=== PATIENT | male | born 1975 | race American Indian/Alaskan Native ===

== ENCOUNTER 2020-10-23 01:21 | Emergency (ER) | payer MEDICAID, SELFPAY ==
[2020-10-23 01:38] VITALS: BP 129/93; PULSE 88; RESP 16; TEMP 36.7; O2SAT 97; BMI 27.3
[2020-10-23 02:00] VITALS: BP 138/96; PULSE 69; RESP 16; TEMP 36.4; O2SAT 99
--- NOTE | 2020-10-23 02:04 | ED.GENADULT ---
HPI - General Adult General Chief complaint: General Medical Stated complaint: Bodyaches Time Seen by Provider: 10/23/20 01:50 Source: patient Mode of arrival: ambulatory Limitations: no limitations History of Present Illness HPI narrative: 44-year-old male who presents emergency department for evaluation of severe joint pain. He states that he joints in his body hurt and the pain is severe. He states the pain is a constant, burning sensation. He denies any redness or swelling of his joints. He states that he has had associated nausea and feels short of breath but denied fever, chills, cough or abdominal pain. He has not had any diarrhea, loss of sense of taste or smell. Patient states that he was tested for COVID at [facility] but he does not know the result. The patient is homeless. He has several suit cases with him. The patient has a very flat affect and answers questions in a very unusual way. He appears to be slightly paranoid especially when asked about whether not he has psychiatric illness, he states he would rather not disclose his psychiatric history to me. Related Data Allergies Allergy/AdvReac Type Severity Reaction Status Date / Time No Known Allergies Allergy Unverified 05/06/20 19:08 [No Known Allergies*] Review of Systems Review of Systems: Yes all other systems are reviewed and are negative [facility] Past Medical History [facility] Narrative: The patient denies having any medical problems but appears to be slightly paranoid and is evasive about psychiatric history. He states that he does smoke cigarettes daily, he drinks alcohol occasionally, he denies drug use. Medical History (Updated 10/23/20 @ 03:19 by Rupesh Fitzgerald MD) No known health problems Social History Social History Advance Directives: No Physical Exam Vital Signs: Vital Signs: Last Vital Signs Temp 97.6 F 10/23/20 02:00 Pulse 69 10/23/20 02:00 Resp 16 10/23/20 02:00 BP 138/96 H 10/23/20 02:00 Pulse Ox 99 10/23/20 02:00 Body Mass Index 27.3 Const: Other: Patient has a flat affect, answers questions slowly and he appears to be paranoid. General: cooperative Orientation/consciousness: oriented to person and oriented to place HENMT: Head: Yes normal to inspection, Yes normocephalic and Yes atraumatic Ears: external ears normal General nose exam: Normal external nose present Face and sinus: Yes normal facial exam Mouth: Normal oral and palatal mucosa present Throat: Yes posterior oropharynx normal Eyes: Periorbital: periorbital findings normal Eyelids: Yes eyelids normal Conjunctivae: conjunctivae normal Sclerae: sclerae normal Corneas: corneas normal Pupils: Equal, round and reactive pupils present Direct Ophthalmoscopy: normal light reflex Neck: Neck: Yes full ROM, Yes no lymphadenopathy, Yes no meningeal signs, Yes trachea midline and Yes supple Chest: Chest palpation & inspection: normal inspection of the chest and normal palpation of entire chest wall Resp: Effort & Inspection: normal respiratory effort and able to speak in complete sentences Auscultation: clear to auscultation bilaterally Cardio: Rate: regular rate Rhythm: regular rhythm Heart sounds: S1 normal heart sound present, S2 normal heart sound present and no murmurs GI: Inspection: Yes normal to inspection Palpation (GI): Soft to palpation, nontender, no guarding, not rigid and No hepatosplenomegaly present : General: Yes no CVA tenderness Back/Spine/Pelvis: Back: no CVA tenderness Cervical Spine: normal cervical lordosis Thoracic/Lumbar Spine: thoracic and lumbar spine normal to inspection Skin: Lesions: no lesions Rashes: no rashes Wounds: no wounds Neuro: General: oriented to person, oriented to place and no meningeal signs Cranial nerves: Yes CN's II-XII intact bilaterally and Yes Equal, round and reactive pupils present Cognition (Neuro): normal cognition Motor exam (neuro): 5/5 motor strength present throughout Extrem: General: Yes normal to inspection and Yes full ROM Psych: Appearance: well kempt Affect: Other affect and mood findings present (Flat affect) Attitude: cooperative Thought content: other (Patient has a strange affect and answers questions in a very unusual way) Course Course Course Narrative: 44-year-old male who presents emergency department for evaluation of joint pain x1 week, patient has no unusual affect and appears to be paranoid in answers questions in a very evasive way. I will check blood work on this patient and do a COVID-19 swab on him. 0318: The patient's CBC was normal, sedimentation rate was not elevated, chemistries revealed an elevated AST and ALT otherwise unremarkable. COVID-19 swab was negative. At this time I do not have a clear etiology for the patient's symptoms. He was advised to take ibuprofen Tylenol for his pain and he was discharged home. Medical Decision Making Lab Data Result diagrams: 10/23/20 02:28 10/23/20 02:28 Labs: Lab Results 10/23/20 10/23/20 10/23/20 Range/Units 02:28 02:28 02:28 WBC 8.3 (4.8-10.8) X10*3/uL RBC 4.95 (4.60-5.80) X10*6/uL Hgb 15.6 (14.0-18.0) g/dl Hct 46.7 (42-52) % MCV 94.3 (80-98) fL MCH 31.5 (27.0-33.0) pg MCHC 33.4 (31.0-36.0) g/dl RDW 12.8 (11.0-16.0) % Plt Count 227 (160-400) X10*3/uL MPV 10.3 (9.4-12.4) fL Immature Gran % (Auto) 0.2 (0.0-0.4) % Neut % (Auto) 63.5 (45-73) % Lymph % (Auto) 24.2 (20-40) % [place] % (Auto) 9.0 (2-11) % Eos % (Auto) 2.5 (0-4) % Baso % (Auto) 0.6 (0-2) % Lymph # (Auto) 2.0 (1.2-4.9) X10*3/uL [place] # (Auto) 0.8 (0.1-1.2) X10*3/uL Eos # (Auto) 0.2 (0.0-0.4) X10*3/uL Baso # (Auto) 0.1 (0.0-0.2) X10*3/uL Abs Immat Gran (auto) 0.02 (0.00-0.03) X10*3/uL Absolute Neuts (auto) 5.3 (2.0-8.3) X10*3/uL Absolute Nucleated RBC 0.000 (0.0-0.012) X10*3/uL Nucleated RBC % (auto) 0.0 (0.0-0.2) /100WBC ESR 2 (0-15) MM/HR Sodium 139 (135-145) mmol/L Potassium 4.0 (3.3-5.1) mmol/L Chloride 104 (96-108) mmol/L Carbon Dioxide 24 (22-29) mmol/L Anion Gap 15 (12-20) BUN 14 (9-16) mg/dL Creatinine 0.74 (0.5-1.4) mg/dL Estim Creat Clear Calc 127.3 Estimated GFR > 60 Random Glucose 104 (60-115) mg/dL Calcium 8.8 (8.4-10.2) mg/dL Total Bilirubin 0.3 (0.0-1.0) mg/dL AST 65 H (5-37) U/L ALT 121 H (0-40) U/L Alkaline Phosphatase 77 (39-117) U/L Total Protein 6.9 (6.5-8.0) g/dL Albumin 4.3 (3.5-5.0) g/dL COVID-19 (ANANT) (Negative) COVID-19 Clin Com 10/23/20 Range/Units 02:29 WBC (4.8-10.8) X10*3/uL RBC (4.60-5.80) X10*6/uL Hgb (14.0-18.0) g/dl Hct (42-52) % MCV (80-98) fL MCH (27.0-33.0) pg MCHC (31.0-36.0) g/dl RDW (11.0-16.0) % Plt Count (160-400) X10*3/uL MPV (9.4-12.4) fL Immature Gran % (Auto) (0.0-0.4) % Neut % (Auto) (45-73) % Lymph % (Auto) (20-40) % [place] % (Auto) (2-11) % Eos % (Auto) (0-4) % Baso % (Auto) (0-2) % Lymph # (Auto) (1.2-4.9) X10*3/uL [place] # (Auto) (0.1-1.2) X10*3/uL Eos # (Auto) (0.0-0.4) X10*3/uL Baso # (Auto) (0.0-0.2) X10*3/uL Abs Immat Gran (auto) (0.00-0.03) X10*3/uL Absolute Neuts (auto) (2.0-8.3) X10*3/uL Absolute Nucleated RBC (0.0-0.012) X10*3/uL Nucleated RBC % (auto) (0.0-0.2) /100WBC ESR (0-15) MM/HR Sodium (135-145) mmol/L Potassium (3.3-5.1) mmol/L Chloride (96-108) mmol/L Carbon Dioxide (22-29) mmol/L Anion Gap (12-20) BUN (9-16) mg/dL Creatinine (0.5-1.4) mg/dL Estim Creat Clear Calc Estimated GFR Random Glucose (60-115) mg/dL Calcium (8.4-10.2) mg/dL Total Bilirubin (0.0-1.0) mg/dL AST (5-37) U/L ALT (0-40) U/L Alkaline Phosphatase (39-117) U/L Total Protein (6.5-8.0) g/dL Albumin (3.5-5.0) g/dL COVID-19 (ANANT) Negative (Negative) COVID-19 Clin Com See Note Discharge Plan Discharge Clinical Impression: Joint pain Qualifiers: Joint pain location: unspecified Qualified Code(s): M25.50 - Pain in unspecified joint Additional Instructions: Your laboratory evaluation was unremarkable. Your COVID-19 test was negative. At this time I do not have a clear cause for your joint pain, it may be related to arthritis. Take ibuprofen 200 mg pills, 3 pills every 6 hours as needed for pain. Take Tylenol (acetaminophen) 500 mg pills, 2 pills every 4 to 6 hours as needed for pain. Follow-up with your doctor in 2 days. Please return to the emergency department if your symptoms get worse or if you develop any symptoms that are concerning to you.
[2020-10-23] MEDS: Acetaminophen 325 MG TABLET 975 MG PO (02:14)
[2020-10-23 02:33] LABS: MANUAL DIFF FLAG NO
[2020-10-23 02:35] LABS: Basophils Absolute Auto 0.1 X10*3/uL (0.0-0.2); Basophils Percent Auto 0.6 % (0-2); Eosinophils Absolute Auto 0.2 X10*3/uL (0.0-0.4); Eosinophils Percent Auto 2.5 % (0-4); Hematocrit 46.7 % (42-52); Hemoglobin 15.6 g/dl (14.0-18.0); Imm Gran Abs Auto 0.02 X10*3/uL (0.00-0.03); Imm Gran Pct Auto 0.2 % (0.0-0.4); Lymphocytes Percent Auto 24.2 % (20-40); Mean Corpuscular HGB Conc 33.4 g/dl (31.0-36.0); Mean Corpuscular Hemoglobin 31.5 pg (27.0-33.0); Mean Corpuscular Volume 94.3 fL (80-98); Mean Platelet Volume 10.3 fL (9.4-12.4); Monocytes Absolute Auto 0.8 X10*3/uL (0.1-1.2); Neutrophils Absolute Auto 5.3 X10*3/uL (2.0-8.3); Neutrophils Percent Auto 63.5 % (45-73); Platelet Count 227 X10*3/uL (160-400); Red Blood Count 4.95 X10*6/uL (4.60-5.80); Red Cell Distribution Width 12.8 % (11.0-16.0); White Blood Count 8.3 X10*3/uL (4.8-10.8)
[2020-10-23 02:48] LABS: COVID-19 Test Negative (Negative)
[2020-10-23 03:07] LABS: Erythrocyte Sedimentation Rate 2 MM/HR (0-15)
[2020-10-23 03:10] LABS: Alanine Aminotransferase 121 U/L (0-40); Albumin Level 4.3 g/dL (3.5-5.0); Alkaline Phosphatase 77 U/L (39-117); Anion Gap 15 (12-20); Aspartate Amino Transferase 65 U/L (5-37); Bilirubin Total 0.3 mg/dL (0.0-1.0); Blood Urea Nitrogen 14 mg/dL (9-16); Calcium 8.8 mg/dL (8.4-10.2); Carbon Dioxide 24 mmol/L (22-29); Chloride 104 mmol/L (96-108); Creatinine Clr Calc Pharmacy 127.3; Estimated Glomerular Filt Rate > 60; Glucose Random 104 mg/dL (60-115); Sodium 139 mmol/L (135-145); Total Protein 6.9 g/dL (6.5-8.0)
== END 2020-10-23 03:30 | disposition home or self-care (01) ==
PROVIDERS: Emergency Provider Emergency Medicine Emergency Medical Services
DX: M25.50 Pain in unspecified joint (principal); Z20.822 Contact with and (suspected) exposure to COVID-19; Z59.0 Homelessness
CPT/HCPCS: 36415; 80053; 85025; 85652; 87635; 99283

== ENCOUNTER 2021-07-20 04:22 | Emergency (ER) | payer MEDICAID, SELFPAY ==
[2021-07-20 04:37] VITALS: BP 129/65; PULSE 106; RESP 18; TEMP 36.7; O2SAT 98; BMI 25.7
--- NOTE | 2021-07-20 05:29 | PC.NURSE ---
pt given a hot cup of coffee and a sandwhich and snack.
--- NOTE | 2021-07-20 06:06 | ED.GENADULT ---
HPI - General Adult General Chief complaint: General Medical Stated complaint: right hand lac/inj Time Seen by Provider: 07/20/21 06:06 Source: patient Mode of arrival: ambulatory History of Present Illness HPI narrative: 45-year-old male is homeless presents with superficial, minor laceration to right middle finger without erythema or edema and denies any fever chills inability to move the digit. Related Data Allergies Allergy/AdvReac Type Severity Reaction Status Date / Time No Known Allergies Allergy Verified 07/20/21 04:37 [No Known Allergies*] Review of Systems Review of Systems: Pertinent positives and negatives as stated in HPI 10 point review of systems is otherwise negative. PMFSH Past Medical History Source: nursing notes reviewed Medical History No known health problems Social History Social History Advance Directives: No Advance Directives Information Provided: Yes Physical Exam Vital Signs: Vital Signs: Last Vital Signs Temp 98.1 F 07/20/21 04:37 Pulse 106 H 07/20/21 04:37 Resp 18 07/20/21 04:37 BP 129/65 07/20/21 04:37 Pulse Ox 98 07/20/21 04:37 Body Mass Index 25.7 VITAL SIGNS: Reviewed. GENERAL: Well developed, well nourished, in no acute distress. HEAD: Normocephalic/atraumatic EYES: PERRLA, EOMI OROPHARYNX: no oral lesions noted, posterior pharynx clear LUNGS: Normal breath sounds. No adventitious sounds or accessory muscle use. SpO2<98> CARDIOVASCULAR: Regular rate and rhythm without noted murmurs ABDOMEN: Soft, non-tender, non-distended with bowel sounds. RIGHT HAND: Small, minor, superficial laceration to edge middle finger nailbed without surrounding erythema/induration, all fingers are warm with good capillary refill NEUROLOGIC: Alert and oriented x 4. Course Course Course Narrative: 45-year-old male with history and clinical presentation consistent with minor injury that does not require either radiographic testing or intervention with sutures and has no evidence to demonstrate infection. Patient's feet were also checked found to be warm with good capillary refill and no evidence of skin breakdown, blisters. Patient received food while here in the emergency and then he was discharged in stable condition. Discharge Plan Discharge Clinical Impression: Superficial laceration Patient Disposition: Home, Self-Care Instructions: Finger Laceration (ED) Additional Instructions: Return to the ER for worsening symptoms.
== END 2021-07-20 06:53 | disposition home or self-care (01) ==
PROVIDERS: Emergency Provider Student in an Organized Health Care Education/Training Program
DX: S61.212A Laceration without foreign body of right middle finger without damage to nail, initial encounter (principal); X58.XXXA Exposure to other specified factors, initial encounter; Y93.9 Activity, unspecified; Y92.9 Unspecified place or not applicable; Y99.9 Unspecified external cause status
CPT/HCPCS: 99283

== ENCOUNTER 2022-06-09 15:16 | Emergency (ER) | payer MEDICAID, SELFPAY ==
--- NOTE | ~2022-06-09 | XR_ITS ---
EXAMINATION: XR CHEST CLINICAL INFORMATION: Cough. COMPARISON: None TECHNIQUE: 2 views of the chest were obtained. FINDINGS: Normal appearance of the cardiomediastinal structures. No effusions or pneumothoraces. Normal pattern of pulmonary vasculature. No focal pulmonary consolidation. XR/XR chest 2V IMPRESSION: No acute cardiopulmonary abnormalities.
[2022-06-09 15:44] VITALS: BP 128/79; PULSE 71; RESP 18; TEMP 36.9; O2SAT 99; BMI 25.7
--- NOTE | 2022-06-09 17:41 | ED_ITS ---
HPI - General Adult General Chief complaint: Upper Respiratory Symptoms Stated complaint: nasal congestion Time Seen by Provider: 06/09/22 17:32 Source: patient History of Present Illness HPI narrative: This is a 46-year-old male who complains of nasal congestion and cough for 2-3 days. The patient does admit to smoking, though not heavily. He denies shortness of breath. He is a somewhat vague historian. He denies any sore throat, headache, abdominal pain, nausea vomiting. Related Data Allergies Allergy/AdvReac Type Severity Reaction Status Date / Time No Known Allergies Allergy Verified 07/20/21 04:37 [No Known Allergies*] Review of Systems Review of Systems: Yes all other systems are reviewed and are negative Constitutional: Constitutional: Reports as per HPI and Denies fever(s) Eyes: Eyes: Reports as per HPI and Reports no additional eye complaints ENT: Reports system reviewed and no additional complaints, except as documented, Reports as per HPI, Reports nasal congestion, Reports nasal discharge and Denies sore throat Cardiovascular: Cardiovascular: Reports as per HPI, Denies chest pain and Denies dyspnea Respiratory: Respiratory: Reports as per HPI, Reports cough and Denies dyspnea Gastrointestinal: Gastrointestinal: Reports as per HPI, Denies abdominal pain, Denies diarrhea and Denies vomiting Genitourinary: Genitourinary: Reports as per HPI, Denies hematuria, Denies dysuria and Denies urinary frequency Musculoskeletal: Musculoskeletal: Reports no additional musculoskeletal complaints and Denies numbness Integumentary/Breasts: Skin/Breast: Reports as per HPI and Denies rash Neurologic: Reports as per HPI, Denies focal weakness and Denies numbness Psychiatric: Psychiatric: Reports no additional psychiatric complaints and Reports as per HPI Endocrine: Endocrine: Reports no additional endocrine complaints and Reports as per HPI Hematologic/Lymphatic: Hematologic/Lymphatic: Reports no additional hematologic/lymphatic complaints, Reports as per HPI and Reports other (No peripheral edema) [facility] [place] Past Medical History Medical History No known health problems Social History Social History Advance Directives: No Advance Directives Information Provided: Yes Physical Exam ED Vital Signs: Vital Signs - 24 hr 06/09/22 15:44 Temperature 98.4 F Pulse Rate 71 Respiratory Rate 18 Blood Pressure 128/79 Pulse Oximetry 99 Oxygen Delivery Method Room Air BMI result Body Mass Index 25.7 Const General: no acute distress Orientation/consciousness: patient oriented x3 HENMT Head: Yes normal to inspection General nose exam: Normal external nose present Mouth: moist mucous membranes Throat: Yes posterior oropharynx normal, Yes tonsils normal and Yes uvula midline Eyes Eyelids: Yes eyelids normal Conjunctivae: conjunctivae normal Pupils: Equal, round and reactive pupils present Neck Neck: Yes supple Resp Effort & Inspection: normal respiratory effort Auscultation: clear to auscultation bilaterally Cardio Rate: regular rate Rhythm: regular rhythm Heart sounds: S1 normal heart sound present, S2 normal heart sound present, no gallops, no murmurs and no rubs GI Inspection: No distended Palpation (GI): Soft to palpation and nontender Auscultation: normal bowel sounds Skin General skin exam: other (Warm and dry) Neuro General: patient oriented x3 and CN's II-XI intact bilaterally Cranial nerves: Yes Equal, round and reactive pupils present Extrem General: Yes no pedal edema Psych Affect: normal affect Attitude: cooperative Medical Decision Making [facility] [place] Narrative Medical decision making narrative: Patient with a likely viral syndrome, with URI symptoms and a cough. Chest x- ray negative. COVID and influenza negative. Patient can be treated symptomatically. Lab Data Lab results reviewed: Yes I reviewed the patient's lab results. Labs: Lab Results 06/09/22 06/09/22 Range/Units 17:32 17:32 COVID-19 (ANANT) Negative (Negative) COVID-19 Clin Com See Note Influenza Type A (CAROLYN) Negative (Negative) Influenza Type B (CAROLYN) Negative (Negative) Influenza A & B Note See Note Imaging Data Chest x-ray: My impression: No acute pathology. No infiltrate, normal cardiac silhouette. Discharge Plan Discharge Clinical Impression: Upper respiratory infection Patient Disposition: Home, Self-Care Instructions: Upper Respiratory Infection (ED) Additional Instructions: Your COVID test was negative, influenza test was negative, and your chest x-ray was normal. Use acetaminophen for pain. You can use [id number] cough medicine such as Robitussin DM for cough and cold symptoms Interventions: ED Discharge Assessment Last Done: 06/09/22 18:59 Discharge Date/Time: 06/09/22 19:00
[2022-06-09 17:55] LABS: COVID-19 Test Negative (Negative); IDNOW Serial# 16C4AD1C; Influenza A Negative (Negative); Influenza B2 Negative (Negative)
== END 2022-06-09 19:00 | disposition home or self-care (01) ==
PROVIDERS: Emergency Provider Emergency Medicine
DX: J06.9 Acute upper respiratory infection, unspecified (principal); R05.9 Cough, unspecified; Z20.822 Contact with and (suspected) exposure to COVID-19
CPT/HCPCS: 71046; 87502; 87635; 99282; 99283

== ENCOUNTER 2022-09-11 19:07 | Emergency (ER) | payer MEDICAID, SELFPAY ==
[2022-09-11 19:24] VITALS: BP 118/71; PULSE 58; RESP 18; TEMP 36.2; O2SAT 95; BMI 22.0
--- NOTE | 2022-09-11 19:24 | ED_ITS ---
HPI - General Adult General Stated complaint: missed Methadone dose Time Seen by Provider: 09/11/22 19:24 Source: patient Mode of arrival: ambulatory Limitations: no limitations History of Present Illness HPI narrative: 46 yo male with history of opioid use disorder on methadone, currently in a slow taper who presents to the ER after he missed his methadone dose today. He states his clinic was closed today due to the inclement weather. He feels uncomfortable and reports some anxiety. He reports some uncomfortable digestion today but denies N/V/D. No SOB or chest pain. He is going into a CSS program at [facility] tomorrow with plan to continue to taper off of methadone. last illicit drug use was 5 months ago. complaint: missed methadone dose Onset (ago): hour(s) Location: abdomen Radiation: non-radiation Severity: mild Quality: aching Relieving factors: none Exacerbating factors: none Associated symptoms: denies other symptoms Treatments prior to arrival: none Related Data Allergies Allergy/AdvReac Type Severity Reaction Status Date / Time No Known Allergies Allergy Verified 09/11/22 19:26 [No Known Allergies*] Review of Systems Review of Systems: Yes all other systems are reviewed and are negative PMFSH Past Medical History Medical History No known health problems Physical Exam ED Appearance: Alert. Oriented X3. No acute distress. HEENT: normal external inspection Neck: Normal inspection. CVS: Normal heart rate and rhythm. Respiratory: No respiratory distress. Breath sounds normal. Skin: Skin warm and dry. Normal skin color. Normal skin turgor. No rashes. Extremities: No lower extremity edema. Neuro: Oriented X 3. Grossly normal, nonfocal. normal speech and cognition Course Course Course Narrative: 46 yo male with history of opioid use disorder on methadone presents after he missed a dose today. Reports dose is 35 mg with plan to continue to taper off at [facility]. VSS. Patient is appropriate in triage. Will dose 35 mg and provide last dose letter for verification purposes at his clinic tomorrow. Medical Decision Making Differential Diagnosis Differential Diagnoses: The differential diagnosis associated with the presentation includes opioid use disorder, polysubstance abuse, opioid withdrawal, IVDA, anxiety, gastroenteritis External Record Review External record reviewed: Outpatient record and Prior outpatient labs Prescription Management I considered prescription management with: Other methadone x1 here Chronic Conditions Patient?s care impacted by: Other (substance abuse ) Critical Care Time Critical Care Time Critical Care Time: No Discharge Plan Discharge Clinical Impression: Opioid use disorder Patient Disposition: Home, Self-Care Instructions: Opioid Use Disorder (ED) Additional Instructions: You were last given your methadone dose of 35 mg on 09/11/22 at 7:30pm. Follow up with your clinic tomorrow.
[2022-09-11] MEDS: methADONE HCl 20 MG/2 ML ORAL.CONC 35 MG PO (19:31)
== END 2022-09-11 19:37 | disposition home or self-care (01) ==
LOC: HO.ED 19:37
PROVIDERS: Emergency Provider Emergency Medicine
DX: F11.20 Opioid dependence, uncomplicated (principal)
CPT/HCPCS: 99282; 99283

== ENCOUNTER 2022-10-03 08:25 | Emergency (ER) | payer MEDICAID, SELFPAY ==
[2022-10-03 08:32] VITALS: BP 151/75; PULSE 68; RESP 18; TEMP 36.2; O2SAT 98; BMI 22.1
[2022-10-03 09:23] LABS: IDNOW Serial# 9DB6401D; Influenza A Negative (Negative); Influenza B2 Negative (Negative)
[2022-10-03 09:37] LABS: COVID-19 Test Negative (Negative); IDNOW Serial# 08D9AD1C
--- NOTE | 2022-10-03 09:40 | ED_ITS ---
HPI - URI/Sore Throat General Chief Complaint: Upper Respiratory Symptoms Stated Complaint: Fatigue/Concerned about blood sugar Time Seen by Provider: 10/03/22 09:39 Source: patient Mode of arrival: ambulatory Limitations: no limitations History of Present Illness HPI Narrative: 46 yo male presenting to the ER from home for evaluation of new onset of headaches, sinus pressure, runny nose and body aches that started this morning when he woke up at 8am. He felt fine when he went to bed last night except for some fatigue. He denies any chest pain, SOB, cough, N/V/D or abdominal pain. MD elicited complaint: rhinorrhea, nasal congestion and sinus pain Onset (ago): hour(s) Consistency: constant Severity: moderate Description of mucous: clear and watery Able to tolerate fluids by mouth: Yes Exacerbating factors: nothing Relieving factors: nothing Associated symptoms: chills, myalgias, headache, rhinorrhea and nasal congestion Treatments prior to arrival: none Related Data Allergies Allergy/AdvReac Type Severity Reaction Status Date / Time No Known Allergies Allergy Verified 10/03/22 08:35 [No Known Allergies*] Review of Systems Review of Systems: Yes all other systems are reviewed and are negative [facility] Past Medical History Medical History No known health problems Social History Social History Advance Directives: No Advance Directives Information Provided: Yes Physical Exam Vital Signs: Vital Signs: Last Vital Signs Temp 97.1 F 10/03/22 08:32 Pulse 68 10/03/22 08:32 Resp 18 10/03/22 08:32 BP 151/75 H 10/03/22 08:32 Pulse Ox 98 10/03/22 08:32 O2 Del Method 10/03/22 08:32 BMI result Body Mass Index 22.1 Appearance: Alert. Oriented X3. No acute distress. Eyes: Pupils equal, round and reactive to light. ENT: Pharynx normal. Normal tonsil, uvula midline. normal nares, clear nasal discharge Neck: Normal inspection. Neck supple. No LAD. CVS: Normal heart rate and rhythm. Pulses normal. Respiratory: No respiratory distress. Breath sounds normal. Skin: Skin warm and dry. Normal skin color. Normal skin turgor. No rashes. Extremities: No lower extremity edema. Neuro: Oriented X 3. nonfocal. Course Course Course Narrative: 46 yo male presenting for evaluation of URI symptoms that started this morning. VSS and physical exam is benign. COVID and Flu are negative. Doubt bacterial sinusitis. Hold off on abx and have him start OTC decongestants and cold/flu meds. Discussed symptomatic management of viral illnesses. Stable for d/c home. Medical Decision Making Differential Diagnosis Differential Diagnoses: The differential diagnosis associated with the presenta tion includes sinusitis, viral syndrome, COVID, Flu, RSV, less likely pneumonia, bronchitis Lab Data MDM Lab Attestation statement: I reviewed the patient's lab results. negative viral swabs Labs: Lab Results 10/03/22 10/03/22 Range/Units 08:37 08:37 COVID-19 (ANANT) Negative (Negative) COVID-19 Clin Com See Note Influenza Type A (CAROLYN) Negative (Negative) Influenza Type B ([facility]) Negative (Negative) Influenza A & B Note See Note External Record Review External record reviewed: Outpatient record, Prior outpatient labs and Prior outpatient radiology Prescription Management I considered prescription management with: Antibiotic doubt sinusitis given acute onset, hold off on abx for now Critical Care Time Critical Care Time Critical Care Time: No Discharge Plan Discharge Clinical Impression: Viral URI with cough Patient Disposition: Home, Self-Care Instructions: Viral Syndrome (ED) Additional Instructions: You tested negative for COVID and Influenza. Your symptoms are due to another viral illness. Treatment is rest and supportive care - take over the counter cold/flu medications as needed for your symptoms. Take motrin and tylenol as needed for headaches and fevers. Rest and stay hydrated. Drink plenty of water. Follow up with your doctor If you develop new or worsening symptoms call 911 or come back to the ER for further evaluation. Stand Alone Forms: Work/School Release Interventions: ED Discharge Assessment Last Done: 10/03/22 10:00 Discharge Date/Time: 10/03/22 10:03
--- NOTE | 2022-10-03 09:45 | PC.NURSE ---
c/o cold symptoms. No resp distress at this time. Appears congested. no audible cough. COVID/FLU negative. awaiting to be seen by provider.
== END 2022-10-03 10:03 | disposition home or self-care (01) ==
PROVIDERS: Emergency Provider Emergency Medicine
DX: J06.9 Acute upper respiratory infection, unspecified (principal); Z20.822 Contact with and (suspected) exposure to COVID-19; Z20.828 Contact with and (suspected) exposure to other viral communicable diseases; Z79.899 Other long term (current) drug therapy
CPT/HCPCS: 87502; 87635; 99282; 99283

== ENCOUNTER 2022-10-08 19:17 | Inpatient (IN) | payer MEDICAID, OTHER, SELFPAY ==
[2022-10-08 20:11] VITALS: BP 110/68; PULSE 58; RESP 16; TEMP 36.7; O2SAT 99; BMI 21.0
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
[2022-10-08] MEDS: LORazepam 1 MG TABLET PO (21:07)
[2022-10-08 21:49] LABS: COVID-19 Test Negative (Negative); IDNOW Serial# 6674DD1D
[2022-10-08 23:13] LABS: Appearance Urine Cloudy; Color Urine Yellow; Glucose Urine UA Negative (Negative); Leukocyte Esterase Urine Negative (Negative); Nitrite Urine Negative (Negative); UMIC TRIGGER UACC YES; Urine Blood Negative (Negative); Urine Ketones Negative (Negative); Urine Protein 100 (2+) mg/dL (Neg-Trace)
[2022-10-08 23:14] LABS: Bacteria Urine None Seen (None Seen); Calcium Oxalate Crystals Urine Present; WBC Urine 0-5 /HPF (0-5)
[2022-10-08] MEDS: Nicotine 21 MG PATCH.TD24 TRANSDERMA (23:28)
--- NOTE | 2022-10-08 23:37 | PC.NURSE ---
This nurse took over at 23:00. Nursing assessment 23:42: Pt's Nu[place], and cardiac assessment was completed. Pt denies being SI/HI at the time of the assessment. Pt V/S are stable, pt's labs is being worked on due to pt is hard stick. Pt has been medicated as order by the [facility]. Please referral to the worklist for further information. KRISTIN Polo
[2022-10-08 23:45] VITALS: BP 115/76; PULSE 67; RESP 16; TEMP 36.7; O2SAT 96
--- NOTE | 2022-10-09 | ECG_ITS ---
Test Reason : CHECK QT INTERVAL Blood Pressure : / mmHG Vent. Rate : 076 BPM Atrial Rate : 076 BPM P-R Int : 146 ms QRS Dur : 076 ms QT Int : 372 ms P-R-T Axes : 035 085 060 degrees QTc Int : 418 ms Normal sinus rhythm Normal ECG No previous ECGs available Referred By: Chetan Magallon Electronically Signed By:SHAYAN WONG
[2022-10-09 00:11] LABS: Basophils Percent Auto 0.3 % (0-2); Hemoglobin 14.4 g/dl (14.0-18.0); Imm Gran Abs Auto 0.02 X10*3/uL (0.00-0.03); Imm Gran Pct Auto 0.2 % (0.0-0.4); PLT CLUMP 1; Red Cell Distribution Width 13.2 % (11.0-16.0); SCAN SMEAR FLAG 1
[2022-10-09 00:13] LABS: Eosinophils Absolute Auto 0.1 X10*3/uL (0.0-0.4); Eosinophils Percent Auto 0.8 % (0-4); Hematocrit 43.4 % (42.0-52.0); Lymphocytes Absolute Auto 3.1 X10*3/uL (1.2-4.9); Lymphocytes Percent Auto 32.4 % (20-40); MANUAL DIFF FLAG NO; Mean Corpuscular HGB Conc 33.2 g/dl (31.0-36.0); Mean Corpuscular Hemoglobin 30.5 pg (27.0-33.0); Mean Corpuscular Volume 91.9 fL (80.0-98.0); Mean Platelet Volume 11.1 fL (9.4-12.4); Monocytes Absolute Auto 0.9 X10*3/uL (0.1-1.2); Monocytes Percent Auto 9.6 % (2-11); Neutrophils Absolute Auto 5.5 x10*3/uL (2.0-8.3); Neutrophils Percent Auto 56.7 % (45-73); Red Blood Count 4.72 X10*6/uL (4.60-5.80); White Blood Count 9.7 X10*3/uL (4.8-10.8)
[2022-10-09 00:42] LABS: Alanine Aminotransferase 119 U/L (0-40); Albumin Level 3.7 g/dL (3.5-5.0); Alkaline Phosphatase 73 U/L (39-117); Anion Gap 12 (12-20); Aspartate Amino Transferase 61 U/L (5-37); Bilirubin Total 0.4 mg/dL (0.0-1.0); Blood Urea Nitrogen 14 mg/dL (9-16); Calcium 9.1 mg/dL (8.4-10.2); Carbon Dioxide 23 mmol/L (22-29); Chloride 108 mmol/L (96-108); Creatinine Clr Calc Pharmacy 106.4; Estimated Glomerular Filt Rate > 60; Ethanol < 10 mg/dL; Glucose Random 131 mg/dL (60-115); Magnesium 2.3 mg/dL (1.6-2.6); Potassium 4.4 mmol/L (3.3-5.1); Sodium 139 mmol/L (135-145); Total Protein 6.5 g/dL (6.5-8.0)
[2022-10-09 01:14] LABS: Amphetamine Screen Urine Not Detected (Not Detect); Barbiturates, Urine Not Detected (Not Detect); Benzodiazepines Screen Urine Not Detected (Not Detect); Cannabinoid Screen Urine Not Detected (Not Detect); Cocaine Screen Urine Not Detected (Not Detect); Fentanyl, urine POSITIVE (Not Detect); Opiate Screen Urine Not Detected (Not Detect); Phencyclidine Screen Urine Not Detected (Not Detect)
[2022-10-09] MEDS: LORazepam 1 MG TABLET PO (03:32)
--- NOTE | 2022-10-09 04:09 | PC.NURSE ---
Pt has been medicated as order by the [facility], and food was provided.
[2022-10-09 09:53] VITALS: BP 138/95; PULSE 72; RESP 12; TEMP 36.8; O2SAT 98
--- NOTE | 2022-10-09 12:35 | MHC.CARE ---
Pt seen by [facility]ARE and is meeting inpatient level of care, he is pending transfer to [facility].
--- NOTE | 2022-10-10 01:33 | PC.ADMIT ---
Pt is a 46yoM admitted from [facility] on CV for unspecified psychosis. Pt self presented to ED for evaluation stating he had used dopamine and subsequently collapsed after being administered narcan ; Utox +fentanyl. Pt is a poor historian, guarded, irritable, and disorganized. He states he is a and lost his papers and therefore cannot access his benefits. Pt is perseverative on the department of [email or web address] and the [place] Constitution, stating my name is in the Bill of Rights. If my finance and administration manager calls, tell him to get my documentation to the treasury and you can't give me a roommate, it's against the law . Pt was unable to participate in admission assessment due to mental status.
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
[2022-10-10 09:21] LABS: Alanine Aminotransferase 122 U/L (0-40); Albumin Level 3.6 g/dL (3.5-5.0); Alkaline Phosphatase 69 U/L (39-117); Anion Gap 10 (12-20); Aspartate Amino Transferase 70 U/L (5-37); Bilirubin Total 0.3 mg/dL (0.0-1.0); Blood Urea Nitrogen 16 mg/dL (9-16); Calcium 9.4 mg/dL (8.4-10.2); Carbon Dioxide 26 mmol/L (22-29); Chloride 107 mmol/L (96-108); Cholesterol 153 mg/dL; Creatinine Clr Calc Pharmacy 128.1; Estimated Glomerular Filt Rate > 60; Glucose Fasting 82 mg/dL (60-99); HDL Cholesterol 55 mg/dL; LDL Cholesterol Calculated 80 mg/dl; Potassium 4.4 mmol/L (3.3-5.1); Sodium 139 mmol/L (135-145); Total Protein 6.3 g/dL (6.5-8.0); Triglycerides 91 mg/dL
[2022-10-10 09:52] LABS: Folate 9.5 ng/mL (> or = 4.0); Thyroid Stimulating Hormone 0.55 uIU/mL (0.32-4.0); Vitamin B12 395 pg/mL (200-900)
--- NOTE | 2022-10-10 12:44 | PC.NURSE ---
Pt demanded to leave and asked what do I need to sign to get me out of here. RN explained that he can sign a 3-day notice which means he can be discharged within 3 business days if the doctor is in agreement. Pt then became agitated and said no I know it's not 3 days, it's 3 hours. I went to school you know. Pt is under the impression that he's supposed to leave within 3 hours, provider and SW aware.
[2022-10-10] MEDS: HaloperidoL 5 MG TABLET PO (14:35)
[2022-10-10] MEDS: Benztropine Mesylate 1 MG TABLET PO (14:36)
[2022-10-11] MEDS: HaloperidoL 5 MG TABLET PO (08:28)
[2022-10-11] MEDS: Benztropine Mesylate 1 MG TABLET PO (08:28)
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
[2022-10-11 09:23] VITALS: BP 158/94; PULSE 79; RESP 18; TEMP 36.8; O2SAT 99
== END 2022-10-11 10:55 | disposition home or self-care (01) | DRG 750 ==
LOC: HO.ED 10-09 12:29 → HO.PADLT16 10-09 18:47
PROVIDERS: Physician Assistant; Admitting Provider Social Worker; Emergency Provider Emergency Medicine; Visit Provider Social Worker
DX: F20.9 Schizophrenia, unspecified (principal); Z59.02 Unsheltered homelessness; Z20.822 Contact with and (suspected) exposure to COVID-19
CPT/HCPCS: 36415; 80053; 80061; 80307; 81001; 81003; 82077; 82607; 82746; 83735; 84443; 85025; 87635; 93005; 99285; S9485

== ENCOUNTER 2022-11-12 04:31 | Emergency (ER) | payer MEDICAID, SELFPAY ==
--- NOTE | ~2022-11-12 | XR_ITS ---
EXAMINATION: XR CHEST CLINICAL INFORMATION: Cough. Evaluate for aspiration pneumonia. COMPARISON: 06/09/2022 TECHNIQUE: 2 views of the chest were obtained. FINDINGS: Lungs are hypoinflated. No acute findings. No consolidation or pleural effusion. Cardiac silhouette is normal size and contour. Pulmonary vascular pattern is unremarkable. No acute skeletal abnormality. XR/XR chest 2V IMPRESSION: No evidence of aspiration pneumonia.
[2022-11-12 04:45] VITALS: BP 128/87; BP 136/93; PULSE 105; PULSE 97; RESP 10; O2SAT 98; O2SAT 99; BMI 22.8
[2022-11-12 04:52] LABS: Glucose, Whole Blood 114 mg/dL (60-115)
--- NOTE | 2022-11-12 04:54 | ED_ITS ---
HPI - Overdose General Chief Complaint: Overdose Stated Complaint: OPIOID OD,NARCAN GIVEN BY PD W/GOOD RESULT PER EMS Time Seen by Provider: 11/12/22 04:53 Source: EMS Mode of arrival: EMS Limitations: altered mental status History of Present Illness HPI Narrative: 46-year-old male presents with overdose of opioids. He was found with a needle in his arm. Sepsis was not entirely known. Found unresponsive. Patient was administered Narcan with improvement in symptoms. Upon transfer, he was hemodynamically stable, tachycardic. There is no blood sugar obtained. He demonstrated no focal neurologic deficits. Was able to maintain his airway. He mumbled apple throughout his ambulance ride. Patient is unable to provide history given medical condition Related Data Previous Rx's Medication Instructions Recorded benztropine 1 mg tablet 1 mg PO DAILY #30 tabs 10/11/22 haloperidol 5 mg tablet 5 mg PO DAILY #30 tabs 10/11/22 Allergies Allergy/AdvReac Type Severity Reaction Status Date / Time No Known Allergies Allergy Verified 10/03/22 08:35 [No Known Allergies*] [facility] Past Medical History Medical History No known health problems Social History Social History Household Members: None Housing: Homeless Do you presently have visiting nurse or other home services: No Unable to assess alcohol history related to: Unknown and Refusing to respond Patient Tobacco Use Status: Refuse Tobacco use screen Sexual orientation: Don't Know Physical Exam Vital Signs: Vital Signs: Last Vital Signs Pulse 99 11/12/22 05:36 Resp 14 11/12/22 05:36 BP 121/64 11/12/22 05:36 Pulse Ox 94 11/12/22 05:36 O2 Del Method Room Air 11/12/22 05:36 BMI result Body Mass Index 22.8 GEN: Well developed, alert HEENT: Normocephalic, atraumatic, normal external ears, nose appears normal, no oropharyngeal edema or exudates Eyes: Normal to appearance Neck: Supple, no lymphadenopathy Respiratory: no respiratory distress, clear to auscultation bilaterally Cardiovascular: Regular rate and rhythm, no murmurs rubs or gallops Abdomen: Soft, nontender, nondistended, no guarding, no rebound Back: No CVA tenderness Extremities: No clubbing cyanosis or edema Neurologic: No focal neurologic deficits Skin: No rash Course Course Course Narrative: 46-year-old male presents with an overdose. Unclear with this is accidental or not. Patient is not yet coherent enough to ask this question. More likely than not this was accidental. He is currently being observed continuous pulse ox patient has no focal neurologic deficits. Unable to obtain history from patient Reevaluation(s) Reevaluation #1: Patient appears to be intoxicated still. Will write a prescription for Narcan to take home. Transition of care to incoming reamers department at approximately 6:30 a.m. this morning. Time: 06:20 Medical Decision Making Medical Decision Making MDM Narrative: 46-year-old male presents with overdose. Unclear whether this was accidental or not. Patient is unable to provide history at this time. After Narcan, patient is able to maintain airway. Will continue monitor closely and reassess patient once he is able to converse with us. Lab Data MDM Lab Attestation statement: I reviewed the patient's lab results. 11/12/22 05:27 11/12/22 05:27 Labs: Lab Results 11/12/22 11/12/22 11/12/22 Range/Units 04:45 05:27 05:27 WBC 8.0 (4.8-10.8) X10*3/uL RBC 4.61 (4.60-5.80) X10*6/uL Hgb 14.0 (14.0-18.0) g/dl Hct 43.1 (42.0-52.0) % MCV 93.5 (80.0-98.0) fL MCH 30.4 (27.0-33.0) pg MCHC 32.5 (31.0-36.0) g/dl RDW 14.0 (11.0-16.0) % Plt Count TNP MPV 10.5 (9.4-12.4) fL Immature Gran % (Auto) 0.3 (0.0-0.4) % Neut % (Auto) 67.8 (45-73) % Lymph % (Auto) 18.5 L (20-40) % [place] % (Auto) 12.8 H (2-11) % Eos % (Auto) 0.3 (0-4) % Baso % (Auto) 0.3 (0-2) % Lymph # (Auto) 1.5 (1.2-4.9) X10*3/uL [place] # (Auto) 1.0 (0.1-1.2) X10*3/uL Eos # (Auto) 0.0 (0.0-0.4) X10*3/uL Baso # (Auto) 0.0 (0.0-0.2) X10*3/uL Abs Immat Gran (auto) 0.02 (0.00-0.03) X10*3/uL Absolute Neuts (auto) 5.4 (2.0-8.3) x10*3/uL Absolute Nucleated RBC 0.000 (0.0-0.012) X10*3/uL Nucleated RBC % (auto) 0.0 (0.0-0.2) /100WBC Smear Tech's Comments VERIFIED Sodium 139 (135-145) mmol/L Potassium 4.7 (3.3-5.1) mmol/L Chloride 104 (96-108) mmol/L Carbon Dioxide 23 (22-29) mmol/L Anion Gap 17 (12-20) BUN 21 H (9-16) mg/dL Creatinine 0.97 (0.5-1.4) mg/dL Estim Creat Clear Calc 97.0 Estimated GFR > 60 POC Glucose 114 (60-115) mg/dL Random Glucose 108 (60-115) mg/dL Calcium 8.9 (8.4-10.2) mg/dL Ethyl Alcohol < 10 mg/dL Independent Historian Clinical information obtained from an independent historian. History obtained from or confirmed by: EMS Discharge Plan Discharge Clinical Impression: Drug overdose Patient Disposition: Still a Patient Instructions: Naloxone (Into the nose), Adult Overdose (ED) Prescriptions: No Action haloperidol 5 mg Tablet 5 mg PO DAILY Qty: 30 0RF benztropine 1 mg Tablet 1 mg PO DAILY Qty: 30 0RF Referrals: June Winter [Emergency Nurse] -
[2022-11-12 05:36] VITALS: BP 121/64; PULSE 99; RESP 14; O2SAT 94
[2022-11-12 05:40] LABS: Basophils Percent Auto 0.3 % (0-2); Eosinophils Percent Auto 0.3 % (0-4); Hematocrit 43.1 % (42.0-52.0); Imm Gran Abs Auto 0.02 X10*3/uL (0.00-0.03); Imm Gran Pct Auto 0.3 % (0.0-0.4); Lymphocytes Absolute Auto 1.5 X10*3/uL (1.2-4.9); Lymphocytes Percent Auto 18.5 % (20-40); MANUAL DIFF FLAG SCAN; Mean Corpuscular HGB Conc 32.5 g/dl (31.0-36.0); Mean Corpuscular Hemoglobin 30.4 pg (27.0-33.0); Mean Corpuscular Volume 93.5 fL (80.0-98.0); Mean Platelet Volume 10.5 fL (9.4-12.4); Monocytes Percent Auto 12.8 % (2-11); Neutrophils Absolute Auto 5.4 x10*3/uL (2.0-8.3); Neutrophils Percent Auto 67.8 % (45-73); PLT CLUMP 1; Red Blood Count 4.61 X10*6/uL (4.60-5.80); SCAN SMEAR FLAG 1
[2022-11-12 05:59] LABS: Anion Gap 17 (12-20); Blood Urea Nitrogen 21 mg/dL (9-16); Calcium 8.9 mg/dL (8.4-10.2); Carbon Dioxide 23 mmol/L (22-29); Chloride 104 mmol/L (96-108); Estimated Glomerular Filt Rate > 60; Ethanol < 10 mg/dL; Glucose Random 108 mg/dL (60-115); Potassium 4.7 mmol/L (3.3-5.1); SLIDE REVIEW VERIFIED; Sodium 139 mmol/L (135-145)
--- NOTE | 2022-11-12 07:30 | PC.NURSE ---
[facility] [place]
[2022-11-12 07:43] VITALS: BP 114/71; PULSE 90; RESP 11; TEMP 37.6; O2SAT 91
--- NOTE | 2022-11-12 08:06 | PC.NURSE ---
Resumed care of patient this morning, he was awake in bed, resting comfortably, he was no oriented to location or date, only self. He was unable to hold a conversation without falling back asleep. Denies pain, stable on RA.
--- NOTE | 2022-11-12 09:01 | PC.NURSE ---
PT ALERT TO SELF, PLACE. PT REQUESTED SOMETHING TO DRINK. QUINN AND CRACKERS GIVEN, PT SWALLOWED WITHOUT DIFFICULTY. REQUESTS BUS PASS FOR WHEN HE IS DISCHARGED.
[2022-11-12] MEDS: Naloxone HCl Nasal TAKE HOME 4 MG SPRAY NOSTRILALT (09:02)
[2022-11-12 10:00] VITALS: BP 97/62; PULSE 71; RESP 15; TEMP 37.1; O2SAT 95
[2022-11-12 10:03] LABS: Amphetamine Screen Urine Not Detected (Not Detect); Barbiturates, Urine Not Detected (Not Detect); Benzodiazepines Screen Urine Not Detected (Not Detect); Cannabinoid Screen Urine Not Detected (Not Detect); Cocaine Screen Urine POSITIVE (Not Detect); Fentanyl, urine POSITIVE (Not Detect); Opiate Screen Urine POSITIVE (Not Detect); Phencyclidine Screen Urine Not Detected (Not Detect)
--- NOTE | 2022-11-12 10:58 | PC.NURSE ---
pt cleared for discharge. narcan given to take home and pt education how to administer. pt given bus pass and snack per his request. he was escorted to [facility] to pear picker his clothes.
[2022-11-12 11:01] VITALS: BP 104/67; PULSE 72; O2SAT 96
== END 2022-11-12 10:50 | disposition home or self-care (01) ==
PROVIDERS: Emergency Provider Emergency Medicine
DX: T40.1X1A Poisoning by heroin, accidental (unintentional), initial encounter (principal); R05.9 Cough, unspecified; Y92.9 Unspecified place or not applicable; Z79.899 Other long term (current) drug therapy; Z71.51 Drug abuse counseling and surveillance of drug abuser
CPT/HCPCS: 36415; 71046; 80048; 80307; 82077; 82947; 85025; 99284

== ENCOUNTER 2023-03-02 21:24 | Emergency (ER) | payer OTHER, SELFPAY ==
[2023-03-02 21:41] VITALS: BP 118/70; PULSE 60; RESP 18; TEMP 36.7; O2SAT 96; BMI 20.7
[2023-03-03 02:08] VITALS: BP 132/71; PULSE 50; RESP 18; TEMP 37.4; O2SAT 98
[2023-03-03 03:02] LABS: MANUAL DIFF FLAG NO
[2023-03-03 03:06] LABS: Basophils Percent Auto 0.6 % (0-2); Eosinophils Absolute Auto 0.4 X10*3/uL (0.0-0.4); Hematocrit 41.4 % (42.0-52.0); Hemoglobin 13.3 g/dl (14.0-18.0); Imm Gran Abs Auto 0.01 X10*3/uL (0.00-0.03); Imm Gran Pct Auto 0.2 % (0.0-0.4); Lymphocytes Absolute Auto 2.1 X10*3/uL (1.2-4.9); Lymphocytes Percent Auto 32.3 % (20-40); Mean Corpuscular HGB Conc 32.1 g/dl (31.0-36.0); Mean Corpuscular Hemoglobin 30.5 pg (27.0-33.0); Mean Platelet Volume 10.5 fL (9.4-12.4); Monocytes Absolute Auto 0.7 X10*3/uL (0.1-1.2); Monocytes Percent Auto 11.2 % (2-11); Neutrophils Absolute Auto 3.3 x10*3/uL (2.0-8.3); Neutrophils Percent Auto 49.7 % (45-73); Platelet Count 215 X10*3/uL (160-400); Red Blood Count 4.36 X10*6/uL (4.60-5.80); Red Cell Distribution Width 13.2 % (11.0-16.0); White Blood Count 6.6 X10*3/uL (4.8-10.8)
[2023-03-03 03:19] LABS: Lactic Acid 0.8 mmol/L (0.5-2.0)
[2023-03-03 03:23] LABS: Alanine Aminotransferase 65 U/L (0-40); Albumin Level 3.4 g/dL (3.5-5.0); Alkaline Phosphatase 85 U/L (39-117); Anion Gap 12 (12-20); Aspartate Amino Transferase 62 U/L (5-37); Bilirubin Total 0.4 mg/dL (0.0-1.0); Blood Urea Nitrogen 11 mg/dL (9-16); Calcium 9.3 mg/dL (8.4-10.2); Carbon Dioxide 28 mmol/L (22-29); Chloride 107 mmol/L (96-108); Creatinine Clr Calc Pharmacy 124.2; Estimated Glomerular Filt Rate > 60; Glucose Random 84 mg/dL (60-115); Potassium 3.5 mmol/L (3.3-5.1); Sodium 143 mmol/L (135-145); Total Protein 6.6 g/dL (6.5-8.0)
--- NOTE | 2023-03-03 03:35 | ED.WOUNDLAC ---
HPI - Wound/Laceration General Chief Complaint: Wound/Laceration Stated Complaint: abscess Time Seen by Provider: 03/03/23 03:35 Source: patient Mode of arrival: ambulatory Limitations: no limitations History of Present Illness HPI narrative: patient states he has an abscess in his perineum. patient had noted them for 3-4 days. Onset (ago): day(s) Related Data Previous Rx's Medication Instructions Recorded benztropine 1 mg tablet 1 mg PO DAILY #30 tabs 10/11/22 haloperidol 5 mg tablet 5 mg PO DAILY #30 tabs 10/11/22 Allergies Allergy/AdvReac Type Severity Reaction Status Date / Time No Known Allergies Allergy Verified 03/02/23 21:40 [No Known Allergies*] PMFSH Past Medical History Medical History No known health problems Social History Social History Household Members: None Housing: Homeless Do you presently have visiting nurse or other home services: No Unable to assess alcohol history related to: Unknown and Refusing to respond Alcohol intake: former Patient Tobacco Use Status: Refuse Tobacco use screen Smoked in Last 30 Days: No Substance Use Type: Crack/Cocaine Advance Directives: No Advance Directives Information Provided: Yes Sexual orientation: Don't Know Physical Exam Vital Signs: Vital Signs: Last Vital Signs Temp 97.8 F 03/03/23 03:51 Pulse 52 03/03/23 03:51 Resp 16 03/03/23 03:51 BP 154/91 H 03/03/23 03:51 Pulse Ox 98 03/03/23 03:51 O2 Del Method Room Air 03/03/23 03:51 BMI result Body Mass Index 20.7 Medications Administered Discontinued Medications Generic Name Dose Route Start Last Admin Trade Name Freq PRN Reason Stop Dose Admin Lidocaine/Epinephrine 10 ml 03/03/23 03:42 03/03/23 04:06 Lidocaine Hcl 1%/Epi 1:100,000 10 Ml Vial SUBCUT 03/03/23 03:43 10 ml ONCE ONE Administration Medical Decision Making Differential Diagnosis Differential Diagnoses: The differential diagnosis associated with the presentation includes (abscess, cellulitis, candidiasis and sepsis were all considered) Admission/Observation Consideration of admission/observation: Escalation of care including admission/observation considered (upon arrival this male with schizophrenia and homelessness was considered for admission) Lab Data MDM Lab Attestation statement: I reviewed the patient's lab results. (normal WBC, normal lactic acid, chronic elevation of lfts) 03/03/23 02:50 03/03/23 02:50 Labs: Lab Results 03/03/23 03/03/23 03/03/23 Range/Units 02:50 02:50 02:50 WBC 6.6 (4.8-10.8) X10*3/uL RBC 4.36 L (4.60-5.80) X10*6/uL Hgb 13.3 L (14.0-18.0) g/dl Hct 41.4 L (42.0-52.0) % MCV 95.0 (80.0-98.0) fL MCH 30.5 (27.0-33.0) pg MCHC 32.1 (31.0-36.0) g/dl RDW 13.2 (11.0-16.0) % Plt Count 215 (160-400) X10*3/uL MPV 10.5 (9.4-12.4) fL Immature Gran % (Auto) 0.2 (0.0-0.4) % Neut % (Auto) 49.7 (45-73) % Lymph % (Auto) 32.3 (20-40) % [place] % (Auto) 11.2 H (2-11) % Eos % (Auto) 6.0 H (0-4) % Baso % (Auto) 0.6 (0-2) % Lymph # (Auto) 2.1 (1.2-4.9) X10*3/uL [place] # (Auto) 0.7 (0.1-1.2) X10*3/uL Eos # (Auto) 0.4 (0.0-0.4) X10*3/uL Baso # (Auto) 0.0 (0.0-0.2) X10*3/uL Abs Immat Gran (auto) 0.01 (0.00-0.03) X10*3/uL Absolute Neuts (auto) 3.3 (2.0-8.3) x10*3/uL Absolute Nucleated RBC 0.000 (0.0-0.012) X10*3/uL Nucleated RBC % (auto) 0.0 (0.0-0.2) /100WBC Sodium 143 (135-145) mmol/L Potassium 3.5 D (3.3-5.1) mmol/L Chloride 107 (96-108) mmol/L Carbon Dioxide 28 (22-29) mmol/L Anion Gap 12 (12-20) BUN 11 (9-16) mg/dL Creatinine 0.66 (0.5-1.4) mg/dL Estim Creat Clear Calc 124.2 Estimated GFR > 60 Random Glucose 84 (60-115) mg/dL Lactic Acid 0.8 (0.5-2.0) mmol/L Calcium 9.3 (8.4-10.2) mg/dL Total Bilirubin 0.4 (0.0-1.0) mg/dL AST 62 H (5-37) U/L ALT 65 H (0-40) U/L Alkaline Phosphatase 85 (39-117) U/L Total Protein 6.6 (6.5-8.0) g/dL Albumin 3.4 L (3.5-5.0) g/dL Tests considered The following testing was considered but not selected: blood cultures were considered but patient with no evidence of sepsis. Ultrasound was considered but lfts are chronically elevated. Prescription Management I considered prescription management with: Antibiotic (were considered but no evidence of cellulitis) Chronic Conditions Patient?s care impacted by: Other (schizophrenia and homelessnes) Social Determinants Patient?s care significantly limited by Social Determinants of Health including: Inadequate housing, Low income and Unemployment Procedures Procedure Narrative Procedure Narrative: Patient prepped and draped in sterile fashion. !% epi with lidocaine used for anesthesia. 11 blade used, pus removed, packing placed. Patient tolerated procedure well Discharge Plan Discharge Clinical Impression: Abscess Patient Disposition: Home, Self-Care Prescriptions: No Action haloperidol 5 mg Tablet 5 mg PO DAILY Qty: 30 0RF benztropine 1 mg Tablet 1 mg PO DAILY Qty: 30 0RF
[2023-03-03 03:51] VITALS: BP 154/91; PULSE 52; RESP 16; TEMP 36.6; O2SAT 98
--- NOTE | 2023-03-03 03:54 | MHC.EDTECH ---
This tech assumed care of pt at 0300, Vitals taken and pt is refusing to get second blood cultures at this time pt is upset because he stated we took to much blood and he hasn't eaten anything. RN and aware
[2023-03-03] MEDS: Lidocaine HCl 1%/Epi 1:100,000 10 ML VIAL SUBCUT (04:06)
--- NOTE | 2023-03-03 04:09 | MHC.EDTECH ---
Patient was given vic crackers and string cheese, with a can of gingerale.
[2023-03-03 05:42] VITALS: BP 131/80; PULSE 50; RESP 16; TEMP 37; O2SAT 98
--- NOTE | 2023-03-03 05:43 | MHC.EDTECH ---
Vitals updated and assisted with a I&D procedure,pt tolerated procedure well.
== END 2023-03-03 06:28 | disposition home or self-care (01) ==
PROVIDERS: Emergency Provider Emergency Medicine
DX: L02.215 Cutaneous abscess of perineum (principal); F20.9 Schizophrenia, unspecified; Z79.899 Other long term (current) drug therapy
CPT/HCPCS: 10060; 36415; 80053; 83605; 85025; 87040; 99284

== ENCOUNTER 2023-04-16 04:10 | Emergency (ER) | payer OTHER, SELFPAY ==
[2023-04-16 04:21] VITALS: BP 100/63; PULSE 94; RESP 18; TEMP 37.1; O2SAT 94; BMI 24.2
[2023-04-16 07:55] LABS: MANUAL DIFF FLAG NO
[2023-04-16 07:57] LABS: Basophils Percent Auto 0.5 % (0-2); Eosinophils Absolute Auto 0.3 X10*3/uL (0.0-0.4); Eosinophils Percent Auto 3.2 % (0-4); Hematocrit 38.3 % (42.0-52.0); Hemoglobin 12.8 g/dl (14.0-18.0); Imm Gran Abs Auto 0.03 X10*3/uL (0.00-0.03); Imm Gran Pct Auto 0.3 % (0.0-0.4); Lymphocytes Absolute Auto 2.3 X10*3/uL (1.2-4.9); Mean Corpuscular HGB Conc 33.4 g/dl (31.0-36.0); Mean Corpuscular Hemoglobin 31.1 pg (27.0-33.0); Mean Corpuscular Volume 93.2 fL (80.0-98.0); Mean Platelet Volume 10.5 fL (9.4-12.4); Monocytes Absolute Auto 1.5 X10*3/uL (0.1-1.2); Monocytes Percent Auto 17.1 % (2-11); Neutrophils Absolute Auto 4.6 x10*3/uL (2.0-8.3); Neutrophils Percent Auto 52.9 % (45-73); Platelet Count 169 X10*3/uL (160-400); Red Blood Count 4.11 X10*6/uL (4.60-5.80); Red Cell Distribution Width 13.9 % (11.0-16.0); White Blood Count 8.6 X10*3/uL (4.8-10.8)
--- NOTE | 2023-04-16 08:05 | ED.GENADULT ---
HPI - General Adult General Chief complaint: General Medical Stated complaint: foot pain Time Seen by Provider: 04/16/23 07:17 Source: patient and RN notes reviewed Mode of arrival: ambulatory Limitations: no limitations History of Present Illness HPI narrative: This is a 47-year-old male presenting to the emergency department for evaluation of bilateral foot pain x5 days. Patient denies any recent trauma or injury. He admits that he is homeless and have stool walk for prolonged periods of time. He also reports that his feet and socks remained to be moist. He states that he has had similar symptoms in the past. He denies any fevers or chills, he is otherwise feeling okay. No other complaints or concerns at this time. MD complaint: Bilateral foot pain Onset (ago): day(s) Location: lower extremity Radiation: non-radiation Pain Consistency: constant Relieving factors: none Exacerbating factors: none Associated symptoms: denies other symptoms Treatments prior to arrival: none Related Data Previous Rx's Medication Instructions Recorded benztropine 1 mg tablet 1 mg PO DAILY #30 tabs 10/11/22 haloperidol 5 mg tablet 5 mg PO DAILY #30 tabs 10/11/22 nystatin 100,000 unit/gram topical 1 appl topical BID #60 grams 03/03/23 powder amoxicillin 875 mg-potassium 1 tab PO BID 7 days #14 tabs 04/16/23 clavulanate 125 mg tablet nystatin 100,000 unit/gram topical 1 appl topical TID #60 grams 04/16/23 powder Allergies Allergy/AdvReac Type Severity Reaction Status Date / Time No Known Allergies Allergy Verified 03/02/23 21:40 [No Known Allergies*] Review of Systems Review of Systems: Yes all other systems are reviewed and are negative Constitutional: Constitutional: Reports as per [facility] Past Medical History Medical History No known health problems Social History Social History Household Members: None Housing: Homeless Do you presently have visiting nurse or other home services: No Unable to assess alcohol history related to: Unknown and Refusing to respond Alcohol intake: former Patient Tobacco Use Status: Refuse Tobacco use screen Substance Use Type: Crack/Cocaine Advance Directives: No Advance Directives Information Provided: Yes Sexual orientation: Don't Know Physical Exam ED Vital Signs: Vital Signs - 24 hr 04/16/23 04:21 Temperature 98.7 F Pulse Rate 94 Respiratory Rate 18 Blood Pressure 100/63 Pulse Oximetry 94 Oxygen Delivery Method Room Air BMI result Body Mass Index 24.2 Const General: cooperative, comfortable and no acute distress Orientation/consciousness: patient oriented x3 Limitations: no limitations HENMT Head: Yes normal to inspection, Yes normocephalic and Yes atraumatic Ears: hearing grossly normal bilaterally General nose exam: Normal external nose present Face and sinus: Yes normal facial exam Mouth: Normal oral and palatal mucosa present, oropharynx normal and moist mucous membranes Throat: Yes posterior oropharynx normal Eyes General: appearance normal, both eyes and all related structures Eyelids: Yes eyelids normal Conjunctivae: conjunctivae normal Sclerae: sclerae normal Pupils: Equal, round and reactive pupils present EOM: EOMs intact bilaterally Neck Neck: Yes normal visual inspection, Yes full ROM and Yes no lymphadenopathy Lymphatic: no lymphadenopathy noted Chest Chest palpation & inspection: normal inspection of the chest Resp Effort & Inspection: normal respiratory effort and able to speak in complete sentences Auscultation: clear to auscultation bilaterally, no crackles, no rales, no rhonchi and no wheezes Cardio Rate: regular rate Rhythm: regular rhythm Heart sounds: S1 normal heart sound present and S2 normal heart sound present GI Inspection: Yes normal to inspection Skin Other: Bilateral dorsum of the feet are moist, with scattered erythematous macular papular rash with skin breakdown noted. Tender to palpation. No surrounding erythema or edema. DP pulses 2+. Full range of motion of the ankle and digits without difficulty. Trauma: no lacerations or abrasions Neuro General: patient oriented x3 and moves all extremities Cranial nerves: Yes Equal, round and reactive pupils present Extrem General: Yes normal to inspection Right upper extremity: normal to inspection Left upper extremity: normal to inspection Course Reevaluation(s) Reevaluation #1: Patient has no leukocytosis, stable H&H, chemistry with mildly elevated liver enzymes, patient has no abdominal symptoms. Has a history of hepatitis C untreated. Given workup today, will treat for underlying skin infection with antibiotics and antifungal powder. Educated the importance of keeping feet clean and dry. Also advise patient to get a new pair shoes or at least dry out sneakers has his sneakers are very moist today. Patient understands and agrees with plan. He was given breakfast, as well as a shower. Given strict return precautions if any new or worsening symptoms occur. Patient understands and agrees with plan. Patient stable for discharge. Time: 09:16 Medical Decision Making Medical Decision Making [facility] Narrative: 47-year-old male presenting to the emergency department complaints of bilateral foot pain x 5 days. Patient denies any recent trauma or injury, he admits that he is homeless and often times walks for prolonged periods of time. On arrival, vital signs within normal limits. Exam with mild skin breakdown and moist feet noted. No surrounding erythema or edema. Differential diagnoses include cellulitis, tinea pedis, trench foot. Plan: Obtain basic labs Differential Diagnosis Differential Diagnoses: The differential diagnosis associated with the presentation includes See above Lab Data [facility] Lab Attestation statement: I reviewed the patient's lab results. No leukocytosis, H&H similar to previous ER visit. 04/16/23 07:49 04/16/23 07:49 Labs: Lab Results 04/16/23 04/16/23 Range/Units 07:49 07:49 WBC 8.6 (4.8-10.8) X10*3/uL RBC 4.11 L (4.60-5.80) X10*6/uL Hgb 12.8 L (14.0-18.0) g/dl Hct 38.3 L (42.0-52.0) % MCV 93.2 (80.0-98.0) fL MCH 31.1 (27.0-33.0) pg MCHC 33.4 (31.0-36.0) g/dl RDW 13.9 (11.0-16.0) % Plt Count 169 (160-400) X10*3/uL MPV 10.5 (9.4-12.4) fL Immature Gran % (Auto) 0.3 (0.0-0.4) % Neut % (Auto) 52.9 (45-73) % Lymph % (Auto) 26.0 (20-40) % [place] % (Auto) 17.1 H (2-11) % Eos % (Auto) 3.2 (0-4) % Baso % (Auto) 0.5 (0-2) % Lymph # (Auto) 2.3 (1.2-4.9) X10*3/uL [place] # (Auto) 1.5 H (0.1-1.2) X10*3/uL Eos # (Auto) 0.3 (0.0-0.4) X10*3/uL Baso # (Auto) 0.0 (0.0-0.2) X10*3/uL Abs Immat Gran (auto) 0.03 (0.00-0.03) X10*3/uL Absolute Neuts (auto) 4.6 (2.0-8.3) x10*3/uL Absolute Nucleated RBC 0.000 (0.0-0.012) X10*3/uL Nucleated RBC % (auto) 0.0 (0.0-0.2) /100WBC Sodium 139 (135-145) mmol/L Potassium 3.9 (3.3-5.1) mmol/L Chloride 102 (96-108) mmol/L Carbon Dioxide 31 H (22-29) mmol/L Anion Gap 10 L (12-20) BUN 14 (9-16) mg/dL Creatinine 0.70 (0.5-1.4) mg/dL Estim Creat Clear Calc 130.4 Estimated GFR > 60 Random Glucose 97 (60-115) mg/dL Calcium 8.9 (8.4-10.2) mg/dL Total Bilirubin 1.0 (0.0-1.0) mg/dL Direct Bilirubin 0.4 (0.0-0.5) mg/dL AST 108 H (5-37) U/L ALT 131 H (0-40) U/L Alkaline Phosphatase 71 (39-117) U/L Total Protein 6.7 (6.5-8.0) g/dL Albumin 3.6 (3.5-5.0) g/dL Social Determinants Patient?s care significantly limited by Social Determinants of Health including: Inadequate housing, Low income, Alcoholism and drug addiction in family and Unemployment Discharge Plan Discharge Clinical Impression: Cellulitis, Tinea pedis, Trench foot Patient Disposition: Home, Self-Care Instructions: Athlete's Foot (ED), Cellulitis (ED), Skin Yeast Infection (ED) Additional Instructions: Please take prescribed antibiotic in use nystatin powder as directed. Please keep your feet clean and dry. Keep socks and shoes dry. If any new or worsening symptoms occur, including but not limited to worsening pain, redness, fevers or chills, please return for re-evaluation. Prescriptions: New nystatin 100,000 unit/gram powder 1 appl topical TID Qty: 60 0RF amoxicillin-pot clavulanate 875-125 mg tablet 1 tab PO BID 7 Days Qty: 14 0RF No Action haloperidol 5 mg Tablet 5 mg PO DAILY Qty: 30 0RF benztropine 1 mg Tablet 1 mg PO DAILY Qty: 30 0RF nystatin 100,000 unit/gram powder 1 appl topical BID Qty: 60 0RF
[2023-04-16 08:30] LABS: Alanine Aminotransferase 131 U/L (0-40); Albumin Level 3.6 g/dL (3.5-5.0); Alkaline Phosphatase 71 U/L (39-117); Anion Gap 10 (12-20); Aspartate Amino Transferase 108 U/L (5-37); Bilirubin Direct 0.4 mg/dL (0.0-0.5); Blood Urea Nitrogen 14 mg/dL (9-16); Calcium 8.9 mg/dL (8.4-10.2); Carbon Dioxide 31 mmol/L (22-29); Chloride 102 mmol/L (96-108); Creatinine Clr Calc Pharmacy 130.4; Estimated Glomerular Filt Rate > 60; Glucose Random 97 mg/dL (60-115); Potassium 3.9 mmol/L (3.3-5.1); Sodium 139 mmol/L (135-145); Total Protein 6.7 g/dL (6.5-8.0)
== END 2023-04-16 10:09 | disposition home or self-care (01) ==
PROVIDERS: Physician Assistant Medical; Emergency Provider Emergency Medicine
DX: L03.115 Cellulitis of right lower limb (principal); L03.116 Cellulitis of left lower limb; Z79.899 Other long term (current) drug therapy
CPT/HCPCS: 36415; 80048; 80076; 85025; 99282; 99283

== ENCOUNTER 2023-04-27 20:04 | Emergency (ER) | payer OTHER, SELFPAY ==
[2023-04-27 20:13] VITALS: BP 115/78; PULSE 55; RESP 18; TEMP 36.2; O2SAT 95; BMI 19.2
--- NOTE | 2023-04-27 20:15 | ED_ITS ---
HPI - General Adult General Chief complaint: General Medical Stated complaint: back pain, bi lateral feet pain Related Data Previous Rx's Medication Instructions Recorded benztropine 0.5 mg tablet 0.5 mg PO DAILY 30 days #30 tabs 08/02/23 escitalopram oxalate 10 mg tablet 10 mg PO DAILY 30 days #30 tabs 08/02/23 haloperidol 5 mg tablet 5 mg PO DAILY 30 days #30 tabs 08/02/23 hydroxyzine HCl 25 mg tablet 25 mg PO BID PRN Anxiety 30 days 08/02/23 #60 tabs methadone 10 mg/mL oral 30 mg (3 mL) PO DAILY@0630 #0 mL 08/02/23 concentrate (Methadose) silver sulfadiazine 1 % topical 1 appl topical DAILY 2 days #20 08/02/23 cream grams Allergies Allergy/AdvReac Type Severity Reaction Status Date / Time No Known Allergies Allergy Verified 07/25/23 06:05 [No Known Allergies*] PMFSH Past Medical History Medical History IV drug user Hepatitis C Social History Social History Household Members: None Household Members Other:: homeless Housing: Homeless Do you presently have visiting nurse or other home services: No Unable to assess alcohol history related to: Refusing to respond Alcohol intake: current Alcohol intake frequency: 3 or more drinks per day Patient Tobacco Use Status: Refuse Tobacco use screen Cigarette Packs Per Day: 1 Cigarettes Per Day: 20.0 Smoked in Last 30 Days: Yes Patient Given Instructions on How to Stop Smoking: No Second Hand Smoke Exposure: Yes Use of substances other than those prescribed or required for medical reasons: Yes Substance Use Type: Heroin Last Used Substance: Just Prior to Admission Currently Displaying Signs/Symptoms of Drug Intoxication Withdrawal: No Any prior treatment program specific to substance use: Yes Spiritual Healthcare Practices: none reported [facility] Healthcare Practices: none reported Cultural Healthcare Practices: none reported Advance Directives: No Advance Directives Information Provided: No Healthcare Proxy: No Guardian: No Do you have thoughts of harming others: None Do you have a plan to hurt others: No Plan Recently lost weight without trying: Unsure How much weight loss: Unsure Eating poorly because of decreased appetite: No Nutrition screen score: 4 Nutrition Risks: No Nutritional Risk Poor oral hygiene: Yes service: No Sexual orientation: Straight/Heterosexual Physical Exam ED Vital Signs: BMI result Body Mass Index 19.2 Course Course Course Narrative: RME- 47 year old male presents for evaluation of bilateral foot pain. He was seen here on 04/16/23 for cellulitis and was prescribed augmentin and nystatin powder. He complains of being homeless and constantly walking in wet shoes. Plan for repeat labs Medical Decision Making Lab Data 04/27/23 21:28 04/27/23 21:28 Labs: Lab Results 04/27/23 Range/Units 21:28 WBC 4.1 L (4.8-10.8) X10*3/uL RBC 4.32 L (4.60-5.80) X10*6/uL Hgb 13.3 L (14.0-18.0) g/dl Hct 40.7 L (42.0-52.0) % MCV 94.2 (80.0-98.0) fL MCH 30.8 (27.0-33.0) pg MCHC 32.7 (31.0-36.0) g/dl RDW 14.5 (11.0-16.0) % Plt Count 187 (160-400) X10*3/uL MPV 9.9 (9.4-12.4) fL Immature Gran % (Auto) 0.2 (0.0-0.4) % Neut % (Auto) 43.0 L (45-73) % Lymph % (Auto) 42.5 H (20-40) % [place] % (Auto) 12.6 H (2-11) % Eos % (Auto) 1.5 (0-4) % Baso % (Auto) 0.2 (0-2) % Lymph # (Auto) 1.8 (1.2-4.9) X10*3/uL [place] # (Auto) 0.5 (0.1-1.2) X10*3/uL Eos # (Auto) 0.1 (0.0-0.4) X10*3/uL Baso # (Auto) 0.0 (0.0-0.2) X10*3/uL Abs Immat Gran (auto) 0.01 (0.00-0.03) X10*3/uL Absolute Neuts (auto) 1.8 L (2.0-8.3) x10*3/uL Absolute Nucleated RBC 0.000 (0.0-0.012) X10*3/uL Nucleated RBC % (auto) 0.0 (0.0-0.2) /100WBC Sodium 140 (135-145) mmol/L Potassium 3.8 (3.3-5.1) mmol/L Chloride 105 (96-108) mmol/L Carbon Dioxide 30 H (22-29) mmol/L Anion Gap 9 L (12-20) BUN 13 (9-16) mg/dL Creatinine 0.75 (0.5-1.4) mg/dL Estim Creat Clear Calc 101.5 Estimated GFR > 60 Random Glucose 98 (60-115) mg/dL Lactic Acid 0.9 (0.5-2.0) mmol/L Calcium 8.6 (8.4-10.2) mg/dL Total Bilirubin 0.4 (0.0-1.0) mg/dL AST 92 H (5-37) U/L ALT 100 H (0-40) U/L Alkaline Phosphatase 70 (39-117) U/L Total Protein 6.6 (6.5-8.0) g/dL Albumin 3.5 (3.5-5.0) g/dL Lipase 21 (8-78) U/L Ethyl Alcohol < 10 mg/dL Discharge Plan Discharge Clinical Impression: Back pain Patient Disposition: Elopement Prescriptions: No Action methadone [Methadose] 10 mg/mL Concentrate 30 mg PO DAILY@0630 Qty: 0 0RF Rx Instructions: Partial Fill upon patient request. escitalopram oxalate 10 mg Tablet 10 mg PO DAILY 30 Days Qty: 30 0RF haloperidol 5 mg Tablet 5 mg PO DAILY 30 Days Qty: 30 0RF benztropine 0.5 mg Tablet 0.5 mg PO DAILY 30 Days Qty: 30 0RF hydroxyzine HCl 25 mg Tablet 25 mg PO BID PRN (Reason: Anxiety) 30 Days Qty: 60 0RF silver sulfadiazine 1 % Cream 1 appl topical DAILY 2 Days Qty: 20 0RF Discharge Date/Time: 04/28/23 00:56
[2023-04-27 21:35] LABS: Basophils Percent Auto 0.2 % (0-2); Eosinophils Absolute Auto 0.1 X10*3/uL (0.0-0.4); Eosinophils Percent Auto 1.5 % (0-4); Hematocrit 40.7 % (42.0-52.0); Hemoglobin 13.3 g/dl (14.0-18.0); Imm Gran Abs Auto 0.01 X10*3/uL (0.00-0.03); Imm Gran Pct Auto 0.2 % (0.0-0.4); Lymphocytes Absolute Auto 1.8 X10*3/uL (1.2-4.9); Lymphocytes Percent Auto 42.5 % (20-40); MANUAL DIFF FLAG NO; Mean Corpuscular HGB Conc 32.7 g/dl (31.0-36.0); Mean Corpuscular Hemoglobin 30.8 pg (27.0-33.0); Mean Corpuscular Volume 94.2 fL (80.0-98.0); Mean Platelet Volume 9.9 fL (9.4-12.4); Monocytes Absolute Auto 0.5 X10*3/uL (0.1-1.2); Monocytes Percent Auto 12.6 % (2-11); Neutrophils Absolute Auto 1.8 x10*3/uL (2.0-8.3); Platelet Count 187 X10*3/uL (160-400); Red Blood Count 4.32 X10*6/uL (4.60-5.80); Red Cell Distribution Width 14.5 % (11.0-16.0); White Blood Count 4.1 X10*3/uL (4.8-10.8)
[2023-04-27 21:45] LABS: Lactic Acid 0.9 mmol/L (0.5-2.0)
[2023-04-27 21:50] LABS: Alanine Aminotransferase 100 U/L (0-40); Albumin Level 3.5 g/dL (3.5-5.0); Alkaline Phosphatase 70 U/L (39-117); Anion Gap 9 (12-20); Aspartate Amino Transferase 92 U/L (5-37); Bilirubin Total 0.4 mg/dL (0.0-1.0); Blood Urea Nitrogen 13 mg/dL (9-16); Calcium 8.6 mg/dL (8.4-10.2); Carbon Dioxide 30 mmol/L (22-29); Chloride 105 mmol/L (96-108); Creatinine Clr Calc Pharmacy 101.5; Estimated Glomerular Filt Rate > 60; Ethanol < 10 mg/dL; Glucose Random 98 mg/dL (60-115); Lipase 21 U/L (8-78); Potassium 3.8 mmol/L (3.3-5.1); Sodium 140 mmol/L (135-145); Total Protein 6.6 g/dL (6.5-8.0)
== END 2023-04-28 00:56 | disposition left against medical advice (07) ==
PROVIDERS: Physician Assistant; Emergency Provider Emergency Medicine
DX: M79.672 Pain in left foot (principal); M79.671 Pain in right foot; Z59.00 Homelessness unspecified; Z79.899 Other long term (current) drug therapy
CPT/HCPCS: 36415; 80053; 80307; 83605; 83690; 85025; 87040; 99281; 99283

== ENCOUNTER 2023-05-17 19:37 | Emergency (ER) | payer OTHER, SELFPAY | END 2023-05-17 20:14 | disposition left against medical advice (07) | LOC: HO.ED 20:15 | PROVIDERS: Emergency Provider Emergency Medicine | DX: F19.90 Other psychoactive substance use, unspecified, uncomplicated (principal) ==

== ENCOUNTER 2023-06-27 22:47 | Emergency (ER) | payer OTHER, SELFPAY ==
[2023-06-27 23:05] VITALS: BP 140/81; PULSE 68; RESP 18; TEMP 36.8; O2SAT 99; BMI 20.7
[2023-06-27 23:31] LABS: Basophils Percent Auto 0.4 % (0-2); Eosinophils Absolute Auto 0.2 X10*3/uL (0.0-0.4); Eosinophils Percent Auto 2.9 % (0-4); Hematocrit 40.5 % (42.0-52.0); Hemoglobin 13.3 g/dl (14.0-18.0); Imm Gran Abs Auto 0.01 X10*3/uL (0.00-0.03); Imm Gran Pct Auto 0.1 % (0.0-0.4); Lymphocytes Absolute Auto 1.9 X10*3/uL (1.2-4.9); Lymphocytes Percent Auto 24.9 % (20-40); MANUAL DIFF FLAG NO; Mean Corpuscular HGB Conc 32.8 g/dl (31.0-36.0); Mean Corpuscular Hemoglobin 31.1 pg (27.0-33.0); Mean Corpuscular Volume 94.8 fL (80.0-98.0); Mean Platelet Volume 9.6 fL (9.4-12.4); Monocytes Percent Auto 13.1 % (2-11); Neutrophils Absolute Auto 4.4 x10*3/uL (2.0-8.3); Neutrophils Percent Auto 58.6 % (45-73); Platelet Count 276 X10*3/uL (160-400); Red Blood Count 4.27 X10*6/uL (4.60-5.80); Red Cell Distribution Width 12.8 % (11.0-16.0); White Blood Count 7.6 X10*3/uL (4.8-10.8)
[2023-06-27 23:39] LABS: Lactic Acid 0.7 mmol/L (0.5-2.0)
[2023-06-27 23:44] LABS: Alanine Aminotransferase 112 U/L (0-40); Albumin Level 3.6 g/dL (3.5-5.0); Alkaline Phosphatase 86 U/L (39-117); Anion Gap 11 (12-20); Aspartate Amino Transferase 87 U/L (5-37); Bilirubin Total 0.4 mg/dL (0.0-1.0); Blood Urea Nitrogen 12 mg/dL (9-16); Carbon Dioxide 29 mmol/L (22-29); Chloride 104 mmol/L (96-108); Creatinine Clr Calc Pharmacy 94.2; Estimated Glomerular Filt Rate > 60; Glucose Random 112 mg/dL (60-115); Potassium 3.9 mmol/L (3.3-5.1); Sodium 140 mmol/L (135-145); Total Protein 7.1 g/dL (6.5-8.0)
[2023-06-27 23:48] LABS: Appearance Urine Cloudy; Color Urine Yellow; Glucose Urine UA Negative (Negative); Leukocyte Esterase Urine Negative (Negative); Nitrite Urine Negative (Negative); PH 7.5 (5.0-9.0); Specific Gravity - Urine 1.015 (1.005-1.025); Urine Blood Negative (Negative); Urine Ketones Negative (Negative); Urine Protein Negative (Neg-Trace)
--- NOTE | 2023-06-27 23:48 | ED.SKABFB ---
HPI - Skin/Abscess/Foreign Bdy General Chief complaint: General Medical Stated complaint: LT foot infection, Detox Time Seen by Provider: 06/27/23 23:26 Source: patient Mode of arrival: ambulatory Limitations: no limitations History of Present Illness HPI narrative: 47 yo male IVDA and schizophrenia who injects into the L foot now with 4 days of redness and pain to L foot. He denies fevers, chills, n/v/d. He is requesting detox placement as well. He doesn't care where he goes. He cannot decide what MAT therapy he wants. No SI MD complaint: rash and lesion Onset (ago): day(s) (4) Tetanus up to date: yes Location: L foot Severity: severe Quality: aching Pain Consistency: constant Relieving factors: rest Exacerbating factors: movement Context: IVDA Associated symptoms: denies other symptoms Treatments prior to arrival: none Related Data Previous Rx's Medication Instructions Recorded benztropine 1 mg tablet 1 mg PO DAILY #30 tabs 10/11/22 haloperidol 5 mg tablet 5 mg PO DAILY #30 tabs 10/11/22 nystatin 100,000 unit/gram topical 1 appl topical BID #60 grams 03/03/23 powder amoxicillin 875 mg-potassium 1 tab PO BID 7 days #14 tabs 04/16/23 clavulanate 125 mg tablet nystatin 100,000 unit/gram topical 1 appl topical TID #60 grams 04/16/23 powder Allergies Allergy/AdvReac Type Severity Reaction Status Date / Time No Known Allergies Allergy Verified 03/02/23 21:40 [No Known Allergies*] Review of Systems Review of Systems: Constitutional : No Fever, No Chills ENT/Mouth : No sore throat, No Rhinorrhea Eyes: No Eye Pain, No Swelling, No Redness Cardiovascular : No Chest Pain, No SOB Respiratory : No Cough, No Sputum Gastrointestinal : No Nausea, No Vomiting, No Diarrhea, No abdominal Pain Genitourinary : No Dysuria, No Hematuria Musculoskeletal : No joint pain, No Myalgias, No Joint Swelling Skin : No Skin Lesions, positive skin rash Neuro : No Weakness, No Numbness, No Headache Psych : No Anxiety, No Depression Heme/Lymph: No Bruising, No Bleeding,No Lymphadenopathy Endocrine : No Polyuria, No Polydipsia All other systems reviewed and are negative [facility] Past Medical History Medical History No known health problems Social History Social History Household Members: None Housing: Homeless Do you presently have visiting nurse or other home services: No Unable to assess alcohol history related to: Unknown and Refusing to respond Alcohol intake: never Patient Tobacco Use Status: Refuse Tobacco use screen Substance Use Type: Crack/Cocaine, Heroin and IV Drugs Sexual orientation: Don't Know Physical Exam Vital Signs: Vital Signs: Last Vital Signs Temp 98.3 F 06/27/23 23:05 Pulse 68 06/27/23 23:05 Resp 18 06/27/23 23:05 BP 140/81 H 06/27/23 23:05 Pulse Ox 99 06/27/23 23:05 O2 Del Method Room Air 06/27/23 23:05 BMI result Body Mass Index 20.7 Appearance: Alert. Oriented X3. No acute distress. Eyes: Pupils equal, round and reactive to light. ENT: Pharynx normal. Neck: Normal inspection. Neck supple. CVS: Normal heart rate and rhythm. Pulses normal. Respiratory: No respiratory distress. Breath sounds normal. Abdomen: Soft and nontender. Skin: Skin warm and dry. Normal skin color. Normal skin turgor. Extremities: No lower extremity edema. L foot just dorsum there is red warm area about 5cm but no fluctuance noted no crepitus does not go beyond dorsum of foot not on ankle joint or toes, normal plantar surface, boudning DP PT pulses, SILT throughout. Neuro: Oriented X 3. No motor deficit. No sensory deficit. Course Course Course Narrative: Physician observation started at 1213am. Patient placed in physician observation because the patient needed more time for recovery team to help with detox. At the time observation was started the patient's vitals were stable, patient is alert and oriented but slightly uncomfortable appearing likely early withdrawal, Neuro: nonfocal, CV RRR, Lungs clear Medications Administered Generic Name Dose Route Start Last Admin Trade Name Freq PRN Reason Stop Dose Admin Cephalexin HCl 500 mg 06/27/23 23:35 06/27/23 23:57 Cephalexin 500 Mg Capsule PO 500 mg QID JESSICA Administration Doxycycline Monohydrate 100 mg 06/27/23 23:35 06/27/23 23:57 Doxycycline Monohydrate 100 Mg Capsule PO 100 mg BID JESSICA Administration Discontinued Medications Generic Name Dose Route Start Last Admin Trade Name Pia PRN Reason Stop Dose Admin Lidocaine HCl 1 appl 06/27/23 23:34 06/27/23 23:57 Lidocaine 4 % Cream Kit TOPICAL 06/27/23 23:35 Not Given ONCE ONE Protocol Lidocaine HCl 5 ml 06/27/23 23:34 06/27/23 23:57 Lidocaine Hcl 1 % Mpf 5 Ml Vial SUBCUT 06/27/23 23:35 Not Given ONCE ONE Medical Decision Making Medical Decision Making [facility] Narrative: 47 yo male with schizophrenia, IVDA here with L foot pain which is consistent with cellulitis just to the dorsum but no systemic symptoms at this time US shows no abscess. Will obtain labs and start on oral antibiotics. Refer to addiction medicine team for detox at his request Differential Diagnosis Differential Diagnoses: The differential diagnosis associated with the presentation includes cellulitis, abscess Admission/Observation Consideration of admission/observation: Escalation of care including admission/observation considered observe until CARE team sees patient Lab Data [facility] Lab Attestation statement: I reviewed the patient's lab results. 06/27/23 23:22 06/27/23 23:22 Labs: Lab Results 06/27/23 Range/Units 23:22 WBC 7.6 (4.8-10.8) X10*3/uL RBC 4.27 L (4.60-5.80) X10*6/uL Hgb 13.3 L (14.0-18.0) g/dl Hct 40.5 L (42.0-52.0) % MCV 94.8 (80.0-98.0) fL MCH 31.1 (27.0-33.0) pg MCHC 32.8 (31.0-36.0) g/dl RDW 12.8 (11.0-16.0) % Plt Count 276 D (160-400) X10*3/uL MPV 9.6 (9.4-12.4) fL Immature Gran % (Auto) 0.1 (0.0-0.4) % Neut % (Auto) 58.6 (45-73) % Lymph % (Auto) 24.9 (20-40) % [place] % (Auto) 13.1 H (2-11) % Eos % (Auto) 2.9 (0-4) % Baso % (Auto) 0.4 (0-2) % Lymph # (Auto) 1.9 (1.2-4.9) X10*3/uL [place] # (Auto) 1.0 (0.1-1.2) X10*3/uL Eos # (Auto) 0.2 (0.0-0.4) X10*3/uL Baso # (Auto) 0.0 (0.0-0.2) X10*3/uL Abs Immat Gran (auto) 0.01 (0.00-0.03) X10*3/uL Absolute Neuts (auto) 4.4 (2.0-8.3) x10*3/uL Absolute Nucleated RBC 0.000 (0.0-0.012) X10*3/uL Nucleated RBC % (auto) 0.0 (0.0-0.2) /100WBC Sodium 140 (135-145) mmol/L Potassium 3.9 (3.3-5.1) mmol/L Chloride 104 (96-108) mmol/L Carbon Dioxide 29 (22-29) mmol/L Anion Gap 11 L (12-20) BUN 12 (9-16) mg/dL Creatinine 0.87 (0.5-1.4) mg/dL Estim Creat Clear Calc 94.2 Estimated GFR > 60 Random Glucose 112 (60-115) mg/dL Lactic Acid 0.7 (0.5-2.0) mmol/L Calcium 9.0 (8.4-10.2) mg/dL Total Bilirubin 0.4 (0.0-1.0) mg/dL AST 87 H (5-37) U/L ALT 112 H (0-40) U/L Alkaline Phosphatase 86 (39-117) U/L Total Protein 7.1 (6.5-8.0) g/dL Albumin 3.6 (3.5-5.0) g/dL Independent Interpretation I performed an independent interpretation of an: Ultrasound (no abscess) Social Determinants Patient?s care significantly limited by Social Determinants of Health including: Low income and Problems related to primary support group Procedures Procedure Narrative Procedure Narrative: US no pocket of fluid to suggest abscess but foot does have areas of cobblestoning and hyperechoic that is consistent with cellulitis Discharge Plan Discharge Clinical Impression: Cellulitis of foot, Active substance abuse Patient Disposition: Still a Patient Prescriptions: No Action haloperidol 5 mg Tablet 5 mg PO DAILY Qty: 30 0RF benztropine 1 mg Tablet 1 mg PO DAILY Qty: 30 0RF nystatin 100,000 unit/gram powder 1 appl topical BID Qty: 60 0RF nystatin 100,000 unit/gram powder 1 appl topical TID Qty: 60 0RF amoxicillin-pot clavulanate 875-125 mg tablet 1 tab PO BID 7 Days Qty: 14 0RF
[2023-06-27] MEDS: cephALEXin 500 MG CAPSULE PO (23:57)
[2023-06-27] MEDS: Doxycycline Monohydrate 100 MG CAPSULE PO (23:57)
[2023-06-28 00:20] LABS: Amphetamine Screen Urine Not Detected (Not Detect); Barbiturates, Urine Not Detected (Not Detect); Benzodiazepines Screen Urine Not Detected (Not Detect); Cannabinoid Screen Urine Not Detected (Not Detect); Cocaine Screen Urine POSITIVE (Not Detect); Fentanyl, urine POSITIVE (Not Detect); Opiate Screen Urine Not Detected (Not Detect); Phencyclidine Screen Urine Not Detected (Not Detect)
[2023-06-28] MEDS: LORazepam 1 MG TABLET 2 MG PO (00:22)
--- NOTE | 2023-06-28 00:34 | PC.NURSE ---
security at bedside to search, pocket knife removed and saved until discharge
[2023-06-28 06:18] VITALS: BP 146/85; PULSE 63; RESP 14; O2SAT 96
--- NOTE | 2023-06-28 08:33 | PC.NURSE ---
patient appears to be sleeping at this time, respirations even and unlabored. awaiting recovery team at this time
[2023-06-28] MEDS: Doxycycline Monohydrate 100 MG CAPSULE PO (09:08)
[2023-06-28] MEDS: cephALEXin 500 MG CAPSULE PO ×2 (09:08→12:29)
--- NOTE | 2023-06-28 09:11 | PC.NURSE ---
Initial contact with pt. pt provided breakfast. antibiotics given as ordered.
--- NOTE | 2023-06-28 12:21 | ED_ITS ---
HPI - General Adult General Chief complaint: General Medical Stated complaint: LT foot infection, Detox Time Seen by Provider: 06/27/23 23:26 Source: patient Mode of arrival: ambulatory Limitations: no limitations Related Data Previous Rx's Medication Instructions Recorded benztropine 1 mg tablet 1 mg PO DAILY #30 tabs 10/11/22 haloperidol 5 mg tablet 5 mg PO DAILY #30 tabs 10/11/22 nystatin 100,000 unit/gram topical 1 appl topical BID #60 grams 03/03/23 powder amoxicillin 875 mg-potassium 1 tab PO BID 7 days #14 tabs 04/16/23 clavulanate 125 mg tablet nystatin 100,000 unit/gram topical 1 appl topical TID #60 grams 04/16/23 powder cephalexin 500 mg tablet 500 mg PO Q6H 7 days #28 tabs 06/28/23 doxycycline hyclate 100 mg capsule 100 mg PO BID 7 days #14 caps 06/28/23 naloxone 4 mg/actuation nasal 4 mg intranasal Q2M PRN opioid 06/28/23 spray (Narcan) overdose #2 ea Allergies Allergy/AdvReac Type Severity Reaction Status Date / Time No Known Allergies Allergy Verified 03/02/23 21:40 [No Known Allergies*] PMFSH Past Medical History Medical History No known health problems Social History Social History Household Members: None Housing: Homeless Do you presently have visiting nurse or other home services: No Unable to assess alcohol history related to: Unknown and Refusing to respond Alcohol intake: never Patient Tobacco Use Status: Refuse Tobacco use screen Smoked in Last 30 Days: Yes Use of substances other than those prescribed or required for medical reasons: Yes Substance Use Type: Crack/Cocaine, Heroin and IV Drugs Substance Use Frequency: Daily Last Used Substance: Just Prior to Admission Advance Directives: No Advance Directives Information Provided: Yes Sexual orientation: Don't Know Physical Exam ED Vital Signs: Vital Signs - 24 hr 06/27/23 23:05 06/28/23 06:18 Temperature 98.3 F Pulse Rate 68 63 Respiratory Rate 18 14 Blood Pressure 140/81 H 146/85 H Pulse Oximetry 99 96 Oxygen Delivery Method Room Air Room Air BMI result Body Mass Index 20.7 Medications Administered Generic Name Dose Route Start Last Admin Trade Name Enriqueq PRN Reason Stop Dose Admin Cephalexin HCl 500 mg 06/27/23 23:35 06/28/23 09:08 Cephalexin 500 Mg Capsule PO 500 mg QID JESSICA Administration Doxycycline Monohydrate 100 mg 06/27/23 23:35 06/28/23 09:08 Doxycycline Monohydrate 100 Mg Capsule PO 100 mg BID JESSICA Administration Lorazepam 2 mg 06/27/23 23:54 06/28/23 00:22 Lorazepam 1 Mg Tablet PO 2 mg Q3H PRN Administration anxiety/restlessness Discontinued Medications Generic Name Dose Route Start Last Admin Trade Name Enriqueq PRN Reason Stop Dose Admin Lidocaine HCl 1 appl 06/27/23 23:34 06/27/23 23:57 Lidocaine 4 % Cream Kit TOPICAL 06/27/23 23:35 Not Given ONCE ONE Protocol Lidocaine HCl 5 ml 06/27/23 23:34 06/27/23 23:57 Lidocaine Hcl 1 % Mpf 5 Ml Vial SUBCUT 06/27/23 23:35 Not Given ONCE ONE Medical Decision Making Lab Data 06/27/23 23:22 06/27/23 23:22 Labs: Lab Results 06/27/23 06/27/23 Range/Units 23:22 23:33 WBC 7.6 (4.8-10.8) X10*3/uL RBC 4.27 L (4.60-5.80) X10*6/uL Hgb 13.3 L (14.0-18.0) g/dl Hct 40.5 L (42.0-52.0) % MCV 94.8 (80.0-98.0) fL MCH 31.1 (27.0-33.0) pg MCHC 32.8 (31.0-36.0) g/dl RDW 12.8 (11.0-16.0) % Plt Count 276 D (160-400) X10*3/uL MPV 9.6 (9.4-12.4) fL Immature Gran % (Auto) 0.1 (0.0-0.4) % Neut % (Auto) 58.6 (45-73) % Lymph % (Auto) 24.9 (20-40) % [place] % (Auto) 13.1 H (2-11) % Eos % (Auto) 2.9 (0-4) % Baso % (Auto) 0.4 (0-2) % Lymph # (Auto) 1.9 (1.2-4.9) X10*3/uL [place] # (Auto) 1.0 (0.1-1.2) X10*3/uL Eos # (Auto) 0.2 (0.0-0.4) X10*3/uL Baso # (Auto) 0.0 (0.0-0.2) X10*3/uL Abs Immat Gran (auto) 0.01 (0.00-0.03) X10*3/uL Absolute Neuts (auto) 4.4 (2.0-8.3) x10*3/uL Absolute Nucleated RBC 0.000 (0.0-0.012) X10*3/uL Nucleated RBC % (auto) 0.0 (0.0-0.2) /100WBC Sodium 140 (135-145) mmol/L Potassium 3.9 (3.3-5.1) mmol/L Chloride 104 (96-108) mmol/L Carbon Dioxide 29 (22-29) mmol/L Anion Gap 11 L (12-20) BUN 12 (9-16) mg/dL Creatinine 0.87 (0.5-1.4) mg/dL Estim Creat Clear Calc 94.2 Estimated GFR > 60 Random Glucose 112 (60-115) mg/dL Lactic Acid 0.7 (0.5-2.0) mmol/L Calcium 9.0 (8.4-10.2) mg/dL Total Bilirubin 0.4 (0.0-1.0) mg/dL AST 87 H (5-37) U/L ALT 112 H (0-40) U/L Alkaline Phosphatase 86 (39-117) U/L Total Protein 7.1 (6.5-8.0) g/dL Albumin 3.6 (3.5-5.0) g/dL Urine Color Yellow Urine Appearance Cloudy Urine pH 7.5 (5.0-9.0) Ur Specific [place] 1.015 (1.005-1.025) Urine Protein Negative (Neg-Trace) mg/dL Urine Glucose (UA) Negative (Negative) mg/dL Urine Ketones Negative (Negative) mg/dL Urine Blood Negative (Negative) Urine Nitrite Negative (Negative) Ur Leukocyte Esterase Negative (Negative) Urine Opiates Screen Not Detected (Not Detect) Urine Fentanyl Screen POSITIVE H (Not Detect) Ur Barbiturates Screen Not Detected (Not Detect) Ur Phencyclidine Scrn Not Detected (Not Detect) Ur Amphetamines Screen Not Detected (Not Detect) U Benzodiazepines Scrn Not Detected (Not Detect) Urine Cocaine Screen POSITIVE H (Not Detect) U Marijuana (THC) Screen Not Detected (Not Detect) Discharge Plan Discharge Clinical Impression: Cellulitis of foot, Active substance abuse Patient Disposition: Still a Patient Instructions: Cellulitis (ED), Polysubstance Abuse (ED) Additional Instructions: please follow up with plan for detox. return for fevers, vomiting, worsening redness or swelling or any other concerns. On doxycycline, do not take pills immediately before going to bed and swallow pills with plenty of water. Avoid direct sunlight, iron, antacids, and Pepto Bismol. Call your provider if you develop new ringing in your ears, new problems hearing, dizziness, difficulty swallowing, rash, abdominal discomfort, nausea, or diarrhea.? On a cephalosporin?antibiotic, softer bowel movements are to be expected. Call your provider if you move your bowels more than 4 times a day, your bowel movements are almost all liquid, or you get a rash.?? Please follow up [facility] for Methadone as instructed by recovery coaches Prescriptions: New doxycycline hyclate 100 mg capsule 100 mg PO BID 7 Days Qty: 14 0RF cephalexin 500 mg tablet 500 mg PO Q6H 7 Days Qty: 28 0RF naloxone [Narcan] 4 mg/actuation spray,non-aerosol 4 mg intranasal Q2M PRN (Reason: opioid overdose) Qty: 2 0RF Rx Instructions: spray 1 dose into ONE nostril; alternate nostrils w each dose until help arrives No Action haloperidol 5 mg Tablet 5 mg PO DAILY Qty: 30 0RF benztropine 1 mg Tablet 1 mg PO DAILY Qty: 30 0RF nystatin 100,000 unit/gram powder 1 appl topical BID Qty: 60 0RF nystatin 100,000 unit/gram powder 1 appl topical TID Qty: 60 0RF amoxicillin-pot clavulanate 875-125 mg tablet 1 tab PO BID 7 Days Qty: 14 0RF Referrals: Gerri German CNP [Nurse Practitioner] - 2 days Physician,Unknown J [Primary Care Provider] - 2 days Stand Alone Forms: Work/School Release
[2023-06-28] MEDS: methADONE HCl 20 MG/2 ML ORAL.CONC 30 MG PO (12:29)
--- NOTE | 2023-06-28 13:06 | MHC.RECOVRN ---
Met with patient in ED 12 following his request for ATS. Patient initially presented to ED for foot pain. Upon discussion pt reports he is currently using heroin 1-2 bundles IV daily and cocaine the same . His last use was reported as just prior to coming into ED. Pt requesting ATS stay but due to cellulitis in foot resulting in difficulty with ambulation he will not be accepted into ATS at this time. PT. presenting with W/D sx including runny nose, overall body aches/pain and body temp. changes. ALYCIAUD was discussed with pt. and he reports h/o suboxone and methadone. His last methadone dose was 40mg and he would like to try this treatment again. T/W discussed patients wishes with ED Provider and methadone 1xdose of 30mg was ordered. Plan is for patient to be D/C to community and he will follow up with [facility] tomorrow. Referral faxed to [facility] ([facility]
== END 2023-06-28 12:41 | disposition still patient (30) ==
PROVIDERS: Emergency Provider Emergency Medicine
DX: L03.116 Cellulitis of left lower limb (principal); F11.10 Opioid abuse, uncomplicated; F14.10 Cocaine abuse, uncomplicated; Z79.899 Other long term (current) drug therapy; Z71.51 Drug abuse counseling and surveillance of drug abuser
CPT/HCPCS: 36415; 80053; 80307; 81003; 83605; 85025; 99284

== ENCOUNTER 2023-07-01 19:16 | Inpatient (IN) | payer OTHER, SELFPAY ==
--- NOTE | ~2023-07-01 | CT_ITS ---
EXAMINATION: CT FOOT WITH IV CONTRAST, LEFT CLINICAL INFORMATION: Dorsal pain. Question abscess. COMPARISON: Left foot radiographs dated 07/01/2023. TECHNIQUE: Contiguous axial CT images of the left foot were obtained following the IV administration of 85 mL Omnipaque 350 contrast. Multiplanar reformats were provided and reviewed. This CT examination was performed using dose optimization techniques as appropriate, variously including the following: *Automated exposure control *Adjustment of mA and/or kV according to patient size (this includes techniques or standardized protocols for targeted exams where dose is matched to indication/reason for exam; i.e. extremities or head) *Use of iterative reconstruction technique. DOSE: 145 mGy-cm. FINDINGS: Along the dorsal aspect of the midfoot at the level of the second metatarsal base, there is a peripherally enhancing subcutaneous fluid collection measuring up to 4.2 x 2.2 x 1.2 cm (AP by ML by CC). Tiny foci of air within the medial aspect of the collection. This appears within the subcutaneous tissues and is peripheral to the extensor digitorum musculature. Findings could represent abscess formation. Adjacent subcutaneous edema with mild skin thickening. No additional soft tissue mass, fluid collection, or enhancement. Unremarkable vascular structures. The visualized flexor and extensor muscles and tendons are grossly intact; however, evaluation is limited on CT examination. No acute fracture or dislocation. No periosteal reaction or cortical erosion to suggest acute osteomyelitis. No concerning lytic or blastic osseous lesion. No talar osteochondral lesion. Tiny plantar calcaneal spur. CT/CT foot LT w IV con IMPRESSION: 1. Peripherally enhancing subcutaneous fluid collection along the dorsal aspect of the midfoot at the level of the second metatarsal base measuring up to 4.2 x 2.2 x 1.2 cm. Tiny foci of air within the medial aspect of the collection. Findings could represent abscess formation. Adjacent subcutaneous edema with mild skin thickening. 2. No acute osseous abnormality. No periosteal reaction or cortical erosion to suggest acute osteomyelitis.
--- NOTE | ~2023-07-01 | XR_ITS ---
EXAMINATION: XR FOOT, LEFT CLINICAL INFORMATION: pain, injury sore on the dorsal part of foot COMPARISON: None available. TECHNIQUE: AP, lateral, and oblique views of the left foot. FINDINGS: Soft tissue swelling is present at the dorsal aspect of the midfoot. No fractures. Mild hallux valgus. Bone mineralization is normal. Joint spaces appear well-preserved. No erosions. XR/XR foot LT min 3V IMPRESSION: Soft tissue swelling at the dorsal aspect of the midfoot. No acute osseous findings.
--- NOTE | 2023-07-01 19:39 | ED_ITS ---
HPI - General Adult General Chief complaint: General Medical Stated complaint: LT foot pain/infection Time Seen by Provider: 07/01/23 20:53 Source: patient Mode of arrival: ambulatory History of Present Illness HPI narrative: 47-year-old male presents with history of hep C and chronic IVDA with 4 days of worsening left foot pain, also reports fevers and chills but denies any nausea vomiting. Related Data Previous Rx's Medication Instructions Recorded benztropine 1 mg tablet 1 mg PO DAILY #30 tabs 10/11/22 haloperidol 5 mg tablet 5 mg PO DAILY #30 tabs 10/11/22 nystatin 100,000 unit/gram topical 1 appl topical BID #60 grams 03/03/23 powder amoxicillin 875 mg-potassium 1 tab PO BID 7 days #14 tabs 04/16/23 clavulanate 125 mg tablet nystatin 100,000 unit/gram topical 1 appl topical TID #60 grams 04/16/23 powder cephalexin 500 mg tablet 500 mg PO Q6H 7 days #28 tabs 06/28/23 doxycycline hyclate 100 mg capsule 100 mg PO BID 7 days #14 caps 06/28/23 naloxone 4 mg/actuation nasal 4 mg intranasal Q2M PRN opioid 06/28/23 spray (Narcan) overdose #2 ea Allergies Allergy/AdvReac Type Severity Reaction Status Date / Time No Known Allergies Allergy Verified 03/02/23 21:40 [No Known Allergies*] Review of Systems 2 Review of Systems: Pertinent positives and negatives as stated in HPI [facility] Past Medical History Source: nursing notes reviewed Medical History (Updated 07/02/23 @ 00:06 by Lindy Ferrell MD) IV drug user Hepatitis C Social History Social History Household Members: None Housing: Homeless Do you presently have visiting nurse or other home services: No Unable to assess alcohol history related to: Unknown and Refusing to respond Alcohol intake: never Patient Tobacco Use Status: Refuse Tobacco use screen Substance Use Type: Crack/Cocaine, Heroin and IV Drugs Advance Directives: No Advance Directives Information Provided: No Nutrition Risks: No Nutritional Risk Sexual orientation: Don't Know Physical Exam ED Vital Signs: Vital Signs - 24 hr 07/01/23 19:41 07/01/23 21:07 07/01/23 22:25 Temperature 98.1 F 98.4 F 98.4 F Pulse Rate 84 70 69 Respiratory Rate 18 16 18 Blood Pressure 106/69 85/47 L 90/59 L Pulse Oximetry 97 97 98 Oxygen Delivery Method Room Air Room Air Room Air 07/01/23 22:53 Temperature 98.0 F Pulse Rate 67 Respiratory Rate 11 L Blood Pressure 88/63 L Pulse Oximetry 97 Oxygen Delivery Method Room Air BMI result Body Mass Index 20.7 VITAL SIGNS: Reviewed. GENERAL: Well developed, well nourished, in no acute distress. HEAD: Normocephalic/atraumatic EYES: PERRLA, EOMI EARS: Ext canals without abnormality NOSE: Nares patent bilateral OROPHARYNX: no oral lesions noted, posterior pharynx clear NECK: Supple, no adenopathy LUNGS: Normal breath sounds. No adventitious sounds or accessory muscle use. SpO2<97> CARDIOVASCULAR: Regular rate and rhythm without noted murmurs ABDOMEN: Soft, non-tender, non-distended with bowel sounds. MUSCULOSKELETAL: No tenderness, deformities, or effusions noted on gross inspection. EXTREMITIES: No cyanosis, clubbing or edema. LEFT FOOT: There is an obvious abscess to the dorsum of the left foot but the erythema and induration encompasses the entire foot across the plantar surface extending partially up into the ankle area. SKIN: Inspection of the skin reveals no rashes NEUROLOGIC: Alert and oriented x 4. Strength and sensation to light touch were grossly intact x 4. Course Course Course Narrative: RME performed by Rosy Miller PA-C. Patient is a 47 year old assigned male at presenting to the emergency department with continued left foot pain and infection. 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 Patient states that the pain has gotten much worse as well as the infection. Labs and imaging ordered. Patient placed back in the waiting room pending room availability and results. Medications Administered Generic Name Dose Route Start Last Admin Trade Name Freq PRN Reason Stop Dose Admin Sodium Chloride 3 ml 07/02/23 00:00 07/02/23 01:05 0.9 % Sodium Chloride Flush 3 Ml Syringe IVFLUSH Not Given QSHIFT JESSICA Discontinued Medications Generic Name Dose Route Start Last Admin Trade Name Freq PRN Reason Stop Dose Admin Sodium Chloride 1,000 mls @ 999 mls/hr 07/01/23 21:45 07/01/23 22:49 Ns IV 07/01/23 22:45 Infused .Q1H1M JESSICA Infusion Piperacillin Sod/Tazobactam 50 mls @ 100 mls/hr 07/01/23 22:00 07/01/23 22:40 Sod 3.375 gm/ Sodium Chloride IV 07/01/23 22:29 Infused ONCE ONE Infusion Vancomycin HCl 1,000 mg/ 270 mls @ 270 mls/hr 07/01/23 22:00 07/01/23 23:45 Sodium Chloride IV 07/01/23 22:59 Infused ONCE ONE Infusion Sodium Chloride 1,905.09 mls @ 1,905.09 mls/hr 07/01/23 22:51 07/01/23 23:54 Ns 30 ml/kg infuse over 1 hr (1905.09 ml) 07/01/23 23:50 Infused IV Infusion .Q1H STA Lidocaine HCl 1 appl 07/01/23 22:00 07/01/23 22:10 Lidocaine 4 % Cream Kit TOPICAL 07/01/23 22:01 1 appl ONCE ONE Administration Protocol Procedures Abscess I/D Site: foot Side (if applicable): left Sedation/analgesia: none Local Anesthetic: other anesthetic ( LMX) Amount of anesthesia used (mL): 2 Technique: incised with blade Amount of fluid expressed (mL): 50 Sent for culture/gram staining?: No Packing used?: none Medical Decision Making Medical Decision Making MDM Narrative: Patient presents without SIRS 5: 47-year-old male with history and clinical presentation consistent with left foot abscess and associated cellulitis with systemic symptoms. I reviewed all investigations and hematologic indices are significant for leukocytosis with a left shift and correspondingly there is no thrombocytopenia and a chronic normocytic anemia. Chemistry indices do not demonstrate an ALEXANDRA and there is no electrolyte or acute change in liver enzymes. Patient has chronically elevated transaminases, last used IVDA this morning. CRP-3.18 and lactic acid is 2.6. Patient does not qualify for sepsis fluids. X-ray of left foot without osseous findings. Patient given 1 L of IV fluids and started antibiotics. 2300: Given hypotension I ordered sepsis fluids bolus. 2305: Discussed with hospitalist who accepts admission Differential Diagnosis Differential Diagnoses: The differential diagnosis associated with the presentation includes Please see the discussion above Admission/Observation Consideration of admission/observation: Escalation of care including admission/observation considered please see the discussion above Consult Healthcare Provider Management of the patient was discussed with: Hospitalist please see the discussion above Lab Data MDM Lab Attestation statement: I reviewed the patient's lab results. please see the discussion above 07/01/23 20:57 07/01/23 20:57 Labs: Lab Results 07/01/23 07/01/23 Range/Units 20:57 23:13 WBC 16.7 H (4.8-10.8) X10*3/uL RBC 4.31 L (4.60-5.80) X10*6/uL Hgb 13.4 L (14.0-18.0) g/dl Hct 41.2 L (42.0-52.0) % MCV 95.6 (80.0-98.0) fL MCH 31.1 (27.0-33.0) pg MCHC 32.5 (31.0-36.0) g/dl RDW 12.6 (11.0-16.0) % Plt Count 243 (160-400) X10*3/uL MPV 10.1 (9.4-12.4) fL Immature Gran % (Auto) 1.2 H (0.0-0.4) % Neut % (Auto) 94.3 H (45-73) % Lymph % (Auto) 2.2 L (20-40) % [place] % (Auto) 2.0 (2-11) % Eos % (Auto) 0.1 (0-4) % Baso % (Auto) 0.2 (0-2) % Lymph # (Auto) 0.4 L (1.2-4.9) X10*3/uL [place] # (Auto) 0.3 (0.1-1.2) X10*3/uL Eos # (Auto) 0.0 (0.0-0.4) X10*3/uL Baso # (Auto) 0.0 (0.0-0.2) X10*3/uL Abs Immat Gran (auto) 0.20 H (0.00-0.03) X10*3/uL Absolute Neuts (auto) 15.7 H (2.0-8.3) x10*3/uL Absolute Nucleated RBC 0.000 (0.0-0.012) X10*3/uL Nucleated RBC % (auto) 0.0 (0.0-0.2) /100WBC Smear Tech's Comments VERIFIED ESR 16 H (0-15) MM/HR Sodium 137 (135-145) mmol/L Potassium 3.9 (3.3-5.1) mmol/L Chloride 102 (96-108) mmol/L Carbon Dioxide 26 (22-29) mmol/L Anion Gap 13 (12-20) BUN 16 (9-16) mg/dL Creatinine 0.95 (0.5-1.4) mg/dL Estim Creat Clear Calc 86.3 Estimated GFR > 60 Random Glucose 199 H (60-115) mg/dL Lactic Acid 2.6 H* (0.5-2.0) mmol/L Lactic Acid F/U @ 2Hr 3.4 H* (0.5-2.0) mmol/L Calcium 9.1 (8.4-10.2) mg/dL Magnesium 2.2 (1.6-2.6) mg/dL Total Bilirubin 0.6 (0.0-1.0) mg/dL AST 108 H (5-37) U/L ALT 101 H (0-40) U/L Alkaline Phosphatase 145 H (39-117) U/L C-Reactive Protein 3.18 H (< or = 0.50) mg/dL Total Protein 7.0 (6.5-8.0) g/dL Albumin 3.5 (3.5-5.0) g/dL Radiology Impression Discussion of test interpretation with radiology: I have reviewed the radiologist's reading. Radiologist Impression: please see the discussion above External Record Review External record reviewed: Outpatient record, Prior outpatient labs and Prior outpatient radiology Chronic Conditions Patient?s care impacted by: Other IVDA, hep C Critical Care Time Critical Care Time Critical Care Time: Yes Total Critical Care Time: 60 Attestation: I personally attest to this time spent taking care of the patient. Discharge Plan Discharge Clinical Impression: Cellulitis of left foot, Abscess of left foot Patient Disposition: Admitted As Inpatient
[2023-07-01 19:41] VITALS: BP 106/69; PULSE 84; RESP 18; TEMP 36.7; O2SAT 97; BMI 20.7
[2023-07-01 21:07] VITALS: BP 85/47; PULSE 70; RESP 16; TEMP 36.9; O2SAT 97
[2023-07-01 21:09] LABS: Basophils Percent Auto 0.2 % (0-2); Eosinophils Percent Auto 0.1 % (0-4); Hematocrit 41.2 % (42.0-52.0); Hemoglobin 13.4 g/dl (14.0-18.0); Imm Gran Pct Auto 1.2 % (0.0-0.4); Lymphocytes Absolute Auto 0.4 X10*3/uL (1.2-4.9); Lymphocytes Percent Auto 2.2 % (20-40); MANUAL DIFF FLAG SCAN; Mean Corpuscular HGB Conc 32.5 g/dl (31.0-36.0); Mean Corpuscular Hemoglobin 31.1 pg (27.0-33.0); Mean Corpuscular Volume 95.6 fL (80.0-98.0); Mean Platelet Volume 10.1 fL (9.4-12.4); Monocytes Absolute Auto 0.3 X10*3/uL (0.1-1.2); Neutrophils Absolute Auto 15.7 x10*3/uL (2.0-8.3); Neutrophils Percent Auto 94.3 % (45-73); Platelet Count 243 X10*3/uL (160-400); Red Blood Count 4.31 X10*6/uL (4.60-5.80); Red Cell Distribution Width 12.6 % (11.0-16.0); SCAN SMEAR FLAG 1; White Blood Count 16.7 X10*3/uL (4.8-10.8)
[2023-07-01 21:29] LABS: Alanine Aminotransferase 101 U/L (0-40); Albumin Level 3.5 g/dL (3.5-5.0); Alkaline Phosphatase 145 U/L (39-117); Anion Gap 13 (12-20); Aspartate Amino Transferase 108 U/L (5-37); Bilirubin Total 0.6 mg/dL (0.0-1.0); Blood Urea Nitrogen 16 mg/dL (9-16); C Reactive Protein 3.18 mg/dL (< or = 0.50); Calcium 9.1 mg/dL (8.4-10.2); Carbon Dioxide 26 mmol/L (22-29); Chloride 102 mmol/L (96-108); Creatinine Clr Calc Pharmacy 86.3; Estimated Glomerular Filt Rate > 60; Glucose Random 199 mg/dL (60-115); Magnesium 2.2 mg/dL (1.6-2.6); Potassium 3.9 mmol/L (3.3-5.1); SLIDE REVIEW VERIFIED; Sodium 137 mmol/L (135-145)
[2023-07-01 21:39] LABS: Lactic Acid 2.6 mmol/L (0.5-2.0)
[2023-07-01] MEDS: 0.9 % Sodium Chloride 1,000 ML 999 ML IV (21:45)
--- NOTE | 2023-07-01 21:46 | PC.NURSE ---
pt noted to be hypotensive. BP on left arm 85/47 BP on right arm 84/52. pt is not noted to be tachycardic. HR is 62 normal sinus rhythm on the property assessment monitor. RR 14. SPO2 98%. notified. Normal saline 1L ordered and administered.
[2023-07-01 21:59] LABS: Erythrocyte Sedimentation Rate 16 MM/HR (0-15)
[2023-07-01] MEDS: Piperacillin Sodium/Tazobactam 3.375 GM in 0.9 % Sodium Chloride 50 ML IV (22:10)
[2023-07-01] MEDS: Lidocaine 4 % Cream KIT 1 APPL TOPICAL (22:10)
[2023-07-01 22:25] VITALS: BP 90/59; PULSE 69; RESP 18; TEMP 36.9; O2SAT 98
[2023-07-01] MEDS: vancomycin HCL 1,000 MG in 0.9 % Sodium Chloride 250 ML 270 MG IV (22:45)
[2023-07-01 22:53] VITALS: BP 88/63; PULSE 67; RESP 11; TEMP 36.7; O2SAT 97
[2023-07-01] MEDS: 0.9 % Sodium Chloride 1,905.09 ML 1905.09 ML IV (22:54)
[2023-07-01 23:03] LABS: Reflex Lactate? Lactic Acid Added
[2023-07-01 23:32] LABS: ~Lactic Acid-LAB USE ONLY 3.4 mmol/L (0.5-2.0)
[2023-07-01 23:58] VITALS: BP 99/65; PULSE 62; O2SAT 100
[2023-07-02] VITALS (7 sets, daily range): BP systolic 102–136; BP diastolic 55–68; PULSE 50–111; RESP 12–18; TEMP 35.9–36.9; O2SAT 96–98; BMI 22.4
--- NOTE | 2023-07-02 | P.HPHOSP_ITS ---
History of Present Illness Date of Service: 07/02/23 Chief Complaint: Foot infection This is a 47-year-old male with pertinent history of IV drug use disorder, untreated hepatitis-C who presents to the emergency department for concerns of left foot infection. Patient states he 1st started having pain in the left foot about 8 days prior to presentation. It is associated with foul-smelling purulent drainage. Also has been having fevers and chills. Admits to using IV heroin on the day of presentation. Denies any history of skin infections in the past. No chest discomfort, palpitations, shortness of breath, abdominal pain, changes in urinary or bowel habits. In the emergency department, patient was found to be septic and left foot abscess was incised and drained. Review of Systems 2 Constitutional: Constitutional: Reports chills, Reports fatigue, Reports fever(s) and Reports lethargy Cardiovascular: Cardiovascular: Reports no additional cardiovascular complaints Respiratory: Respiratory: Reports no additional respiratory complaints Gastrointestinal: Gastrointestinal: Reports no additional gastrointestinal complaints Genitourinary: Genitourinary: Reports no additional male genitourinary complaints Musculoskeletal: Musculoskeletal: Reports arthralgias and Reports joint swelling Endocrine: Endocrine: Reports fatigue [facility] Medical History (Updated 07/02/23 @ 00:06 by Lindy Ferrell MD) IV drug user Hepatitis C Pertinent family history: No family history of early CAD Social History Household Members: None Housing: Homeless Do you presently have visiting nurse or other home services: No Unable to assess alcohol history related to: Unknown and Refusing to respond Alcohol intake: never Patient Tobacco Use Status: Refuse Tobacco use screen Substance Use Type: Crack/Cocaine, Heroin and IV Drugs Advance Directives: No Advance Directives Information Provided: No Sexual orientation: Don't Know Meds Allergies Allergy/AdvReac Type Severity Reaction Status Date / Time No Known Allergies Allergy Verified 03/02/23 21:40 [No Known Allergies*] Active Medications: Current Medications Pharmacy Consult (Consult Rx Vancomycin Dosing) 1 each MISCELLANE DAILY PRN PRN Reason: Consult order Physical Exam 2 Vital Signs and Narrative: Vital Signs: Last Vital Signs Temp 98.0 F 07/01/23 22:53 Pulse 62 07/01/23 23:58 Resp 11 L 07/01/23 22:53 BP 99/65 07/01/23 23:58 Pulse Ox 100 07/01/23 23:58 O2 Del Method Room Air 07/01/23 22:53 BMI result Body Mass Index 20.7 Middle-aged male lying in bed in no distress Neck supple, no JVD Regular rate and rhythm, S1-S2 heard Regular breath sounds bilaterally, no wheezing or crackles appreciated Abdomen soft nontender, no guarding, no rigidity Patient is awake, alert and oriented to self, place, time and person ; no focal motor deficit Musculoskeletal: Left foot wrapped in bandage Psych: Normal mood No pedal edema Results Labs 07/01/23 20:57 07/01/23 20:57 Labs: Laboratory Results - last 24 hr 07/01/23 07/01/23 20:57 23:13 MCV 95.6 MCH 31.1 MCHC 32.5 RDW 12.6 Plt Count 243 MPV 10.1 Immature Gran % (Auto) 1.2 H Neut % (Auto) 94.3 H Lymph % (Auto) 2.2 L [place] % (Auto) 2.0 Eos % (Auto) 0.1 Baso % (Auto) 0.2 Lymph # (Auto) 0.4 L [place] # (Auto) 0.3 Eos # (Auto) 0.0 Baso # (Auto) 0.0 Abs Immat Gran (auto) 0.20 H Absolute Neuts (auto) 15.7 H Absolute Nucleated RBC 0.000 Nucleated RBC % (auto) 0.0 Smear Tech's Comments VERIFIED ESR 16 H Anion Gap 13 Estim Creat Clear Calc 86.3 Estimated GFR > 60 Random Glucose 199 H Lactic Acid 2.6 H* Lactic Acid F/U @ 2Hr 3.4 H* Calcium 9.1 Magnesium 2.2 Total Bilirubin 0.6 AST 108 H ALT 101 H Alkaline Phosphatase 145 H C-Reactive Protein 3.18 H Total Protein 7.0 Albumin 3.5 Imaging Radiologist's Impressions: Impressions Foot X-Ray 07/01/23 20:05 IMPRESSION: Soft tissue swelling at the dorsal aspect of the midfoot. No acute osseous findings. Assessment and Plan (1) Sepsis: Status: Acute (2) Foot abscess, left: Status: Acute (3) IV drug user: Status: Acute Plan This is a 47-year-old male with pertinent history of IV drug use disorder, untreated hepatitis-C who presents to the emergency department for concerns of left foot infection. #. Sepsis due to left foot abscess with cellulitis: Resuscitated with IV crystalloids. Initiating empiric IV antibiotics. Incised and drained by ER provider. Will obtain CT scan to further delineate anatomy and look for underlying abscess. Lactic acid obtained. Blood culture pending #. Acute lactic acidosis due to sepsis #. Hyperglycemia: Initiating Accu-Cheks with sliding scale insulin. Obtain A1c #. Opioid use disorder: Monitor for withdrawal. Consulting Addiction Medicine, appreciate assistance #. Hepatitis-C, untreated: Outpatient follow-up Med rec pending DVT prophylaxis: Lovenox Admit as inpatient and will require two night minimum hospital stay for IV antibiotics (as above), which is not possible in a lesser acute setting. Quality Stroke Does the patient have a stroke diagnosis?: No VTE Prior VTE?: No VTE Risk Level:: Medical - moderate - high VTE Device Contraindication: Treatment Not Indicated VTE Drug Contraindication: N/A - Med Ordered
[2023-07-02 01:13] LABS: Amphetamine Screen Urine Not Detected (Not Detect); Barbiturates, Urine Not Detected (Not Detect); Benzodiazepines Screen Urine Not Detected (Not Detect); Cannabinoid Screen Urine Not Detected (Not Detect); Cocaine Screen Urine POSITIVE (Not Detect); Fentanyl, urine POSITIVE (Not Detect); Opiate Screen Urine POSITIVE (Not Detect); Phencyclidine Screen Urine Not Detected (Not Detect)
[2023-07-02 01:17] LABS: Reflex Lactate? 2 Y
[2023-07-02] MEDS: vancomycin HCL 500 MG in 0.9 % Sodium Chloride 100 ML 110 MG IV (02:14)
[2023-07-02 02:15] LABS: ~Lactic Acid-LAB USE ONLY 2.8 mmol/L (0.5-2.0)
[2023-07-02] MEDS: Piperacillin Sodium/Tazobactam 4.5 GM in 0.9 % Sodium Chloride 100 ML IV ×4 (05:17→23:06)
[2023-07-02 05:51] LABS: MANUAL DIFF FLAG NO
[2023-07-02 05:57] LABS: Basophils Percent Auto 0.2 % (0-2); Eosinophils Absolute Auto 0.2 X10*3/uL (0.0-0.4); Eosinophils Percent Auto 0.9 % (0-4); Hematocrit 39.5 % (42.0-52.0); Hemoglobin 12.5 g/dl (14.0-18.0); Imm Gran Abs Auto 0.82 X10*3/uL (0.00-0.03); Imm Gran Pct Auto 3.9 % (0.0-0.4); Lymphocytes Absolute Auto 0.7 X10*3/uL (1.2-4.9); Lymphocytes Percent Auto 3.3 % (20-40); Mean Corpuscular HGB Conc 31.6 g/dl (31.0-36.0); Mean Corpuscular Hemoglobin 31.1 pg (27.0-33.0); Mean Corpuscular Volume 98.3 fL (80.0-98.0); Mean Platelet Volume 11.1 fL (9.4-12.4); Monocytes Absolute Auto 1.4 X10*3/uL (0.1-1.2); Monocytes Percent Auto 6.6 % (2-11); Neutrophils Absolute Auto 17.7 x10*3/uL (2.0-8.3); Neutrophils Percent Auto 85.1 % (45-73); Platelet Count 204 X10*3/uL (160-400); Red Blood Count 4.02 X10*6/uL (4.60-5.80); Red Cell Distribution Width 12.9 % (11.0-16.0); White Blood Count 20.8 X10*3/uL (4.8-10.8)
--- NOTE | 2023-07-02 06:08 | PC.NURSE ---
report given to RN on S3.
[2023-07-02 06:21] LABS: Anion Gap 11 (12-20); Blood Urea Nitrogen 12 mg/dL (9-16); Calcium 8.5 mg/dL (8.4-10.2); Carbon Dioxide 25 mmol/L (22-29); Chloride 108 mmol/L (96-108); Creatinine Clr Calc Pharmacy 117.1; Estimated Glomerular Filt Rate > 60; Glucose Random 123 mg/dL (60-115); Potassium 4.5 mmol/L (3.3-5.1); Sodium 139 mmol/L (135-145)
[2023-07-02 07:02] LABS: Estimated Average Glucose 88 mg/dL; Hemoglobin A1c % 4.7 % (<6.0)
--- NOTE | 2023-07-02 07:04 | PHA.PROG ---
Admission Date/Time: July 01, 2023 23:58 Indication: Sepsis Weight in k.9 kg Adjusted body weight in Kg: [place] body weight in Kg: Obesity Dosing Indication % IBW: Serum Creatinine - Last 168 Hours 07/01/23 07/02/23 20:57 05:02 Creatinine 0.95 0.70 Estimated CrCl and GFR - Last 168 Hours 07/01/23 07/02/23 20:57 05:02 Estim Creat Clear Calc 86.3 117.1 Estimated GFR > 60 > 60 Vancomycin Loading Dose: 1500mg x 1 Current Vancomycin Dosing Regimen: 750 mg Q8H Vancomycin Monitoring using AUC goal of 400 - 600 range with trough as surrogate marker: 509 mg/L Date and Time for next Vancomycin Level to be drawn: 07/02/23 @2100 Pharmacist Comments on Vancomycin Plan: Predicted trough of 16.4 mg/L; will continue to monitor renal function and adjust appropriately Vancomycin dosing will take advantage of [employer] as a clinical decision support tool that uses Bayesian modeling to calculate individual patient's pharmacokinetic parameters and forecast the patient's drug concentration time course with the target goal AUC 24 range of 400 - 600 mg/L/hr.
[2023-07-02 07:36] LABS: Glucose, Whole Blood 116 mg/dL (60-115)
[2023-07-02] MEDS: Enoxaparin Sodium 40 MG/0.4 ML SYRINGE SUBCUT (07:47)
[2023-07-02] MEDS: 0.9 % Sodium Chloride Flush 3 ML SYRINGE IVFLUSH ×3 (07:48→23:50)
[2023-07-02] MEDS: vancomycin HCL 750 MG in 0.9 % Sodium Chloride 250 ML 265 MG IV ×2 (07:48→16:02)
[2023-07-02] MEDS: ondansetron HCL 4 MG/2 ML VIAL IVPUSH (07:50)
[2023-07-02] MEDS: LORazepam 0.5 MG TABLET PO ×2 (08:11→16:17)
[2023-07-02] MEDS: oxyCODONE HCl Immed Release 15 MG TABLET PO ×3 (08:11→20:20)
--- NOTE | 2023-07-02 09:13 | MHC.RECOVRN ---
Met with pt in 372 after Addiction Medicine consult received. Pt had presented to the ED with a left foot infection after not having money for antibiotics and infection progressing. Upon evaluation, pt admitted for sepsis due to abscess. Pt sitting in bed, awake, alert, engages in conversation, irritable due to being NPO for CT scan and haven't eaten in 2 days. T/w had met with pt on 06/28 in the ED where pt was initiated on methadone (30 mg) and referral was sent to [facility]. Pt reports he did not present to the OTP as he now wants Suboxone. Pt reports having an appt on 07/04 with [facility] to initiate Suboxone. Pt reports Suboxone in the past, months ago. Pt interested in initiating while at [facility]. Pt reports historically waiting until I'm sick and taking 16 mg for starting dose and 8 mg daily thereafter. Pt reports he will be able to initiate tonight. Pt currently experiencing withdrawal symptoms including diaphoresis and body aches. Pt reports using heroin/fentanyl, 1 bundle daily, IV, as well as cocaine $50 daily, IV, last use yesterday morning. Pt denies questions or concerns for t/w. Discussed with Gerri German APRN. Will continue to follow.
--- NOTE | 2023-07-02 09:17 | P.PNIM_ITS ---
Subjective Subjective Date of Service: 07/02/23 Review of Systems follow-up foot infection Pain to dorsum of left foot Reports withdrawal symptoms from opioids Physical Exam 2 Vital Signs: Vital Signs: Last Vital Signs Temp 96.8 F 07/02/23 07:39 Pulse 50 07/02/23 07:39 Resp 18 07/02/23 07:39 BP 109/62 07/02/23 07:39 Pulse Ox 98 07/02/23 07:39 O2 Del Method Room Air 07/02/23 07:39 BMI result Body Mass Index 22.4 Appearing in no acute distress lung sounds are clear to auscultation heart regular rate rhythm, clear S1, S2 positive bowel sounds, abdomen is soft, nontender neuro patient is alert x3, no focal deficits Erythema to dorsum of left foot with pinpoint wound area, no drainage noted Objective Data Active Medications Acetaminophen (Acetaminophen 325 Mg Tablet) 650 mg PO Q6H PRN PRN Reason: Pain, Mild (Pain Scale 1-3) Dextrose (Dextrose 50 % 25 Gm/50 Ml Syringe) 25 gm IVPUSH Q15M PRN; Protocol PRN Reason: per Hypoglycemia Standing Ord. Enoxaparin Sodium (Enoxaparin Sodium 40 Mg/0.4 Ml Syringe) 40 mg SUBCUT Q24H [facility] Last Admin: 07/02/23 07:47 Dose: 40 mg Documented By: LEANNA Glucose (Glucose Gel 15 Gm Gel..Gram.) 15 gm PO Q15M PRN; Protocol PRN Reason: per Hypoglycemia Standing Ord. Piperacillin Sod/Tazobactam (Sod 4.5 gm/ Sodium Chloride) 100 mls @ 200 mls/hr IV Q6H [facility] Last Infusion: 07/02/23 06:01 Dose: Infused Documented By: GLORIA Vancomycin HCl 750 mg/ Sodium (Chloride) 265 mls @ 265 mls/hr IV Q8H [facility] Last Infusion: 07/02/23 09:05 Dose: Infused Documented By: LEANNA Insulin Human Lispro (Insulin Lispro 100 Unit/Ml 3 Ml Vial) 0 unit SUBCUT QIDACHS [facility]; Protocol Last Admin: 07/02/23 07:37 Dose: Not Given Documented By: LEANNA Non-Admin Reason: No Insulin Coverage Lorazepam (Lorazepam 0.5 Mg Tablet) 0.5 mg PO Q8H PRN PRN Reason: anxiety/restlessness Last Admin: 07/02/23 08:11 Dose: 0.5 mg Documented By: LEANNA Melatonin (Melatonin 3 Mg Tablet) 6 mg PO BEDTIME PRN PRN Reason: Insomnia Ondansetron HCl (Ondansetron Hcl 4 Mg/2 Ml Vial) 4 mg IVPUSH Q8H PRN PRN Reason: Nausea and Vomiting Last Admin: 07/02/23 07:50 Dose: 4 mg Documented By: LEANNA Oxycodone HCl (Oxycodone Hcl Immed Release 15 Mg Tablet) 15 mg PO Q4H PRN PRN Reason: Withdrawal Last Admin: 07/02/23 08:11 Dose: 15 mg Documented By: LEANNA Pharmacy Consult (Consult Rx Vancomycin Dosing) 1 each MISCELLANE DAILY PRN PRN Reason: Consult order Sodium Chloride (0.9 % Sodium Chloride Flush 3 Ml Syringe) [address] [facility] Last Admin: 07/02/23 07:48 Dose: 3 ml Documented By: LEANNA Labs 07/02/23 05:02 07/02/23 05:02 Labs: Laboratory Results - last 24 hr 07/01/23 07/01/23 07/02/23 20:57 23:13 00:58 MCV 95.6 MCH 31.1 MCHC 32.5 RDW 12.6 Plt Count 243 MPV 10.1 Immature Gran % (Auto) 1.2 H Neut % (Auto) 94.3 H Lymph % (Auto) 2.2 L Douglas % (Auto) 2.0 Eos % (Auto) 0.1 Baso % (Auto) 0.2 Lymph # (Auto) 0.4 L Douglas # (Auto) 0.3 Eos # (Auto) 0.0 Baso # (Auto) 0.0 Abs Immat Gran (auto) 0.20 H Absolute Neuts (auto) 15.7 H Absolute Nucleated RBC 0.000 Nucleated RBC % (auto) 0.0 Smear Tech's Comments VERIFIED ESR 16 H Anion Gap 13 Estim Creat Clear Calc 86.3 Estimated GFR > 60 POC Glucose Random Glucose 199 H Estimat Average Glucose 88 Hemoglobin A1c % 4.7 Lactic Acid 2.6 H* Lactic Acid F/U @ 2Hr 3.4 H* Lactic Acid F/U @ 4Hr Calcium 9.1 Magnesium 2.2 Total Bilirubin 0.6 AST 108 H ALT 101 H Alkaline Phosphatase 145 H C-Reactive Protein 3.18 H Total Protein 7.0 Albumin 3.5 Urine Opiates Screen POSITIVE H Urine Fentanyl Screen POSITIVE H Ur Barbiturates Screen Not Detected Ur Phencyclidine Scrn Not Detected Ur Amphetamines Screen Not Detected U Benzodiazepines Scrn Not Detected Urine Cocaine Screen POSITIVE H U Marijuana (THC) Screen Not Detected 07/02/23 07/02/23 07/02/23 01:49 05:02 07:18 MCV 98.3 H MCH 31.1 MCHC 31.6 RDW 12.9 Plt Count 204 MPV 11.1 Immature Gran % (Auto) 3.9 H Neut % (Auto) 85.1 H Lymph % (Auto) 3.3 L Douglas % (Auto) 6.6 Eos % (Auto) 0.9 Baso % (Auto) 0.2 Lymph # (Auto) 0.7 L Douglas # (Auto) 1.4 H Eos # (Auto) 0.2 Baso # (Auto) 0.0 Abs Immat Gran (auto) 0.82 H Absolute Neuts (auto) 17.7 H Absolute Nucleated RBC 0.000 Nucleated RBC % (auto) 0.0 Smear Tech's Comments ESR Anion Gap 11 L Estim Creat Clear Calc 117.1 Estimated GFR > 60 POC Glucose 116 H Random Glucose 123 H Estimat Average Glucose Hemoglobin A1c % Lactic Acid Lactic Acid F/U @ 2Hr Lactic Acid F/U @ 4Hr 2.8 H* Calcium 8.5 D Magnesium Total Bilirubin AST ALT Alkaline Phosphatase C-Reactive Protein Total Protein Albumin Urine Opiates Screen Urine Fentanyl Screen Ur Barbiturates Screen Ur Phencyclidine Scrn Ur Amphetamines Screen U Benzodiazepines Scrn Urine Cocaine Screen U Marijuana (THC) Screen Assessment and Plan (1) Foot abscess, left: Status: Acute Plan This is a 47-year-old male with pertinent history of IV drug use disorder, untreated hepatitis-C who presents to the emergency department for concerns of left foot infection. left foot abscess with cellulitis. Resuscitated with IV crystalloids. Continue vancomycin and Zosyn Incised and drained by ER provider. Foot x-ray showing soft tissue swelling at the dorsal aspect of the midfoot with no acute osseous findings CT scan to further delineate anatomy and look for underlying abscess. Acute lactic acidosis Secondary to cellulitis Hyperglycemia A1c 4.7 Episodic secondary to cellulitis Opioid use disorder Monitor for withdrawal. Consulting Addiction Medicine Started on oxycodone 15 mg every 4 hours for withdrawal symptoms Hold off on clonidine due to low blood pressures Hepatitis-C, untreated Outpatient follow-up DVT prophylaxis: Lovemelissax Attending Dr. Mccullough Full code continued hospital stay for IV antibiotics (as above), which is not possible in a lesser acute setting. Quality Stroke Does the patient have a stroke diagnosis?: No VTE Prior VTE?: No VTE Risk Level:: Medical - moderate - high VTE Device Contraindication: Treatment Not Indicated VTE Drug Contraindication: N/A - Med Ordered
[2023-07-02] MEDS: iohexoL 350 MG/ML 100 ML INFUS..BTL IV (09:58)
--- NOTE | 2023-07-02 10:26 | PHA.MEDREC ---
Pharmacy Consult ? Medication Reconciliation Pharmacy has completed the medication reconciliation. Spoke to patient and verified medication list.
--- NOTE | 2023-07-02 11:18 | MHC.CM.PN ---
PT REPORTS HE IS HOMELESS AND HAS BEEN STAYING BETWEEN THE [facility] AND [facility] HOWEVER HE HAS USED UP ALL OF HIS TIME AT [facility] THEY ONLY ALLOW 40 DAYS. PT REPORTS HE WOULD PREFER TO GO TO A DIFFERENT LONG TERM OR SA PROGRAM HE IS AWARE THE RECOVERY TEAM WILL MEET WITH HIM PT ALSO AWARE IF HE DOES NOT CHOOSE TO GO TO A SA TREATMENT PROGRAM, CM WILL ATTEMPT TO GET HIM AT BED AT [facility], HOWEVER IF THERE ARE NO BEDS, HE WILL HAVE TO RETURN TO [facility]. PT USES A WHEELED WALKER AT [employer] HE HAS NO PCP AND NO OUTPATIENT SERVICES DCP TBD: LONG TERM VS SA PROGRAM HE WILL NEED BUS PASSES V OR LYFT IF HE GOES TO A PROGRAM
--- NOTE | 2023-07-02 13:12 | P.CDIM_ITS ---
PROVIDER RESPONSE TEXT: To clarify, the appropriate diagnosis supported by the clinical indicators: Other (explain): no sepsis, leukocytis QUERY TEXT: PHYSICIAN'S DOCUMENTATION REQUEST Date of Query: 07/02/2023 11:30 AM EST Patient Name: Jarrett Gil Admit Date: 07/02/2023 Dear Meri Barrientos, A review of the medical record indicates additional documentation may be needed. Please review below and update the documentation accordingly. Clinical Indicators: ED: presents without SIRS Does not qualify for sepsis fluids. Given hypotensive I ordered sepsis fluid bolus. H&P: Sepsis due to left foot abscess with cellulitis. Vancomycin and zosyn WBC 20 LA 3.4 HR 111 BP 90/59 RR 11 Temp 96.7 PN 07/02 - let foot abscess with cellulitis/resuscitated with IV cystalloids. Consistency of a diagnosis within the medical record: Sepsis due to left foot abscess with cellulitis Other please specify Other (explain) Clinically unable to determine (explain) Thank you, Maxine Casarez, CCS, CDIS Use of terms such as suspected, likely, concern for, or probable (associated with a specific diagnosi s that is being evaluated, monitored, or treated as if it exists) are acceptable and can be coded in the inpatient se tting, when documented at the time of discharge. Please use your independent medical judgment in providing your response. THIS QUERY IS PART OF THE PERMANENT MEDICAL RECORD
--- NOTE | 2023-07-02 15:56 | PC.NURSE ---
verified with pharmacist ,next vanco trough due zulay at 2100,ok to administer 1600 dose
--- NOTE | 2023-07-02 20:08 | HO.ADDICT_ITS ---
History of Present Illness Date of Service: 07/02/2023 Chief Complaint: Foot infection Reason for Consult: OUD Sources of Information: patient interviewed and chart reviewed HPI Narrative: Patient is a 47 year old male with OUD and dx of schizophrenia currently medically admitted with abcess to the foot. Seen earlier in the day by professor of physical education, where he was reporting withdrawal sx and expressed desire to initiate suboxone this evening. Seen in room 372, awake, alert, appearing guarded--but answering questions appropriately. He states he would like to start suboxone in the morning. Discussed concern with fentanyl use yesterday morning (per his report) and risk of precipitated withdrawal. Patient has also been taking oxycodone 15mg PRN for withdrawal--which he reports has been effective. At time of interview patient denied any withdrawal sx. He reports having an appt to initiate suboxone on 07/04, but would be happy to start it here. This auto service writer advised patient that the longer we wait since last fentanyl use, the better--and since withdrawal sx at this time are being effectively managed with oxycodone, we can wait at least another full day. Patient agreeable. Past Psychiatric History: [facility] M3 admission 09/2022 OP: none Past trials: haldol Review of Systems Constitutional: Reports as per HPI Diagnostics Vital Signs (24Hr): Vital Signs - 24 hr 07/01/23 21:07 07/01/23 22:25 07/01/23 22:53 Temperature 98.4 F 98.4 F 98.0 F Pulse Rate 70 69 67 Respiratory Rate 16 18 11 L Blood Pressure 85/47 L 90/59 L 88/63 L Pulse Oximetry 97 98 97 Oxygen Delivery Method Room Air Room Air Room Air 07/01/23 23:58 07/02/23 00:23 07/02/23 00:23 Temperature 98.0 F Pulse Rate 62 65 65 Respiratory Rate 12 Blood Pressure 99/65 102/66 102/66 Pulse Oximetry 100 98 Oxygen Delivery Method Room Air 07/02/23 02:11 07/02/23 06:39 07/02/23 07:39 Temperature 96.7 F L 96.8 F Pulse Rate 58 111 H 50 Respiratory Rate 16 16 18 Blood Pressure 105/66 104/60 109/62 Pulse Oximetry 98 96 98 Oxygen Delivery Method Room Air Room Air Room Air 07/02/23 15:14 07/02/23 19:19 Temperature 97.5 F 98.4 F Pulse Rate 60 66 Respiratory Rate 18 14 Blood Pressure 106/55 L 112/59 L Pulse Oximetry 98 96 Oxygen Delivery Method Room Air Room Air BMI result Body Mass Index 22.4 Labs 07/02/23 05:02 07/02/23 05:02 Labs: Laboratory Results - last 48 hr 07/01/23 07/01/23 07/02/23 20:57 23:13 00:58 WBC 16.7 H RBC 4.31 L Hgb 13.4 L Hct 41.2 L MCV 95.6 MCH 31.1 MCHC 32.5 RDW 12.6 Plt Count 243 MPV 10.1 Immature Gran % (Auto) 1.2 H Neut % (Auto) 94.3 H Lymph % (Auto) 2.2 L Amelia % (Auto) 2.0 Eos % (Auto) 0.1 Baso % (Auto) 0.2 Lymph # (Auto) 0.4 L Amelia # (Auto) 0.3 Eos # (Auto) 0.0 Baso # (Auto) 0.0 Abs Immat Gran (auto) 0.20 H Absolute Neuts (auto) 15.7 H Absolute Nucleated RBC 0.000 Nucleated RBC % (auto) 0.0 Smear Tech's Comments VERIFIED ESR 16 H Sodium 137 Potassium 3.9 Chloride 102 Carbon Dioxide 26 Anion Gap 13 BUN 16 Creatinine 0.95 Estim Creat Clear Calc 86.3 Estimated GFR > 60 POC Glucose Random Glucose 199 H Estimat Average Glucose 88 Hemoglobin A1c % 4.7 Lactic Acid 2.6 H* Lactic Acid F/U @ 2Hr 3.4 H* Lactic Acid F/U @ 4Hr Calcium 9.1 Magnesium 2.2 Total Bilirubin 0.6 AST 108 H ALT 101 H Alkaline Phosphatase 145 H C-Reactive Protein 3.18 H Total Protein 7.0 Albumin 3.5 Urine Opiates Screen POSITIVE H Urine Fentanyl Screen POSITIVE H Ur Barbiturates Screen Not Detected Ur Phencyclidine Scrn Not Detected Ur Amphetamines Screen Not Detected U Benzodiazepines Scrn Not Detected Urine Cocaine Screen POSITIVE H U Marijuana (THC) Screen Not Detected 07/02/23 07/02/23 07/02/23 01:49 05:02 07:18 WBC 20.8 H RBC 4.02 L Hgb 12.5 L Hct 39.5 L MCV 98.3 H MCH 31.1 MCHC 31.6 RDW 12.9 Plt Count 204 MPV 11.1 Immature Gran % (Auto) 3.9 H Neut % (Auto) 85.1 H Lymph % (Auto) 3.3 L Amelia % (Auto) 6.6 Eos % (Auto) 0.9 Baso % (Auto) 0.2 Lymph # (Auto) 0.7 L Amelia # (Auto) 1.4 H Eos # (Auto) 0.2 Baso # (Auto) 0.0 Abs Immat Gran (auto) 0.82 H Absolute Neuts (auto) 17.7 H Absolute Nucleated RBC 0.000 Nucleated RBC % (auto) 0.0 Smear Tech's Comments ESR Sodium 139 Potassium 4.5 Chloride 108 Carbon Dioxide 25 Anion Gap 11 L BUN 12 Creatinine 0.70 Estim Creat Clear Calc 117.1 Estimated GFR > 60 POC Glucose 116 H Random Glucose 123 H Estimat Average Glucose Hemoglobin A1c % Lactic Acid Lactic Acid F/U @ 2Hr Lactic Acid F/U @ 4Hr 2.8 H* Calcium 8.5 D Magnesium Total Bilirubin AST ALT Alkaline Phosphatase C-Reactive Protein Total Protein Albumin Urine Opiates Screen Urine Fentanyl Screen Ur Barbiturates Screen Ur Phencyclidine Scrn Ur Amphetamines Screen U Benzodiazepines Scrn Urine Cocaine Screen U Marijuana (THC) Screen Imaging Radiology Impressions: ITS Impressions Foot X-Ray 07/01/23 20:05 IMPRESSION: Soft tissue swelling at the dorsal aspect of the midfoot. No acute osseous findings. Foot CT 07/02/23 09:58 IMPRESSION: 1. Peripherally enhancing subcutaneous fluid collection along the dorsal aspect of the midfoot at the level of the second metatarsal base measuring up to 4.2 x 2.2 x 1.2 cm. Tiny foci of air within the medial aspect of the collection. Findings could represent abscess formation. Adjacent subcutaneous edema with mild skin thickening. 2. No acute osseous abnormality. No periosteal reaction or cortical erosion to suggest acute osteomyelitis. Mental Status Exam Mental Status Exam Patient Appearance: Disheveled Level of Consciousness: Awake and Alert Patient Behavior: Guarded Mood Description: Flat and Apprehensive Affect Description: Flat Medications Medications Current Medications Acetaminophen (Acetaminophen 325 Mg Tablet) 650 mg PO Q6H PRN PRN Reason: Pain, Mild (Pain Scale 1-3) Enoxaparin Sodium (Enoxaparin Sodium 40 Mg/0.4 Ml Syringe) 40 mg SUBCUT Q24H [facility] Last Admin: 07/02/23 07:47 Dose: 40 mg Piperacillin Sod/Tazobactam (Sod 4.5 gm/ Sodium Chloride) 100 mls @ 200 mls/hr IV Q6H [facility] Last Infusion: 07/02/23 18:21 Dose: Infused Vancomycin HCl 750 mg/ Sodium (Chloride) 265 mls @ 265 mls/hr IV Q8H [facility] Last Infusion: 07/02/23 17:28 Dose: Infused Lorazepam (Lorazepam 0.5 Mg Tablet) 0.5 mg PO Q8H PRN PRN Reason: anxiety/restlessness Last Admin: 07/02/23 16:17 Dose: 0.5 mg Melatonin (Melatonin 3 Mg Tablet) 6 mg PO BEDTIME PRN PRN Reason: Insomnia Ondansetron HCl (Ondansetron Hcl 4 Mg/2 Ml Vial) 4 mg IVPUSH Q8H PRN PRN Reason: Nausea and Vomiting Last Admin: 07/02/23 07:50 Dose: 4 mg Oxycodone HCl (Oxycodone Hcl Immed Release 15 Mg Tablet) 15 mg PO Q4H PRN PRN Reason: Withdrawal Last Admin: 07/02/23 16:16 Dose: 15 mg Pharmacy Consult (Consult Rx Vancomycin Dosing) 1 each MISCELLANE DAILY PRN PRN Reason: Consult order Sodium Chloride (0.9 % Sodium Chloride Flush 3 Ml Syringe) 3 ml IVFLUSH QSHIFT [facility] Last Admin: 07/02/23 16:02 Dose: 3 ml Allergies Allergies Allergy/AdvReac Type Severity Reaction Status Date / Time No Known Allergies Allergy Verified 03/02/23 21:40 [No Known Allergies*] Assessment & Plan Assessment & Plan (1) Opioid use disorder: Status: Acute Code(s): F11.90 - Opioid use, unspecified, uncomplicated Assessment and Plan: * continue oxycodone as order for withdrawal sx * reassess in AM and make plan for when to d/c oxycodone and monitor COW scores to determine when to start bupe Total time managing care of this patient today __20__ minutes. PMFSH Past Medical History Medical History (Updated 07/02/23 @ 20:25 by Gerri German CNP) IV drug user Hepatitis C Social History Social History Household Members: None Household Members Other:: homeless Housing: Homeless Do you presently have visiting nurse or other home services: No Unable to assess alcohol history related to: Unknown and Refusing to respond Alcohol intake: never Patient Tobacco Use Status: Current everyday Tobacco user Cigarette Packs Per Day: 1 Cigarettes Per Day: 20.0 Second Hand Smoke Exposure: Yes Substance Use Type: Heroin service: No Sexual orientation: Don't Know
[2023-07-02 21:25] LABS: Vancomycin Trough 10.7 mcg/mL (10.0-20.0)
--- NOTE | 2023-07-02 21:36 | HE.PHANOTE ---
VANCO DOSE ADJUSTMENT BASED ON SCR AND TROUGH OF 10.7 DOSE INCREASED TO 1000Q 8H. NEXT TROUGH 07/04 @ 0900
[2023-07-02] MEDS: vancomycin HCL 1,000 MG in 0.9 % Sodium Chloride 250 ML 270 MG IV (23:51)
[2023-07-03] MEDS: oxyCODONE HCl Immed Release 15 MG TABLET PO ×6 (01:51→20:52)
[2023-07-03] MEDS: LORazepam 0.5 MG TABLET PO ×2 (04:04→11:28)
[2023-07-03] MEDS: Piperacillin Sodium/Tazobactam 4.5 GM in 0.9 % Sodium Chloride 100 ML IV ×4 (05:12→22:40)
[2023-07-03 07:01] VITALS: BP 168/81; PULSE 56; RESP 16; TEMP 36.8; O2SAT 99
[2023-07-03 07:04] LABS: Creatinine Clr Calc Pharmacy 125.3; Estimated Glomerular Filt Rate > 60
[2023-07-03 07:16] LABS: Glucose, Whole Blood 93 mg/dL (60-115)
[2023-07-03] MEDS: Enoxaparin Sodium 40 MG/0.4 ML SYRINGE SUBCUT (07:48)
[2023-07-03] MEDS: vancomycin HCL 1,000 MG in 0.9 % Sodium Chloride 250 ML 270 MG IV ×2 (07:48→15:19)
[2023-07-03] MEDS: 0.9 % Sodium Chloride Flush 3 ML SYRINGE IVFLUSH ×2 (07:48→15:19)
--- NOTE | 2023-07-03 08:16 | P.CONGS_ITS ---
History of Present Illness Consult details Consult date: 07/03/23 Narrative: The patient is a 47-year-old gentleman with a history of IVDA presented to the emergency room with left foot pain and underwent bedside incision and drainage due to a large abscess. I was asked to evaluate the foot as the patient is having ongoing pain but does note that he is improved from presentation. Patient relates that he was shooting drugs in his foot and that this started several days ago. As noted, he reports he is improved. I and D note reviewed; cultures not performed. Review of Systems 2 Review of Systems: Yes all other systems are reviewed and are negative [facility] Past Medical History Medical History IV drug user Hepatitis C Social History Social History Household Members: None Household Members Other:: homeless Housing: Homeless Do you presently have visiting nurse or other home services: No Unable to assess alcohol history related to: Unknown and Refusing to respond Alcohol intake: never Patient Tobacco Use Status: Current everyday Tobacco user Cigarette Packs Per Day: 1 Cigarettes Per Day: 20.0 Second Hand Smoke Exposure: Yes Substance Use Type: Heroin service: No Sexual orientation: Don't Know Meds Allergies Allergy/AdvReac Type Severity Reaction Status Date / Time No Known Allergies Allergy Verified 03/02/23 21:40 [No Known Allergies*] Active Medications: Current Medications Acetaminophen (Acetaminophen 325 Mg Tablet) 650 mg PO Q6H PRN PRN Reason: Pain, Mild (Pain Scale 1-3) Enoxaparin Sodium (Enoxaparin Sodium 40 Mg/0.4 Ml Syringe) 40 mg SUBCUT Q24H [facility] Last Admin: 07/03/23 07:48 Dose: 40 mg Piperacillin Sod/Tazobactam (Sod 4.5 gm/ Sodium Chloride) 100 mls @ 200 mls/hr IV Q6H COUNT INCLUDES [facility] Last Infusion: 07/03/23 05:42 Dose: Infused Vancomycin HCl 1,000 mg/ (Sodium Chloride) 270 mls @ 270 mls/hr IV Q8H COUNT INCLUDES [facility] Last Admin: 07/03/23 07:48 Dose: 270 mls/hr Lorazepam (Lorazepam 0.5 Mg Tablet) 0.5 mg PO Q8H PRN PRN Reason: anxiety/restlessness Last Admin: 07/03/23 04:04 Dose: 0.5 mg Melatonin (Melatonin 3 Mg Tablet) 6 mg PO BEDTIME PRN PRN Reason: Insomnia Ondansetron HCl (Ondansetron Hcl 4 Mg/2 Ml Vial) 4 mg IVPUSH Q8H PRN PRN Reason: Nausea and Vomiting Last Admin: 07/02/23 07:50 Dose: 4 mg Oxycodone HCl (Oxycodone Hcl Immed Release 15 Mg Tablet) 15 mg PO Q4H PRN PRN Reason: Withdrawal Last Admin: 07/03/23 05:52 Dose: 15 mg Pharmacy Consult (Consult Rx Vancomycin Dosing) 1 each MISCELLANE DAILY PRN PRN Reason: Consult order Sodium Chloride (0.9 % Sodium Chloride Flush 3 Ml Syringe) 3 ml IVFLUSH [facility] Last Admin: 07/03/23 07:48 Dose: 3 ml Home Medications Medication Instructions Recorded Confirmed Last Taken Type benztropine 0.5 mg tablet 0.5 mg PO DAILY 07/02/23 07/02/23 07/01/23 History Physical Exam 2 Vital Signs: Vital Signs: Last Vital Signs Temp 98.2 F 07/03/23 07:01 Pulse 56 07/03/23 07:01 Resp 16 07/03/23 07:01 BP 168/81 H 07/03/23 07:01 Pulse Ox 99 07/03/23 07:01 O2 Del Method Room Air 07/03/23 07:01 BMI result Body Mass Index 22.4 On exam, the patient is nontoxic He is having no respiratory difficulty His left foot has dorsal erythema but appears to be adequately drained as there is no fluctuance. Results Labs 07/02/23 05:02 07/03/23 05:48 Labs: BMP 07/03/23 05:48 Creatinine 0.71 All other labs normal. Assessment and Plan (1) Abscess of left foot: Status: Acute (2) Foot abscess, left: Status: Acute (3) Opioid use disorder: Status: Acute (4) Hepatitis C: Status: Acute Plan Drainage appears adequate at this time. Continue IV antibiotics and will reassess him within 24 hours. If he is continuing to have symptoms, reimaging and possible operative debridement may be required. Continue to monitor Procedures Date of Service Date of Service: 07/03/23
--- NOTE | 2023-07-03 08:48 | MHC.RECOVRN ---
Met with pt in 372 to follow up in regards to bupe initiation. Pt sitting in bed, awake, alert, engages in conversation, guarded, eating breakfast. Pt reports withdrawal symptoms including body aches, chills, anxiety. Pt reports foot pain 10/10. Pt has been taking oxycodone overnight with some relief, however, reports pain is still bad. Discussed possibility of continuing opioids/oxycodone for withdrawal and pain and deferring bupe intiation until more comfortable/appropriate. Pt agreeable. Discussed with Gerri German APRN, as well as Meri Barrientos NP.
--- NOTE | 2023-07-03 09:14 | P.PNIM_ITS ---
Subjective Subjective Date of Service: 07/03/23 Review of Systems follow-up foot infection Pain to dorsum of left foot Reports withdrawal symptoms from opioids Physical Exam 2 Vital Signs: Vital Signs: Last Vital Signs Temp 98.2 F 07/03/23 07:01 Pulse 56 07/03/23 07:01 Resp 16 07/03/23 07:01 BP 168/81 H 07/03/23 07:01 Pulse Ox 99 07/03/23 07:01 O2 Del Method Room Air 07/03/23 07:01 BMI result Body Mass Index 22.4 Appearing in no acute distress lung sounds are clear to auscultation heart regular rate rhythm, clear S1, S2 positive bowel sounds, abdomen is soft, nontender neuro patient is alert x3, no focal deficits 07/02/23 07/03/23 Objective Data Active Medications Acetaminophen (Acetaminophen 325 Mg Tablet) 650 mg PO Q6H PRN PRN Reason: Pain, Mild (Pain Scale 1-3) Enoxaparin Sodium (Enoxaparin Sodium 40 Mg/0.4 Ml Syringe) 40 mg SUBCUT Q24H [facility] Last Admin: 07/03/23 07:48 Dose: 40 mg Documented By: FELICITY Piperacillin Sod/Tazobactam (Sod 4.5 gm/ Sodium Chloride) 100 mls @ 200 mls/hr IV Q6H [facility] Last Infusion: 07/03/23 05:42 Dose: Infused Documented By: OMARI Vancomycin HCl 1,000 mg/ (Sodium Chloride) 270 mls @ 270 mls/hr IV Q8H [facility] Last Infusion: 07/03/23 09:02 Dose: Infused Documented By: FELICITY Lorazepam (Lorazepam 0.5 Mg Tablet) 0.5 mg PO Q8H PRN PRN Reason: anxiety/restlessness Last Admin: 07/03/23 04:04 Dose: 0.5 mg Documented By: OMARI Melatonin (Melatonin 3 Mg Tablet) 6 mg PO BEDTIME PRN PRN Reason: Insomnia Ondansetron HCl (Ondansetron Hcl 4 Mg/2 Ml Vial) 4 mg IVPUSH Q8H PRN PRN Reason: Nausea and Vomiting Last Admin: 07/02/23 07:50 Dose: 4 mg Documented By: LEANNA Oxycodone HCl (Oxycodone Hcl Immed Release 15 Mg Tablet) 15 mg PO Q4H PRN PRN Reason: Withdrawal Last Admin: 07/03/23 05:52 Dose: 15 mg Documented By: OMARI Pharmacy Consult (Consult Rx Vancomycin Dosing) 1 each MISCELLANE DAILY PRN PRN Reason: Consult order Sodium Chloride (0.9 % Sodium Chloride Flush 3 Ml Syringe) 3 ml IVFLUSH QSHIFT JESSICA Last Admin: 07/03/23 07:48 Dose: 3 ml Documented By: FELICITY Labs 07/02/23 05:02 07/03/23 05:48 Labs: Laboratory Results - last 24 hr 07/02/23 07/03/23 07/03/23 20:57 05:48 06:39 Hold Purple Top SEE NOTE Estim Creat Clear Calc 125.3 Estimated GFR > 60 POC Glucose Vancomycin Trough 10.7 07/03/23 07:08 Hold Purple Top Estim Creat Clear Calc Estimated GFR POC Glucose 93 Vancomycin Trough Microbiology Microbiology Results: Microbiology 07/01/23 21:34 Blood Culture - Preliminary Blood - Venous No growth after 24 hours. 07/01/23 20:57 Blood Culture - Preliminary Blood - Venous No growth after 24 hours. Assessment and Plan (1) Foot abscess, left: Status: Acute Plan This is a 47-year-old male with pertinent history of IV drug use disorder, untreated hepatitis-C who presents to the emergency department for concerns of left foot infection. left foot abscess with cellulitis. Resuscitated with IV crystalloids. Continue vancomycin and Zosyn Incised and drained by ER provider. Foot x-ray showing soft tissue swelling at the dorsal aspect of the midfoot with no acute osseous findings CT scan>Subcutaneous fluid along the dorsal aspect of the midfoot at the level of the 2nd metatarsal base noted General surgery consultation for possible I&D Acute lactic acidosis Secondary to cellulitis Hyperglycemia A1c 4.7 Episodic secondary to cellulitis Opioid use disorder Monitor for withdrawal. Consulting Addiction Medicine>continue with current tx Started on oxycodone 15 mg every 4 hours for withdrawal symptoms Hold off on clonidine due to low blood pressures Hepatitis-C, untreated Outpatient follow-up DVT prophylaxis: Lovenox Attending Dr. Mccullough Full code continued hospital stay for IV antibiotics (as above), which is not possible in a lesser acute setting. Quality Stroke Does the patient have a stroke diagnosis?: No VTE Prior VTE?: No VTE Risk Level:: Medical - moderate - high VTE Device Contraindication: Treatment Not Indicated VTE Drug Contraindication: N/A - Med Ordered
[2023-07-03] MEDS: cloNIDine HCL 0.1 MG TABLET PO ×3 (11:28→20:52)
--- NOTE | 2023-07-03 13:30 | MHC.CM.PN ---
PLAN IS TO CONTINUE IV ABX AND RE-EVALUATE IN 24 HOURS. POSSIBLE NEED FOR DEBRIDEMENT. CASE MANAGEMENT FOLLOWING
--- NOTE | 2023-07-03 15:13 | HO.WOUND ---
Wound Consult: Initial 47yr old male admitted to [facility] on? No07/01/23 23:58- See progress notes and H&P for detailed history. Chart review reveals I&D performed in ED. Arrival to bedside no dressing in place - pt reports pain. Foot cleansed and with light topical cleansing site expressed seropurulent drainage. No odor noted - but significant fluctuance noted at the incision site. Pt not able to tolerate palpation - repeatedly called out even after assessment. Left Anterior Foot Etiology: I&D site of abscess Measurements: 0.5cm x 0.1cm x 2cm Wound Bed: Unable to visualize for assessment Drainage / Odor: No odor noted - moderate amount of sang-purulent drainage noted Edges: ? Linear Mabel wound: ? Red warm erythema noted with central fluctuance - No Induration noted Pain: Significant pain reported Goals of Treatment: ? Pack to keep Incision site open to drain appropriately Recommendations: 1. Left Foot - Elevate off of surface of bed - Cleanse with NS, Pat dry. Apply skin prep to periwound. Lightly pack with Iodoform 1/4 packing strip to keep open and allow for drainage to occur. Cover with dry gauze, ABD pad and gauze wrap. Change Daily. Re-consult wound care Nurse for wound deterioration or wound changes.
[2023-07-03 15:21] VITALS: BP 164/87; PULSE 57; RESP 20; TEMP 36.4; O2SAT 97
[2023-07-03 19:39] VITALS: BP 138/74; PULSE 55; RESP 18; TEMP 36.8; O2SAT 95
[2023-07-04] VITALS: BP 181/98; PULSE 48; RESP 16; TEMP 36.1; O2SAT 97
[2023-07-04] MEDS: vancomycin HCL 1,000 MG in 0.9 % Sodium Chloride 250 ML 270 MG IV ×2 (00:17→08:38)
[2023-07-04] MEDS: oxyCODONE HCl Immed Release 15 MG TABLET PO ×7 (00:18→20:44)
[2023-07-04] MEDS: 0.9 % Sodium Chloride Flush 3 ML SYRINGE IVFLUSH ×3 (01:23→15:35)
[2023-07-04 01:29] VITALS: BP 160/82
[2023-07-04] MEDS: Piperacillin Sodium/Tazobactam 4.5 GM in 0.9 % Sodium Chloride 100 ML IV ×4 (05:06→22:51)
[2023-07-04 06:02] LABS: Creatinine Clr Calc Pharmacy 134.8; Estimated Glomerular Filt Rate > 60
[2023-07-04 07:39] VITALS: BP 156/83; PULSE 50; RESP 16; TEMP 36.9; O2SAT 97
[2023-07-04] MEDS: Enoxaparin Sodium 40 MG/0.4 ML SYRINGE SUBCUT (08:37)
[2023-07-04] MEDS: cloNIDine HCL 0.1 MG TABLET PO ×3 (08:37→20:34)
[2023-07-04 10:23] LABS: Vancomycin Random 41.8 mcg/mL (15-20)
--- NOTE | 2023-07-04 11:05 | HO.PM.IMPN ---
Subjective Subjective Date of Service: 07/04/23 Review of Systems follow-up foot infection Pain to dorsum of left foot Reports withdrawal symptoms from opioids Physical Exam Vital Signs: Vital Signs: Last Vital Signs Temp 98.4 F 07/04/23 07:39 Pulse 50 07/04/23 07:39 Resp 16 07/04/23 07:39 BP 156/83 H 07/04/23 07:39 Pulse Ox 97 07/04/23 07:39 O2 Del Method Room Air 07/04/23 07:39 BMI result Body Mass Index 22.4 Appearing in no acute distress lung sounds are clear to auscultation heart regular rate rhythm, clear S1, S2 positive bowel sounds, abdomen is soft, nontender neuro patient is alert x3, no focal deficits erythema resolved to dorsum of left foot 07/04/23 07/03/23 07/02/23 Objective Data Active Medications Acetaminophen (Acetaminophen 325 Mg Tablet) 650 mg PO Q6H PRN PRN Reason: Pain, Mild (Pain Scale 1-3) Clonidine HCl (Clonidine Hcl 0.1 Mg Tablet) 0.1 mg PO TID [facility]; Protocol Last Admin: 07/04/23 08:37 Dose: 0.1 mg Documented By: COTEMA Enoxaparin Sodium (Enoxaparin Sodium 40 Mg/0.4 Ml Syringe) 40 mg SUBCUT Q24H [facility] Last Admin: 07/04/23 08:37 Dose: 40 mg Documented By: SALVADOR Piperacillin Sod/Tazobactam (Sod 4.5 gm/ Sodium Chloride) 100 mls @ 200 mls/hr IV Q6H [facility] Last Infusion: 07/04/23 05:38 Dose: Infused Documented By: OMARI Vancomycin HCl 1,000 mg/ (Sodium Chloride) 270 mls @ 270 mls/hr IV Q8H [facility] Last Infusion: 07/04/23 10:01 Dose: Infused Documented By: FELICITY Lorazepam (Lorazepam 0.5 Mg Tablet) 0.5 mg PO Q6H PRN PRN Reason: anxiety/restlessness Last Admin: 07/03/23 11:28 Dose: 0.5 mg Documented By: FELICITY Melatonin (Melatonin 3 Mg Tablet) 6 mg PO BEDTIME PRN PRN Reason: Insomnia Ondansetron HCl (Ondansetron Hcl 4 Mg/2 Ml Vial) 4 mg IVPUSH Q8H PRN PRN Reason: Nausea and Vomiting Last Admin: 07/02/23 07:50 Dose: 4 mg Documented By: LEANNA Oxycodone HCl (Oxycodone Hcl Immed Release 15 Mg Tablet) 15 mg PO Q3H PRN PRN Reason: Withdrawal Last Admin: 07/04/23 08:38 Dose: 15 mg Documented By: SALVADOR Pharmacy Consult (Consult Rx Vancomycin Dosing) 1 each MISCELLANE DAILY PRN PRN Reason: Consult order Sodium Chloride (0.9 % Sodium Chloride Flush 3 Ml Syringe) 3 ml IVFLUSH QSHIFT [facility] Last Admin: 07/04/23 08:38 Dose: 3 ml Documented By: SALVADOR Labs 07/02/23 05:02 07/04/23 05:07 Labs: Laboratory Results - last 24 hr 07/04/23 07/04/23 05:07 09:57 Hold Purple Top SEE NOTE Estim Creat Clear Calc 134.8 Estimated GFR > 60 Random Vancomycin 41.8 H* Microbiology Microbiology Results: Microbiology 07/01/23 21:34 Blood Culture - Preliminary Blood - Venous No growth after 48 hours. 07/01/23 20:57 Blood Culture - Preliminary Blood - Venous No growth after 48 hours. Assessment and Plan (1) Foot abscess, left: Status: Acute Plan This is a 47-year-old male with pertinent history of IV drug use disorder, untreated hepatitis-C who presents to the emergency department for concerns of left foot infection. Left foot abscess with cellulitis. improving Continue vancomycin and Zosyn Incised and drained by ER provider 07/02/23 Foot x-ray showing soft tissue swelling at the dorsal aspect of the midfoot with no acute osseous findings CT scan>Subcutaneous fluid along the dorsal aspect of the midfoot at the level of the 2nd metatarsal base noted General surgery consultation> no need for repeat I&D Seen by wound nurse>expressed purulent drainage Acute lactic acidosis Secondary to cellulitis Hyperglycemia A1c 4.7 Episodic secondary to cellulitis Opioid use disorder Monitor for withdrawal. Consulting Addiction Medicine>continue with current tx Started on oxycodone 15 mg every 4 hours for withdrawal symptoms, Hepatitis-C, untreated Outpatient follow-up DVT prophylaxis: Lovenikkie Attending Dr. Mcculolugh Full code continued hospital stay for IV antibiotics (as above), which is not possible in a lesser acute setting. Quality Stroke Does the patient have a stroke diagnosis?: No VTE Prior VTE?: No VTE Risk Level:: Medical - moderate - high VTE Device Contraindication: Treatment Not Indicated VTE Drug Contraindication: N/A - Med Ordered
[2023-07-04] MEDS: LORazepam 0.5 MG TABLET PO (11:29)
[2023-07-04 14:25] LABS: Vancomycin Random 20.6 mcg/mL (15-20)
[2023-07-04] MEDS: Acetaminophen 325 MG TABLET 650 MG PO (15:33)
--- NOTE | 2023-07-04 15:39 | PC.NURSE ---
Vanco Trough 20.6,verified with pharmacy,pr to administer Vanco as scheduled,dose was decreased.
[2023-07-04] MEDS: vancomycin HCL 750 MG in 0.9 % Sodium Chloride 250 ML 265 MG IV ×2 (15:48→23:24)
[2023-07-04 16:00] VITALS: BP 168/89; TEMP 36; O2SAT 98
[2023-07-04] MEDS: Lidocaine 4 % Patch ADH..PATCH 1 PATCH TRANSDERMA (18:10)
[2023-07-04] MEDS: Ketorolac Tromethamine 15 MG/ML VIAL IVPUSH (19:21)
--- NOTE | 2023-07-04 20:46 | HO.ADDICTPRO ---
Subjective Subjective Date of Service: 07/04/23 Reason For Visit: Foot infection Interim History: Patient seen in follow up with hand rounder Has been receiving oxycodone 20mg q3h. with positive effect--however still reporting back pain, which he attributes to withdrawal. Still plans to transition to buprenorphine once pain medications are no longer necessary. Much more engaged today and answering questions without issue. Review of Systems Constitutional: Reports as per [facility] Mental Status Exam Mental Status Exam Level of Consciousness: Awake, Appropriate and Alert Diagnostics Vital Signs (24Hr): Vital Signs - 24 hr 07/04/23 00:00 07/04/23 01:29 07/04/23 07:39 Temperature 97.0 F 98.4 F Pulse Rate 48 L 50 Respiratory Rate 16 16 Blood Pressure 181/98 H 160/82 H 156/83 H Pulse Oximetry 97 97 Oxygen Delivery Method Room Air Room Air 07/04/23 16:00 Temperature 96.8 F Pulse Rate Respiratory Rate Blood Pressure 168/89 H Pulse Oximetry 98 Oxygen Delivery Method Room Air BMI result Body Mass Index 22.4 Labs 07/02/23 05:02 07/04/23 05:07 Labs: Laboratory Results - last 48 hr 07/02/23 07/03/23 07/03/23 20:57 05:48 06:39 Hold Purple Top SEE NOTE Creatinine 0.71 Estim Creat Clear Calc 125.3 Estimated GFR > 60 POC Glucose Vancomycin Trough 10.7 Random Vancomycin 07/03/23 07/04/23 07/04/23 07:08 05:07 09:57 Hold Purple Top SEE NOTE Creatinine 0.66 Estim Creat Clear Calc 134.8 Estimated GFR > 60 POC Glucose 93 Vancomycin Trough Random Vancomycin 41.8 H* 07/04/23 14:01 Hold Purple Top Creatinine Estim Creat Clear Calc Estimated GFR POC Glucose Vancomycin Trough Random Vancomycin 20.6 H Imaging Radiology Impressions: ITS Impressions Foot X-Ray 07/01/23 20:05 IMPRESSION: Soft tissue swelling at the dorsal aspect of the midfoot. No acute osseous findings. Foot CT 07/02/23 09:58 IMPRESSION: 1. Peripherally enhancing subcutaneous fluid collection along the dorsal aspect of the midfoot at the level of the second metatarsal base measuring up to 4.2 x 2.2 x 1.2 cm. Tiny foci of air within the medial aspect of the collection. Findings could represent abscess formation. Adjacent subcutaneous edema with mild skin thickening. 2. No acute osseous abnormality. No periosteal reaction or cortical erosion to suggest acute osteomyelitis. Medications Medications Current Medications Acetaminophen (Acetaminophen 325 Mg Tablet) 650 mg PO Q6H PRN PRN Reason: Pain, Mild (Pain Scale 1-3) Last Admin: 07/04/23 15:33 Dose: 650 mg Clonidine HCl (Clonidine Hcl 0.1 Mg Tablet) 0.1 mg PO TID [facility]; Protocol Last Admin: 07/04/23 20:34 Dose: 0.1 mg Enoxaparin Sodium (Enoxaparin Sodium 40 Mg/0.4 Ml Syringe) 40 mg SUBCUT Q24H [facility] Last Admin: 07/04/23 08:37 Dose: 40 mg Piperacillin Sod/Tazobactam (Sod 4.5 gm/ Sodium Chloride) 100 mls @ 200 mls/hr IV Q6H [facility] Last Infusion: 07/04/23 19:18 Dose: Infused Vancomycin HCl 750 mg/ Sodium (Chloride) 265 mls @ 265 mls/hr IV Q8H [facility] Last Infusion: 07/04/23 17:43 Dose: Infused Ketorolac Tromethamine (Ketorolac Tromethamine 15 Mg/Ml Vial) 15 mg IVPUSH Q6H PRN PRN Reason: Pain, Moderate(Pain Scale 4-6) Last Admin: 07/04/23 19:21 Dose: 15 mg Lidocaine (Lidocaine 4 % Patch Adh..Patch) 1 patch TRANSDERMA DAILY [facility]; Protocol Last Admin: 07/04/23 18:10 Dose: 1 patch Lorazepam (Lorazepam 0.5 Mg Tablet) 0.5 mg PO Q6H PRN PRN Reason: anxiety/restlessness Last Admin: 07/04/23 11:29 Dose: 0.5 mg Melatonin (Melatonin 3 Mg Tablet) 6 mg PO BEDTIME PRN PRN Reason: Insomnia Ondansetron HCl (Ondansetron Hcl 4 Mg/2 Ml Vial) 4 mg IVPUSH Q8H PRN PRN Reason: Nausea and Vomiting Last Admin: 07/02/23 07:50 Dose: 4 mg Oxycodone HCl (Oxycodone Hcl Immed Release 15 Mg Tablet) 15 mg PO Q3H PRN PRN Reason: Withdrawal Last Admin: 07/04/23 20:44 Dose: 15 mg Pharmacy Consult (Consult Rx Vancomycin Dosing) 1 each MISCELLANE DAILY PRN PRN Reason: Consult order Sodium Chloride (0.9 % Sodium Chloride Flush 3 Ml Syringe) 3 ml IVFLUSH QSHIFT JESSICA Last Admin: 07/04/23 15:35 Dose: 3 ml Allergies Allergies Allergy/AdvReac Type Severity Reaction Status Date / Time No Known Allergies Allergy Verified 03/02/23 21:40 [No Known Allergies*] Assessment & Plan Assessment & Plan (1) Opioid use disorder: Status: Acute Code(s): F11.90 - Opioid use, unspecified, uncomplicated Assessment and Plan: continue oxycodone once discharge plan set, will make plan with patient regarding bupre start and ensure that bridge rx is sent to pharmacy reschedule intake appt with PAN Mendieta Total time managing care of this patient today ____ minutes.
[2023-07-04 23:50] VITALS: BP 132/79; PULSE 53; RESP 18; TEMP 36.6; O2SAT 98
[2023-07-05] MEDS: oxyCODONE HCl Immed Release 15 MG TABLET PO ×5 (00:01→11:45)
[2023-07-05] MEDS: 0.9 % Sodium Chloride Flush 3 ML SYRINGE IVFLUSH ×2 (00:03→08:51)
[2023-07-05] MEDS: Acetaminophen 325 MG TABLET 650 MG PO (04:17)
[2023-07-05] MEDS: Piperacillin Sodium/Tazobactam 4.5 GM in 0.9 % Sodium Chloride 100 ML IV ×2 (05:06→11:48)
[2023-07-05 06:20] LABS: Creatinine Clr Calc Pharmacy 64.4; Estimated Glomerular Filt Rate 55
[2023-07-05 07:32] VITALS: BP 135/86; PULSE 50; RESP 16; TEMP 36; O2SAT 99
[2023-07-05 08:00] LABS: MANUAL DIFF FLAG NO
[2023-07-05 08:04] LABS: Basophils Absolute Auto 0.1 X10*3/uL (0.0-0.2); Basophils Percent Auto 0.5 % (0-2); Eosinophils Absolute Auto 0.1 X10*3/uL (0.0-0.4); Eosinophils Percent Auto 0.7 % (0-4); Hematocrit 45.2 % (42.0-52.0); Imm Gran Abs Auto 0.09 X10*3/uL (0.00-0.03); Imm Gran Pct Auto 0.9 % (0.0-0.4); Lymphocytes Absolute Auto 1.5 X10*3/uL (1.2-4.9); Lymphocytes Percent Auto 14.5 % (20-40); Mean Corpuscular HGB Conc 33.2 g/dl (31.0-36.0); Mean Corpuscular Hemoglobin 30.9 pg (27.0-33.0); Mean Platelet Volume 10.5 fL (9.4-12.4); Monocytes Absolute Auto 1.2 X10*3/uL (0.1-1.2); Monocytes Percent Auto 11.6 % (2-11); Neutrophils Absolute Auto 7.4 x10*3/uL (2.0-8.3); Neutrophils Percent Auto 71.8 % (45-73); Platelet Count 304 X10*3/uL (160-400); Red Blood Count 4.86 X10*6/uL (4.60-5.80); Red Cell Distribution Width 12.5 % (11.0-16.0); White Blood Count 10.2 X10*3/uL (4.8-10.8)
[2023-07-05] MEDS: Enoxaparin Sodium 40 MG/0.4 ML SYRINGE SUBCUT (08:47)
[2023-07-05] MEDS: Lidocaine 4 % Patch ADH..PATCH 1 PATCH TRANSDERMA (08:47)
[2023-07-05] MEDS: cloNIDine HCL 0.1 MG TABLET PO (08:47)
--- NOTE | 2023-07-05 08:56 | HE.PHANOTE ---
RE: vanco Trough on 07/05 came back at 21; held AM dose. another level to be pulled @1800; For 750mg Q12 dosing, predicted AUC of 545 mg/L, trough of 19.2 mg/L. Will continue to monitor and adjust as necessary
[2023-07-05] MEDS: Lactated Ringers 1,000 ML 125 ML IVCONT (12:20)
--- NOTE | 2023-07-05 12:59 | P.DS_ITS ---
DS: Providers Provider Date of Service: 07/05/23 Date of admission: 07/01/23 23:58 Date of discharge: 07/05/23 Primary care physician: Tanika Physician Consults: 07/01/23 23:58 Addiction Medicine Routine Consulting Provider: Addiction Covering Reason for consultation: Heroin use disorder 07/02/23 06:41 Consult to Wound Care Routine Reason for consultation: wound to left foot 07/02/23 10:42 Consult to Wound Care Routine Reason for consultation: cellulitis to L foot 07/03/23 07:29 Consult to General Surgery Routine Consulting Provider: [facility] General Surgeons Reason for consultation: possible drainable abscess to left foot Attending physician on discharge: Joey Mccullough Discharging clinician: Mara Weiss DS: Diagnosis Discharge Diagnosis (1) Opioid use disorder: Status: Acute (2) Foot abscess, left: Status: Acute DS: Summary Hospital Course Hospital Course: From H&P on the day of admission This is a 47-year-old male with pertinent history of IV drug use disorder, untreated hepatitis-C who presents to the emergency department for concerns of left foot infection. Patient states he 1st started having pain in the left foot about 8 days prior to presentation. It is associated with foul-smelling purulent drainage. Also has been having fevers and chills. Admits to using IV heroin on the day of presentation. Denies any history of skin infections in the past. No chest discomfort, palpitations, shortness of breath, abdominal pain, changes in urinary or bowel habits. In the emergency department, patient was found to be septic and left foot abscess was incised and drained. Left foot abscess with cellulitis. Continue vancomycin and Zosyn Incised and drained by ER provider 07/02/23 Foot x-ray showing soft tissue swelling at the dorsal aspect of the midfoot with no acute osseous findings CT scan>Subcutaneous fluid along the dorsal aspect of the midfoot at the level of the 2nd metatarsal base noted General surgery consultation> no need for repeat I&D Seen by wound nurse>expressed purulent drainage Opioid use disorder Monitor for withdrawal. Consulting Addiction Medicine>continue with current tx Started on oxycodone 15 mg every 4 hours for withdrawal symptoms, Hepatitis-C, untreated Outpatient follow-up Time Attestation Discharge coordination time: Greater than 30 minutes Quality: Safe Use of Opioids Does Pt have an Active Cancer Diagnosis on the Problem List?: No Quality: Stroke Does the patient have a stroke diagnosis?: No Physical Exam Vital Signs: Vital Signs: Last Vital Signs Temp 96.8 F 07/05/23 07:32 Pulse 50 07/05/23 07:32 Resp 16 07/05/23 07:32 BP 135/86 07/05/23 07:32 Pulse Ox 99 07/05/23 07:32 O2 Del Method Room Air 07/05/23 07:32 BMI result Body Mass Index 22.4 DS: Data Data Completed and Pending Labs on day of discharge: Laboratory Results - last 24 hr 07/04/23 07/05/23 07/05/23 14:01 05:36 08:11 WBC 10.2 RBC 4.86 D Hgb 15.0 Hct 45.2 MCV 93.0 D MCH 30.9 MCHC 33.2 RDW 12.5 Plt Count 304 D MPV 10.5 Immature Gran % (Auto) 0.9 H Neut % (Auto) 71.8 Lymph % (Auto) 14.5 L [place] % (Auto) 11.6 H Eos % (Auto) 0.7 Baso % (Auto) 0.5 Lymph # (Auto) 1.5 [place] # (Auto) 1.2 Eos # (Auto) 0.1 Baso # (Auto) 0.1 Abs Immat Gran (auto) 0.09 H Absolute Neuts (auto) 7.4 Absolute Nucleated RBC 0.000 Nucleated RBC % (auto) 0.0 Hold Purple Top SEE NOTE Creatinine 1.38 Estim Creat Clear Calc 64.4 Estimated GFR 55 Vancomycin Trough 21.0 H Random Vancomycin 20.6 H Preliminary micro results at discharge 07/01/23 21:34 Blood Culture - Preliminary Blood - Venous No growth after 48 hours. 07/01/23 20:57 Blood Culture - Preliminary Blood - Venous No growth after 48 hours. Discharge Plan Discharge Patient Disposition: Left Against Medical Advice Discharge Diagnosis: left foot abscess and cellulitis opiate use disorder ALEXANDRA Referrals: Physician,Unknown J [Primary Care Provider] - 1 Week Discharge Medications: New buprenorphine-naloxone [Suboxone] 8-2 mg film 1 film sublingual BID Qty: 15 0RF doxycycline hyclate 100 mg tablet 100 mg PO BID 7 Days Qty: 14 0RF amoxicillin-pot clavulanate 875-125 mg tablet 1 tab PO Q12H 7 Days Qty: 14 0RF No Action haloperidol 5 mg Tablet 5 mg PO DAILY Qty: 30 0RF naloxone [Narcan] 4 mg/actuation spray,non-aerosol 4 mg intranasal Q2M PRN (Reason: opioid overdose) Qty: 2 0RF Rx Instructions: spray 1 dose into ONE nostril; alternate nostrils w each dose until help arrives benztropine 0.5 mg tablet 0.5 mg PO DAILY Discharge Orders: Discharge Order (Routine); Ordered 07/05/23 Ordered By: Mara Weiss Care Plan Goals: resolution of foot infection improvement in kidney function abstinence from drugs Health Concerns: opiate use disorder acute kidney injury left foot cellulitis and abscess Plan of Treatment: please take antibiotics as prescribed stay hydrated avoid drug use, take suboxone as prescribed and follow up in the comprehensive care center as scheduled recommend to obtain PCP to follow chronic medical conditions return to the nearest ED if swelling or redness to your foot worsens or if you develop fever or chills Assessment: your kidneys are not working at full capacity and may continue to decline as discussed. it was recommended to stay in the hospital for IV fluid and close monitoring of your kidneys and possible evaluation by a kidney specialist if your numbers don't improved. you have chosen to leave the hospital against medical advice despite the above recommendation.
--- NOTE | 2023-07-05 14:16 | MHC.CM.PN ---
Addendum entered by Mary Vera 07/05/23 14:21: CM INFORMED PT LEFT AMA Original Note: PT BEING DISCHARGED TODAY CM CALLED [facility] [phone], THEY ARE UNABLE TO OFFER A BED FOR TODAY CM CALLED [facility] [phone] TWICE AND LEFT VMS FOR LALO HENDERSON, WHO IS APPARENTLY THE ONLY PERSON THAT CAN APPROVE PTS RETURN TO THE [facility]
--- NOTE | 2023-07-05 14:16 | MHC.RECOVRN ---
Met with pt prior to dc to discuss dc plan/Suboxone initiation. Educated pt on appropriate time to start Suboxone, pt familiar with process, has been on Suboxone before. Pt received Suboxone prescription via Meds to bed. Pt reports he is looking forward to going home and spending time with his mom who is ill. Pt has appt with [facility] on 07/11 at 3:30PM. Denies questions or concerns for t/w.
== END 2023-07-05 13:39 | disposition left against medical advice (07) | DRG 383 ==
LOC: HO.ED 23:08 → HO.EDOVER 07-02 00:03 → HO.S3 07-02 05:47
PROVIDERS: Nurse Practitioner Acute Care; Physician Assistant Medical; Admitting Provider Student in an Organized Health Care Education/Training Program; Emergency Provider Student in an Organized Health Care Education/Training Program; Visit Provider Physician Assistant Medical
DX: L02.612 Cutaneous abscess of left foot (principal); E87.21 Acute metabolic acidosis; L03.116 Cellulitis of left lower limb; D64.9 Anemia, unspecified; F11.23 Opioid dependence with withdrawal; R73.9 Hyperglycemia, unspecified; B19.20 Unspecified viral hepatitis C without hepatic coma; F17.210 Nicotine dependence, cigarettes, uncomplicated; Z71.6 Tobacco abuse counseling; Z79.899 Other long term (current) drug therapy
CPT/HCPCS: 36415; 73630; 73701; 80048; 80053; 80202; 80307; 82565; 82947; 83036; 83605; 83735; 85025; 85652; 86140; 87040; 99285; J1650; J1885; J2405; J2543; J3370; J7120; Q9967

== ENCOUNTER → 2023-07-01 23:58 | Outpatient (BNV) | payer OTHER, SELFPAY | PROVIDERS: Admitting Provider Student in an Organized Health Care Education/Training Program; Emergency Provider Student in an Organized Health Care Education/Training Program; Visit Provider Student in an Organized Health Care Education/Training Program | DX: L02.612 Cutaneous abscess of left foot (principal); F11.90 Opioid use, unspecified, uncomplicated; Z59.00 Homelessness unspecified | CPT/HCPCS: 99222; 99232; 99239; 99499 ==

== ENCOUNTER → 2023-07-01 23:58 | Outpatient (BNV) | payer OTHER, SELFPAY | PROVIDERS: Admitting Provider Student in an Organized Health Care Education/Training Program; Emergency Provider Student in an Organized Health Care Education/Training Program; Visit Provider Surgery | DX: L02.612 Cutaneous abscess of left foot (principal); F11.90 Opioid use, unspecified, uncomplicated; B19.20 Unspecified viral hepatitis C without hepatic coma | CPT/HCPCS: 99232 ==

== ENCOUNTER → 2023-07-01 23:58 | Outpatient (BNV) | payer OTHER, SELFPAY | PROVIDERS: Admitting Provider Student in an Organized Health Care Education/Training Program; Emergency Provider Student in an Organized Health Care Education/Training Program; Visit Provider Nurse Practitioner Psychiatric/Mental Health | DX: F11.90 Opioid use, unspecified, uncomplicated (principal) | CPT/HCPCS: 99231 ==

== ENCOUNTER 2023-07-22 00:30 | Emergency (ER) | payer OTHER, SELFPAY ==
[2023-07-22] VITALS (7 sets, daily range): BP systolic 112–153; BP diastolic 62–93; PULSE 56–79; RESP 16; TEMP 35.6–36.9; O2SAT 94–97; BMI 20.7
[2023-07-22 03:22] LABS: MANUAL DIFF FLAG NO
[2023-07-22 03:23] LABS: Basophils Percent Auto 0.7 % (0-2); Eosinophils Absolute Auto 0.3 X10*3/uL (0.0-0.4); Eosinophils Percent Auto 6.3 % (0-4); Hematocrit 39.5 % (42.0-52.0); Hemoglobin 12.7 g/dl (14.0-18.0); Imm Gran Abs Auto 0.01 X10*3/uL (0.00-0.03); Imm Gran Pct Auto 0.2 % (0.0-0.4); Lymphocytes Absolute Auto 1.7 X10*3/uL (1.2-4.9); Mean Corpuscular HGB Conc 32.2 g/dl (31.0-36.0); Mean Corpuscular Hemoglobin 30.7 pg (27.0-33.0); Mean Corpuscular Volume 95.4 fL (80.0-98.0); Monocytes Absolute Auto 0.7 X10*3/uL (0.1-1.2); Monocytes Percent Auto 16.2 % (2-11); Neutrophils Absolute Auto 1.7 x10*3/uL (2.0-8.3); Neutrophils Percent Auto 37.6 % (45-73); Platelet Count 224 X10*3/uL (160-400); Red Blood Count 4.14 X10*6/uL (4.60-5.80); Red Cell Distribution Width 12.8 % (11.0-16.0); White Blood Count 4.4 X10*3/uL (4.8-10.8)
[2023-07-22 03:32] LABS: Amphetamine Screen Urine Not Detected (Not Detect); Barbiturates, Urine Not Detected (Not Detect); Benzodiazepines Screen Urine POSITIVE (Not Detect); Cannabinoid Screen Urine Not Detected (Not Detect); Cocaine Screen Urine POSITIVE (Not Detect); Fentanyl, urine POSITIVE (Not Detect); Opiate Screen Urine POSITIVE (Not Detect); Phencyclidine Screen Urine Not Detected (Not Detect)
[2023-07-22 03:35] LABS: Ethanol < 10 mg/dL
[2023-07-22 03:37] LABS: Alanine Aminotransferase 92 U/L (0-40); Albumin Level 3.2 g/dL (3.5-5.0); Alkaline Phosphatase 68 U/L (39-117); Anion Gap 12 (12-20); Aspartate Amino Transferase 103 U/L (5-37); Bilirubin Direct < 0.2 mg/dL (0.0-0.5); Bilirubin Total 0.2 mg/dL (0.0-1.0); Blood Urea Nitrogen 16 mg/dL (9-16); C Reactive Protein 0.64 mg/dL (< or = 0.50); Calcium 8.8 mg/dL (8.4-10.2); Carbon Dioxide 29 mmol/L (22-29); Chloride 106 mmol/L (96-108); Creatinine Clr Calc Pharmacy 93.2; Estimated Glomerular Filt Rate > 60; Glucose Random 104 mg/dL (60-115); Sodium 143 mmol/L (135-145); Total Protein 6.7 g/dL (6.5-8.0)
[2023-07-22 04:42] LABS: Acetaminophen LAB < 3 mcg/mL (<30); Salicylate < 5.0 mg/dL (15-30)
--- NOTE | 2023-07-22 05:00 | ED_ITS ---
HPI - General Adult General Chief complaint: ETOH/Substance Use Stated complaint: detox Time Seen by Provider: 07/22/23 02:17 History of Present Illness HPI narrative: The patient has a history of heroin and cocaine abuse. He says that he was recently admitted to a rehab facility called [facility] where he was receiving 40 mg of methadone a day. He says that 2 days ago he was discharged from the program. He says that he did not want to leave and he could not understand why he was being discharged. He says that he was told that [facility] could not find any additional housing for him and that they had discharged him. He was discharged without any plan for ongoing methadone. The patient says that after leaving the facility and not having access to methadone he felt ill and therefore used heroin after leaving the facility. Ultimately came to the emergency room because he does not want to continue feeling ill from opioid withdrawal. He says that he is very upset with the [facility] facility because he was not tapered off his methadone. The patient says that he is currently taking antibiotics for an infection on his left foot. He feels his foot is getting better. Related Data Home Medications Medication Instructions Recorded Confirmed benztropine 0.5 mg tablet 0.5 mg PO DAILY 07/02/23 07/02/23 Previous Rx's Medication Instructions Recorded haloperidol 5 mg tablet 5 mg PO DAILY #30 tabs 10/11/22 naloxone 4 mg/actuation nasal 4 mg intranasal Q2M PRN opioid 06/28/23 spray (Narcan) overdose #2 ea amoxicillin 875 mg-potassium 1 tab PO Q12H 7 days #14 tabs 07/05/23 clavulanate 125 mg tablet buprenorphine 8 mg-naloxone 2 mg 1 film sublingual BID #15 ea 07/05/23 sublingual film (Suboxone) doxycycline hyclate 100 mg tablet 100 mg PO BID 7 days #14 tabs 07/05/23 Allergies Allergy/AdvReac Type Severity Reaction Status Date / Time No Known Allergies Allergy Verified 07/22/23 00:46 [No Known Allergies*] Review of Systems 2 Review of Systems: Yes all other systems are reviewed and are negative [facility] Past Medical History Medical History IV drug user Hepatitis C Social History Social History Household Members: None Household Members Other:: homeless Housing: Homeless Do you presently have visiting nurse or other home services: No Unable to assess alcohol history related to: Unknown and Refusing to respond Alcohol intake: current Alcohol intake frequency: 3 or more drinks per day Patient Tobacco Use Status: Current everyday Tobacco user Cigarette Packs Per Day: 1 Cigarettes Per Day: 20.0 Smoked in Last 30 Days: Yes Second Hand Smoke Exposure: Yes Use of substances other than those prescribed or required for medical reasons: Yes Substance Use Type: Opiates Advance Directives: No Advance Directives Information Provided: No service: No Sexual orientation: Don't Know Physical Exam ED Vital Signs: Vital Signs - 24 hr 07/22/23 00:47 07/22/23 01:49 07/22/23 06:00 Temperature 98.4 F 96.7 F L 96.0 F L Pulse Rate 79 67 56 Respiratory Rate 16 16 16 Blood Pressure 119/84 112/62 128/69 Pulse Oximetry 95 95 97 Oxygen Delivery Method Room Air Room Air Room Air BMI result Body Mass Index 20.7 Const Other: The patient is awake and alert. He has some psychomotor retardation but seems oriented and appropriate. He seems tired but not in acute distress. HENMT Other: Mucous membranes moist. Face is symmetrical. Eyes Other: Pupils are round equal, conjunctivae are clear Neck Other: No neck swelling. No adenopathy. No JVD. Resp Other: Lungs are clear bilaterally. No increased work of breathing. No respiratory distress. Cardio Other: The patient has a regular rate and rhythm. I do not hear a murmur. GI Other: The abdomen is soft and nontender. Skin Other: The patient's skin is dry and unremarkable. He has a lot of tattoos. On the dorsum of the left foot is what seems to be an area of resolving erythema. Neuro Other: The patient seemed sleepy but was easily arousable. He seems to have some psychomotor retardation. However his face seems symmetrical. Speech is slow but clear. He moves his extremities symmetrically. No obvious focal deficit. Extrem Other: Patient has an area of resolving erythema on the dorsum of the left foot. No particular tenderness or fluctuance. Medical Decision Making Medical Decision Making MDM Narrative: The patient is a 47-year-old male with history of heroin and cocaine abuse who says that 2 days ago he was discharged from a rehab facility called [facility]. He says he is very disappointed that he was discharged. He had been on 40 mg of methadone daily. He did not feel that he was ready to stop methadone. There was no arrangement for him to continue methadone as an outpatient. He therefore comes to the emergency room because he feels so on well from his opioid use disorder. He claims to be on antibiotics for a resolving left foot infection. He feels the foot is doing well. Clinically the patient's labs are reassuring from a medical clearance point of view. His urine tox screen today is positive for cocaine, benzodiazepines, fentanyl, and opioids. I think the patient is medically clear for evaluation by the care team in the morning. I have placed a consult to the care team for the morning. The patient will be signed out to the morning medical team. Lab Data 07/22/23 03:16 07/22/23 03:16 Labs: Lab Results 07/22/23 Range/Units 03:16 WBC 4.4 L (4.8-10.8) X10*3/uL RBC 4.14 L (4.60-5.80) X10*6/uL Hgb 12.7 L (14.0-18.0) g/dl Hct 39.5 L (42.0-52.0) % MCV 95.4 (80.0-98.0) fL MCH 30.7 (27.0-33.0) pg MCHC 32.2 (31.0-36.0) g/dl RDW 12.8 (11.0-16.0) % Plt Count 224 D (160-400) X10*3/uL MPV 10.0 (9.4-12.4) fL Immature Gran % (Auto) 0.2 (0.0-0.4) % Neut % (Auto) 37.6 L (45-73) % Lymph % (Auto) 39.0 (20-40) % [place] % (Auto) 16.2 H (2-11) % Eos % (Auto) 6.3 H (0-4) % Baso % (Auto) 0.7 (0-2) % Lymph # (Auto) 1.7 (1.2-4.9) X10*3/uL [place] # (Auto) 0.7 (0.1-1.2) X10*3/uL Eos # (Auto) 0.3 (0.0-0.4) X10*3/uL Baso # (Auto) 0.0 (0.0-0.2) X10*3/uL Abs Immat Gran (auto) 0.01 (0.00-0.03) X10*3/uL Absolute Neuts (auto) 1.7 L (2.0-8.3) x10*3/uL Absolute Nucleated RBC 0.000 (0.0-0.012) X10*3/uL Nucleated RBC % (auto) 0.0 (0.0-0.2) /100WBC Sodium 143 (135-145) mmol/L Potassium 4.0 (3.3-5.1) mmol/L Chloride 106 (96-108) mmol/L Carbon Dioxide 29 (22-29) mmol/L Anion Gap 12 (12-20) BUN 16 (9-16) mg/dL Creatinine 0.88 (0.5-1.4) mg/dL Estim Creat Clear Calc 93.2 Estimated GFR > 60 Random Glucose 104 (60-115) mg/dL Calcium 8.8 (8.4-10.2) mg/dL Total Bilirubin 0.2 (0.0-1.0) mg/dL Direct Bilirubin < 0.2 (0.0-0.5) mg/dL AST 103 H (5-37) U/L ALT 92 H (0-40) U/L Alkaline Phosphatase 68 (39-117) U/L C-Reactive Protein 0.64 H (< or = 0.50) mg/dL Total Protein 6.7 (6.5-8.0) g/dL Albumin 3.2 L (3.5-5.0) g/dL Salicylates < 5.0 L (15-30) mg/dL Urine Opiates Screen POSITIVE H (Not Detect) Urine Fentanyl Screen POSITIVE H (Not Detect) Acetaminophen < 3 (<30) mcg/mL Ur Barbiturates Screen Not Detected (Not Detect) Ur Phencyclidine Scrn Not Detected (Not Detect) Ur Amphetamines Screen Not Detected (Not Detect) U Benzodiazepines Scrn POSITIVE H (Not Detect) Urine Cocaine Screen POSITIVE H (Not Detect) U Marijuana (THC) Screen Not Detected (Not Detect) Ethyl Alcohol < 10 mg/dL Discharge Plan Discharge Clinical Impression: Substance use disorder Patient Disposition: Still a Patient Prescriptions: No Action haloperidol 5 mg Tablet 5 mg PO DAILY Qty: 30 0RF naloxone [Narcan] 4 mg/actuation spray,non-aerosol 4 mg intranasal Q2M PRN (Reason: opioid overdose) Qty: 2 0RF Rx Instructions: spray 1 dose into ONE nostril; alternate nostrils w each dose until help arrives benztropine 0.5 mg tablet 0.5 mg PO DAILY buprenorphine-naloxone [Suboxone] 8-2 mg film 1 film sublingual BID Qty: 15 0RF doxycycline hyclate 100 mg tablet 100 mg PO BID 7 Days Qty: 14 0RF amoxicillin-pot clavulanate 875-125 mg tablet 1 tab PO Q12H 7 Days Qty: 14 0RF
--- NOTE | 2023-07-22 08:25 | PC.NURSE ---
pt very sleepy but arousable after few min of voice commands, pt reports back pain at 8/10, pt states he is seeking detox for methadone last dose was three days ago, pt reports not drinking alcohol and pt denies si/hi, vs stable at this time
--- NOTE | 2023-07-22 09:13 | PC.NURSE ---
Kya guy from the recovery services here to speak with the pt
--- NOTE | 2023-07-22 10:44 | MHC.EDTECH ---
BELONGINGS TO [place] WITH LEGAL COORDINATOR DARÍO @ THIS TIME
--- NOTE | 2023-07-22 12:53 | MHC.RECOVRN ---
Pt presented to ED via walk in wanting detox.? He also requested evaluation of infection to left foot.? ??T/W was referred to assist ct with [facility] bed search. T/W Met with pt. to address [facility] and initiate bed search.? Pt reports he was in [facility] until 07/19.? While in [facility] he was receiving methadone.? Upon D/C from [facility] he reports that he was not connected to a methadone clinic and began to experience W/D so returned to use.? He reports that his last use 2 days ago.? He used IV heroin and cocaine.? Amount not disclosed.? He kept falling asleep during our meeting.? He did state that he was experiencing temperature changes, H/A ?and appeared to be sweating.? T/W discussed case with Gerri German, ED provider and ED nurse. ? Plan will be to attempt to secure [facility] bed.? Re start methadone at 30mg [address] ct[address] alert and if no detox bed available connect ct with methadone clinic for f/U.? Resources given to pt. T/W initiated bed search as follows: [facility] -verbal referral packet; [facility]-no answer; [facility]-faxed referral pack; [facility] Sotomayor ?LM; [facility];? [facility]-unable to LM;[facility] Pined[facility]-no beds; [facility]-sent referral packet.
[2023-07-22] MEDS: methADONE HCl 20 MG/2 ML ORAL.CONC 30 MG PO (15:12)
== END 2023-07-22 16:10 | disposition home or self-care (01) ==
PROVIDERS: Emergency Provider Emergency Medicine
DX: F19.90 Other psychoactive substance use, unspecified, uncomplicated (principal); B19.20 Unspecified viral hepatitis C without hepatic coma
CPT/HCPCS: 36415; 80053; 80143; 80179; 80307; 82248; 85025; 86140; 99283; 99285

== ENCOUNTER 2023-07-24 21:26 | Inpatient (IN) | payer OTHER, SELFPAY ==
[2023-07-24 21:39] VITALS: BP 134/89; PULSE 73; RESP 18; TEMP 36.7; O2SAT 95; BMI 22.2
--- NOTE | 2023-07-24 21:46 | ECG_ITS ---
Test Reason : CHEST PAIN Blood Pressure : / mmHG Vent. Rate : 071 BPM Atrial Rate : 071 BPM P-R Int : 150 ms QRS Dur : 084 ms QT Int : 408 ms P-R-T Axes : 013 054 022 degrees QTc Int : 443 ms Normal sinus rhythm Normal ECG When compared with ECG of 09-OCT-2022 14:45, No significant change was found Referred By: Generic ED Physician Electronically Signed By:SHAYAN WONG
[2023-07-24 22:08] LABS: MANUAL DIFF FLAG NO
[2023-07-24 22:09] LABS: Basophils Percent Auto 0.6 % (0-2); Eosinophils Absolute Auto 0.2 X10*3/uL (0.0-0.4); Eosinophils Percent Auto 3.3 % (0-4); Hematocrit 44.4 % (42.0-52.0); Hemoglobin 14.5 g/dl (14.0-18.0); Imm Gran Abs Auto 0.01 X10*3/uL (0.00-0.03); Imm Gran Pct Auto 0.2 % (0.0-0.4); Lymphocytes Absolute Auto 1.8 X10*3/uL (1.2-4.9); Lymphocytes Percent Auto 33.7 % (20-40); Mean Corpuscular HGB Conc 32.7 g/dl (31.0-36.0); Mean Corpuscular Hemoglobin 30.5 pg (27.0-33.0); Mean Corpuscular Volume 93.5 fL (80.0-98.0); Mean Platelet Volume 9.7 fL (9.4-12.4); Monocytes Absolute Auto 0.7 X10*3/uL (0.1-1.2); Monocytes Percent Auto 13.5 % (2-11); Neutrophils Absolute Auto 2.5 x10*3/uL (2.0-8.3); Neutrophils Percent Auto 48.7 % (45-73); Platelet Count 267 X10*3/uL (160-400); Red Blood Count 4.75 X10*6/uL (4.60-5.80); Red Cell Distribution Width 12.5 % (11.0-16.0); White Blood Count 5.2 X10*3/uL (4.8-10.8)
--- NOTE | 2023-07-24 22:13 | ED_ITS ---
HPI - Psych General Chief Complaint: Psychiatric Symptoms Stated Complaint: DEPRESSION Time Seen by Provider: 07/24/23 22:11 Source: patient Mode of arrival: ambulatory Limitations: no limitations History of Present Illness HPI Narrative: 47 yo male with PMH of opiate use disorder, schizophrenia, IVDA here with c/o depression and having issues with his family. Hearing voices worried things will get worse and wants to talk to crisis. Just started 30mg methadone today - states he is doing well. Last used cocaine 4 days ago. MD complaint: feels depressed, anxiety and hallucinations Onset (ago): day(s) (few) Duration: constant History of same: Yes Relieving factors: none Exacerbating factors: other Context: significant life stressor Associated psychiatric symptoms: none Associated symptoms: denies other symptoms Treatments prior to arrival: none Related Data Home Medications Medication Instructions Recorded Confirmed benztropine 0.5 mg tablet 0.5 mg PO DAILY 07/02/23 07/02/23 Previous Rx's Medication Instructions Recorded haloperidol 5 mg tablet 5 mg PO DAILY #30 tabs 10/11/22 naloxone 4 mg/actuation nasal 4 mg intranasal Q2M PRN opioid 06/28/23 spray (Narcan) overdose #2 ea amoxicillin 875 mg-potassium 1 tab PO Q12H 7 days #14 tabs 07/05/23 clavulanate 125 mg tablet buprenorphine 8 mg-naloxone 2 mg 1 film sublingual BID #15 ea 07/05/23 sublingual film (Suboxone) doxycycline hyclate 100 mg tablet 100 mg PO BID 7 days #14 tabs 07/05/23 Allergies Allergy/AdvReac Type Severity Reaction Status Date / Time No Known Allergies Allergy Verified 07/22/23 00:46 [No Known Allergies*] Review of Systems 2 Review of Systems: Constitutional : No Fever, No Chills ENT/Mouth : No Ear Pain, No Nasal Congestion, No sore throat Eyes: No Eye Pain, No Swelling, No Redness Cardiovascular : No Chest Pain, No SOB Respiratory : No Cough, No Sputum, No Dyspnea Gastrointestinal : No Nausea, No Vomiting, No Diarrhea, No Hematochezia, No Melena Genitourinary : No Dysuria, No Urinary Frequency, No Hematuria Musculoskeletal : No Myalgias Skin : No Skin Lesions, No rash Neuro : No Weakness, No Numbness, No Paresthesias, No Dizziness, No Headache Psych : positive Anxiety, positive Depression, positive SI no HI Heme/Lymph: No Lymphadenopathy Endocrine : No Polyuria, No Polydipsia All other systems reviewed and are negative [facility] Past Medical History Attestation statement: The following information was validated with the patient. Source: old records reviewed Medical History IV drug user Hepatitis C Social History Social History Household Members: None Household Members Other:: homeless Housing: Homeless Do you presently have visiting nurse or other home services: No Unable to assess alcohol history related to: Unknown and Refusing to respond Alcohol intake: current Alcohol intake frequency: 3 or more drinks per day Patient Tobacco Use Status: Current everyday Tobacco user Cigarette Packs Per Day: 1 Cigarettes Per Day: 20.0 Second Hand Smoke Exposure: Yes Substance Use Type: Opiates Advance Directives: No Advance Directives Information Provided: No service: No Sexual orientation: Don't Know Physical Exam 2 Vital Signs: Vital Signs: Last Vital Signs Temp 98.1 F 07/24/23 21:39 Pulse 60 07/24/23 23:25 Resp 16 07/24/23 23:25 BP 105/67 07/24/23 23:25 Pulse Ox 95 07/24/23 23:25 O2 Del Method Room Air 07/24/23 23:25 BMI result Body Mass Index 22.2 Appearance: Alert. Oriented X3. No acute distress. Older than stated age. Eyes: Pupils equal, round and reactive to light. ENT: Pharynx normal. Neck: Normal inspection. Neck supple. CVS: Normal heart rate and rhythm. Pulses normal. Respiratory: No respiratory distress. Breath sounds normal. Abdomen: Soft and nontender. Skin: Skin warm and dry. Normal skin color. Normal skin turgor. Extremities: No lower extremity edema. No calf ttp Neuro: Oriented X 3. No motor deficit. No sensory deficit. CN2-12 intact Course Course Course Narrative: Physician observation started at _1016pm Patient placed in physician observation because the patient needed more time for CARE team to assess the need for psych admission. At the time observation was started the patient's vitals were stable, patient is alert and oriented Neuro: nonfocal, CV RRR, Lungs clear Medical Decision Making Medical Decision Making MDM Narrative: 47 yo male with PMH of hep C, opiate use disorder, schizophrenia here with AH, depression, wants to talk to crisis before things get bad at this time has no medical complaints will need labs, CARE team consult Differential Diagnosis Differential Diagnoses: The differential diagnosis associated with the presentation includes depression, substance abuse Admission/Observation Consideration of admission/observation: Escalation of care including admission/observation considered Consult Healthcare Provider Management of the patient was discussed with: Behavioral Health Provider Lab Data MDM Lab Attestation statement: I reviewed the patient's lab results. 07/24/23 21:57 07/24/23 21:57 Labs: Lab Results 07/24/23 07/24/23 Range/Units 21:57 23:24 WBC 5.2 (4.8-10.8) X10*3/uL RBC 4.75 (4.60-5.80) X10*6/uL Hgb 14.5 (14.0-18.0) g/dl Hct 44.4 (42.0-52.0) % MCV 93.5 (80.0-98.0) fL MCH 30.5 (27.0-33.0) pg MCHC 32.7 (31.0-36.0) g/dl RDW 12.5 (11.0-16.0) % Plt Count 267 (160-400) X10*3/uL MPV 9.7 (9.4-12.4) fL Immature Gran % (Auto) 0.2 (0.0-0.4) % Neut % (Auto) 48.7 (45-73) % Lymph % (Auto) 33.7 (20-40) % [place] % (Auto) 13.5 H (2-11) % Eos % (Auto) 3.3 (0-4) % Baso % (Auto) 0.6 (0-2) % Lymph # (Auto) 1.8 (1.2-4.9) X10*3/uL [place] # (Auto) 0.7 (0.1-1.2) X10*3/uL Eos # (Auto) 0.2 (0.0-0.4) X10*3/uL Baso # (Auto) 0.0 (0.0-0.2) X10*3/uL Abs Immat Gran (auto) 0.01 (0.00-0.03) X10*3/uL Absolute Neuts (auto) 2.5 (2.0-8.3) x10*3/uL Absolute Nucleated RBC 0.000 (0.0-0.012) X10*3/uL Nucleated RBC % (auto) 0.0 (0.0-0.2) /100WBC Sodium 140 (135-145) mmol/L Potassium 3.5 (3.3-5.1) mmol/L Chloride 103 (96-108) mmol/L Carbon Dioxide 27 (22-29) mmol/L Anion Gap 14 (12-20) BUN 19 H (9-16) mg/dL Creatinine 0.94 (0.5-1.4) mg/dL Estim Creat Clear Calc 93.5 Estimated GFR > 60 Random Glucose 164 H (60-115) mg/dL Calcium 9.6 D (8.4-10.2) mg/dL Total Bilirubin 0.3 (0.0-1.0) mg/dL AST 113 H (5-37) U/L ALT 102 H (0-40) U/L Alkaline Phosphatase 86 (39-117) U/L Total Protein 7.9 (6.5-8.0) g/dL Albumin 3.8 (3.5-5.0) g/dL Urine Color Yellow Urine Appearance Clear Urine pH 5.5 (5.0-9.0) Ur Specific [place] 1.020 (1.005-1.025) Urine Protein Negative (Neg-Trace) mg/dL Urine Glucose (UA) Negative (Negative) mg/dL Urine Ketones Negative (Negative) mg/dL Urine Blood Negative (Negative) Urine Nitrite Negative (Negative) Ur Leukocyte Esterase Negative (Negative) Urine Opiates Screen POSITIVE H (Not Detect) Urine Fentanyl Screen POSITIVE H (Not Detect) Ur Barbiturates Screen Not Detected (Not Detect) Ur Phencyclidine Scrn Not Detected (Not Detect) Ur Amphetamines Screen Not Detected (Not Detect) U Benzodiazepines Scrn POSITIVE H (Not Detect) Urine Cocaine Screen POSITIVE H (Not Detect) U Marijuana (THC) Screen Not Detected (Not Detect) External Record Review External record reviewed: Inpatient record Social Determinants Patient?s care significantly limited by Social Determinants of Health including: Problems related to primary support group Discharge Plan Discharge Clinical Impression: Polysubstance abuse Depression Qualifiers: Depression Type: unspecified Qualified Code(s): F32.A - Depression, unspecified Patient Disposition: Still a Patient Prescriptions: No Action haloperidol 5 mg Tablet 5 mg PO DAILY Qty: 30 0RF naloxone [Narcan] 4 mg/actuation spray,non-aerosol 4 mg intranasal Q2M PRN (Reason: opioid overdose) Qty: 2 0RF Rx Instructions: spray 1 dose into ONE nostril; alternate nostrils w each dose until help arrives benztropine 0.5 mg tablet 0.5 mg PO DAILY buprenorphine-naloxone [Suboxone] 8-2 mg film 1 film sublingual BID Qty: 15 0RF doxycycline hyclate 100 mg tablet 100 mg PO BID 7 Days Qty: 14 0RF amoxicillin-pot clavulanate 875-125 mg tablet 1 tab PO Q12H 7 Days Qty: 14 0RF
[2023-07-24 22:26] LABS: Alanine Aminotransferase 102 U/L (0-40); Albumin Level 3.8 g/dL (3.5-5.0); Alkaline Phosphatase 86 U/L (39-117); Anion Gap 14 (12-20); Aspartate Amino Transferase 113 U/L (5-37); Bilirubin Total 0.3 mg/dL (0.0-1.0); Blood Urea Nitrogen 19 mg/dL (9-16); Calcium 9.6 mg/dL (8.4-10.2); Carbon Dioxide 27 mmol/L (22-29); Chloride 103 mmol/L (96-108); Creatinine Clr Calc Pharmacy 93.5; Estimated Glomerular Filt Rate > 60; Glucose Random 164 mg/dL (60-115); Potassium 3.5 mmol/L (3.3-5.1); Sodium 140 mmol/L (135-145); Total Protein 7.9 g/dL (6.5-8.0)
[2023-07-24 23:25] VITALS: BP 105/67; PULSE 60; RESP 16; O2SAT 95
--- NOTE | 2023-07-24 23:29 | PC.NURSE ---
THIS RN ASSUMED CARE OF PT FROM WAITING ROOM @ 9270. 1:[address], PT CHANGED OVER BY SECURITY, PT BELONGINGS PLACED IN [place] PER SECURITY PROTOCOL PT ADMITS TO USING DRUGS PRIOR TO ARRIVAL
[2023-07-24 23:34] LABS: Appearance Urine Clear; Color Urine Yellow; Glucose Urine UA Negative (Negative); Leukocyte Esterase Urine Negative (Negative); Nitrite Urine Negative (Negative); PH 5.5 (5.0-9.0); Urine Blood Negative (Negative); Urine Ketones Negative (Negative); Urine Protein Negative (Neg-Trace)
[2023-07-24 23:44] LABS: Amphetamine Screen Urine Not Detected (Not Detect); Barbiturates, Urine Not Detected (Not Detect); Benzodiazepines Screen Urine POSITIVE (Not Detect); Cannabinoid Screen Urine Not Detected (Not Detect); Cocaine Screen Urine POSITIVE (Not Detect); Fentanyl, urine POSITIVE (Not Detect); Opiate Screen Urine POSITIVE (Not Detect); Phencyclidine Screen Urine Not Detected (Not Detect)
[2023-07-25 05:22] VITALS: BP 108/69; PULSE 57; RESP 16; O2SAT 98
--- NOTE | 2023-07-25 05:43 | PC.NURSE ---
Assumed care of pt. PT REQUIRES WALKER/WHEELCHAIR, PERSONAL ROLLING WALKER PRESENT FROM HOME. Per charge Cathleen, pt allowed to have his walker in [facility] with him in order to ambulate, despite safety concerns. Pt calm and cooperative at this time, no acute distress.
--- NOTE | 2023-07-25 05:50 | PC.NURSE ---
rn to rn report given to marce guy in pod per rafaela clinical coordinator pt okay to go to pod with personal walker. all other personal belongings secured by security in [facility]
[2023-07-25 07:20] LABS: COVID-19 Test Negative (Negative); IDNOW Serial# 6674DD1D
--- NOTE | 2023-07-25 08:03 | PC.NURSE ---
Addendum entered by Erum Gudino 07/25/23 08:12: called [facility] and spoke with Escobar FOSTER, verified last dose of methadone was yesterday, 07/24/2023 - 30mg. Original Note: patient awake, requesting his methadone. will attempt to call [facility] for verification. states he received 30mg yesterday. was noted to have an order for suboxone in his MAR, patient denies taking suboxone and states he receives methadone.
[2023-07-25] MEDS: HaloperidoL 5 MG TABLET PO (09:44)
[2023-07-25] MEDS: methADONE HCl 20 MG/2 ML ORAL.CONC 30 MG PO (09:44)
[2023-07-25] MEDS: Benztropine Mesylate 0.5 MG TABLET PO (09:44)
--- NOTE | 2023-07-25 14:24 | PC.NURSE ---
appears to be sleeping at this time, offering no complaints. respirations even and unlabored,
[2023-07-25 18:00] VITALS: BP 126/81; PULSE 106; RESP 18; TEMP 37.1; O2SAT 98
[2023-07-25 18:40] VITALS: BMI 21.3
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
[2023-07-25] MEDS: Doxycycline Monohydrate 100 MG CAPSULE PO (20:57)
[2023-07-25] MEDS: Amoxicillin/Potassium Clav 875 MG TABLET PO (20:57)
[2023-07-25] MEDS: Diphth,Pertus(ACell),Tet Adult 0.5 ML SYRINGE IM (20:57)
[2023-07-25] MEDS: Silver Sulfadiazine 1 % Cream 20 GM TUBE 1 APPL TOPICAL (21:01)
--- NOTE | 2023-07-26 02:42 | PC.NURSE ---
On 07/25/23 a dressing with telefa non stick dressing was applied to right upper arm with Silver Sulfadiazine cream at about 2100. Patient tolerated procedure well.
[2023-07-26 04:30] LABS: HIV AB/AG Nonreactive (Nonreactive); HIV Num 1 0.04 S/CO (0.00-0.99)
[2023-07-26 07:15] VITALS: BP 140/86; PULSE 70; TEMP 36.1; O2SAT 98
[2023-07-26] MEDS: Doxycycline Monohydrate 100 MG CAPSULE PO ×2 (09:04→18:58)
[2023-07-26] MEDS: HaloperidoL 5 MG TABLET PO (09:04)
[2023-07-26] MEDS: Benztropine Mesylate 0.5 MG TABLET PO (09:04)
[2023-07-26] MEDS: Amoxicillin/Potassium Clav 875 MG TABLET PO ×2 (09:04→18:58)
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
[2023-07-26] MEDS: methADONE HCl 20 MG/2 ML ORAL.CONC 30 MG PO (09:32)
--- NOTE | 2023-07-26 10:41 | PC.NURSE ---
Methadone Dose verified by this RN on 07/26/23 at 0839 with [facility]. MD Drew Simpson made aware.
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
[2023-07-26] MEDS: Silver Sulfadiazine 1 % Cream 20 GM TUBE 1 APPL TOPICAL ×2 (15:14→20:51)
--- NOTE | 2023-07-26 15:29 | PC.NURSE ---
Dressing changed around 151, pt tolerated well. Wound appears to be in the beginning stages of healing. Wound appears to have yellowish purulent drainage on prior dressing. Wound has some erythema on outer edge. Surgical came to see pt and informed pt to shower and wash wound with soap and water, nursing to replace dressing and silvadene after shower.
--- NOTE | 2023-07-26 17:42 | PC.NURSE ---
Pt refused to complete safety tool.
[2023-07-26 19:30] VITALS: BP 132/70; PULSE 82; TEMP 36.6; O2SAT 97
[2023-07-27 08:47] VITALS: BP 173/98; PULSE 60; RESP 18; TEMP 36.2; O2SAT 98
--- NOTE | 2023-07-27 09:28 | HO.PSYCHPN ---
Subjective Subjective Date of Service: 07/27/23 Reason For Visit: Mental health emergency Subjective Notes: Conditional Voluntary Interim History: Reviewed with . Patient observed in the mileu; keeping to self. Patient stated, I'm feeling depressed because I'm going through a hard situation. When I ask for help from my family, no one helps me . Patient reports he feels the Haldol makes me feel more in control . Medication Compliance: Yes Side effects from medications: No Review of Systems Constitutional: Reports as per HPI Eyes: Reports as per HPI Reports as per HPI Cardiovascular: Reports as per HPI Respiratory: Reports as per HPI Gastrointestinal: Reports as per HPI Genitourinary: Reports as per HPI Musculoskeletal: Reports as per HPI Skin/Breast: Reports as per HPI Reports as per HPI Psychiatric: Reports as per HPI Endocrine: Reports as per HPI Hematologic/Lymphatic: Reports as per HPI Allergic/Immunologic: Reports as per HPI Mental Status Exam Mental Status Exam Narrative: Pt is alert and oriented; behavior is cooperative, calm, guarded; dressed in casual attire; mood is described as depressed ; eye contact appropriate; Speech is normal rate, volume and prosody and not pressured; no psychomotor agitation/retardation present; thought process is organized and goal directed; Thought content is on tx; otherwise pertinent to relevant topics and without any delusional content, paranoid ideations or grandiosity; denies HI. Reports suicidal ideation with no plan. There is no evidence of perceptual disturbance. Patients insight and judgment are poor. Diagnostics Vital Signs (24Hr): Vital Signs - 24 hr 07/26/23 19:30 07/27/23 08:47 Temperature 97.8 F 97.2 F Pulse Rate 82 60 Respiratory Rate 18 Blood Pressure 132/70 173/98 H Pulse Oximetry 97 98 Oxygen Delivery Method Room Air Room Air BMI result Body Mass Index 21.3 Labs 07/24/23 21:57 07/24/23 21:57 Labs: Laboratory Results - last 48 hr 07/25/23 20:30 HIV 1&2 Ab/P24 Ag 4thGn Nonreactive Medications Medications Current Medications Acetaminophen (Acetaminophen 325 Mg Tablet) 650 mg PO Q6H PRN PRN Reason: Headache/Pain Mild Scale (1-3) Al Hydroxide/Mg Hydroxide (Magnesium Hydrox/Alum Hydrox 30 Ml Oral.Susp) 30 ml PO Q6H PRN PRN Reason: Heartburn/Nausea Amoxicillin/Clavulanate Potassium (Amoxicillin/Potassium Clav 875 Mg Tablet) 875 mg PO Q12H [facility] Stop: 08/01/23 07:31 Last Admin: 07/26/23 18:58 Dose: 875 mg Benztropine Mesylate (Benztropine Mesylate 0.5 Mg Tablet) 0.5 mg PO DAILY [facility] Last Admin: 07/26/23 09:04 Dose: 0.5 mg Doxycycline Monohydrate (Doxycycline Monohydrate 100 Mg Capsule) 100 mg PO Q12H [facility] Stop: 08/01/23 07:31 Last Admin: 07/26/23 18:58 Dose: 100 mg Haloperidol (Haloperidol 5 Mg Tablet) 5 mg PO DAILY [facility] Last Admin: 07/26/23 09:04 Dose: 5 mg Hydroxyzine HCl (Hydroxyzine Hcl 25 Mg Tablet) 25 mg PO Q6H PRN PRN Reason: Anxiety Magnesium Hydroxide (Milk Of Magnesia 30 Ml Oral.Susp) 30 ml PO DAILY PRN PRN Reason: Constipation Methadone HCl (Methadone Hcl 20 Mg/2 Ml Oral.Conc) 30 mg PO DAILY [facility] Last Admin: 07/26/23 09:32 Dose: 30 mg Nicotine Polacrilex (Nicotine Polacrilex 2 Mg Gum) 4 mg BUCCAL Q2H PRN PRN Reason: Nicotine Cravings Silver Sulfadiazine (Silver Sulfadiazine 1 % Cream 20 Gm Tube) 1 appl TOPICAL BID [facility] Stop: 08/01/23 09:01 Last Admin: 07/26/23 20:51 Dose: 1 appl Trazodone HCl (Trazodone Hcl 50 Mg Tablet) 50 mg PO BEDTIME MRX1 PRN PRN Reason: Insomnia Allergies Allergies Allergy/AdvReac Type Severity Reaction Status Date / Time No Known Allergies Allergy Verified 07/25/23 06:05 [No Known Allergies*] Assessment & Plan Assessment & Plan (1) Schizophrenia: Status: Acute Code(s): F20.9 - Schizophrenia, unspecified (2) Cocaine abuse: Status: Acute Code(s): F14.10 - Cocaine abuse, uncomplicated (3) Opioid use disorder: Status: Acute Code(s): F11.90 - Opioid use, unspecified, uncomplicated Plan Patient is a 47 year old male with hx of schizophrenia who presented to [facility] ER d/t suicidal ideation secondary to increased depression and auditory hallucinations. Plan: CV 15 minute safety checks Referral to outpatient psychiatric providers Restart Haldol 5mg PO daily and Cogentin 0.5mg PO daily. Possible referral to substance abuse program or respite. 07/27: Patient observed in the mileu; keeping to self. Patient stated, I'm feeling depressed because I'm going through a hard situation. When I ask for help from my family, no one helps me . Patient reports he feels the Haldol makes me feel more in control . Start: Lexapro 5mg PO daily; risks/benefits discussed. Patient educated on: diagnosis, medication risk/benefits, substance abuse and therapeutic strategies Informed Consent: understands Reason for continued inpatient stay Substantial Risk for: med/psych decompensation Time Spent With Patient Time: Total time managing care of this patient today _30___ minutes.
[2023-07-27] MEDS: Silver Sulfadiazine 1 % Cream 20 GM TUBE 1 APPL TOPICAL (09:43)
[2023-07-27] MEDS: Acetaminophen 325 MG TABLET 650 MG PO (09:46)
[2023-07-27] MEDS: methADONE HCl 20 MG/2 ML ORAL.CONC 30 MG PO (09:47)
[2023-07-27] MEDS: Doxycycline Monohydrate 100 MG CAPSULE PO ×2 (09:48→21:22)
[2023-07-27] MEDS: Amoxicillin/Potassium Clav 875 MG TABLET PO ×2 (09:48→21:22)
[2023-07-27] MEDS: HaloperidoL 5 MG TABLET PO (09:48)
[2023-07-27] MEDS: Benztropine Mesylate 0.5 MG TABLET PO (09:48)
[2023-07-27 15:08] VITALS: BP 119/77; PULSE 59; RESP 18
[2023-07-27 20:15] VITALS: BP 131/78; PULSE 58; RESP 16; TEMP 36.2; O2SAT 98
[2023-07-28 08:30] VITALS: BP 146/90; PULSE 65; RESP 16; TEMP 36.2; O2SAT 97
[2023-07-28] MEDS: HaloperidoL 5 MG TABLET PO (08:36)
[2023-07-28] MEDS: Doxycycline Monohydrate 100 MG CAPSULE PO ×2 (08:36→19:03)
[2023-07-28] MEDS: Amoxicillin/Potassium Clav 875 MG TABLET PO ×2 (08:36→19:03)
[2023-07-28] MEDS: Escitalopram Oxalate 5 MG TABLET PO (08:37)
[2023-07-28] MEDS: Benztropine Mesylate 0.5 MG TABLET PO (08:37)
[2023-07-28] MEDS: methADONE HCl 20 MG/2 ML ORAL.CONC 30 MG PO (08:38)
[2023-07-28] MEDS: Silver Sulfadiazine 1 % Cream 20 GM TUBE 1 APPL TOPICAL ×2 (13:59→22:47)
[2023-07-28] MEDS: Acetaminophen 325 MG TABLET 650 MG PO (14:01)
--- NOTE | 2023-07-28 14:32 | HO.PSYCHPN ---
Subjective Subjective Date of Service: 07/28/23 Reason For Visit: Mental health emergency Subjective Notes: Conditional Voluntary Interim History: The nursing staff reported the patient had been compliant with treatment, he states that he is worried and he rated his depression and anxiety 8/10. Compliant with medications and methadone and to antibiotics. On interview the patient denies new symptoms he states that he feels a little down but much better. No new symptoms no side effects. Mental Status Exam Mental Status Exam Patient Appearance: Appropriate Patient Orientation: Person and Situation Level of Consciousness: Awake Patient Behavior: Guarded and Passive Mood Description: Withdrawn Affect Description: Constricted Patient Cognition Impaired: Yes Ability to Follow Directions: Good Speech Pattern: Clear Hallucinations: None Delusions: Ideas of Reference Thought Process: Distracted and Slowed Thinking Thought Content: positive for [place] and positive for Circumstantial Judgement: Fair Diagnostics Vital Signs (24Hr): Vital Signs - 24 hr 07/27/23 15:08 07/27/23 20:15 07/28/23 08:30 Temperature 97.2 F 97.1 F Pulse Rate 59 58 65 Respiratory Rate 18 16 16 Blood Pressure 119/77 131/78 146/90 H Pulse Oximetry 98 97 Oxygen Delivery Method Room Air Room Air BMI result Body Mass Index 21.3 Labs 07/24/23 21:57 07/24/23 21:57 Medications Medications Current Medications Acetaminophen (Acetaminophen 325 Mg Tablet) 650 mg PO Q6H PRN PRN Reason: Headache/Pain Mild Scale (1-3) Last Admin: 07/28/23 14:01 Dose: 650 mg Al Hydroxide/Mg Hydroxide (Magnesium Hydrox/Alum Hydrox 30 Ml Oral.Susp) 30 ml PO Q6H PRN PRN Reason: Heartburn/Nausea Amoxicillin/Clavulanate Potassium (Amoxicillin/Potassium Clav 875 Mg Tablet) 875 mg PO Q12H [facility] Stop: 08/01/23 07:31 Last Admin: 07/28/23 08:36 Dose: 875 mg Benztropine Mesylate (Benztropine Mesylate 0.5 Mg Tablet) 0.5 mg PO DAILY [facility] Last Admin: 07/28/23 08:37 Dose: 0.5 mg Doxycycline Monohydrate (Doxycycline Monohydrate 100 Mg Capsule) 100 mg PO Q12H [facility] Stop: 08/01/23 07:31 Last Admin: 07/28/23 08:36 Dose: 100 mg Escitalopram Oxalate (Escitalopram Oxalate 5 Mg Tablet) 5 mg PO DAILY [facility] Last Admin: 07/28/23 08:37 Dose: 5 mg Haloperidol (Haloperidol 5 Mg Tablet) 5 mg PO DAILY [facility] Last Admin: 07/28/23 08:36 Dose: 5 mg Hydroxyzine HCl (Hydroxyzine Hcl 25 Mg Tablet) 25 mg PO Q6H PRN PRN Reason: Anxiety Magnesium Hydroxide (Milk Of Magnesia 30 Ml Oral.Susp) 30 ml PO DAILY PRN PRN Reason: Constipation Methadone HCl (Methadone Hcl 20 Mg/2 Ml Oral.Conc) 30 mg PO DAILY [facility] Last Admin: 07/28/23 08:38 Dose: 30 mg Nicotine Polacrilex (Nicotine Polacrilex 2 Mg Gum) 4 mg BUCCAL Q2H PRN PRN Reason: Nicotine Cravings Silver Sulfadiazine (Silver Sulfadiazine 1 % Cream 20 Gm Tube) 1 appl TOPICAL BID [facility] Stop: 08/01/23 09:01 Last Admin: 07/28/23 13:59 Dose: 1 appl Trazodone HCl (Trazodone Hcl 50 Mg Tablet) 50 mg PO BEDTIME MRX1 PRN PRN Reason: Insomnia Allergies Allergies Allergy/AdvReac Type Severity Reaction Status Date / Time No Known Allergies Allergy Verified 07/25/23 06:05 [No Known Allergies*] Assessment & Plan Assessment & Plan (1) Schizophrenia: Status: Acute Code(s): F20.9 - Schizophrenia, unspecified (2) Cocaine abuse: Status: Acute Code(s): F14.10 - Cocaine abuse, uncomplicated (3) Opioid use disorder: Status: Acute Code(s): F11.90 - Opioid use, unspecified, uncomplicated Plan Patient is a 47 year old male with hx of schizophrenia who presented to [facility] ER d/t suicidal ideation secondary to increased depression and auditory hallucinations. Plan: CV 15 minute safety checks Referral to outpatient psychiatric providers Restart Haldol 5mg PO daily and Cogentin 0.5mg PO daily. Possible referral to substance abuse program or respite. 07/27: Patient observed in the mileu; keeping to self. Patient stated, I'm feeling depressed because I'm going through a hard situation. When I ask for help from my family, no one helps me . Patient reports he feels the Haldol makes me feel more in control . Start: Lexapro 5mg PO daily; risks/benefits discussed. 07/28 keep same treatment Reason for continued inpatient stay Substantial Risk for: inability to function, rapid decompensation and med/psych decompensation Time Spent With Patient Time: Total time managing care of this patient today __20__ minutes.
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
[2023-07-28 20:53] VITALS: BP 141/90; PULSE 53; RESP 16; TEMP 36.7; O2SAT 95
[2023-07-29 07:35] VITALS: BP 156/93; PULSE 51; RESP 18; TEMP 36.1; O2SAT 99
[2023-07-29] MEDS: methADONE HCl 20 MG/2 ML ORAL.CONC 30 MG PO (08:21)
[2023-07-29] MEDS: Amoxicillin/Potassium Clav 875 MG TABLET PO ×2 (08:24→19:10)
[2023-07-29] MEDS: HaloperidoL 5 MG TABLET PO (08:24)
[2023-07-29] MEDS: Escitalopram Oxalate 5 MG TABLET PO (08:24)
[2023-07-29] MEDS: Doxycycline Monohydrate 100 MG CAPSULE PO ×2 (08:24→19:09)
[2023-07-29] MEDS: Benztropine Mesylate 0.5 MG TABLET PO (08:25)
[2023-07-29] MEDS: Silver Sulfadiazine 1 % Cream 20 GM TUBE 1 APPL TOPICAL (10:56)
--- NOTE | 2023-07-29 14:14 | P.PNPSI_ITS ---
Subjective Subjective Date of Service: 07/29/23 Reason For Visit: Mental health emergency Subjective Notes: Conditional Voluntary Interim History: The nursing staff reported the patient was not by the hospitalist and he will not eat IV antibiotics. He had been depressed stating that he has 5/10 and his depression and he hopes to go to detox. On interview the patient reports that he is feeling tired and dysphoric but no active suicidal ideation. Able to contract for safety. Mental Status Exam Mental Status Exam Patient Appearance: Appropriate Patient Orientation: Person Level of Consciousness: Awake Patient Behavior: Guarded and Passive Mood Description: Withdrawn Affect Description: Constricted Patient Cognition Impaired: Yes Ability to Follow Directions: Good Speech Pattern: Clear Hallucinations: None Delusions: Not Present Thought Process: Distracted and Linear Thought Content: positive for [place] and positive for [place] of Content Judgement: Fair Diagnostics Vital Signs (24Hr): Vital Signs - 24 hr 07/28/23 20:53 07/29/23 07:35 Temperature 98.0 F 97.0 F Pulse Rate 53 51 Respiratory Rate 16 18 Blood Pressure 141/90 H 156/93 H Pulse Oximetry 95 99 Oxygen Delivery Method Room Air Room Air BMI result Body Mass Index 21.3 Labs 07/24/23 21:57 07/24/23 21:57 Medications Medications Current Medications Acetaminophen (Acetaminophen 325 Mg Tablet) 650 mg PO Q6H PRN PRN Reason: Headache/Pain Mild Scale (1-3) Last Admin: 07/28/23 14:01 Dose: 650 mg Al Hydroxide/Mg Hydroxide (Magnesium Hydrox/Alum Hydrox 30 Ml Oral.Susp) 30 ml PO Q6H PRN PRN Reason: Heartburn/Nausea Amoxicillin/Clavulanate Potassium (Amoxicillin/Potassium Clav 875 Mg Tablet) 875 mg PO Q12H [facility] Stop: 08/01/23 07:31 Last Admin: 07/29/23 08:24 Dose: 875 mg Benztropine Mesylate (Benztropine Mesylate 0.5 Mg Tablet) 0.5 mg PO DAILY [facility] Last Admin: 07/29/23 08:25 Dose: 0.5 mg Doxycycline Monohydrate (Doxycycline Monohydrate 100 Mg Capsule) 100 mg PO Q12H [facility] Stop: 08/01/23 07:31 Last Admin: 07/29/23 08:24 Dose: 100 mg Escitalopram Oxalate (Escitalopram Oxalate 5 Mg Tablet) 5 mg PO DAILY [facility] Last Admin: 12/10/23 08:24 Dose: 5 mg Haloperidol (Haloperidol 5 Mg Tablet) 5 mg PO DAILY [facility] Last Admin: 07/29/23 08:24 Dose: 5 mg Hydroxyzine HCl (Hydroxyzine Hcl 25 Mg Tablet) 25 mg PO Q6H PRN PRN Reason: Anxiety Magnesium Hydroxide (Milk Of Magnesia 30 Ml Oral.Susp) 30 ml PO DAILY PRN PRN Reason: Constipation Methadone HCl (Methadone Hcl 20 Mg/2 Ml Oral.Conc) 30 mg PO DAILY [facility] Last Admin: 07/29/23 08:21 Dose: 30 mg Nicotine Polacrilex (Nicotine Polacrilex 2 Mg Gum) 4 mg BUCCAL Q2H PRN PRN Reason: Nicotine Cravings Silver Sulfadiazine (Silver Sulfadiazine 1 % Cream 20 Gm Tube) 1 appl TOPICAL BID [facility] Stop: 08/01/23 09:01 Last Admin: 07/29/23 10:56 Dose: 1 appl Trazodone HCl (Trazodone Hcl 50 Mg Tablet) 50 mg PO BEDTIME MRX1 PRN PRN Reason: Insomnia Allergies Allergies Allergy/AdvReac Type Severity Reaction Status Date / Time No Known Allergies Allergy Verified 07/25/23 06:05 [No Known Allergies*] Assessment & Plan Assessment & Plan (1) Schizophrenia: Status: Acute Code(s): F20.9 - Schizophrenia, unspecified (2) Cocaine abuse: Status: Acute Code(s): F14.10 - Cocaine abuse, uncomplicated (3) Opioid use disorder: Status: Acute Code(s): F11.90 - Opioid use, unspecified, uncomplicated Plan Patient is a 47 year old male with hx of schizophrenia who presented [place] [facility] [place]/t suicidal ideation secondary to increased depression and auditory hallucinations. Plan: CV 15 minute safety checks Referral to outpatient psychiatric providers Restart Haldol 5mg PO daily and Cogentin 0.5mg PO daily. Possible referral to substance abuse program or respite. 07/27: Patient observed in the mileu; keeping to self. Patient stated, I'm feeling depressed because I'm going through a hard situation. When I ask for help from my family, no one helps me . Patient reports he feels the Haldol makes me feel more in control . Start: Lexapro 5mg PO daily; risks/benefits discussed. 07/28 keep same treatment 07/29 keep same treatment Reason for continued inpatient stay Substantial Risk for: inability to function, rapid decompensation and med/psych decompensation Time Spent With Patient Time: Total time managing care of this patient today __20__ minutes.
[2023-07-29 20:00] VITALS: BP 129/81; PULSE 54; RESP 15; TEMP 36.2; O2SAT 98
[2023-07-30] MEDS: methADONE HCl 20 MG/2 ML ORAL.CONC 30 MG PO (05:48)
[2023-07-30 08:00] VITALS: BP 146/86; PULSE 86; RESP 16; TEMP 37.1; O2SAT 96
[2023-07-30] MEDS: Amoxicillin/Potassium Clav 875 MG TABLET PO ×2 (08:11→19:45)
[2023-07-30] MEDS: Benztropine Mesylate 0.5 MG TABLET PO (08:11)
[2023-07-30] MEDS: Doxycycline Monohydrate 100 MG CAPSULE PO ×2 (08:11→19:45)
[2023-07-30] MEDS: Escitalopram Oxalate 5 MG TABLET PO (08:11)
[2023-07-30] MEDS: HaloperidoL 5 MG TABLET PO (08:11)
[2023-07-30] MEDS: Silver Sulfadiazine 1 % Cream 20 GM TUBE 1 APPL TOPICAL (08:14)
[2023-07-30] MEDS: Acetaminophen 325 MG TABLET 650 MG PO ×2 (08:15→16:53)
--- NOTE | 2023-07-30 09:27 | P.PNPSI_ITS ---
Subjective Subjective Date of Service: 07/30/23 Reason For Visit: Mental health emergency Subjective Notes: Conditional Voluntary Interim History: Reviewed with . Patient reports he continues to feel depressed because of the situation with my mom . Patient has not been attending groups; he plans on attending groups starting today. Patient is hoping to get into the [facility]. denies SI/HI/VH/AH. Medication Compliance: Yes Side effects from medications: No Attending Groups: No Review of Systems Constitutional: Reports as per HPI Eyes: Reports as per HPI Reports as per HPI Cardiovascular: Reports as per HPI Respiratory: Reports as per HPI Gastrointestinal: Reports as per HPI Genitourinary: Reports as per HPI Musculoskeletal: Reports as per HPI Skin/Breast: Reports as per HPI Reports as per HPI Psychiatric: Reports as per HPI Endocrine: Reports as per HPI Hematologic/Lymphatic: Reports as per HPI Allergic/Immunologic: Reports as per HPI Mental Status Exam Mental Status Exam Narrative: Pt is alert and oriented; behavior is cooperative and calm; dressed in casual attire; mood is described as depressed ; eye contact appropriate; Speech is normal rate, volume and prosody and not pressured; no psychomotor agitation/retardation present; thought process is organized and goal directed; Thought content is on tx; otherwise pertinent to relevant topics and without any delusional content, paranoid ideations or grandiosity; denies SI/HI/VH/AH. Diagnostics Vital Signs (24Hr): Vital Signs - 24 hr 07/29/23 20:00 Temperature 97.1 F Pulse Rate 54 Respiratory Rate 15 Blood Pressure 129/81 Pulse Oximetry 98 Oxygen Delivery Method Room Air BMI result Body Mass Index 21.3 Labs 07/24/23 21:57 07/24/23 21:57 Medications Medications Current Medications Acetaminophen (Acetaminophen 325 Mg Tablet) 650 mg PO Q6H PRN PRN Reason: Headache/Pain Mild Scale (1-3) Last Admin: 07/30/23 08:15 Dose: 650 mg Al Hydroxide/Mg Hydroxide (Magnesium Hydrox/Alum Hydrox 30 Ml Oral.Susp) 30 ml PO Q6H PRN PRN Reason: Heartburn/Nausea Amoxicillin/Clavulanate Potassium (Amoxicillin/Potassium Clav 875 Mg Tablet) 875 mg PO Q12H [facility] Stop: 08/01/23 07:31 Last Admin: 07/30/23 08:11 Dose: 875 mg Benztropine Mesylate (Benztropine Mesylate 0.5 Mg Tablet) 0.5 mg PO DAILY [facility] Last Admin: 07/30/23 08:11 Dose: 0.5 mg Doxycycline Monohydrate (Doxycycline Monohydrate 100 Mg Capsule) 100 mg PO Q12H [facility] Stop: 08/01/23 07:31 Last Admin: 07/30/23 08:11 Dose: 100 mg Escitalopram Oxalate (Escitalopram Oxalate 5 Mg Tablet) 5 mg PO DAILY [facility] Last Admin: 07/30/23 08:11 Dose: 5 mg Haloperidol (Haloperidol 5 Mg Tablet) 5 mg PO DAILY [facility] Last Admin: 07/30/23 08:11 Dose: 5 mg Hydroxyzine HCl (Hydroxyzine Hcl 25 Mg Tablet) 25 mg PO Q6H PRN PRN Reason: Anxiety Magnesium Hydroxide (Milk Of Magnesia 30 Ml Oral.Susp) 30 ml PO DAILY PRN PRN Reason: Constipation Methadone HCl (Methadone Hcl 20 Mg/2 Ml Oral.Conc) 30 mg PO DAILY@0630 [facility] Last Admin: 07/30/23 05:48 Dose: 30 mg Nicotine Polacrilex (Nicotine Polacrilex 2 Mg Gum) 4 mg BUCCAL Q2H PRN PRN Reason: Nicotine Cravings Silver Sulfadiazine (Silver Sulfadiazine 1 % Cream 20 Gm Tube) 1 appl TOPICAL DAILY [facility] Stop: 08/05/23 09:01 Last Admin: 07/30/23 08:14 Dose: 1 appl Trazodone HCl (Trazodone Hcl 50 Mg Tablet) 50 mg PO BEDTIME MRX1 PRN PRN Reason: Insomnia Allergies Allergies Allergy/AdvReac Type Severity Reaction Status Date / Time No Known Allergies Allergy Verified 07/25/23 06:05 [No Known Allergies*] Assessment & Plan Assessment & Plan (1) Schizophrenia: Status: Acute Code(s): F20.9 - Schizophrenia, unspecified (2) Cocaine abuse: Status: Acute Code(s): F14.10 - Cocaine abuse, uncomplicated (3) Opioid use disorder: Status: Acute Code(s): F11.90 - Opioid use, unspecified, uncomplicated Plan Patient is a 47 year old male with hx of schizophrenia who presented to [place] ER d/t suicidal ideation secondary to increased depression and auditory hallucinations. Plan: CV 15 minute safety checks Referral to outpatient psychiatric providers Restart Haldol 5mg PO daily and Cogentin 0.5mg PO daily. Possible referral to substance abuse program or respite. 07/27: Patient observed in the mileu; keeping to self. Patient stated, I'm feeling depressed because I'm going through a hard situation. When I ask for help from my family, no one helps me . Patient reports he feels the Haldol makes me feel more in control . Start: Lexapro 5mg PO daily; risks/benefits discussed. 07/28 keep same treatment 07/29 keep same treatment 07/30: Patient reports he continues to feel depressed because of the situation with my mom . Patient has not been attending groups; he plans on attending groups starting today. Patient is hoping to get into the [facility]. denies SI/HI/VH/AH. Patient educated on: diagnosis, medication risk/benefits, substance abuse and therapeutic strategies Informed Consent: understands Reason for continued inpatient stay Substantial Risk for: med/psych decompensation Time Spent With Patient Time: Total time managing care of this patient today _20___ minutes.
[2023-07-30 12:48] LABS: HCV Log PCR 5.88 Log IU/mL (NOT DETECTED)
[2023-07-30] MEDS: hydrOXYzine HCL 25 MG TABLET PO (19:41)
[2023-07-30 20:00] VITALS: BP 147/80; PULSE 53; RESP 18; TEMP 36.9; O2SAT 97
[2023-07-31] MEDS: methADONE HCl 20 MG/2 ML ORAL.CONC 30 MG PO (05:30)
[2023-07-31 07:44] VITALS: BP 144/92; PULSE 55; RESP 18; TEMP 36.7; O2SAT 97
[2023-07-31] MEDS: Doxycycline Monohydrate 100 MG CAPSULE PO ×2 (08:02→19:10)
[2023-07-31] MEDS: Amoxicillin/Potassium Clav 875 MG TABLET PO ×2 (08:02→19:10)
[2023-07-31] MEDS: Benztropine Mesylate 0.5 MG TABLET PO (08:02)
[2023-07-31] MEDS: Escitalopram Oxalate 5 MG TABLET PO (08:03)
[2023-07-31] MEDS: HaloperidoL 5 MG TABLET PO (08:03)
--- NOTE | 2023-07-31 09:12 | HO.PSYCHPN ---
Subjective Subjective Date of Service: 07/31/23 Reason For Visit: Mental health emergency Subjective Notes: Conditional Voluntary Interim History: Reviewed with . Patient reports feeling okay today; observed socializing with peers. Continues to not attend groups. Pt reports he plans on staying with his mother when discharged. Lexapro increased to 10mg PO daily. denies SI/HI/VH/AH. Medication Compliance: Yes Side effects from medications: No Attending Groups: Intermittent Review of Systems Constitutional: Reports as per HPI Eyes: Reports as per HPI Reports as per HPI Cardiovascular: Reports as per HPI Respiratory: Reports as per HPI Gastrointestinal: Reports as per HPI Genitourinary: Reports as per HPI Musculoskeletal: Reports as per HPI Skin/Breast: Reports as per HPI Reports as per HPI Psychiatric: Reports as per HPI Endocrine: Reports as per HPI Hematologic/Lymphatic: Reports as per HPI Allergic/Immunologic: Reports as per HPI Mental Status Exam Mental Status Exam Narrative: Pt is alert and oriented; behavior is cooperative and calm; dressed in casual attire; mood is described as depressed ; eye contact appropriate; Speech is normal rate, volume and prosody and not pressured; no psychomotor agitation/retardation present; thought process is organized and goal directed; Thought content is on tx; otherwise pertinent to relevant topics and without any delusional content, paranoid ideations or grandiosity; denies SI/HI/VH/AH. Diagnostics Vital Signs (24Hr): Vital Signs - 24 hr 07/30/23 20:00 07/31/23 07:44 Temperature 98.4 F 98.0 F Pulse Rate 53 55 Respiratory Rate 18 18 Blood Pressure 147/80 H 144/92 H Pulse Oximetry 97 97 Oxygen Delivery Method Room Air Room Air BMI result Body Mass Index 21.3 Labs 07/24/23 21:57 07/24/23 21:57 Labs: Laboratory Results - last 48 hr 07/25/23 20:30 Hep C Viral Load 162884 H Hep C Viral Load Log 5.88 H Medications Medications Current Medications Acetaminophen (Acetaminophen 325 Mg Tablet) 650 mg PO Q6H PRN PRN Reason: Headache/Pain Mild Scale (1-3) Last Admin: 07/30/23 16:53 Dose: 650 mg Al Hydroxide/Mg Hydroxide (Magnesium Hydrox/Alum Hydrox 30 Ml Oral.Susp) 30 ml PO Q6H PRN PRN Reason: Heartburn/Nausea Amoxicillin/Clavulanate Potassium (Amoxicillin/Potassium Clav 875 Mg Tablet) 875 mg PO Q12H [facility] Stop: 08/01/23 07:31 Last Admin: 07/31/23 08:02 Dose: 875 mg Benztropine Mesylate (Benztropine Mesylate 0.5 Mg Tablet) 0.5 mg PO DAILY [facility] Last Admin: 07/31/23 08:02 Dose: 0.5 mg Diphenhydramine HCl (Diphenhydramine Hcl 25 Mg Capsule) 50 mg PO BEDTIME PRN PRN Reason: Insomnia Doxycycline Monohydrate (Doxycycline Monohydrate 100 Mg Capsule) 100 mg PO Q12H [facility] Stop: 08/01/23 07:31 Last Admin: 07/31/23 08:02 Dose: 100 mg Escitalopram Oxalate (Escitalopram Oxalate 5 Mg Tablet) 5 mg PO DAILY [facility] Last Admin: 07/31/23 08:03 Dose: 5 mg Haloperidol (Haloperidol 5 Mg Tablet) 5 mg PO DAILY [facility] Last Admin: 07/31/23 08:03 Dose: 5 mg Hydroxyzine HCl (Hydroxyzine Hcl 25 Mg Tablet) 25 mg PO Q6H PRN PRN Reason: Anxiety Last Admin: 07/30/23 19:41 Dose: 25 mg Magnesium Hydroxide (Milk Of Magnesia 30 Ml Oral.Susp) 30 ml PO DAILY PRN PRN Reason: Constipation Methadone HCl (Methadone Hcl 20 Mg/2 Ml Oral.Conc) 30 mg PO DAILY@0630 [facility] Last Admin: 07/31/23 05:30 Dose: 30 mg Nicotine Polacrilex (Nicotine Polacrilex 2 Mg Gum) 4 mg BUCCAL Q2H PRN PRN Reason: Nicotine Cravings Silver Sulfadiazine (Silver Sulfadiazine 1 % Cream 20 Gm Tube) 1 appl TOPICAL DAILY [facility] Stop: 08/05/23 09:01 Last Admin: 07/30/23 08:14 Dose: 1 appl Trazodone HCl (Trazodone Hcl 50 Mg Tablet) 50 mg PO BEDTIME MRX1 PRN PRN Reason: Insomnia Allergies Allergies Allergy/AdvReac Type Severity Reaction Status Date / Time No Known Allergies Allergy Verified 07/25/23 06:05 [No Known Allergies*] Assessment & Plan Assessment & Plan (1) Schizophrenia: Status: Acute Code(s): F20.9 - Schizophrenia, unspecified (2) Cocaine abuse: Status: Acute Code(s): F14.10 - Cocaine abuse, uncomplicated (3) Opioid use disorder: Status: Acute Code(s): F11.90 - Opioid use, unspecified, uncomplicated Plan Patient is a 47 year old male with hx of schizophrenia who presented to [facility] ER d/t suicidal ideation secondary to increased depression and auditory hallucinations. Plan: CV 15 minute safety checks Referral to outpatient psychiatric providers Restart Haldol 5mg PO daily and Cogentin 0.5mg PO daily. Possible referral to substance abuse program or respite. 07/27: Patient observed in the mileu; keeping to self. Patient stated, I'm feeling depressed because I'm going through a hard situation. When I ask for help from my family, no one helps me . Patient reports he feels the Haldol makes me feel more in control . Start: Lexapro 5mg PO daily; risks/benefits discussed. 07/28 keep same treatment 07/29 keep same treatment 07/30: Patient reports he continues to feel depressed because of the situation with my mom . Patient has not been attending groups; he plans on attending groups starting today. Patient is hoping to get into the [facility]. denies SI/HI/VH/AH. 07/31: Patient reports feeling okay today; observed socializing with peers. Continues to not attend groups. Pt reports he plans on staying with his mother when discharged. Lexapro increased to 10mg PO daily. denies SI/HI/VH/AH. Patient educated on: diagnosis, medication risk/benefits, substance abuse and therapeutic strategies Informed Consent: understands Reason for continued inpatient stay Substantial Risk for: med/psych decompensation Time Spent With Patient Time: Total time managing care of this patient today _30___ minutes.
[2023-07-31] MEDS: Silver Sulfadiazine 1 % Cream 20 GM TUBE 1 APPL TOPICAL (09:16)
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
--- NOTE | 2023-07-31 18:59 | PC.NURSE ---
Pt's right arm dressing had discharge oozing out from under it. Upon assessment, pt's wound was covered in green discharge. RN cleaned the area with normal saline and reapplied the non-adherent dressing. Dottie MENJIVAR aware, no additional changes at this time.
[2023-07-31 20:00] VITALS: BP 141/74; PULSE 66; RESP 14; TEMP 36.8; O2SAT 97
[2023-07-31] MEDS: diphenhydrAMINE HCL 25 MG CAPSULE 50 MG PO (21:52)
[2023-08-01] MEDS: methADONE HCl 20 MG/2 ML ORAL.CONC 30 MG PO (06:13)
[2023-08-01 07:52] VITALS: BP 107/70; PULSE 53; RESP 12; TEMP 36.5; O2SAT 96
[2023-08-01] MEDS: Doxycycline Monohydrate 100 MG CAPSULE PO (08:30)
[2023-08-01] MEDS: Amoxicillin/Potassium Clav 875 MG TABLET PO (08:30)
[2023-08-01] MEDS: Benztropine Mesylate 0.5 MG TABLET PO (08:30)
[2023-08-01] MEDS: Escitalopram Oxalate 10 MG TABLET PO (08:30)
[2023-08-01] MEDS: HaloperidoL 5 MG TABLET PO (08:31)
--- NOTE | 2023-08-01 09:17 | P.PNPSI_ITS ---
Subjective Subjective Date of Service: 08/01/23 Reason For Visit: Mental health emergency Subjective Notes: Conditional Voluntary Interim History: Reviewed with . Patient reports feeling okay today; observed socializing with peers. denies SI/HI/VH/AH. Pt denies any side effects from medications. Wound care nurse assessed patient wound and reports it is healing well. Medication Compliance: Yes Side effects from medications: No Attending Groups: Intermittent Review of Systems Constitutional: Reports as per HPI Eyes: Reports as per HPI Reports as per HPI Cardiovascular: Reports as per HPI Respiratory: Reports as per HPI Gastrointestinal: Reports as per HPI Genitourinary: Reports as per HPI Musculoskeletal: Reports as per HPI Skin/Breast: Reports as per HPI Reports as per HPI Psychiatric: Reports as per HPI Endocrine: Reports as per HPI Hematologic/Lymphatic: Reports as per HPI Allergic/Immunologic: Reports as per HPI Mental Status Exam Mental Status Exam Narrative: Pt is alert and oriented; behavior is cooperative and calm; dressed in casual attire; mood is described as okay ; eye contact appropriate; Speech is normal rate, volume and prosody and not pressured; no psychomotor agitation/retardation present; thought process is organized and goal directed; Thought content is on tx; otherwise pertinent to relevant topics and without any delusional content, paranoid ideations or grandiosity; denies SI/HI/VH/AH. Diagnostics Vital Signs (24Hr): Vital Signs - 24 hr 07/31/23 20:00 08/01/23 07:52 Temperature 98.3 F 97.7 F Pulse Rate 66 53 Respiratory Rate 14 12 Blood Pressure 141/74 H 107/70 Pulse Oximetry 97 96 Oxygen Delivery Method Room Air Room Air BMI result Body Mass Index 21.3 Labs 07/24/23 21:57 07/24/23 21:57 Labs: Laboratory Results - last 48 hr 07/25/23 20:30 Hep C Viral Load 850724 H Hep C Viral Load Log 5.88 H Medications Medications Current Medications Acetaminophen (Acetaminophen 325 Mg Tablet) 650 mg PO Q6H PRN PRN Reason: Headache/Pain Mild Scale (1-3) Last Admin: 07/30/23 16:53 Dose: 650 mg Al Hydroxide/Mg Hydroxide (Magnesium Hydrox/Alum Hydrox 30 Ml Oral.Susp) 30 ml PO Q6H PRN PRN Reason: Heartburn/Nausea Benztropine Mesylate (Benztropine Mesylate 0.5 Mg Tablet) 0.5 mg PO DAILY [facility] Last Admin: 08/01/23 08:30 Dose: 0.5 mg Diphenhydramine HCl (Diphenhydramine Hcl 25 Mg Capsule) 50 mg PO BEDTIME PRN PRN Reason: Insomnia Last Admin: 07/31/23 21:52 Dose: 50 mg Escitalopram Oxalate (Escitalopram Oxalate 10 Mg Tablet) 10 mg PO DAILY [facility] Last Admin: 08/01/23 08:30 Dose: 10 mg Haloperidol (Haloperidol 5 Mg Tablet) 5 mg PO DAILY [facility] Last Admin: 08/01/23 08:31 Dose: 5 mg Hydroxyzine HCl (Hydroxyzine Hcl 25 Mg Tablet) 25 mg PO Q6H PRN PRN Reason: Anxiety Last Admin: 07/30/23 19:41 Dose: 25 mg Magnesium Hydroxide (Milk Of Magnesia 30 Ml Oral.Susp) 30 ml PO DAILY PRN PRN Reason: Constipation Methadone HCl (Methadone Hcl 20 Mg/2 Ml Oral.Conc) 30 mg PO DAILY@0630 [facility] Last Admin: 08/01/23 06:13 Dose: 30 mg Nicotine Polacrilex (Nicotine Polacrilex 2 Mg Gum) 4 mg BUCCAL Q2H PRN PRN Reason: Nicotine Cravings Silver Sulfadiazine (Silver Sulfadiazine 1 % Cream 20 Gm Tube) 1 appl TOPICAL DAILY [facility] Stop: 08/05/23 09:01 Last Admin: 07/31/23 09:16 Dose: 1 appl Trazodone HCl (Trazodone Hcl 50 Mg Tablet) 50 mg PO BEDTIME MRX1 PRN PRN Reason: Insomnia Allergies Allergies Allergy/AdvReac Type Severity Reaction Status Date / Time No Known Allergies Allergy Verified 07/25/23 06:05 [No Known Allergies*] Assessment & Plan Assessment & Plan (1) Schizophrenia: Status: Acute Code(s): F20.9 - Schizophrenia, unspecified (2) Cocaine abuse: Status: Acute Code(s): F14.10 - Cocaine abuse, uncomplicated (3) Opioid use disorder: Status: Acute Code(s): F11.90 - Opioid use, unspecified, uncomplicated Plan Patient is a 47 year old male with hx of schizophrenia who presented to [facility] ER d/t suicidal ideation secondary to increased depression and auditory hallucinations. Plan: CV 15 minute safety checks Referral to outpatient psychiatric providers Restart Haldol 5mg PO daily and Cogentin 0.5mg PO daily. Possible referral to substance abuse program or respite. 07/27: Patient observed in the mileu; keeping to self. Patient stated, I'm feeling depressed because I'm going through a hard situation. When I ask for help from my family, no one helps me . Patient reports he feels the Haldol makes me feel more in control . Start: Lexapro 5mg PO daily; risks/benefits discussed. 07/28 keep same treatment 07/29 keep same treatment 07/30: Patient reports he continues to feel depressed because of the situation with my mom . Patient has not been attending groups; he plans on attending groups starting today. Patient is hoping to get into the [facility]. denies SI/HI/VH/AH. 07/31: Patient reports feeling okay today; observed socializing with peers. Continues to not attend groups. Pt reports he plans on staying with his mother when discharged. Lexapro increased to 10mg PO daily. denies SI/HI/VH/AH. 08/01: Patient reports feeling okay today; observed socializing with peers. denies SI/HI/VH/AH. Pt denies any side effects from medications. Wound care nurse assessed patient wound and reports it is healing well. Patient is requesting to be seen by addiction medicine to increase methadone dose. Patient educated on: diagnosis, medication risk/benefits, substance abuse and therapeutic strategies Informed Consent: understands Reason for continued inpatient stay Substantial Risk for: med/psych decompensation Time Spent With Patient Time: Total time managing care of this patient today _20___ minutes.
[2023-08-01] MEDS: Silver Sulfadiazine 1 % Cream 20 GM TUBE 1 APPL TOPICAL (10:53)
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
[2023-08-01 19:52] VITALS: BP 146/83; PULSE 55; RESP 18; TEMP 36.2; O2SAT 98
[2023-08-01] MEDS: diphenhydrAMINE HCL 25 MG CAPSULE 50 MG PO (21:17)
[2023-08-02] MEDS: traZODone HCL 50 MG TABLET PO (01:27)
[2023-08-02] MEDS: methADONE HCl 20 MG/2 ML ORAL.CONC 30 MG PO (06:17)
[2023-08-02 07:00] VITALS: BMI 23.1
--- NOTE | 2023-08-02 09:21 | HO.PSYCHPN ---
Subjective Subjective Date of Service: 08/02/23 Reason For Visit: Mental health emergency Subjective Notes: Conditional Voluntary Interim History: Reviewed with . Patient reports feeling good today; pt stated, I feel ready to go tomorrow. I'm going to go to my mom's house . Pt plans on following up with outpatient providers. denies SI/HI/VH/AH. Medication Compliance: Yes Side effects from medications: No Attending Groups: Intermittent Review of Systems Constitutional: Reports as per HPI Eyes: Reports as per HPI Reports as per HPI Cardiovascular: Reports as per HPI Respiratory: Reports as per HPI Gastrointestinal: Reports as per HPI Genitourinary: Reports as per HPI Musculoskeletal: Reports as per HPI Skin/Breast: Reports as per HPI Reports as per HPI Psychiatric: Reports as per HPI Endocrine: Reports as per HPI Hematologic/Lymphatic: Reports as per HPI Allergic/Immunologic: Reports as per HPI Mental Status Exam Mental Status Exam Narrative: Pt is alert and oriented; behavior is cooperative and calm; dressed in casual attire; mood is described as good ; eye contact appropriate; Speech is normal rate, volume and prosody and not pressured; no psychomotor agitation/retardation present; thought process is organized and goal directed; Thought content is on tx; otherwise pertinent to relevant topics and without any delusional content, paranoid ideations or grandiosity; denies SI/HI/VH/AH. Diagnostics Vital Signs (24Hr): Vital Signs - 24 hr 08/01/23 19:52 Temperature 97.2 F Pulse Rate 55 Respiratory Rate 18 Blood Pressure 146/83 H Pulse Oximetry 98 Oxygen Delivery Method Room Air BMI result Body Mass Index 21.3 Labs 07/24/23 21:57 07/24/23 21:57 Medications Medications Current Medications Acetaminophen (Acetaminophen 325 Mg Tablet) 650 mg PO Q6H PRN PRN Reason: Headache/Pain Mild Scale (1-3) Last Admin: 07/30/23 16:53 Dose: 650 mg Al Hydroxide/Mg Hydroxide (Magnesium Hydrox/Alum Hydrox 30 Ml Oral.Susp) 30 ml PO Q6H PRN PRN Reason: Heartburn/Nausea Benztropine Mesylate (Benztropine Mesylate 0.5 Mg Tablet) 0.5 mg PO DAILY [facility] Last Admin: 08/01/23 08:30 Dose: 0.5 mg Diphenhydramine HCl (Diphenhydramine Hcl 25 Mg Capsule) 50 mg PO BEDTIME PRN PRN Reason: Insomnia Last Admin: 08/01/23 21:17 Dose: 50 mg Escitalopram Oxalate (Escitalopram Oxalate 10 Mg Tablet) 10 mg PO DAILY [facility] Last Admin: 08/01/23 08:30 Dose: 10 mg Haloperidol (Haloperidol 5 Mg Tablet) 5 mg PO DAILY [facility] Last Admin: 08/01/23 08:31 Dose: 5 mg Hydroxyzine HCl (Hydroxyzine Hcl 25 Mg Tablet) 25 mg PO Q6H PRN PRN Reason: Anxiety Last Admin: 07/30/23 19:41 Dose: 25 mg Magnesium Hydroxide (Milk Of Magnesia 30 Ml Oral.Susp) 30 ml PO DAILY PRN PRN Reason: Constipation Methadone HCl (Methadone Hcl 20 Mg/2 Ml Oral.Conc) 30 mg PO DAILY@0630 [facility] Last Admin: 08/02/23 06:17 Dose: 30 mg Nicotine Polacrilex (Nicotine Polacrilex 2 Mg Gum) 4 mg BUCCAL Q2H PRN PRN Reason: Nicotine Cravings Silver Sulfadiazine (Silver Sulfadiazine 1 % Cream 20 Gm Tube) 1 appl TOPICAL DAILY [facility] Stop: 08/05/23 09:01 Last Admin: 08/01/23 10:53 Dose: 1 appl Trazodone HCl (Trazodone Hcl 50 Mg Tablet) 50 mg PO BEDTIME MRX1 PRN PRN Reason: Insomnia Last Admin: 08/02/23 01:27 Dose: 50 mg Allergies Allergies Allergy/AdvReac Type Severity Reaction Status Date / Time No Known Allergies Allergy Verified 07/25/23 06:05 [No Known Allergies*] Assessment & Plan Assessment & Plan (1) Schizophrenia: Status: Acute Code(s): F20.9 - Schizophrenia, unspecified (2) Cocaine abuse: Status: Acute Code(s): F14.10 - Cocaine abuse, uncomplicated (3) Opioid use disorder: Status: Acute Code(s): F11.90 - Opioid use, unspecified, uncomplicated Plan Patient is a 47 year old male with hx of schizophrenia who [place] [facility] [place]/t suicidal ideation secondary to increased depression and auditory hallucinations. Plan: CV 15 minute safety checks Referral to outpatient psychiatric providers Restart Haldol 5mg PO daily and Cogentin 0.5mg PO daily. Possible referral to substance abuse program or respite. 07/27: Patient observed in the mileu; keeping to self. Patient stated, I'm feeling depressed because I'm going through a hard situation. When I ask for help from my family, no one helps me . Patient reports he feels the Haldol makes me feel more in control . Start: Lexapro 5mg PO daily; risks/benefits discussed. 07/28 keep same treatment 07/29 keep same treatment 07/30: Patient reports he continues to feel depressed because of the situation with my mom . Patient has not been attending groups; he plans on attending groups starting today. Patient is hoping to get into the [facility]. denies SI/HI/VH/AH. 07/31: Patient reports feeling okay today; observed socializing with peers. Continues to not attend groups. Pt reports he plans on staying with his mother when discharged. Lexapro increased to 10mg PO daily. denies SI/HI/VH/AH. 08/01: Patient reports feeling okay today; observed socializing with peers. denies SI/HI/VH/AH. Pt denies any side effects from medications. Wound care nurse assessed patient wound and reports it is healing well. Patient is requesting to be seen by addiction medicine to increase methadone dose. 08/02: Patient reports feeling good today; pt stated, I feel ready to go tomorrow. I'm going to go to my mom's house . Pt plans on following up with outpatient providers. denies SI/HI/VH/AH. Patient educated on: diagnosis, medication risk/benefits, substance abuse and therapeutic strategies Informed Consent: understands Reason for continued inpatient stay Substantial Risk for: stable for discharge Time Spent With Patient Time: Total time managing care of this patient today _20___ minutes.
[2023-08-02 09:30] VITALS: BP 131/75; PULSE 61; RESP 16; TEMP 36.3; O2SAT 96
[2023-08-02] MEDS: Benztropine Mesylate 0.5 MG TABLET PO (09:35)
[2023-08-02] MEDS: HaloperidoL 5 MG TABLET PO (09:35)
[2023-08-02] MEDS: Escitalopram Oxalate 10 MG TABLET PO (09:35)
[2023-08-02] MEDS: Silver Sulfadiazine 1 % Cream 20 GM TUBE 1 APPL TOPICAL ×3 (10:20→23:53)
[2023-08-02 22:30] VITALS: BP 108/71; PULSE 64; RESP 16; TEMP 36.8; O2SAT 96
[2023-08-02] MEDS: diphenhydrAMINE HCL 25 MG CAPSULE 50 MG PO (22:31)
[2023-08-03] MEDS: methADONE HCl 20 MG/2 ML ORAL.CONC 30 MG PO (06:05)
[2023-08-03 07:15] VITALS: BP 144/73; PULSE 60; RESP 14; TEMP 37.1; O2SAT 95
[2023-08-03] MEDS: Escitalopram Oxalate 10 MG TABLET PO (08:16)
[2023-08-03] MEDS: HaloperidoL 5 MG TABLET PO (08:16)
[2023-08-03] MEDS: Benztropine Mesylate 0.5 MG TABLET PO (08:16)
[2023-08-03] MEDS: Naloxone HCl Nasal TAKE HOME 4 MG SPRAY 8 MG NOSTRILALT (08:22)
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
[2023-08-03] MEDS: Silver Sulfadiazine 1 % Cream 20 GM TUBE 1 APPL TOPICAL (10:04)
== END 2023-08-03 10:50 | disposition home or self-care (01) | DRG 750 ==
LOC: HO.ED 07-25 16:14 → HO.PADLT16 07-25 17:24
PROVIDERS: Emergency Medicine; Physician Assistant; Admitting Provider Psychiatry & Neurology Psychiatry; Emergency Provider Emergency Medicine Emergency Medical Services; Responsible Provider Registered Nurse; Visit Provider Psychiatry & Neurology Psychiatry
DX: F20.9 Schizophrenia, unspecified (principal); R45.851 Suicidal ideations; T31.0 Burns involving less than 10% of body surface; F11.20 Opioid dependence, uncomplicated; B19.20 Unspecified viral hepatitis C without hepatic coma; F19.10 Other psychoactive substance abuse, uncomplicated; T22.252A Burn of second degree of left shoulder, initial encounter; X08.8XXA Exposure to other specified smoke, fire and flames, initial encounter; T22.251A Burn of second degree of right shoulder, initial encounter; F14.10 Cocaine abuse, uncomplicated; Z20.822 Contact with and (suspected) exposure to COVID-19; Z79.899 Other long term (current) drug therapy
CPT/HCPCS: 36415; 80053; 80307; 81003; 85025; 87389; 87522; 87635; 90715; 93005; 99285; S9485

== ENCOUNTER → 2023-07-24 21:46 | Outpatient (BNV) | payer OTHER, SELFPAY | PROVIDERS: Emergency Provider Emergency Medicine Emergency Medical Services; Visit Provider Internal Medicine | DX: R07.9 Chest pain, unspecified (principal) | CPT/HCPCS: 93010 ==

== ENCOUNTER → 2023-07-25 17:12 | Outpatient (BNV) | payer OTHER, SELFPAY | PROVIDERS: Admitting Provider Psychiatry & Neurology Psychiatry; Emergency Provider Emergency Medicine Emergency Medical Services; Responsible Provider Registered Nurse; Visit Provider Registered Nurse | DX: F20.0 Paranoid schizophrenia (principal); F14.10 Cocaine abuse, uncomplicated; F11.90 Opioid use, unspecified, uncomplicated | CPT/HCPCS: 99231; 99232; 99233 ==

== ENCOUNTER → 2023-07-25 17:12 | Outpatient (BNV) | payer OTHER, SELFPAY | PROVIDERS: Admitting Provider Psychiatry & Neurology Psychiatry; Emergency Provider Emergency Medicine Emergency Medical Services; Responsible Provider Registered Nurse; Visit Provider Surgery | DX: T22.231A Burn of second degree of right upper arm, initial encounter (principal) | CPT/HCPCS: 99222 ==

== ENCOUNTER → 2023-07-25 17:12 | Outpatient (BNV) | payer OTHER, SELFPAY | PROVIDERS: Admitting Provider Psychiatry & Neurology Psychiatry; Emergency Provider Emergency Medicine Emergency Medical Services; Visit Provider Physician Assistant | DX: T22.231A Burn of second degree of right upper arm, initial encounter (principal) | CPT/HCPCS: 99222; 99499 ==

== ENCOUNTER 2023-08-21 22:16 | Emergency (ER) | payer OTHER, SELFPAY ==
[2023-08-21 22:46] VITALS: BP 125/78; PULSE 63; RESP 18; TEMP 37; O2SAT 94; BMI 22.3
--- NOTE | 2023-08-21 22:52 | ECG_ITS ---
Test Reason : CHECK QTC Blood Pressure : / mmHG Vent. Rate : 060 BPM Atrial Rate : 060 BPM P-R Int : 152 ms QRS Dur : 084 ms QT Int : 446 ms P-R-T Axes : 014 052 037 degrees QTc Int : 446 ms Normal sinus rhythm Normal ECG When compared with ECG of 24-JUL-2023 21:55, No significant change was found Referred By: Generic ED Physician Electronically Signed By:Jan Leggett
[2023-08-21 23:43] VITALS: BP 123/80; PULSE 61; RESP 17; TEMP 36.5; O2SAT 96
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
[2023-08-21 23:47] LABS: Appearance Urine Clear; Color Urine Yellow; Glucose Urine UA Negative (Negative); Leukocyte Esterase Urine Negative (Negative); Nitrite Urine Negative (Negative); PH 5.5 (5.0-9.0); Urine Blood Negative (Negative); Urine Ketones Negative (Negative); Urine Protein Negative (Neg-Trace)
[2023-08-21 23:57] LABS: Amphetamine Screen Urine Not Detected (Not Detect); Barbiturates, Urine Not Detected (Not Detect); Benzodiazepines Screen Urine Not Detected (Not Detect); Cannabinoid Screen Urine Not Detected (Not Detect); Cocaine Screen Urine POSITIVE (Not Detect); Fentanyl, urine POSITIVE (Not Detect); Opiate Screen Urine POSITIVE (Not Detect); Phencyclidine Screen Urine Not Detected (Not Detect)
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
[2023-08-22 00:25] LABS: MANUAL DIFF FLAG NO
[2023-08-22 00:26] LABS: Basophils Percent Auto 0.3 % (0-2); Eosinophils Absolute Auto 0.2 X10*3/uL (0.0-0.4); Eosinophils Percent Auto 2.6 % (0-4); Hematocrit 42.3 % (42.0-52.0); Hemoglobin 13.8 g/dl (14.0-18.0); Imm Gran Abs Auto 0.01 X10*3/uL (0.00-0.03); Imm Gran Pct Auto 0.2 % (0.0-0.4); Lymphocytes Absolute Auto 1.9 X10*3/uL (1.2-4.9); Lymphocytes Percent Auto 30.8 % (20-40); Mean Corpuscular HGB Conc 32.6 g/dl (31.0-36.0); Mean Corpuscular Hemoglobin 30.2 pg (27.0-33.0); Mean Corpuscular Volume 92.6 fL (80.0-98.0); Mean Platelet Volume 10.4 fL (9.4-12.4); Monocytes Absolute Auto 0.9 X10*3/uL (0.1-1.2); Monocytes Percent Auto 14.3 % (2-11); Neutrophils Absolute Auto 3.2 x10*3/uL (2.0-8.3); Neutrophils Percent Auto 51.8 % (45-73); Platelet Count 175 X10*3/uL (160-400); Red Blood Count 4.57 X10*6/uL (4.60-5.80); Red Cell Distribution Width 13.2 % (11.0-16.0); White Blood Count 6.1 X10*3/uL (4.8-10.8)
[2023-08-22 00:41] LABS: Alanine Aminotransferase 85 U/L (0-40); Albumin Level 3.7 g/dL (3.5-5.0); Alkaline Phosphatase 78 U/L (39-117); Anion Gap 18 (12-20); Aspartate Amino Transferase 80 U/L (5-37); Bilirubin Total 0.3 mg/dL (0.0-1.0); Blood Urea Nitrogen 15 mg/dL (9-16); Calcium 8.9 mg/dL (8.4-10.2); Carbon Dioxide 28 mmol/L (22-29); Chloride 107 mmol/L (96-108); Ethanol < 10 mg/dL; Glucose Random 117 mg/dL (60-115); Sodium 149 mmol/L (135-145); Total Protein 7.2 g/dL (6.5-8.0)
[2023-08-22 00:43] LABS: COVID-19 Test Negative (Negative); IDNOW Serial# 6674DD1D
[2023-08-22 00:48] LABS: Salicylate < 5.0 mg/dL (15-30)
[2023-08-22 00:59] LABS: Creatinine Clr Calc Pharmacy 99.2; Estimated Glomerular Filt Rate > 60
--- NOTE | 2023-08-22 01:16 | PC.NURSE ---
Patient states that he is on 70mg of Methadone and uses the clinic on [facility] in [place].
[2023-08-22 04:16] LABS: Acetaminophen LAB < 5 mcg/mL (<30)
[2023-08-22] MEDS: Bacitracin Oint 0.9 GM PACKET 1 APPL TOPICAL ×2 (04:21→22:12)
[2023-08-22] MEDS: diphenhydrAMINE HCL 25 MG CAPSULE 50 MG PO (04:21)
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
--- NOTE | 2023-08-22 07:58 | HE.PHANOTE ---
RE: METHADONE DOSING Dose was verified as 70mg, last given on 08/21/23, per Carline FOSTER at [facility] via fax.
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
--- NOTE | 2023-08-22 15:02 | MHC.RECOVRN ---
Spoke with Yaz at [facility], per Yaz pt can complete intake today with Dasha ([phone]) and a bed at [facility] will be held for pt in the morning. RN and provider aware. RN facilitating phone intake.
[2023-08-22 16:07] VITALS: RESP 18
--- NOTE | 2023-08-22 17:28 | PC.NURSE ---
Methadone dose confirmed at 70mg with Giuseppe in [place]. Last dose was 08/21/23. This was verified with KRISTIN Crowley. gera was compliant with scheduled medications this shift. No behavioral concerns. Appetite good.
[2023-08-22 21:13] VITALS: BP 115/61; PULSE 55; RESP 16; TEMP 37.3; O2SAT 95
--- NOTE | 2023-08-23 07:03 | PC.NURSE ---
Pt medicated as per oct. Denies Si/hi at this time. plan of care ongoing
== END 2023-08-23 09:11 | disposition home or self-care (01) ==
PROVIDERS: Nurse Practitioner Family; Emergency Provider Emergency Medicine Emergency Medical Services
DX: F32.A Depression, unspecified (principal); F19.10 Other psychoactive substance abuse, uncomplicated; Z11.52 Encounter for screening for COVID-19; F14.10 Cocaine abuse, uncomplicated; F20.9 Schizophrenia, unspecified; B19.20 Unspecified viral hepatitis C without hepatic coma; F17.210 Nicotine dependence, cigarettes, uncomplicated; F11.20 Opioid dependence, uncomplicated; Z79.899 Other long term (current) drug therapy
CPT/HCPCS: 36415; 80053; 80143; 80179; 80307; 81003; 85025; 87635; 93005; 99285; S9485

== ENCOUNTER → 2023-08-21 22:52 | Outpatient (BNV) | payer OTHER, SELFPAY | PROVIDERS: Emergency Provider Emergency Medicine Emergency Medical Services; Visit Provider Internal Medicine Cardiovascular Disease | DX: R41.82 Altered mental status, unspecified (principal); F11.10 Opioid abuse, uncomplicated; F14.10 Cocaine abuse, uncomplicated | CPT/HCPCS: 93010 ==

== ENCOUNTER 2023-08-31 21:18 | Emergency (ER) | payer OTHER, SELFPAY ==
[2023-08-31 21:57] VITALS: BP 116/66; PULSE 62; RESP 16; TEMP 36.6; O2SAT 94; BMI 22.6
[2023-08-31 22:33] LABS: MANUAL DIFF FLAG NO
[2023-08-31 22:35] LABS: Basophils Percent Auto 0.5 % (0-2); Eosinophils Absolute Auto 0.3 X10*3/uL (0.0-0.4); Eosinophils Percent Auto 4.3 % (0-4); Hematocrit 42.2 % (42.0-52.0); Hemoglobin 13.7 g/dl (14.0-18.0); Imm Gran Abs Auto 0.01 X10*3/uL (0.00-0.03); Imm Gran Pct Auto 0.2 % (0.0-0.4); Lymphocytes Absolute Auto 2.1 X10*3/uL (1.2-4.9); Lymphocytes Percent Auto 32.1 % (20-40); Mean Corpuscular HGB Conc 32.5 g/dl (31.0-36.0); Mean Corpuscular Hemoglobin 30.2 pg (27.0-33.0); Mean Platelet Volume 10.4 fL (9.4-12.4); Monocytes Absolute Auto 0.8 X10*3/uL (0.1-1.2); Monocytes Percent Auto 12.3 % (2-11); Neutrophils Absolute Auto 3.3 x10*3/uL (2.0-8.3); Neutrophils Percent Auto 50.6 % (45-73); Platelet Count 166 X10*3/uL (160-400); Red Blood Count 4.54 X10*6/uL (4.60-5.80); Red Cell Distribution Width 13.4 % (11.0-16.0); White Blood Count 6.5 X10*3/uL (4.8-10.8)
[2023-08-31 22:36] LABS: Appearance Urine Clear; Color Urine Yellow; Glucose Urine UA Negative (Negative); Leukocyte Esterase Urine Negative (Negative); Nitrite Urine Negative (Negative); Specific Gravity - Urine 1.015 (1.005-1.025); Urine Blood Negative (Negative); Urine Ketones Negative (Negative); Urine Protein Negative (Neg-Trace)
[2023-08-31 22:49] LABS: Alanine Aminotransferase 114 U/L (0-40); Albumin Level 3.4 g/dL (3.5-5.0); Alkaline Phosphatase 84 U/L (39-117); Anion Gap 11 (12-20); Aspartate Amino Transferase 103 U/L (5-37); Bilirubin Total 0.3 mg/dL (0.0-1.0); Blood Urea Nitrogen 18 mg/dL (9-16); Calcium 8.8 mg/dL (8.4-10.2); Carbon Dioxide 27 mmol/L (22-29); Chloride 106 mmol/L (96-108); Creatinine Clr Calc Pharmacy 111.4; Estimated Glomerular Filt Rate > 60; Glucose Random 109 mg/dL (60-115); Potassium 3.9 mmol/L (3.3-5.1); Sodium 140 mmol/L (135-145); Total Protein 6.8 g/dL (6.5-8.0)
[2023-08-31 23:42] VITALS: BP 116/72; PULSE 57; RESP 18; O2SAT 96
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
[2023-09-01 06:29] VITALS: BP 143/89; PULSE 64; RESP 16; TEMP 36.5; O2SAT 97
== END 2023-09-01 06:26 | disposition home or self-care (01) ==
PROVIDERS: Emergency Provider Emergency Medicine
DX: R35.0 Frequency of micturition (principal); R30.0 Dysuria; M79.672 Pain in left foot; M79.671 Pain in right foot; Z79.899 Other long term (current) drug therapy
CPT/HCPCS: 36415; 80053; 81003; 85025; 99283; 99284

== ENCOUNTER 2023-09-03 18:28 | Inpatient (IN) | payer OTHER, SELFPAY ==
--- NOTE | ~2023-09-03 | XR_ITS ---
EXAMINATION: 1. Right ankle. 2. Right foot. CLINICAL INFORMATION: Trauma. Pain. COMPARISON: None. TECHNIQUE: 1. Right ankle. 3 views 2. Right foot. 3 views FINDINGS: 1. Right ankle. No fracture. No dislocation. Ankle mortise is congruent. No soft tissue abnormality. 2. Right foot. No fracture. No dislocation. Bone and joint are normal. No soft tissue abnormality. No radiopaque foreign body. XR/XR ankle RT min 3V IMPRESSION: 1. Normal right ankle. 2. Normal right foot.
--- NOTE | ~2023-09-03 | XR_ITS ---
EXAMINATION: 1. Right ankle. 2. Right foot. CLINICAL INFORMATION: Trauma. Pain. COMPARISON: None. TECHNIQUE: 1. Right ankle. 3 views 2. Right foot. 3 views FINDINGS: 1. Right ankle. No fracture. No dislocation. Ankle mortise is congruent. No soft tissue abnormality. 2. Right foot. No fracture. No dislocation. Bone and joint are normal. No soft tissue abnormality. No radiopaque foreign body. XR/XR foot RT min 3V IMPRESSION: 1. Normal right ankle. 2. Normal right foot.
[2023-09-03 19:31] VITALS: BP 137/87; PULSE 51; RESP 16; TEMP 36; O2SAT 98; BMI 21.4
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
[2023-09-03 20:28] LABS: MANUAL DIFF FLAG NO
[2023-09-03 20:29] LABS: Basophils Percent Auto 0.4 % (0-2); Eosinophils Absolute Auto 0.1 X10*3/uL (0.0-0.4); Eosinophils Percent Auto 1.9 % (0-4); Hematocrit 42.7 % (42.0-52.0); Hemoglobin 13.9 g/dl (14.0-18.0); Imm Gran Abs Auto 0.01 X10*3/uL (0.00-0.03); Imm Gran Pct Auto 0.2 % (0.0-0.4); Lymphocytes Absolute Auto 1.9 X10*3/uL (1.2-4.9); Lymphocytes Percent Auto 37.1 % (20-40); Mean Corpuscular HGB Conc 32.6 g/dl (31.0-36.0); Mean Corpuscular Hemoglobin 30.1 pg (27.0-33.0); Mean Corpuscular Volume 92.4 fL (80.0-98.0); Monocytes Absolute Auto 0.5 X10*3/uL (0.1-1.2); Monocytes Percent Auto 10.1 % (2-11); Neutrophils Absolute Auto 2.6 x10*3/uL (2.0-8.3); Neutrophils Percent Auto 50.3 % (45-73); Platelet Count 203 X10*3/uL (160-400); Red Blood Count 4.62 X10*6/uL (4.60-5.80); Red Cell Distribution Width 13.2 % (11.0-16.0); White Blood Count 5.2 X10*3/uL (4.8-10.8)
[2023-09-03 20:44] LABS: Anion Gap 13 (12-20); Blood Urea Nitrogen 17 mg/dL (9-16); Calcium 9.2 mg/dL (8.4-10.2); Carbon Dioxide 30 mmol/L (22-29); Chloride 104 mmol/L (96-108); Creatinine Clr Calc Pharmacy 99.9; Estimated Glomerular Filt Rate > 60; Ethanol < 10 mg/dL; Glucose Random 120 mg/dL (60-115); Lipase 25 U/L (8-78); Magnesium 2.5 mg/dL (1.6-2.6); Potassium 4.2 mmol/L (3.3-5.1); Sodium 143 mmol/L (135-145)
[2023-09-03 20:46] LABS: Salicylate < 5.0 mg/dL (15-30)
[2023-09-04 01:50] LABS: Appearance Urine Clear; Color Urine Yellow; Glucose Urine UA Negative (Negative); Leukocyte Esterase Urine Negative (Negative); Nitrite Urine Negative (Negative); PH 7.5 (5.0-9.0); Specific Gravity - Urine 1.015 (1.005-1.025); Urine Blood Negative (Negative); Urine Ketones Negative (Negative); Urine Protein Negative (Neg-Trace)
[2023-09-04 02:09] LABS: Amphetamine Screen Urine Not Detected (Not Detect); Barbiturates, Urine Not Detected (Not Detect); Benzodiazepines Screen Urine Not Detected (Not Detect); Cannabinoid Screen Urine Not Detected (Not Detect); Cocaine Screen Urine POSITIVE (Not Detect); Fentanyl, urine POSITIVE (Not Detect); Opiate Screen Urine POSITIVE (Not Detect); Phencyclidine Screen Urine Not Detected (Not Detect)
[2023-09-04 06:00] VITALS: BP 111/63; PULSE 51; RESP 16; TEMP 36.1; O2SAT 96
--- NOTE | 2023-09-04 10:10 | HE.PHANOTE ---
re [facility] methadone verification form received. patient last dosed with 70 mg at [facility] on 09/02/23. Patient was given at home bottle for dose on 09/03/23
[2023-09-04] MEDS: methADONE HCl 20 MG/2 ML ORAL.CONC 70 MG PO (10:54)
[2023-09-04] MEDS: Escitalopram Oxalate 10 MG TABLET PO (10:54)
[2023-09-04] MEDS: HaloperidoL 5 MG TABLET PO (10:54)
[2023-09-04] MEDS: Benztropine Mesylate 0.5 MG TABLET PO (10:54)
--- NOTE | 2023-09-04 13:52 | PHA.MEDREC ---
Pharmacy Consult ? Medication Reconciliation Pharmacy has reviewed the medication reconciliation completed by Sara. Corazon Dickerson, JenniferD
--- NOTE | 2023-09-04 14:04 | MHC.CARE ---
Patient evaluated by the CARE Team, recommended disposition dual diagnosis treatment. Admissions team will begin bedsearch for placement.
--- NOTE | 2023-09-04 14:19 | PC.NURSE ---
Methadone dose confirmed with N in [place]. Client received 70mg Methadone PO on 09/02/23 and received a take home bottle that day for 09/03/23. Client arrived with the empty take home bottle and reported he took it correctly. Medications given this AM. Jarrett has been in bed resting for most of the shift. No behavioral concerns. Appetite good.
[2023-09-04 14:46] VITALS: RESP 18
[2023-09-05 06:32] VITALS: BP 179/99; PULSE 56; RESP 18; TEMP 36.7; O2SAT 95
[2023-09-05] MEDS: methADONE HCl 20 MG/2 ML ORAL.CONC 70 MG PO (06:39)
--- NOTE | 2023-09-05 06:46 | PC.NURSE ---
Increased BP noted. Pt is diaphoretic and reporting increased body aches I am withdrawing . Dr Chowdhury made aware and authorized pts methadone dose to be given at this time. Pt medicated with Methadone 70mg
--- NOTE | 2023-09-05 07:55 | ECG_ITS ---
Test Reason : QTC INTERVAL Blood Pressure : / mmHG Vent. Rate : 047 BPM Atrial Rate : 047 BPM P-R Int : 164 ms QRS Dur : 076 ms QT Int : 468 ms P-R-T Axes : 073 088 062 degrees QTc Int : 414 ms Sinus bradycardia Possible Left atrial enlargement Borderline ECG When compared with ECG of 21-AUG-2023 23:01, Nonspecific T wave abnormality no longer evident in Inferior leads Referred By: Harinder Del Real Electronically Signed By:SHAYAN WONG
[2023-09-05 08:25] LABS: COVID-19 Test Negative (Negative); IDNOW Serial# 08D9AD1C
[2023-09-05] MEDS: HaloperidoL 5 MG TABLET PO (10:21)
[2023-09-05] MEDS: Escitalopram Oxalate 10 MG TABLET PO (10:21)
[2023-09-05] MEDS: Benztropine Mesylate 0.5 MG TABLET PO (10:21)
[2023-09-05] MEDS: Bacitracin Oint 0.9 GM PACKET 1 APPL TOPICAL (10:21)
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
--- NOTE | 2023-09-05 13:12 | PC.NURSE ---
Assumed care of patient at 1100, patient is sleeping at this time, respirations even and unlabored, no apparent distress
[2023-09-05 17:40] VITALS: BP 132/92; PULSE 52; RESP 16; TEMP 36.3; O2SAT 97
[2023-09-05] MEDS: Acetaminophen 325 MG TABLET 650 MG PO (17:50)
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
[2023-09-05] MEDS: cloNIDine HCL 0.1 MG TABLET PO (22:31)
[2023-09-05] MEDS: traZODone HCL 50 MG TABLET PO (22:31)
[2023-09-05] MEDS: hydrOXYzine HCL 25 MG TABLET PO (22:31)
[2023-09-06 09:05] VITALS: BP 135/74; PULSE 60; RESP 16; TEMP 36.2; O2SAT 98
[2023-09-06] MEDS: HaloperidoL 5 MG TABLET PO (09:08)
[2023-09-06] MEDS: Benztropine Mesylate 0.5 MG TABLET PO (09:08)
[2023-09-06] MEDS: Escitalopram Oxalate 10 MG TABLET PO (09:08)
[2023-09-06] MEDS: methADONE HCl 20 MG/2 ML ORAL.CONC 70 MG PO (09:09)
[2023-09-06] MEDS: Bacitracin Oint 0.9 GM PACKET 1 APPL TOPICAL (09:09)
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
[2023-09-06] MEDS: Acetaminophen 325 MG TABLET 650 MG PO (13:16)
[2023-09-06 20:20] VITALS: BP 123/60; PULSE 52; RESP 16; TEMP 36.7; O2SAT 96
[2023-09-07] MEDS: Magnesium Hydrox/Alum Hydrox 30 ML ORAL.SUSP PO (01:47)
[2023-09-07] MEDS: methADONE HCl 20 MG/2 ML ORAL.CONC 70 MG PO (05:38)
[2023-09-07 09:00] VITALS: BP 112/79; PULSE 58; RESP 18; TEMP 36.5; O2SAT 98
--- NOTE | 2023-09-07 09:17 | HO.PSYCHPN ---
Subjective Subjective Date of Service: 09/07/23 Reason For Visit: si/ cocaine opiate use Subjective Notes: Conditional Voluntary Interim History: Reviewed with . Guarded, keeping to self. Pt reports feeling anxious and depressed today; pt stated, I'm going to try to go to groups today. I still want to go to a substance abuse program . denies any side effects from medications. denies SI/HI/VH/AH. Medication Compliance: Yes Side effects from medications: No Attending Groups: No Review of Systems Constitutional: Reports as per HPI Eyes: Reports as per HPI Reports as per HPI Cardiovascular: Reports as per HPI Respiratory: Reports as per HPI Gastrointestinal: Reports as per HPI Genitourinary: Reports as per HPI Musculoskeletal: Reports as per HPI Skin/Breast: Reports as per HPI Reports as per HPI Psychiatric: Reports as per HPI Endocrine: Reports as per HPI Hematologic/Lymphatic: Reports as per HPI Allergic/Immunologic: Reports as per HPI Mental Status Exam Mental Status Exam Narrative: Pt is alert and oriented; behavior is cooperative and calm; dressed in casual attire; mood is described as depressed ; eye contact appropriate; Speech is normal rate, volume and prosody and not pressured; thought process is organized and goal directed; Thought content is on tx; otherwise pertinent to relevant topics and without any delusional content, paranoid ideations or grandiosity; denies SI/HI/VH/AH. Diagnostics Vital Signs (24Hr): Vital Signs - 24 hr 09/06/23 20:20 Temperature 98.0 F Pulse Rate 52 Respiratory Rate 16 Blood Pressure 123/60 Pulse Oximetry 96 Oxygen Delivery Method Room Air BMI result Body Mass Index 21.4 Labs 09/03/23 20:23 09/03/23 20:23 Imaging Radiology Impressions: ITS Impressions Ankle X-Ray 09/03/23 19:40 IMPRESSION: 1. Normal right ankle. 2. Normal right foot. Foot X-Ray 09/03/23 19:40 IMPRESSION: 1. Normal right ankle. 2. Normal right foot. Medications Medications Current Medications Acetaminophen (Acetaminophen 325 Mg Tablet) 650 mg PO Q6H PRN PRN Reason: Headache/Pain Mild Scale (1-3) Last Admin: 09/06/23 13:16 Dose: 650 mg Al Hydroxide/Mg Hydroxide (Magnesium Hydrox/Alum Hydrox 30 Ml Oral.Susp) 30 ml PO Q6H PRN PRN Reason: Heartburn/Nausea Last Admin: 09/07/23 01:47 Dose: 30 ml Bacitracin (Bacitracin Oint 0.9 Gm Packet) 1 appl TOPICAL DAILY [facility]; Protocol Last Admin: 09/06/23 09:09 Dose: 1 appl Benztropine Mesylate (Benztropine Mesylate 0.5 Mg Tablet) 0.5 mg PO DAILY [facility] Last Admin: 09/06/23 09:08 Dose: 0.5 mg Clonidine HCl (Clonidine Hcl 0.1 Mg Tablet) 0.1 mg PO TID PRN; Protocol PRN Reason: anxiety/restlessness Last Admin: 09/05/23 22:31 Dose: 0.1 mg Escitalopram Oxalate (Escitalopram Oxalate 10 Mg Tablet) 10 mg PO DAILY [facility] Last Admin: 09/06/23 09:08 Dose: 10 mg Haloperidol (Haloperidol 5 Mg Tablet) 5 mg PO DAILY [facility] Last Admin: 09/06/23 09:08 Dose: 5 mg Hydroxyzine HCl (Hydroxyzine Hcl 25 Mg Tablet) 25 mg PO BID PRN PRN Reason: Anxiety Last Admin: 09/05/23 22:31 Dose: 25 mg Ibuprofen (Ibuprofen 400 Mg Tablet) 400 mg PO Q6H PRN PRN Reason: Pain, Moderate(Pain Scale 4-6) Magnesium Hydroxide (Milk Of Magnesia 30 Ml Oral.Susp) 30 ml PO DAILY PRN PRN Reason: Constipation Methadone HCl (Methadone Hcl 20 Mg/2 Ml Oral.Conc) 70 mg PO DAILY@0600 [facility] Last Admin: 09/07/23 05:38 Dose: 70 mg Trazodone HCl (Trazodone Hcl 50 Mg Tablet) 50 mg PO BEDTIME MRX1 PRN PRN Reason: Insomnia Last Admin: 09/05/23 22:31 Dose: 50 mg Allergies Allergies Allergy/AdvReac Type Severity Reaction Status Date / Time No Known Allergies Allergy Verified 08/31/23 21:57 [No Known Allergies*] Assessment & Plan Assessment & Plan (1) Schizophrenia: Status: Acute Code(s): F20.9 - Schizophrenia, unspecified (2) Opioid use disorder: Status: Acute Code(s): F11.90 - Opioid use, unspecified, uncomplicated (3) Cocaine abuse: Status: Acute Code(s): F14.10 - Cocaine abuse, uncomplicated Plan Patient is a 47 year old male with hx of schizophrenia, opioid use d/o and cocaine use d/o who was recently on M3 (07/2023) who self presented to [facility] [place] d/t suicidal ideation secondary to increased depression after finding out his girlfriend of an overdose. Plan: CV 15 minute safety checks Continue home medications Referral to substance abuse program Discharge planning 09/07: Guarded, keeping to self. Pt reports feeling anxious and depressed today; pt stated, I'm going to try to go to groups today. I still want to go to a substance abuse program . denies any side effects from medications. denies SI/HI/VH/AH. Continue current tx plan. Patient educated on: diagnosis, medication risk/benefits, substance abuse and therapeutic strategies Informed Consent: understands Reason for continued inpatient stay Substantial Risk for: med/psych decompensation Time Spent With Patient Time: Total time managing care of this patient today _20___ minutes.
[2023-09-07] MEDS: HaloperidoL 5 MG TABLET PO (09:19)
[2023-09-07] MEDS: Benztropine Mesylate 0.5 MG TABLET PO (09:19)
[2023-09-07] MEDS: Escitalopram Oxalate 10 MG TABLET PO (09:19)
[2023-09-07] MEDS: Bacitracin Oint 0.9 GM PACKET 1 APPL TOPICAL (09:19)
[2023-09-07 13:00] VITALS: BP 118/63; PULSE 55; RESP 18; TEMP 36.6; O2SAT 98
[2023-09-07 14:56] VITALS: BP 118/63; PULSE 55; O2SAT 98
[2023-09-07 20:00] VITALS: BP 131/78; PULSE 88; RESP 16; TEMP 36.2; O2SAT 94
[2023-09-07] MEDS: traZODone HCL 50 MG TABLET PO (23:26)
[2023-09-08] MEDS: methADONE HCl 20 MG/2 ML ORAL.CONC 70 MG PO (07:09)
[2023-09-08 09:15] VITALS: BP 128/82; PULSE 54; RESP 16; TEMP 36.3; O2SAT 97
[2023-09-08] MEDS: HaloperidoL 5 MG TABLET PO (09:20)
[2023-09-08] MEDS: Escitalopram Oxalate 10 MG TABLET PO (09:21)
[2023-09-08] MEDS: Bacitracin Oint 0.9 GM PACKET 1 APPL TOPICAL (09:21)
[2023-09-08] MEDS: Benztropine Mesylate 0.5 MG TABLET PO (09:21)
--- NOTE | 2023-09-08 11:57 | HO.PSYCHPN ---
Subjective Subjective Date of Service: 09/08/23 Reason For Visit: si/ cocaine opiate use Subjective Notes: Conditional Voluntary Interim History: Pt tearful talking about of his GF. He denies SI/HI. He also denies VH/AH. He reports he is having at times hard time coping with grief. Appropriate expression of sadness and tearfulness. He presents as future oriented and stable otherwise. Review of Systems Review of Systems Yes all other systems are reviewed and are negative Constitutional: Reports as per HPI Eyes: Reports as per HPI Reports as per HPI Cardiovascular: Reports as per HPI Respiratory: Reports as per HPI Gastrointestinal: Reports as per HPI Genitourinary: Reports as per HPI Musculoskeletal: Reports as per HPI Skin/Breast: Reports as per HPI Reports as per HPI Psychiatric: Reports as per HPI Endocrine: Reports as per HPI Hematologic/Lymphatic: Reports as per HPI Allergic/Immunologic: Reports as per HPI Mental Status Exam Mental Status Exam Narrative: Pt is alert and oriented; behavior is cooperative and calm; dressed in casual attire; mood is described as depressed ; eye contact appropriate; Speech is normal rate, volume and prosody and not pressured; thought process is organized and goal directed; Thought content is on tx; otherwise pertinent to relevant topics and without any delusional content, paranoid ideations or grandiosity; denies SI/HI/VH/AH. Diagnostics Vital Signs (24Hr): Vital Signs - 24 hr 09/07/23 13:00 09/07/23 14:56 09/07/23 20:00 Temperature 97.8 F 97.2 F Pulse Rate 55 55 88 Respiratory Rate 18 16 Blood Pressure 118/63 118/63 131/78 Pulse Oximetry 98 98 94 Oxygen Delivery Method Room Air Room Air 09/08/23 09:15 Temperature 97.3 F Pulse Rate 54 Respiratory Rate 16 Blood Pressure 128/82 Pulse Oximetry 97 Oxygen Delivery Method Room Air BMI result Body Mass Index 21.4 Labs 09/03/23 20:23 09/03/23 20:23 Imaging Radiology Impressions: ITS Impressions Ankle X-Ray 09/03/23 19:40 IMPRESSION: 1. Normal right ankle. 2. Normal right foot. Foot X-Ray 09/03/23 19:40 IMPRESSION: 1. Normal right ankle. 2. Normal right foot. Medications Medications Current Medications Acetaminophen (Acetaminophen 325 Mg Tablet) 650 mg PO Q6H PRN PRN Reason: Headache/Pain Mild Scale (1-3) Last Admin: 09/06/23 13:16 Dose: 650 mg Al Hydroxide/Mg Hydroxide (Magnesium Hydrox/Alum Hydrox 30 Ml Oral.Susp) 30 ml PO Q6H PRN PRN Reason: Heartburn/Nausea Last Admin: 09/07/23 01:47 Dose: 30 ml Bacitracin (Bacitracin Oint 0.9 Gm Packet) 1 appl TOPICAL DAILY [facility]; Protocol Last Admin: 09/08/23 09:21 Dose: 1 appl Benztropine Mesylate (Benztropine Mesylate 0.5 Mg Tablet) 0.5 mg PO DAILY [facility] Last Admin: 09/08/23 09:21 Dose: 0.5 mg Clonidine HCl (Clonidine Hcl 0.1 Mg Tablet) 0.1 mg PO TID PRN; Protocol PRN Reason: anxiety/restlessness Last Admin: 09/05/23 22:31 Dose: 0.1 mg Escitalopram Oxalate (Escitalopram Oxalate 10 Mg Tablet) 10 mg PO DAILY [facility] Last Admin: 09/08/23 09:21 Dose: 10 mg Haloperidol (Haloperidol 5 Mg Tablet) 5 mg PO DAILY [facility] Last Admin: 09/08/23 09:20 Dose: 5 mg Hydroxyzine HCl (Hydroxyzine Hcl 25 Mg Tablet) 25 mg PO BID PRN PRN Reason: Anxiety Last Admin: 09/05/23 22:31 Dose: 25 mg Ibuprofen (Ibuprofen 400 Mg Tablet) 400 mg PO Q6H PRN PRN Reason: Pain, Moderate(Pain Scale 4-6) Magnesium Hydroxide (Milk Of Magnesia 30 Ml Oral.Susp) 30 ml PO DAILY PRN PRN Reason: Constipation Methadone HCl (Methadone Hcl 20 Mg/2 Ml Oral.Conc) 70 mg PO DAILY@0600 [facility] Last Admin: 09/08/23 07:09 Dose: 70 mg Trazodone HCl (Trazodone Hcl 50 Mg Tablet) 50 mg PO BEDTIME MRX1 PRN PRN Reason: Insomnia Last Admin: 09/07/23 23:26 Dose: 50 mg Allergies Allergies Allergy/AdvReac Type Severity Reaction Status Date / Time No Known Allergies Allergy Verified 08/31/23 21:57 [No Known Allergies*] Assessment & Plan Assessment & Plan (1) Schizophrenia: Status: Acute Code(s): F20.9 - Schizophrenia, unspecified (2) Opioid use disorder: Status: Acute Code(s): F11.90 - Opioid use, unspecified, uncomplicated (3) Cocaine abuse: Status: Acute Code(s): F14.10 - Cocaine abuse, uncomplicated Plan Patient is a 47 year old male with hx of schizophrenia, opioid use d/o and cocaine use d/o who was recently on M3 (07/2023) who self [place] [facility] [place]/t suicidal ideation secondary to increased depression after finding out his girlfriend of an overdose. Plan: CV 15 minute safety checks Continue home medications Referral to substance abuse program Discharge planning 09/07: Guarded, keeping to self. Pt reports feeling anxious and depressed today; pt stated, I'm going to try to go to groups today. I still want to go to a substance abuse program . denies any side effects from medications. denies SI/HI/VH/AH. Continue current tx plan. 09/08 continue tx. Reason for continued inpatient stay Substantial Risk for: inability to function Time Spent With Patient Time: Total time managing care of this patient today ____ minutes.
[2023-09-08 15:43] VITALS: BP 137/75; PULSE 54; RESP 16; TEMP 36.2; O2SAT 97
[2023-09-08] MEDS: cloNIDine HCL 0.1 MG TABLET PO (15:46)
[2023-09-08] MEDS: hydrOXYzine HCL 25 MG TABLET PO ×2 (15:47→23:15)
[2023-09-08] MEDS: Acetaminophen 325 MG TABLET 650 MG PO (15:47)
[2023-09-08] MEDS: Nicotine Polacrilex 2 MG GUM 4 MG BUCCAL (18:42)
[2023-09-08 19:45] VITALS: BP 138/87; PULSE 56; RESP 16; TEMP 36.2; O2SAT 97
[2023-09-08] MEDS: traZODone HCL 50 MG TABLET PO (23:15)
[2023-09-09] MEDS: methADONE HCl 20 MG/2 ML ORAL.CONC 70 MG PO (06:28)
[2023-09-09 07:40] VITALS: BP 113/74; PULSE 109; RESP 18; TEMP 36.2; O2SAT 95
[2023-09-09] MEDS: Benztropine Mesylate 0.5 MG TABLET PO (08:36)
[2023-09-09] MEDS: HaloperidoL 5 MG TABLET PO (08:37)
[2023-09-09] MEDS: Escitalopram Oxalate 10 MG TABLET PO (08:37)
[2023-09-09] MEDS: Bacitracin Oint 0.9 GM PACKET 1 APPL TOPICAL (08:39)
[2023-09-09] MEDS: Acetaminophen 325 MG TABLET 650 MG PO (09:18)
[2023-09-09] MEDS: hydrOXYzine HCL 25 MG TABLET PO ×2 (09:29→20:59)
[2023-09-09 09:32] VITALS: PULSE 60
--- NOTE | 2023-09-09 15:08 | P.PNPSI_ITS ---
Subjective Subjective Date of Service: 09/09/23 Reason For Visit: si/ cocaine opiate use Subjective Notes: Conditional Voluntary Interim History: Pt less tearful, visible on the unit and social with select peers. He denies SI/HI. He also denies VH/AH. He reports he is having at times hard time coping with grief. Appropriate expression of sadness and tearfulness. He presents as future oriented and stable otherwise. Review of Systems Review of Systems Yes all other systems are reviewed and are negative Constitutional: Reports as per HPI Eyes: Reports as per HPI Reports as per HPI Cardiovascular: Reports as per HPI Respiratory: Reports as per HPI Gastrointestinal: Reports as per HPI Genitourinary: Reports as per HPI Musculoskeletal: Reports as per HPI Skin/Breast: Reports as per HPI Reports as per HPI Psychiatric: Reports as per HPI Endocrine: Reports as per HPI Hematologic/Lymphatic: Reports as per HPI Allergic/Immunologic: Reports as per HPI Mental Status Exam Mental Status Exam Narrative: Pt is alert and oriented; behavior is cooperative and calm; dressed in casual attire; mood is described as depressed ; eye contact appropriate; Speech is normal rate, volume and prosody and not pressured; thought process is organized and goal directed; Thought content is on tx; otherwise pertinent to relevant topics and without any delusional content, paranoid ideations or grandiosity; denies SI/HI/VH/AH. Diagnostics Vital Signs (24Hr): Vital Signs - 24 hr 09/08/23 15:43 09/08/23 19:45 09/09/23 07:40 Temperature 97.2 F 97.1 F 97.1 F Pulse Rate 54 56 109 H Respiratory Rate 16 16 18 Blood Pressure 137/75 138/87 113/74 Pulse Oximetry 97 97 95 Oxygen Delivery Method Room Air Room Air 09/09/23 09:32 Temperature Pulse Rate 60 Respiratory Rate Blood Pressure Pulse Oximetry Oxygen Delivery Method BMI result Body Mass Index 21.4 Labs 09/03/23 20:23 09/03/23 20:23 Imaging Radiology Impressions: ITS Impressions Ankle X-Ray 09/03/23 19:40 IMPRESSION: 1. Normal right ankle. 2. Normal right foot. Foot X-Ray 09/03/23 19:40 IMPRESSION: 1. Normal right ankle. 2. Normal right foot. Medications Medications Current Medications Acetaminophen (Acetaminophen 325 Mg Tablet) 650 mg PO Q6H PRN PRN Reason: Headache/Pain Mild Scale (1-3) Last Admin: 09/09/23 09:18 Dose: 650 mg Al Hydroxide/Mg Hydroxide (Magnesium Hydrox/Alum Hydrox 30 Ml Oral.Susp) 30 ml PO Q6H PRN PRN Reason: Heartburn/Nausea Last Admin: 09/07/23 01:47 Dose: 30 ml Bacitracin (Bacitracin Oint 0.9 Gm Packet) 1 appl TOPICAL DAILY [facility]; Protocol Last Admin: 09/09/23 08:39 Dose: 1 appl Benztropine Mesylate (Benztropine Mesylate 0.5 Mg Tablet) 0.5 mg PO DAILY [facility] Last Admin: 09/09/23 08:36 Dose: 0.5 mg Clonidine HCl (Clonidine Hcl 0.1 Mg Tablet) 0.1 mg PO TID PRN; Protocol PRN Reason: anxiety/restlessness Last Admin: 09/08/23 15:46 Dose: 0.1 mg Escitalopram Oxalate (Escitalopram Oxalate 10 Mg Tablet) 10 mg PO DAILY [facility] Last Admin: 09/09/23 08:37 Dose: 10 mg Haloperidol (Haloperidol 5 Mg Tablet) 5 mg PO DAILY [facility] Last Admin: 09/09/23 08:37 Dose: 5 mg Hydroxyzine HCl (Hydroxyzine Hcl 25 Mg Tablet) 25 mg PO BID PRN PRN Reason: Anxiety Last Admin: 09/09/23 09:29 Dose: 25 mg Ibuprofen (Ibuprofen 400 Mg Tablet) 400 mg PO Q6H PRN PRN Reason: Pain, Moderate(Pain Scale 4-6) Magnesium Hydroxide (Milk Of Magnesia 30 Ml Oral.Susp) 30 ml PO DAILY PRN PRN Reason: Constipation Methadone HCl (Methadone Hcl 20 Mg/2 Ml Oral.Conc) 70 mg PO DAILY@0600 [facility] Last Admin: 09/09/23 06:28 Dose: 70 mg Nicotine Polacrilex (Nicotine Polacrilex 2 Mg Gum) 4 mg BUCCAL Q2H PRN PRN Reason: Nicotine Cravings Last Admin: 09/08/23 18:42 Dose: 4 mg Trazodone HCl (Trazodone Hcl 50 Mg Tablet) 50 mg PO BEDTIME MRX1 PRN PRN Reason: Insomnia Last Admin: 09/08/23 23:15 Dose: 50 mg Allergies Allergies Allergy/AdvReac Type Severity Reaction Status Date / Time No Known Allergies Allergy Verified 08/31/23 21:57 [No Known Allergies*] Assessment & Plan Assessment & Plan (1) Opioid use disorder: Status: Acute Code(s): F11.90 - Opioid use, unspecified, uncomplicated (2) Cocaine abuse: Status: Acute Code(s): F14.10 - Cocaine abuse, uncomplicated Plan Patient is a 47 year old male with hx of schizophrenia, opioid use d/o and cocaine use d/o who was recently on M3 (07/2023) who self presented [place] [facility] [place] d/t suicidal ideation secondary to increased depression after finding out his girlfriend of an overdose. Plan: CV 15 minute safety checks Continue home medications Referral to substance abuse program Discharge planning 09/07: Guarded, keeping to self. Pt reports feeling anxious and depressed today; pt stated, I'm going to try to go to groups today. I still want to go to a substance abuse program . denies any side effects from medications. denies SI/HI/VH/AH. Continue current tx plan. 09/08 continue tx. Reason for continued inpatient stay Substantial Risk for: inability to function Time Spent With Patient Time: Total time managing care of this patient today ____ minutes.
[2023-09-09 15:36] VITALS: BP 97/65; PULSE 60; RESP 16; TEMP 36.6; O2SAT 93
[2023-09-09] MEDS: cloNIDine HCL 0.1 MG TABLET PO (15:39)
[2023-09-09] MEDS: Nicotine Polacrilex 2 MG GUM 4 MG BUCCAL (17:03)
[2023-09-09 19:50] VITALS: BP 113/62; PULSE 60; RESP 18; TEMP 36.5; O2SAT 97
[2023-09-09] MEDS: Ibuprofen 400 MG TABLET PO (20:58)
[2023-09-09] MEDS: traZODone HCL 50 MG TABLET PO (20:59)
[2023-09-10] MEDS: methADONE HCl 20 MG/2 ML ORAL.CONC 70 MG PO (06:04)
[2023-09-10 07:40] VITALS: BP 121/70; PULSE 52; RESP 14; TEMP 36.1; O2SAT 95
[2023-09-10] MEDS: HaloperidoL 5 MG TABLET PO (08:38)
[2023-09-10] MEDS: Escitalopram Oxalate 10 MG TABLET PO (08:38)
[2023-09-10] MEDS: Bacitracin Oint 0.9 GM PACKET 1 APPL TOPICAL (08:38)
[2023-09-10] MEDS: Benztropine Mesylate 0.5 MG TABLET PO (08:39)
[2023-09-10] MEDS: Acetaminophen 325 MG TABLET 650 MG PO (09:05)
--- NOTE | 2023-09-10 09:26 | HO.PSYCHPN ---
Subjective Subjective Date of Service: 09/10/23 Reason For Visit: si/ cocaine opiate use Subjective Notes: Conditional Voluntary Interim History: Reviewed with . Keeping to self. napping during the day. guarded. pt reports feeling okay today; pt stated, I'm going to try and go to two groups today. I want to get into a program . denies SI/HI/VH/AH. Medication Compliance: Yes Side effects from medications: No Attending Groups: Intermittent Review of Systems Constitutional: Reports as per HPI Eyes: Reports as per HPI Reports as per HPI Cardiovascular: Reports as per HPI Respiratory: Reports as per HPI Gastrointestinal: Reports as per HPI Genitourinary: Reports as per HPI Musculoskeletal: Reports as per HPI Skin/Breast: Reports as per HPI Reports as per HPI Psychiatric: Reports as per HPI Endocrine: Reports as per HPI Hematologic/Lymphatic: Reports as per HPI Allergic/Immunologic: Reports as per HPI Mental Status Exam Mental Status Exam Narrative: Pt is alert and oriented; behavior is cooperative, calm; dressed in casual attire; mood is described as okay ; eye contact appropriate; Speech is normal rate, volume and prosody and not pressured; thought process is organized; Thought content is on tx; otherwise pertinent to relevant topics and without any delusional content, paranoid ideations or grandiosity; denies SI/HI/VH/AH. Diagnostics Vital Signs (24Hr): Vital Signs - 24 hr 09/09/23 09:32 09/09/23 15:36 09/09/23 19:50 Temperature 97.9 F 97.7 F Pulse Rate 60 60 60 Respiratory Rate 16 18 Blood Pressure 97/65 113/62 Pulse Oximetry 93 97 Oxygen Delivery Method Room Air Room Air 09/10/23 07:40 Temperature 97.0 F Pulse Rate 52 Respiratory Rate 14 Blood Pressure 121/70 Pulse Oximetry 95 Oxygen Delivery Method Room Air BMI result Body Mass Index 21.4 Labs 09/03/23 20:23 09/03/23 20:23 Imaging Radiology Impressions: ITS Impressions Ankle X-Ray 09/03/23 19:40 IMPRESSION: 1. Normal right ankle. 2. Normal right foot. Foot X-Ray 09/03/23 19:40 IMPRESSION: 1. Normal right ankle. 2. Normal right foot. Medications Medications Current Medications Acetaminophen (Acetaminophen 325 Mg Tablet) 650 mg PO Q6H PRN PRN Reason: Headache/Pain Mild Scale (1-3) Last Admin: 09/10/23 09:05 Dose: 650 mg Al Hydroxide/Mg Hydroxide (Magnesium Hydrox/Alum Hydrox 30 Ml Oral.Susp) 30 ml PO Q6H PRN PRN Reason: Heartburn/Nausea Last Admin: 09/07/23 01:47 Dose: 30 ml Bacitracin (Bacitracin Oint 0.9 Gm Packet) 1 appl TOPICAL DAILY [facility]; Protocol Last Admin: 09/10/23 08:38 Dose: 1 appl Benztropine Mesylate (Benztropine Mesylate 0.5 Mg Tablet) 0.5 mg PO DAILY [facility] Last Admin: 09/10/23 08:39 Dose: 0.5 mg Clonidine HCl (Clonidine Hcl 0.1 Mg Tablet) 0.1 mg PO TID PRN; Protocol PRN Reason: anxiety/restlessness Last Admin: 09/09/23 15:39 Dose: 0.1 mg Escitalopram Oxalate (Escitalopram Oxalate 10 Mg Tablet) 10 mg PO DAILY [facility] Last Admin: 09/10/23 08:38 Dose: 10 mg Haloperidol (Haloperidol 5 Mg Tablet) 5 mg PO DAILY [facility] Last Admin: 09/10/23 08:38 Dose: 5 mg Hydroxyzine HCl (Hydroxyzine Hcl 25 Mg Tablet) 25 mg PO BID PRN PRN Reason: Anxiety Last Admin: 09/09/23 20:59 Dose: 25 mg Ibuprofen (Ibuprofen 400 Mg Tablet) 400 mg PO Q6H PRN PRN Reason: Pain, Moderate(Pain Scale 4-6) Last Admin: 09/09/23 20:58 Dose: 400 mg Magnesium Hydroxide (Milk Of Magnesia 30 Ml Oral.Susp) 30 ml PO DAILY PRN PRN Reason: Constipation Methadone HCl (Methadone Hcl 20 Mg/2 Ml Oral.Conc) 70 mg PO DAILY@0600 [facility] Last Admin: 09/10/23 06:04 Dose: 70 mg Nicotine Polacrilex (Nicotine Polacrilex 2 Mg Gum) 4 mg BUCCAL Q2H PRN PRN Reason: Nicotine Cravings Last Admin: 09/09/23 17:03 Dose: 4 mg Trazodone HCl (Trazodone Hcl 50 Mg Tablet) 50 mg PO BEDTIME MRX1 PRN PRN Reason: Insomnia Last Admin: 09/09/23 20:59 Dose: 50 mg Allergies Allergies Allergy/AdvReac Type Severity Reaction Status Date / Time No Known Allergies Allergy Verified 08/31/23 21:57 [No Known Allergies*] Assessment & Plan Assessment & Plan (1) Opioid use disorder: Status: Acute Code(s): F11.90 - Opioid use, unspecified, uncomplicated (2) Cocaine abuse: Status: Acute Code(s): F14.10 - Cocaine abuse, uncomplicated Plan Patient is a 47 year old male with hx of schizophrenia, opioid use d/o and cocaine use d/o who was recently on M3 (07/2023) who self presented to [facility] d/t suicidal ideation secondary to increased depression after finding out his girlfriend of an overdose. Plan: CV 15 minute safety checks Continue home medications Referral to substance abuse program Discharge planning 09/07: Guarded, keeping to self. Pt reports feeling anxious and depressed today; pt stated, I'm going to try to go to groups today. I still want to go to a substance abuse program . denies any side effects from medications. denies SI/HI/VH/AH. Continue current tx plan. 09/08 continue tx. 09/10: Keeping to self. napping during the day. guarded. pt reports feeling okay today; pt stated, I'm going to try and go to two groups today. I want to get into a program . denies SI/HI/VH/AH. Continue current tx plan. Reason for continued inpatient stay Substantial Risk for: med/psych decompensation Time Spent With Patient Time: Total time managing care of this patient today ____ minutes.
[2023-09-10 15:00] VITALS: BP 106/71; PULSE 58; RESP 18; TEMP 36.8; O2SAT 96
[2023-09-10 16:59] LABS: Amphetamine Screen Urine Not Detected (Not Detect); Barbiturates, Urine Not Detected (Not Detect); Benzodiazepines Screen Urine Not Detected (Not Detect); Cannabinoid Screen Urine Not Detected (Not Detect); Cocaine Screen Urine Not Detected (Not Detect); Fentanyl, urine POSITIVE (Not Detect); Opiate Screen Urine Not Detected (Not Detect); Phencyclidine Screen Urine Not Detected (Not Detect)
[2023-09-10 20:30] VITALS: BP 117/70; PULSE 60; RESP 14; TEMP 36.3; O2SAT 97
[2023-09-10 21:24] VITALS: BP 115/52; PULSE 53; RESP 18
[2023-09-10] MEDS: cloNIDine HCL 0.1 MG TABLET PO (21:25)
[2023-09-10] MEDS: traZODone HCL 50 MG TABLET PO ×2 (21:25→23:10)
[2023-09-10] MEDS: hydrOXYzine HCL 25 MG TABLET PO (21:25)
[2023-09-11] MEDS: methADONE HCl 20 MG/2 ML ORAL.CONC 70 MG PO (06:25)
[2023-09-11] MEDS: Magnesium Hydrox/Alum Hydrox 30 ML ORAL.SUSP PO (06:41)
[2023-09-11 08:30] VITALS: BP 95/59; PULSE 55; RESP 16; TEMP 36.4; O2SAT 96
[2023-09-11] MEDS: HaloperidoL 5 MG TABLET PO (09:01)
[2023-09-11] MEDS: Benztropine Mesylate 0.5 MG TABLET PO (09:01)
[2023-09-11] MEDS: Bacitracin Oint 0.9 GM PACKET 1 APPL TOPICAL (09:02)
[2023-09-11] MEDS: Escitalopram Oxalate 10 MG TABLET PO (09:02)
--- NOTE | 2023-09-11 09:16 | HO.PSYCHPN ---
Subjective Subjective Date of Service: 09/11/23 Reason For Visit: si/ cocaine opiate use Subjective Notes: Conditional Voluntary Interim History: Reviewed with . Keeping to self. napping during the day. guarded. pt reports feeling fine today; pt stated, I have a phone interview with a program today. If I don't get in, I'll stay with my mom . denies SI/HI/VH/AH. not attending groups. plan for discharge . Medication Compliance: Yes Side effects from medications: No Attending Groups: No Review of Systems Constitutional: Reports as per HPI Eyes: Reports as per HPI Reports as per HPI Cardiovascular: Reports as per HPI Respiratory: Reports as per HPI Gastrointestinal: Reports as per HPI Genitourinary: Reports as per HPI Musculoskeletal: Reports as per HPI Skin/Breast: Reports as per HPI Reports as per HPI Psychiatric: Reports as per HPI Endocrine: Reports as per HPI Hematologic/Lymphatic: Reports as per HPI Allergic/Immunologic: Reports as per HPI Mental Status Exam Mental Status Exam Narrative: Pt is alert and oriented; behavior is cooperative, calm; dressed in casual attire; mood is described as fine ; eye contact appropriate; Speech is normal rate, volume and prosody and not pressured; thought process is organized; Thought content is on discharge; otherwise pertinent to relevant topics and without any delusional content, paranoid ideations or grandiosity; denies SI/HI/VH/AH. Diagnostics Vital Signs (24Hr): Vital Signs - 24 hr 09/10/23 15:00 09/10/23 20:30 09/10/23 21:24 Temperature 98.3 F 97.4 F Pulse Rate 58 60 53 Respiratory Rate 18 14 18 Blood Pressure 106/71 117/70 115/52 L Pulse Oximetry 96 97 Oxygen Delivery Method Room Air Room Air BMI result Body Mass Index 21.4 Labs 09/03/23 20:23 09/03/23 20:23 Labs: Laboratory Results - last 48 hr 09/10/23 15:49 Urine Opiates Screen Not Detected Urine Fentanyl Screen POSITIVE H Ur Barbiturates Screen Not Detected Ur Phencyclidine Scrn Not Detected Ur Amphetamines Screen Not Detected U Benzodiazepines Scrn Not Detected Urine Cocaine Screen Not Detected U Marijuana (THC) Screen Not Detected Imaging Radiology Impressions: ITS Impressions Ankle X-Ray 09/03/23 19:40 IMPRESSION: 1. Normal right ankle. 2. Normal right foot. Foot X-Ray 09/03/23 19:40 IMPRESSION: 1. Normal right ankle. 2. Normal right foot. Medications Medications Current Medications Acetaminophen (Acetaminophen 325 Mg Tablet) 650 mg PO Q6H PRN PRN Reason: Headache/Pain Mild Scale (1-3) Last Admin: 09/10/23 09:05 Dose: 650 mg Al Hydroxide/Mg Hydroxide (Magnesium Hydrox/Alum Hydrox 30 Ml Oral.Susp) 30 ml PO Q6H PRN PRN Reason: Heartburn/Nausea Last Admin: 09/11/23 06:41 Dose: 30 ml Bacitracin (Bacitracin Oint 0.9 Gm Packet) 1 appl TOPICAL DAILY [facility]; Protocol Last Admin: 09/11/23 09:02 Dose: 1 appl Benztropine Mesylate (Benztropine Mesylate 0.5 Mg Tablet) 0.5 mg PO DAILY [facility] Last Admin: 09/11/23 09:01 Dose: 0.5 mg Clonidine HCl (Clonidine Hcl 0.1 Mg Tablet) 0.1 mg PO TID PRN; Protocol PRN Reason: anxiety/restlessness Last Admin: 09/10/23 21:25 Dose: 0.1 mg Escitalopram Oxalate (Escitalopram Oxalate 10 Mg Tablet) 10 mg PO DAILY [facility] Last Admin: 09/11/23 09:02 Dose: 10 mg Haloperidol (Haloperidol 5 Mg Tablet) 5 mg PO DAILY [facility] Last Admin: 09/11/23 09:01 Dose: 5 mg Hydroxyzine HCl (Hydroxyzine Hcl 25 Mg Tablet) 25 mg PO BID PRN PRN Reason: Anxiety Last Admin: 09/10/23 21:25 Dose: 25 mg Ibuprofen (Ibuprofen 400 Mg Tablet) 400 mg PO Q6H PRN PRN Reason: Pain, Moderate(Pain Scale 4-6) Last Admin: 09/09/23 20:58 Dose: 400 mg Magnesium Hydroxide (Milk Of Magnesia 30 Ml Oral.Susp) 30 ml PO DAILY PRN PRN Reason: Constipation Methadone HCl (Methadone Hcl 20 Mg/2 Ml Oral.Conc) 70 mg PO DAILY@0600 [facility] Last Admin: 09/11/23 06:25 Dose: 70 mg Nicotine Polacrilex (Nicotine Polacrilex 2 Mg Gum) 4 mg BUCCAL Q2H PRN PRN Reason: Nicotine Cravings Last Admin: 09/09/23 17:03 Dose: 4 mg Trazodone HCl (Trazodone Hcl 50 Mg Tablet) 50 mg PO BEDTIME MRX1 PRN PRN Reason: Insomnia Last Admin: 09/10/23 23:10 Dose: 50 mg Allergies Allergies Allergy/AdvReac Type Severity Reaction Status Date / Time No Known Allergies Allergy Verified 08/31/23 21:57 [No Known Allergies*] Assessment & Plan Assessment & Plan (1) Opioid use disorder: Status: Acute Code(s): F11.90 - Opioid use, unspecified, uncomplicated (2) Cocaine abuse: Status: Acute Code(s): F14.10 - Cocaine abuse, uncomplicated Plan Patient is a 47 year old male with hx of schizophrenia, opioid use d/o and cocaine use d/o who was recently on M3 (07/2023) who self presented to [facility] d/t suicidal ideation secondary to increased depression after finding out his girlfriend of an overdose. Plan: CV 15 minute safety checks Continue home medications Referral to substance abuse program Discharge planning 09/07: Guarded, keeping to self. Pt reports feeling anxious and depressed today; pt stated, I'm going to try to go to groups today. I still want to go to a substance abuse program . denies any side effects from medications. denies SI/HI/VH/AH. Continue current tx plan. 09/08 continue tx. 09/10: Keeping to self. napping during the day. guarded. pt reports feeling okay today; pt stated, I'm going to try and go to two groups today. I want to get into a program . denies SI/HI/VH/AH. Continue current tx plan. 09/11: Keeping to self. napping during the day. guarded. pt reports feeling fine today; pt stated, I have a phone interview with a program today. If I don't get in, I'll stay with my mom . denies SI/HI/VH/AH. not attending groups. plan for discharge . Continue current tx plan. Patient educated on: diagnosis, medication risk/benefits and substance abuse Informed Consent: understands Reason for continued inpatient stay Substantial Risk for: med/psych decompensation Time Spent With Patient Time: Total time managing care of this patient today _20___ minutes.
[2023-09-11] MEDS: Acetaminophen 325 MG TABLET 650 MG PO (09:25)
[2023-09-12] MEDS: Milk of Magnesia 30 ML ORAL.SUSP PO (05:33)
[2023-09-12] MEDS: methADONE HCl 20 MG/2 ML ORAL.CONC 70 MG PO (05:34)
[2023-09-12] MEDS: Benztropine Mesylate 0.5 MG TABLET PO (08:33)
[2023-09-12] MEDS: HaloperidoL 5 MG TABLET PO (08:33)
[2023-09-12] MEDS: Bacitracin Oint 0.9 GM PACKET 1 APPL TOPICAL (08:33)
[2023-09-12] MEDS: Escitalopram Oxalate 10 MG TABLET PO (08:33)
[2023-09-12 08:45] VITALS: BP 130/93; PULSE 60; RESP 18; TEMP 36.6; O2SAT 97
--- NOTE | 2023-09-12 08:54 | HO.PSYCHPN ---
Subjective Subjective Date of Service: 09/12/23 Reason For Visit: si/ cocaine opiate use Subjective Notes: Conditional Voluntary Interim History: Reviewed with . Keeping to self. active on unit today. Pt reports feeling good today; pt stated, I feel more awake today. I want to go to my mother's tomorrow and I'll wait for a substance program bed to open up . denies SI/HI/VH/AH. Medication Compliance: Yes Side effects from medications: No Attending Groups: No Review of Systems Constitutional: Reports as per HPI Eyes: Reports as per HPI Reports as per HPI Cardiovascular: Reports as per HPI Respiratory: Reports as per HPI Gastrointestinal: Reports as per HPI Genitourinary: Reports as per HPI Musculoskeletal: Reports as per HPI Skin/Breast: Reports as per HPI Reports as per HPI Psychiatric: Reports as per HPI Endocrine: Reports as per HPI Hematologic/Lymphatic: Reports as per HPI Allergic/Immunologic: Reports as per HPI Mental Status Exam Mental Status Exam Narrative: Pt is alert and oriented; behavior is cooperative, calm; dressed in casual attire; mood is described as good ; eye contact appropriate; Speech is normal rate, volume and prosody and not pressured; thought process is organized; Thought content is on discharge; otherwise pertinent to relevant topics and without any delusional content, paranoid ideations or grandiosity; denies SI/HI/VH/AH. Diagnostics Vital Signs (24Hr): BMI result Body Mass Index 21.4 Labs 09/12/23 10:56 09/12/23 10:59 Labs: Laboratory Results - last 48 hr 09/10/23 15:49 Urine Opiates Screen Not Detected Urine Fentanyl Screen POSITIVE H Ur Barbiturates Screen Not Detected Ur Phencyclidine Scrn Not Detected Ur Amphetamines Screen Not Detected U Benzodiazepines Scrn Not Detected Urine Cocaine Screen Not Detected U Marijuana (THC) Screen Not Detected Imaging Radiology Impressions: ITS Impressions Ankle X-Ray 09/03/23 19:40 IMPRESSION: 1. Normal right ankle. 2. Normal right foot. Foot X-Ray 09/03/23 19:40 IMPRESSION: 1. Normal right ankle. 2. Normal right foot. Medications Medications Current Medications Acetaminophen (Acetaminophen 325 Mg Tablet) 650 mg PO Q6H PRN PRN Reason: Headache/Pain Mild Scale (1-3) Last Admin: 09/11/23 09:25 Dose: 650 mg Al Hydroxide/Mg Hydroxide (Magnesium Hydrox/Alum Hydrox 30 Ml Oral.Susp) 30 ml PO Q6H PRN PRN Reason: Heartburn/Nausea Last Admin: 09/11/23 06:41 Dose: 30 ml Bacitracin (Bacitracin Oint 0.9 Gm Packet) 1 appl TOPICAL DAILY [facility]; Protocol Last Admin: 09/12/23 08:33 Dose: 1 appl Benztropine Mesylate (Benztropine Mesylate 0.5 Mg Tablet) 0.5 mg PO DAILY [facility] Last Admin: 09/12/23 08:33 Dose: 0.5 mg Clonidine HCl (Clonidine Hcl 0.1 Mg Tablet) 0.1 mg PO TID PRN; Protocol PRN Reason: anxiety/restlessness Last Admin: 09/10/23 21:25 Dose: 0.1 mg Escitalopram Oxalate (Escitalopram Oxalate 10 Mg Tablet) 10 mg PO DAILY [facility] Last Admin: 09/12/23 08:33 Dose: 10 mg Haloperidol (Haloperidol 5 Mg Tablet) 5 mg PO DAILY [facility] Last Admin: 09/12/23 08:33 Dose: 5 mg Hydroxyzine HCl (Hydroxyzine Hcl 25 Mg Tablet) 25 mg PO BID PRN PRN Reason: Anxiety Last Admin: 09/10/23 21:25 Dose: 25 mg Ibuprofen (Ibuprofen 400 Mg Tablet) 400 mg PO Q6H PRN PRN Reason: Pain, Moderate(Pain Scale 4-6) Last Admin: 09/09/23 20:58 Dose: 400 mg Magnesium Hydroxide (Milk Of Magnesia 30 Ml Oral.Susp) 30 ml PO DAILY PRN PRN Reason: Constipation Last Admin: 09/12/23 05:33 Dose: 30 ml Methadone HCl (Methadone Hcl 20 Mg/2 Ml Oral.Conc) 70 mg PO DAILY@0600 [facility] Last Admin: 09/12/23 05:34 Dose: 70 mg Nicotine Polacrilex (Nicotine Polacrilex 2 Mg Gum) 4 mg BUCCAL Q2H PRN PRN Reason: Nicotine Cravings Last Admin: 09/09/23 17:03 Dose: 4 mg Trazodone HCl (Trazodone Hcl 50 Mg Tablet) 50 mg PO BEDTIME MRX1 PRN PRN Reason: Insomnia Last Admin: 09/10/23 23:10 Dose: 50 mg Allergies Allergies Allergy/AdvReac Type Severity Reaction Status Date / Time No Known Allergies Allergy Verified 08/31/23 21:57 [No Known Allergies*] Assessment & Plan Assessment & Plan (1) Schizophrenia: Status: Acute Code(s): F20.9 - Schizophrenia, unspecified (2) Opioid use disorder: Status: Acute Code(s): F11.90 - Opioid use, unspecified, uncomplicated (3) Cocaine abuse: Status: Acute Code(s): F14.10 - Cocaine abuse, uncomplicated Plan Patient is a 47 year old male with hx of schizophrenia, opioid use d/o and cocaine use d/o who was recently on M3 (07/2023) who self presented to [facility] d/t suicidal ideation secondary to increased depression after finding out his girlfriend of an overdose. Plan: CV 15 minute safety checks Continue home medications Referral to substance abuse program Discharge planning 09/07: Guarded, keeping to self. Pt reports feeling anxious and depressed today; pt stated, I'm going to try to go to groups today. I still want to go to a substance abuse program . denies any side effects from medications. denies SI/HI/VH/AH. Continue current tx plan. 09/08 continue tx. 09/10: Keeping to self. napping during the day. guarded. pt reports feeling okay today; pt stated, I'm going to try and go to two groups today. I want to get into a program . denies SI/HI/VH/AH. Continue current tx plan. 09/11: Keeping to self. napping during the day. guarded. pt reports feeling fine today; pt stated, I have a phone interview with a program today. If I don't get in, I'll stay with my mom . denies SI/HI/VH/AH. not attending groups. plan for discharge . Continue current tx plan. 09/12: Keeping to self. active on unit today. Pt reports feeling good today; pt stated, I feel more awake today. I want to go to my mother's tomorrow and I'll wait for a substance program bed to open up . denies SI/HI/VH/AH. Plan to discharge tomorrow. Patient educated on: diagnosis, medication risk/benefits, substance abuse and therapeutic strategies Informed Consent: understands Reason for continued inpatient stay Substantial Risk for: stable for discharge Time Spent With Patient Time: Total time managing care of this patient today _30___ minutes.
[2023-09-12 11:01] LABS: MANUAL DIFF FLAG NO
[2023-09-12 11:05] LABS: Basophils Percent Auto 0.6 % (0-2); Eosinophils Absolute Auto 0.4 X10*3/uL (0.0-0.4); Eosinophils Percent Auto 8.3 % (0-4); Hematocrit 45.9 % (42.0-52.0); Hemoglobin 14.9 g/dl (14.0-18.0); Imm Gran Abs Auto 0.01 X10*3/uL (0.00-0.03); Imm Gran Pct Auto 0.2 % (0.0-0.4); Lymphocytes Absolute Auto 1.8 X10*3/uL (1.2-4.9); Lymphocytes Percent Auto 34.2 % (20-40); Mean Corpuscular HGB Conc 32.5 g/dl (31.0-36.0); Mean Corpuscular Hemoglobin 30.8 pg (27.0-33.0); Mean Corpuscular Volume 94.8 fL (80.0-98.0); Mean Platelet Volume 10.8 fL (9.4-12.4); Monocytes Absolute Auto 0.7 X10*3/uL (0.1-1.2); Monocytes Percent Auto 14.2 % (2-11); Neutrophils Absolute Auto 2.2 x10*3/uL (2.0-8.3); Neutrophils Percent Auto 42.5 % (45-73); Platelet Count 147 X10*3/uL (160-400); Red Blood Count 4.84 X10*6/uL (4.60-5.80); Red Cell Distribution Width 13.2 % (11.0-16.0); White Blood Count 5.2 X10*3/uL (4.8-10.8)
[2023-09-12 11:08] LABS: Ammonia 52 umol/L (13-55)
[2023-09-12 11:16] LABS: Anion Gap 10 (12-20); Blood Urea Nitrogen 22 mg/dL (9-16); Calcium 9.1 mg/dL (8.4-10.2); Carbon Dioxide 31 mmol/L (22-29); Chloride 102 mmol/L (96-108); Creatinine Clr Calc Pharmacy 126.7; Estimated Glomerular Filt Rate > 60; Glucose Random 107 mg/dL (60-115); Potassium 4.4 mmol/L (3.3-5.1); Sodium 139 mmol/L (135-145)
[2023-09-12] MEDS: hydrOXYzine HCL 25 MG TABLET PO (13:27)
[2023-09-12 19:48] VITALS: BP 119/76; PULSE 59; RESP 16; TEMP 36.6; O2SAT 96
[2023-09-13] MEDS: hydrOXYzine HCL 25 MG TABLET PO (00:57)
[2023-09-13] MEDS: traZODone HCL 50 MG TABLET PO (00:57)
[2023-09-13] MEDS: methADONE HCl 20 MG/2 ML ORAL.CONC 70 MG PO (05:56)
--- NOTE | 2023-09-13 08:57 | PM.PSYDC ---
DS: Providers Provider Date of Service: 09/13/23 Date of admission: 09/05/23 16:52 Date of discharge: 09/13/23 Primary care physician: Unknown Physician Admitting clinician: Oumou Godwin Attending physician on admission: Jeffrey Mena Consults: 09/03/23 19:38 Consult to Care Team Stat Comment: Reason for consultation: SI Attending physician on discharge: Jeffrey Mena Discharging clinician: Oumou Godwin DS: Diagnosis Discharge Diagnosis (1) Schizophrenia: Status: Acute (2) Opioid use disorder: Status: Acute (3) Cocaine abuse: Status: Acute DS: Medications Discharge Medications Home Medications: Home Medications Medication Instructions Recorded Confirmed methadone 10 mg/mL oral 70 mg PO DAILY 08/22/23 09/04/23 concentrate (Methadose) Previous Rx's Medication Instructions Recorded bacitracin 500 unit/gram topical 1 appl topical DAILY 30 days #1 ea 09/12/23 packet benztropine 0.5 mg tablet 0.5 mg PO DAILY 30 days #30 tabs 09/12/23 escitalopram oxalate 10 mg tablet 10 mg PO DAILY 30 days #30 tabs 09/12/23 haloperidol 5 mg tablet 5 mg PO DAILY 30 days #30 tabs 09/12/23 hydroxyzine HCl 25 mg tablet 25 mg PO BID PRN Anxiety 30 days 09/12/23 #60 tabs Mental Status Exam Mental Status Exam Narrative: Pt is alert and oriented; behavior is cooperative and calm; dressed in casual attire; mood is described as good ; eye contact appropriate; Speech is normal rate, volume and prosody and not pressured; thought process is organized; Thought content is on discharge; otherwise pertinent to relevant topics and without any delusional content, paranoid ideations or grandiosity; denies SI/HI/AH/VH. Data Data Completed and Pending Completed studies during hospitalization [Text1]: 09/10/23 09/12/23 09/12/23 15:49 10:56 10:59 WBC 5.2 RBC 4.84 Hgb 14.9 Hct 45.9 MCV 94.8 MCH 30.8 MCHC 32.5 RDW 13.2 Plt Count 147 L D MPV 10.8 Immature Gran % (Auto) 0.2 Neut % (Auto) 42.5 L Lymph % (Auto) 34.2 [place] % (Auto) 14.2 H Eos % (Auto) 8.3 H Baso % (Auto) 0.6 Lymph # (Auto) 1.8 [place] # (Auto) 0.7 Eos # (Auto) 0.4 Baso # (Auto) 0.0 Abs Immat Gran (auto) 0.01 Absolute Neuts (auto) 2.2 Absolute Nucleated RBC 0.000 Nucleated RBC % (auto) 0.0 Sodium 139 Potassium 4.4 Chloride 102 Carbon Dioxide 31 H Anion Gap 10 L BUN 22 H Creatinine 0.67 Estim Creat Clear Calc 126.7 Estimated GFR > 60 Random Glucose 107 Calcium 9.1 Ammonia 52 Urine Opiates Screen Not Detected Urine Fentanyl Screen POSITIVE H Ur Barbiturates Screen Not Detected Ur Phencyclidine Scrn Not Detected Ur Amphetamines Screen Not Detected U Benzodiazepines Scrn Not Detected Urine Cocaine Screen Not Detected U Marijuana (THC) Screen Not Detected Imaging Diagnostic Imaging Impressions Ankle X-Ray 09/03/23 19:40 IMPRESSION: 1. Normal right ankle. 2. Normal right foot. Foot X-Ray 09/03/23 19:40 IMPRESSION: 1. Normal right ankle. 2. Normal right foot. DS: Summary Hospital Course Hospital Course: Patient is a 47 year old male with hx of schizophrenia, opioid use d/o and cocaine use d/o who was recently on M3 (07/2023) who self presented to [facility] ER d/t suicidal ideation secondary to increased depression after finding out his girlfriend of an overdose. Per crisis report, Initially pt said he was suicidal then stated he is too depressed to get his medications or pursue outpatient treatment. He did not follow aftercare recommendations or supervisor fur dressing medications. During crisis assessment pt did not show any symptoms of hallucinations or delusions. During admission assessment, pt presents calm and cooperative. Pt reports feeling anxious and depressed ; pt stated, I came to the hospital because my girlfriend of an overdose two days ago. Her mother found her. I was living with my mom and with her sometimes. I started using heroin and cocaine after she passed. I was suicidal; I'm trying to get those thoughts out of my head . Pt reports he would be interested in going to a substance abuse program. He reports not taking his psychiatric medications for the past week. denies HI/VH/AH. During hospital course, CV 15 minute safety checks Continue home medications Referral to substance abuse program Discharge planning Guarded, keeping to self. Pt reports feeling anxious and depressed today; pt stated, I'm going to try to go to groups today. I still want to go to a substance abuse program . denies any side effects from medications. denies SI/HI/VH/AH. Continue current tx plan. Keeping to self. napping during the day. guarded. pt reports feeling okay today; pt stated, I'm going to try and go to two groups today. I want to get into a program . denies SI/HI/VH/AH. Keeping to self. napping during the day. guarded. pt reports feeling fine today; pt stated, I have a phone interview with a program today. If I don't get in, I'll stay with my mom . denies SI/HI/VH/AH. not attending groups. Continue current tx plan. Keeping to self. active on unit today. Pt reports feeling good today; pt stated, I feel more awake today. I want to go to my mother's tomorrow and I'll wait for a substance program bed to open up . denies SI/HI/VH/AH. Pt reports he plans on following up with outpatient providers. Time spent discussing smoking cessation with patient: 3 to 10 minutes Status at Discharge Cognitive/behavioral status at discharge: Patient was interviewed prior to discharge and found to be fully oriented and without any SI or HI. Patient has insight and demonstrates good judgment in terms of wanting to pursue treatment. Patient is not in imminent risk of harm to self or others and has a safety plan that includes presenting to the closest ER or calling 911 if feeling unsafe. Patient has been observed closely by nursing and unit staff throughout admission; patient has not engaged in any behaviors that suggest dangerousness to self or others and has demonstrated appropriate behaviors and impulse control. Functional status at discharge: independent ambulation Overall status at discharge: patient is back to baseline Time Spent with Patient Time attestation: Total time managing care of this patient today _30___ minutes. Time spent: Less than 30 minutes Discharge Plan Discharge Anticipated Discharge Date/Time: 09/13/23 10:00 Patient Disposition: Home, Self-Care Discharge Diagnosis: Schizophrenia, cocaine use d/o, opioid use d/o Referrals: Therapy & Medication Management [Other] - 1 Week (*Please follow up with your provider at the clinic regarding follow up care*) [facility] [Provider Group] - 1 Week Discharge Medications: New bacitracin 500 unit/gram Packet 1 appl topical DAILY 30 Days Qty: 1 0RF Protocol: Apply to: Apply to: wound Continued methadone [Methadose] 10 mg/mL concentrate 70 mg PO DAILY Patient Comments: Patient received 70mg's in clinic on 09/02/23 and was given 70mg's in a take home bottle for 09/03/23. Verified with ADAM Castillo at [facility] in [place]. benztropine 0.5 mg Tablet 0.5 mg PO DAILY 30 Days Qty: 30 0RF haloperidol 5 mg Tablet 5 mg PO DAILY 30 Days Qty: 30 0RF hydroxyzine HCl 25 mg Tablet 25 mg PO BID PRN (Reason: Anxiety) 30 Days Qty: 60 0RF escitalopram oxalate 10 mg Tablet 10 mg PO DAILY 30 Days Qty: 30 0RF Discharge Orders: Discharge Order (Routine); Ordered 09/13/23 Ordered By: Oumou Godwin Diet: Regular diet Activity on Discharge: As tolerated Stand Alone Forms: Patient Portal Discharge page Care Plan Goals: Maintain mood and safe behaviors Take medications as prescribed Continue to pursue sobriety Practice coping skills Continue with outpatient providers and reach out to them as needed Health Concerns: Mood stability and behaviors Sobriety follow up with PCP regarding slightly low platelet count. Plan of Treatment: Follow up with your PCP, psychiatric provider and other outpatient providers regarding above concerns Take medications as prescribed Assessment: Patient was interviewed prior to discharge and found to be fully oriented and without any SI or HI. Patient has insight and demonstrates good judgment in terms of wanting to pursue treatment. Patient is not in imminent risk of harm to self or others and has a safety plan that includes presenting to the closest ER or calling 911 if feeling unsafe. Patient has been observed closely by nursing and unit staff throughout admission; patient has not engaged in any behaviors that suggest dangerousness to self or others and has demonstrated appropriate behaviors and impulse control. Discharge Date/Time: 09/13/23 10:15
[2023-09-13] MEDS: Benztropine Mesylate 0.5 MG TABLET PO (09:30)
[2023-09-13] MEDS: Escitalopram Oxalate 10 MG TABLET PO (09:30)
[2023-09-13] MEDS: Bacitracin Oint 0.9 GM PACKET 1 APPL TOPICAL (09:30)
[2023-09-13] MEDS: HaloperidoL 5 MG TABLET PO (09:30)
[2023-09-13] MEDS: Milk of Magnesia 30 ML ORAL.SUSP PO (09:34)
[2023-09-13] MEDS: Naloxone HCl Nasal TAKE HOME 4 MG SPRAY 8 MG NOSTRILALT (09:36)
[2023-09-13 10:00] VITALS: BP 106/57; PULSE 60; RESP 18; TEMP 36.2; O2SAT 95
== END 2023-09-13 10:15 | disposition home or self-care (01) | DRG 750 ==
LOC: HO.ED 09-05 12:20 → HO.PADLT16 09-05 17:11
PROVIDERS: Emergency Medicine; Physician Assistant Medical; Admitting Provider Psychiatry & Neurology Psychiatry; Emergency Provider Student in an Organized Health Care Education/Training Program; Responsible Provider Registered Nurse; Visit Provider Psychiatry & Neurology Psychiatry
DX: F20.9 Schizophrenia, unspecified (principal); R45.851 Suicidal ideations; F11.20 Opioid dependence, uncomplicated; F14.10 Cocaine abuse, uncomplicated; Z20.822 Contact with and (suspected) exposure to COVID-19; Z59.02 Unsheltered homelessness; Z79.899 Other long term (current) drug therapy
CPT/HCPCS: 36415; 73610; 73630; 80048; 80179; 80307; 81003; 82140; 83690; 83735; 85025; 87635; 93005; 97162; 99285; S9485

== ENCOUNTER → 2023-09-05 07:55 | Outpatient (BNV) | payer OTHER, SELFPAY | PROVIDERS: Emergency Provider Student in an Organized Health Care Education/Training Program; Visit Provider Internal Medicine | DX: R00.1 Bradycardia, unspecified (principal) | CPT/HCPCS: 93010 ==

== ENCOUNTER → 2023-09-05 16:52 | Outpatient (BNV) | payer OTHER, SELFPAY | PROVIDERS: Admitting Provider Psychiatry & Neurology Psychiatry; Emergency Provider Student in an Organized Health Care Education/Training Program; Responsible Provider Registered Nurse; Visit Provider Social Worker | DX: F20.9 Schizophrenia, unspecified (principal); F14.10 Cocaine abuse, uncomplicated; F11.90 Opioid use, unspecified, uncomplicated | CPT/HCPCS: 99231; 99232; 99233 ==

== ENCOUNTER 2023-09-14 19:49 | Emergency (ER) | payer OTHER, SELFPAY ==
[2023-09-14 21:20] VITALS: BP 141/83; PULSE 62; RESP 18; TEMP 36.8; O2SAT 95; BMI 24.2
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
[2023-09-14] MEDS: Ketorolac Tromethamine 15 MG/ML VIAL IM (23:07)
[2023-09-14] MEDS: hydrOXYzine HCL 25 MG TABLET PO (23:07)
[2023-09-14] MEDS: Escitalopram Oxalate 10 MG TABLET PO (23:07)
[2023-09-14] MEDS: HaloperidoL 5 MG TABLET PO (23:07)
== END 2023-09-14 23:23 | disposition home or self-care (01) ==
PROVIDERS: Emergency Provider Emergency Medicine
DX: M10.9 Gout, unspecified (principal); M79.674 Pain in right toe(s); F11.20 Opioid dependence, uncomplicated
CPT/HCPCS: 96372; 99283; 99284; J1885

== ENCOUNTER 2023-09-16 09:28 | Emergency (ER) | payer OTHER, SELFPAY ==
--- NOTE | ~2023-09-16 | XR_ITS ---
EXAMINATION: X-ray bilateral feet CLINICAL INFORMATION: Pain. COMPARISON: Radiograph right foot 09/03/2023. Radiograph left foot 08/31/2022. TECHNIQUE: 3 views of each foot. FINDINGS: Right foot: Stable nonspecific focal radiolucency with cortical disruption along the medial aspect of the distal first proximal phalanx. Anatomic alignment. Mild diffuse nonspecific soft tissue swelling. Left foot: No acute fracture. Anatomic alignment. Mild diffuse nonspecific soft tissue swelling. XR/XR foot LT min 3V IMPRESSION: Stable nonspecific focal radiolucency with cortical disruption along the medial aspect of the distal first proximal phalanx of the right foot. This could represent a small erosion, infectious or inflammatory. Correlate for point tenderness.
--- NOTE | ~2023-09-16 | XR_ITS ---
EXAMINATION: X-ray bilateral feet CLINICAL INFORMATION: Pain. COMPARISON: Radiograph right foot 09/03/2023. Radiograph left foot 08/31/2022. TECHNIQUE: 3 views of each foot. FINDINGS: Right foot: Stable nonspecific focal radiolucency with cortical disruption along the medial aspect of the distal first proximal phalanx. Anatomic alignment. Mild diffuse nonspecific soft tissue swelling. Left foot: No acute fracture. Anatomic alignment. Mild diffuse nonspecific soft tissue swelling. XR/XR foot RT min 3V IMPRESSION: Stable nonspecific focal radiolucency with cortical disruption along the medial aspect of the distal first proximal phalanx of the right foot. This could represent a small erosion, infectious or inflammatory. Correlate for point tenderness.
[2023-09-16 09:38] VITALS: BP 151/98; PULSE 62; RESP 20; TEMP 37; O2SAT 96; BMI 23.7
[2023-09-16 11:42] LABS: MANUAL DIFF FLAG NO
[2023-09-16 11:44] LABS: Basophils Percent Auto 0.4 % (0-2); Eosinophils Absolute Auto 0.2 X10*3/uL (0.0-0.4); Eosinophils Percent Auto 3.4 % (0-4); Hematocrit 43.8 % (42.0-52.0); Hemoglobin 14.2 g/dl (14.0-18.0); Imm Gran Abs Auto 0.01 X10*3/uL (0.00-0.03); Imm Gran Pct Auto 0.2 % (0.0-0.4); Lymphocytes Absolute Auto 1.7 X10*3/uL (1.2-4.9); Lymphocytes Percent Auto 29.7 % (20-40); Mean Corpuscular HGB Conc 32.4 g/dl (31.0-36.0); Mean Corpuscular Volume 92.4 fL (80.0-98.0); Mean Platelet Volume 10.2 fL (9.4-12.4); Monocytes Absolute Auto 0.7 X10*3/uL (0.1-1.2); Monocytes Percent Auto 11.9 % (2-11); Neutrophils Percent Auto 54.4 % (45-73); Platelet Count 157 X10*3/uL (160-400); Red Blood Count 4.74 X10*6/uL (4.60-5.80); Red Cell Distribution Width 13.5 % (11.0-16.0); White Blood Count 5.6 X10*3/uL (4.8-10.8)
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
[2023-09-16 12:08] LABS: Anion Gap 13 (12-20); Blood Urea Nitrogen 20 mg/dL (9-16); Calcium 9.2 mg/dL (8.4-10.2); Carbon Dioxide 29 mmol/L (22-29); Chloride 103 mmol/L (96-108); Creatinine Clr Calc Pharmacy 111.3; Estimated Glomerular Filt Rate > 60; Glucose Random 130 mg/dL (60-115); Potassium 3.9 mmol/L (3.3-5.1); Sodium 141 mmol/L (135-145)
[2023-09-16] MEDS: predniSONE 20 MG TABLET 40 MG PO (12:49)
--- NOTE | 2023-09-16 13:03 | PC.NURSE ---
urine sent, po med given as documented. diet ordered and called in to kitchen.
[2023-09-16 13:13] LABS: Amphetamine Screen Urine Not Detected (Not Detect); Barbiturates, Urine Not Detected (Not Detect); Benzodiazepines Screen Urine Not Detected (Not Detect); Cannabinoid Screen Urine Not Detected (Not Detect); Cocaine Screen Urine POSITIVE (Not Detect); Fentanyl, urine POSITIVE (Not Detect); Opiate Screen Urine Not Detected (Not Detect); Phencyclidine Screen Urine Not Detected (Not Detect)
--- NOTE | 2023-09-16 15:41 | MHC.RECOVRN ---
T/W met with pt. in ED per request of provide to assist with ATS bed search. Pt awake and engaging in conversation. He reports that he continues his methadone maintenance therapy and had 70mg of methadone this AM. Pt reports that despite the methadone he continues to use substances and would like help stopping. He is currently using heroin and cocaine IV and last use was last night. 5 of cocaine and 7-8 bags of heroin . Pt is willing to go to any facility. T/W called multiple facilities. [facility] does not take pt's insurance. [facility], [facility], [facility], [facility] and [facility] with no answer. [facility] took ct's information along with ACS and Care Team call back information and will get back to us. I discussed with ED nurse and provider Lynda and plan is [facility] if they call back and if not [facility] walk in in the morning. Provider has agreed to keep pt. ovn for AM detox.Care team updated on the plan. Pt is currently comfortable as he had his methadone dose this AM.
[2023-09-16 18:27] VITALS: BP 129/81; PULSE 55; RESP 16; TEMP 37.1; O2SAT 96
--- NOTE | 2023-09-16 19:30 | PC.NURSE ---
Assumed care of pt. Pt lying on stretcher, eyes closed, respirations even and unlabored. No acute distress at this time. VSS, continuing plan of care.
[2023-09-16] MEDS: Acetaminophen 325 MG TABLET 650 MG PO (23:39)
--- NOTE | 2023-09-17 02:51 | PC.NURSE ---
Pt ambulating on unit with steady gait, no acute distress at this time.
--- NOTE | 2023-09-17 05:05 | PC.NURSE ---
Pt verbalized concerns to this RN regarding receiving daily medications. As Pharmacy has not reviewed medication reconciliation at this time, informed patient that we need to verify all of medications prior to administration. Pt stated desire to leave. MD and supercharge repair supervisor notified.
--- NOTE | 2023-09-17 05:10 | PC.NURSE ---
Per previous note, MD notified and placed pt up for discharge, pt declined to sign paperwork.
== END 2023-09-17 05:11 | disposition home or self-care (01) ==
PROVIDERS: Emergency Provider Emergency Medicine
DX: F33.1 Major depressive disorder, recurrent, moderate (principal); F11.10 Opioid abuse, uncomplicated; F14.10 Cocaine abuse, uncomplicated; M21.612 Bunion of left foot; M79.672 Pain in left foot; Z71.51 Drug abuse counseling and surveillance of drug abuser; Z79.899 Other long term (current) drug therapy
CPT/HCPCS: 36415; 73630; 80048; 80307; 85025; 99284

== ENCOUNTER 2023-09-24 00:36 | Emergency (ER) | payer OTHER, SELFPAY ==
[2023-09-24 00:40] VITALS: BP 126/77; PULSE 68; RESP 18; TEMP 36.5; O2SAT 93; BMI 24.9
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
--- NOTE | 2023-09-24 01:43 | MHC.EDTECH ---
This tech took over care of patient at this time,security called for changeover, belonging list completed and copy placed in chart, All belongings are locked in the Pod Laundry Room.
--- NOTE | 2023-09-24 02:17 | MHC.EDTECH ---
Labs,and covid obtained and sent to lab.
[2023-09-24 02:21] LABS: Basophils Percent Auto 0.3 % (0-2); Eosinophils Absolute Auto 0.1 X10*3/uL (0.0-0.4); Eosinophils Percent Auto 1.6 % (0-4); Hematocrit 40.7 % (42.0-52.0); Hemoglobin 13.5 g/dl (14.0-18.0); Imm Gran Abs Auto 0.01 X10*3/uL (0.00-0.03); Imm Gran Pct Auto 0.2 % (0.0-0.4); Lymphocytes Absolute Auto 1.7 X10*3/uL (1.2-4.9); Lymphocytes Percent Auto 27.2 % (20-40); MANUAL DIFF FLAG NO; Mean Corpuscular HGB Conc 33.2 g/dl (31.0-36.0); Mean Corpuscular Hemoglobin 30.5 pg (27.0-33.0); Mean Corpuscular Volume 91.9 fL (80.0-98.0); Mean Platelet Volume 10.3 fL (9.4-12.4); Monocytes Absolute Auto 0.9 X10*3/uL (0.1-1.2); Monocytes Percent Auto 14.6 % (2-11); Neutrophils Absolute Auto 3.6 x10*3/uL (2.0-8.3); Neutrophils Percent Auto 56.1 % (45-73); Platelet Count 158 X10*3/uL (160-400); Red Blood Count 4.43 X10*6/uL (4.60-5.80); Red Cell Distribution Width 13.8 % (11.0-16.0); White Blood Count 6.4 X10*3/uL (4.8-10.8)
--- NOTE | 2023-09-24 02:25 | PC.NURSE ---
Pt is a 47 y/o male who presents for evaluation of reported increased anxiety and feelings of depression and thoughts of harming himself earlier today. Pt is also c/o bilateral foot pain, ? gout episode. Pt has a known history of gout, but is not presently on any medication. Last episdoe was some time ago. Pt denies any other complaints of pain or discomfort at this time. Reports wanting to see crisis. Ambulates with a steady gait unassisted. Pt changes into hospital attire.
[2023-09-24 02:32] LABS: COVID-19 Test Negative (Negative); IDNOW Serial# 152EDE1D
[2023-09-24 02:35] LABS: Alanine Aminotransferase 145 U/L (0-40); Albumin Level 3.6 g/dL (3.5-5.0); Alkaline Phosphatase 77 U/L (39-117); Anion Gap 13 (12-20); Aspartate Amino Transferase 117 U/L (5-37); Bilirubin Direct 0.2 mg/dL (0.0-0.5); Bilirubin Total 0.3 mg/dL (0.0-1.0); Blood Urea Nitrogen 22 mg/dL (9-16); Carbon Dioxide 27 mmol/L (22-29); Chloride 105 mmol/L (96-108); Creatinine Clr Calc Pharmacy 114.1; Estimated Glomerular Filt Rate > 60; Glucose Random 101 mg/dL (60-115); Potassium 4.2 mmol/L (3.3-5.1); Sodium 141 mmol/L (135-145)
[2023-09-24 03:13] VITALS: BP 108/70; PULSE 78; RESP 16; TEMP 36.7; O2SAT 95
--- NOTE | 2023-09-24 03:16 | MHC.EDTECH ---
Hourly rounds and vitals completed,patient was giving a cup of antonio adriano and an ice cream,1-1 sitter at bedside for safety
--- NOTE | 2023-09-24 04:25 | PC.NURSE ---
Pt is awake and alert, looking around. Communicates well with staff with clear speech. No acute distress noted. 1:1 close observation will continue. Verbalizes needs and is ambulatory without assistance.
--- NOTE | 2023-09-24 04:40 | MHC.EDTECH ---
Patient ambulated to the bathroom with a steady gait,urine sample obtained and sent to lab.
[2023-09-24 04:54] LABS: Amphetamine Screen Urine Not Detected (Not Detect); Barbiturates, Urine Not Detected (Not Detect); Benzodiazepines Screen Urine Not Detected (Not Detect); Cannabinoid Screen Urine POSITIVE (Not Detect); Cocaine Screen Urine POSITIVE (Not Detect); Fentanyl, urine POSITIVE (Not Detect); Opiate Screen Urine POSITIVE (Not Detect); Phencyclidine Screen Urine Not Detected (Not Detect)
[2023-09-24] MEDS: Acetaminophen 325 MG TABLET 975 MG PO (05:53)
[2023-09-24] MEDS: Ibuprofen 600 MG TABLET PO (05:55)
--- NOTE | 2023-09-24 05:56 | PC.NURSE ---
Medicated per MAR.
--- NOTE | 2023-09-24 07:24 | PC.NURSE ---
Alert and oriented, ate well for breakfast
[2023-09-24 08:06] VITALS: BP 108/59; PULSE 51; RESP 14; TEMP 36.5; O2SAT 95
--- NOTE | 2023-09-24 10:24 | PC.NURSE ---
Methadone dose verified with Anastasiia from [facility], patient last dosed 09/23/23 with 70mg
--- NOTE | 2023-09-24 10:38 | HE.PHANOTE ---
RE: METHADONE VERIFICATION Last dose of 70 mg was given on 09/23/23 @0900 per Anastasiia MEDINA at [facility] via fax.
[2023-09-24] MEDS: methADONE HCl 20 MG/2 ML ORAL.CONC 70 MG PO (10:56)
[2023-09-24 12:00] VITALS: BP 115/74; PULSE 88; RESP 18; TEMP 36.8; O2SAT 97
[2023-09-24 16:23] VITALS: BP 125/82; PULSE 62; RESP 16; TEMP 36.4; O2SAT 98
--- NOTE | 2023-09-24 17:45 | PC.NURSE ---
pt brought over form ED 6H, now sleeping in BH3, respirations even and unlabored, no apparent distress
--- NOTE | 2023-09-24 18:03 | MHC.RECOVSUP ---
? Reason for consult Recovery support o Current location: [facility] o Identified substance use concern: Heroin - Support ? Intervention: o Community resources provided o Harm reduction discussion ? Plan: o Patient awaiting crisis evaluation o Patient to follow up with [facility] after discharge ? Additional information: Met with Patient and we talk about recovery and Harm reduction.. Patient stated that he really stressed since he has not taken his meds for days.. I made the care team aware about what patient stated..
--- NOTE | 2023-09-24 20:27 | PC.NURSE ---
Pt resting on stretcher at this time, respirations even and unlabored, skin pwd, no apparent distress at this time
[2023-09-24 23:32] VITALS: BP 149/85; PULSE 55; TEMP 36.3; O2SAT 96
[2023-09-25] MEDS: Acetaminophen 325 MG TABLET 975 MG PO (01:18)
[2023-09-25] MEDS: Ibuprofen 600 MG TABLET PO (01:18)
[2023-09-25] MEDS: cloNIDine HCL 0.1 MG TABLET PO (01:18)
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
--- NOTE | 2023-09-25 08:29 | PC.NURSE ---
transferred from pod, 1:[address], calm and cooperative
[2023-09-25 08:35] VITALS: BP 137/79; PULSE 50; RESP 16; TEMP 37.1; O2SAT 98
[2023-09-25] MEDS: methADONE HCl 20 MG/2 ML ORAL.CONC 70 MG PO (09:28)
--- NOTE | 2023-09-25 11:04 | PC.NURSE ---
Report given to POD RN
[2023-09-25] MEDS: Nicotine Polacrilex 2 MG GUM BUCCAL (12:14)
--- NOTE | 2023-09-25 12:41 | PC.NURSE ---
Assumed care of patient at 1100, pt has been calm and cooperative, no issues. Pt ambulating with steady gait around BH pod, offering no complaints to this RN. Pt currently resting on bed, respriations even and unlabored, skin pwd, alert and oriented x4. Continue plan of care for dual diagnosis bedsearch
[2023-09-25] MEDS: Benztropine Mesylate 0.5 MG TABLET PO (13:02)
[2023-09-25] MEDS: HaloperidoL 5 MG TABLET PO (13:02)
--- NOTE | 2023-09-25 14:23 | MHC.CARE ---
Care Team notified that pt requested to leave. Pt is currently a dual dx bedsearch. Pt reports he will be following up with N tomorrow, wants a therapist and states that he wants to return to his mothers house to help her because she is paraplegic . Pt states he does not have any suicidal thoughts currently and shares that his mother is dying and I would never do that . Pt states that he feels much better today and is ready to leave. It is noted that pt appears much more improved physically compared to yesterday's assessment when under the influence. At this time, pt will be discharged home. There are no imminent safety concerns at this time. Plan discussed with JESSICA Parry and ED provider Dr. Medina
--- NOTE | 2023-09-25 14:41 | MHC.CARE ---
RAD Team conducted [place] dual diagnosis bed[place], unfortunately no appropriate dual beds available statewide. RAD Team to continue bedsearch tomorrow (09/26) if deemed appropriate
--- NOTE | 2023-09-25 15:10 | PHA.MEDREC ---
Pharmacy Consult ? Medication Reconciliation Pharmacy has reviewed the medication reconciliation completed by Keila. Patient is reporting talk haldol although not filled since July 2023. Corazon Dickerson, JenniferD
--- NOTE | 2023-09-25 15:22 | PC.NURSE ---
Patient requesting to be discharged, CARE team aware
== END 2023-09-25 16:53 | disposition home or self-care (01) ==
PROVIDERS: Emergency Provider Emergency Medicine
DX: F33.1 Major depressive disorder, recurrent, moderate (principal); R45.851 Suicidal ideations; Z79.899 Other long term (current) drug therapy; Z11.52 Encounter for screening for COVID-19
CPT/HCPCS: 80048; 80076; 80307; 85025; 87635; 99285; S9485

== ENCOUNTER 2023-09-29 21:18 | Emergency (ER) | payer OTHER, SELFPAY ==
[2023-09-29 21:32] VITALS: BP 101/65; PULSE 60; RESP 18; TEMP 36.7; O2SAT 97; BMI 24.2
[2023-09-29 21:53] VITALS: PULSE 94
[2023-09-29 22:10] VITALS: RESP 14
[2023-09-29 22:45] LABS: Appearance Urine Clear; Color Urine Dark Yellow; Glucose Urine UA Negative (Negative); Leukocyte Esterase Urine Negative (Negative); Nitrite Urine Negative (Negative); PH 5.5 (5.0-9.0); Specific Gravity - Urine 1.025 (1.005-1.025); Urine Blood Negative (Negative); Urine Ketones Negative (Negative); Urine Protein Negative (Neg-Trace)
[2023-09-29 22:51] LABS: Amphetamine Screen Urine Not Detected (Not Detect); Barbiturates, Urine Not Detected (Not Detect); Benzodiazepines Screen Urine Not Detected (Not Detect); Cannabinoid Screen Urine Not Detected (Not Detect); Cocaine Screen Urine POSITIVE (Not Detect); Fentanyl, urine POSITIVE (Not Detect); Opiate Screen Urine POSITIVE (Not Detect); Phencyclidine Screen Urine Not Detected (Not Detect)
[2023-09-29 22:54] LABS: Ethanol < 10 mg/dL
[2023-09-29 22:58] LABS: Alanine Aminotransferase 155 U/L (0-40); Albumin Level 3.8 g/dL (3.5-5.0); Alkaline Phosphatase 81 U/L (39-117); Anion Gap 14 (12-20); Aspartate Amino Transferase 127 U/L (5-37); Bilirubin Total 0.7 mg/dL (0.0-1.0); Blood Urea Nitrogen 19 mg/dL (9-16); Carbon Dioxide 26 mmol/L (22-29); Chloride 103 mmol/L (96-108); Creatinine Clr Calc Pharmacy 104.9; Estimated Glomerular Filt Rate > 60; Glucose Random 110 mg/dL (60-115); Potassium 4.6 mmol/L (3.3-5.1); Sodium 138 mmol/L (135-145); Total Protein 7.4 g/dL (6.5-8.0)
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
[2023-09-29 23:10] LABS: COVID-19 Test Negative (Negative); IDNOW Serial# 6674DD1D
[2023-09-29 23:32] LABS: Hematocrit 40.6 % (42.0-52.0); Hemoglobin 13.5 g/dl (14.0-18.0); Mean Corpuscular HGB Conc 33.3 g/dl (31.0-36.0); Mean Corpuscular Hemoglobin 30.4 pg (27.0-33.0); Mean Corpuscular Volume 91.4 fL (80.0-98.0); Mean Platelet Volume 9.9 fL (9.4-12.4); Platelet Count 175 X10*3/uL (160-400); Red Blood Count 4.44 X10*6/uL (4.60-5.80); Red Cell Distribution Width 13.7 % (11.0-16.0); White Blood Count 5.4 X10*3/uL (4.8-10.8)
[2023-09-30 06:39] VITALS: BP 106/46; PULSE 59; RESP 17; TEMP 36.6; O2SAT 98
--- NOTE | 2023-09-30 07:46 | HE.PHANOTE ---
RE: METHADONE DOSING Last dose of 70 mg was given on 09/29/23 @7:46am at [facility] per Autumn Galan via fax.
[2023-09-30 08:04] VITALS: BP 94/59; PULSE 52; TEMP 36.6; O2SAT 98
[2023-09-30] MEDS: Benztropine Mesylate 0.5 MG TABLET PO (08:35)
[2023-09-30] MEDS: methADONE HCl 20 MG/2 ML ORAL.CONC 70 MG PO (08:36)
--- NOTE | 2023-09-30 08:40 | PC.NURSE ---
Patient takes 70 mg daily of methadone vitals were 94/59 pulse 52 md made aware state it was ok to give med.
--- NOTE | 2023-09-30 14:05 | PC.NURSE ---
Assumed care of patient at 1100, patient is resting on couch in 8, offers no complaints to this RN, respirations even and unlabored, no apparent distress
--- NOTE | 2023-09-30 19:27 | PC.NURSE ---
patient appears to remain at rest presently respirations are even and unlabored patient appears in no distress.
[2023-09-30 20:17] VITALS: BP 126/77; PULSE 53; RESP 16; TEMP 36.6; O2SAT 95
--- NOTE | 2023-10-01 01:18 | PC.NURSE ---
patient awake every few hours, consistently asks for snacks.
[2023-10-01 01:32] VITALS: BP 132/77; PULSE 52; RESP 17; TEMP 36.7; O2SAT 97
[2023-10-01 06:50] VITALS: PULSE 52
--- NOTE | 2023-10-01 07:25 | PC.NURSE ---
PT IS SLEEPING RESP EVEN AND UNLABORED. WILL CONTINUE TO MONITOR.
[2023-10-01 07:35] VITALS: RESP 17
--- NOTE | 2023-10-01 08:29 | PC.NURSE ---
PT IS AWAKE AND SITTING IN COMMON AREA. C/O ANXIETY. WILL MED PER MAR FOR INCREASE ANXIETY.
[2023-10-01] MEDS: Benztropine Mesylate 0.5 MG TABLET PO (08:32)
[2023-10-01] MEDS: hydrOXYzine HCL 25 MG TABLET PO (08:32)
[2023-10-01] MEDS: methADONE HCl 20 MG/2 ML ORAL.CONC 70 MG PO (08:32)
--- NOTE | 2023-10-01 08:54 | PC.NURSE ---
PT IS BEING SEEN BY CARE TEAM (DAGO). PT AWARE OF PLAN OF CARE.
[2023-10-01 09:25] VITALS: BP 115/64; PULSE 71; TEMP 36.6; O2SAT 95
[2023-10-01] MEDS: Naloxone HCl Nasal TAKE HOME 4 MG SPRAY 8 MG NOSTRILALT (09:32)
== END 2023-10-01 09:49 | disposition home or self-care (01) ==
PROVIDERS: Emergency Provider Internal Medicine
DX: F14.10 Cocaine abuse, uncomplicated (principal); F11.10 Opioid abuse, uncomplicated; F32.A Depression, unspecified; R45.851 Suicidal ideations; Z11.52 Encounter for screening for COVID-19; F20.9 Schizophrenia, unspecified; Z79.899 Other long term (current) drug therapy
CPT/HCPCS: 36415; 80053; 80307; 81003; 85027; 87635; 99285; S9485

== ENCOUNTER 2023-10-02 22:34 | Emergency (ER) | payer OTHER, SELFPAY ==
--- NOTE | 2023-10-02 | ECG_ITS ---
Test Reason : CRISIS Blood Pressure : / mmHG Vent. Rate : 046 BPM Atrial Rate : 046 BPM P-R Int : 168 ms QRS Dur : 088 ms QT Int : 484 ms P-R-T Axes : 052 047 031 degrees QTc Int : 423 ms Sinus bradycardia Otherwise normal ECG When compared to the previous EKG of No significant changes seen Referred By: Generic ED Physician Electronically Signed By:Jan Leggett
[2023-10-02 22:41] VITALS: BP 152/102; PULSE 48; RESP 18; TEMP 36.9; O2SAT 99; BMI 24.1
[2023-10-02 23:40] LABS: MANUAL DIFF FLAG NO
[2023-10-02 23:43] LABS: Basophils Percent Auto 0.5 % (0-2); Eosinophils Absolute Auto 0.2 X10*3/uL (0.0-0.4); Eosinophils Percent Auto 3.9 % (0-4); Hematocrit 46.3 % (42.0-52.0); Imm Gran Abs Auto 0.01 X10*3/uL (0.00-0.03); Imm Gran Pct Auto 0.2 % (0.0-0.4); Lymphocytes Absolute Auto 2.2 X10*3/uL (1.2-4.9); Lymphocytes Percent Auto 37.8 % (20-40); Mean Corpuscular HGB Conc 32.4 g/dl (31.0-36.0); Mean Corpuscular Hemoglobin 30.1 pg (27.0-33.0); Mean Corpuscular Volume 92.8 fL (80.0-98.0); Mean Platelet Volume 10.4 fL (9.4-12.4); Monocytes Absolute Auto 0.6 X10*3/uL (0.1-1.2); Monocytes Percent Auto 10.7 % (2-11); Neutrophils Absolute Auto 2.7 x10*3/uL (2.0-8.3); Neutrophils Percent Auto 46.9 % (45-73); Platelet Count 203 X10*3/uL (160-400); Red Blood Count 4.99 X10*6/uL (4.60-5.80); Red Cell Distribution Width 13.8 % (11.0-16.0); White Blood Count 5.7 X10*3/uL (4.8-10.8)
[2023-10-03 00:10] LABS: Appearance Urine Clear; Color Urine Yellow; Glucose Urine UA Negative (Negative); Leukocyte Esterase Urine Negative (Negative); Nitrite Urine Negative (Negative); PH 6.5 (5.0-9.0); Specific Gravity - Urine 1.015 (1.005-1.025); Urine Blood Negative (Negative); Urine Ketones Negative (Negative); Urine Protein Negative (Neg-Trace)
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
[2023-10-03 00:36] LABS: COVID-19 Test Negative (Negative); IDNOW Serial# 08D9AD1C
[2023-10-03 01:08] LABS: Acetaminophen LAB < 3 mcg/mL (<30); Alanine Aminotransferase 155 U/L (0-40); Albumin Level 4.2 g/dL (3.5-5.0); Alkaline Phosphatase 94 U/L (39-117); Anion Gap 12 (12-20); Aspartate Amino Transferase 125 U/L (5-37); Bilirubin Total 0.4 mg/dL (0.0-1.0); Blood Urea Nitrogen 16 mg/dL (9-16); Calcium 9.6 mg/dL (8.4-10.2); Carbon Dioxide 31 mmol/L (22-29); Chloride 103 mmol/L (96-108); Creatinine Clr Calc Pharmacy 98.1; Estimated Glomerular Filt Rate > 60; Ethanol < 10 mg/dL; Glucose Random 140 mg/dL (60-115); Potassium 4.3 mmol/L (3.3-5.1); Salicylate < 5.0 mg/dL (15-30); Sodium 142 mmol/L (135-145); Total Protein 8.1 g/dL (6.5-8.0)
[2023-10-03 01:09] LABS: Amphetamine Screen Urine Not Detected (Not Detect); Barbiturates, Urine Not Detected (Not Detect); Benzodiazepines Screen Urine Not Detected (Not Detect); Cannabinoid Screen Urine Not Detected (Not Detect); Cocaine Screen Urine POSITIVE (Not Detect); Fentanyl, urine POSITIVE (Not Detect); Opiate Screen Urine Not Detected (Not Detect); Phencyclidine Screen Urine Not Detected (Not Detect)
--- NOTE | 2023-10-03 06:41 | HE.PHANOTE ---
METHADONE CONFIRMATION SHEET PATIENT LAST RECEIVED METHADONE HERE AT [facility] [place] FOR 70MG ON 10/01
[2023-10-03 07:45] VITALS: BP 91/57; PULSE 54; RESP 16; TEMP 36.6; O2SAT 96
--- NOTE | 2023-10-03 08:01 | PC.NURSE ---
Report taken from Flora RN assumed care of pt at 0700. Pt A&Ox3 skin pwd respirations even unlabored, ambulatory through pod. Breakfast tray provided, 100% consumed. Methadone verified by previous RN, order request put into MD. Pt awaiting Care Team reeval this morning. On continuous video monitoring in pod, safety maintained.
[2023-10-03] MEDS: methADONE HCl 20 MG/2 ML ORAL.CONC 70 MG PO (08:22)
--- NOTE | 2023-10-03 10:11 | PC.NURSE ---
Care Team at bedside for reeval.
[2023-10-03 18:19] VITALS: BP 112/65; PULSE 45; RESP 16; TEMP 36.4; O2SAT 97
--- NOTE | 2023-10-03 20:09 | PC.NURSE ---
patient appears to remain asleep presently, appears in no distress, awaits accs referral/placement.
[2023-10-04 05:46] VITALS: BP 134/93; PULSE 88; RESP 17; TEMP 36.4; O2SAT 97
[2023-10-04] MEDS: methADONE HCl 20 MG/2 ML ORAL.CONC 70 MG PO (07:44)
--- NOTE | 2023-10-04 08:11 | PC.NURSE ---
Assumed care of this pt at 0700. Pt awake eating breakfast at the time of assuming care. Pt requested his methadone, med given as documented. Pt resting quietly, no apparent distress, he denies pain. Will continue to observe.
[2023-10-04 10:58] VITALS: BP 153/89; PULSE 58; RESP 18; TEMP 37.1; O2SAT 100
--- NOTE | 2023-10-04 15:43 | MHC.CARE ---
Referral for community case management services at [facility] sent (phone [phone], fax [phone])
== END 2023-10-04 12:17 | disposition home or self-care (01) ==
PROVIDERS: Emergency Provider Emergency Medicine
DX: R45.851 Suicidal ideations (principal); F33.1 Major depressive disorder, recurrent, moderate; R00.1 Bradycardia, unspecified; Z11.52 Encounter for screening for COVID-19; Z79.899 Other long term (current) drug therapy
CPT/HCPCS: 80053; 80143; 80179; 80307; 81003; 85025; 87635; 93005; 99285; S9485

== ENCOUNTER → 2023-10-02 22:53 | Outpatient (BNV) | payer OTHER, SELFPAY | PROVIDERS: Emergency Provider Emergency Medicine; Visit Provider Internal Medicine Cardiovascular Disease | DX: R00.1 Bradycardia, unspecified (principal) | CPT/HCPCS: 93010 ==

== ENCOUNTER 2023-10-05 22:07 | Emergency (ER) | payer OTHER, SELFPAY ==
[2023-10-05 22:14] VITALS: BP 119/77; PULSE 61; RESP 14; TEMP 36.6; O2SAT 97; BMI 23.3
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
[2023-10-05 22:58] LABS: Appearance Urine Clear; Color Urine Yellow; Glucose Urine UA Negative (Negative); Leukocyte Esterase Urine Negative (Negative); Nitrite Urine Negative (Negative); Urine Blood Negative (Negative); Urine Ketones Negative (Negative); Urine Protein Negative (Neg-Trace)
[2023-10-05 23:10] LABS: Amphetamine Screen Urine POSITIVE (Not Detect); Barbiturates, Urine Not Detected (Not Detect); Benzodiazepines Screen Urine Not Detected (Not Detect); Cannabinoid Screen Urine Not Detected (Not Detect); Cocaine Screen Urine POSITIVE (Not Detect); Fentanyl, urine POSITIVE (Not Detect); Opiate Screen Urine POSITIVE (Not Detect); Phencyclidine Screen Urine Not Detected (Not Detect)
[2023-10-05 23:13] LABS: Alanine Aminotransferase 145 U/L (0-40); Albumin Level 3.9 g/dL (3.5-5.0); Alkaline Phosphatase 81 U/L (39-117); Anion Gap 13 (12-20); Aspartate Amino Transferase 122 U/L (5-37); Bilirubin Total 0.5 mg/dL (0.0-1.0); Blood Urea Nitrogen 21 mg/dL (9-16); Calcium 9.3 mg/dL (8.4-10.2); Carbon Dioxide 23 mmol/L (22-29); Chloride 106 mmol/L (96-108); Estimated Glomerular Filt Rate > 60; Ethanol < 10 mg/dL; Glucose Random 85 mg/dL (60-115); Potassium 4.2 mmol/L (3.3-5.1); Sodium 138 mmol/L (135-145); Total Protein 7.6 g/dL (6.5-8.0)
[2023-10-05] MEDS: LORazepam 1 MG TABLET 2 MG PO (23:17)
[2023-10-05 23:18] LABS: COVID-19 Test Negative (Negative); IDNOW Serial# 6674DD1D
--- NOTE | 2023-10-05 23:29 | PC.NURSE ---
Pt aox4 eating at the bedside. Medicated as ordered. Pt tolerated well. Pt endorses SI at this time. States fiinding mom at her home earlier today and feeling sad/depressed. Pt reports wanting to end his life by OD on IVD. Pt reports using heroin a few hours prior to arrival to end life but decided to come to the ED for help. Pt changed into hospital attire. No apparent distress noted at this time. Constant observation at this time. Charge nurse made aware.
[2023-10-05 23:32] LABS: Basophils Percent Auto 0.4 % (0-2); Eosinophils Absolute Auto 0.1 X10*3/uL (0.0-0.4); Eosinophils Percent Auto 1.6 % (0-4); Hematocrit 42.6 % (42.0-52.0); Hemoglobin 14.1 g/dl (14.0-18.0); Imm Gran Abs Auto 0.02 X10*3/uL (0.00-0.03); Imm Gran Pct Auto 0.3 % (0.0-0.4); Lymphocytes Percent Auto 27.3 % (20-40); Mean Corpuscular HGB Conc 33.1 g/dl (31.0-36.0); Mean Corpuscular Hemoglobin 30.5 pg (27.0-33.0); Mean Platelet Volume 10.5 fL (9.4-12.4); Monocytes Absolute Auto 0.8 X10*3/uL (0.1-1.2); Monocytes Percent Auto 11.1 % (2-11); Neutrophils Absolute Auto 4.3 x10*3/uL (2.0-8.3); Neutrophils Percent Auto 59.3 % (45-73); Platelet Count 202 X10*3/uL (160-400); Red Blood Count 4.63 X10*6/uL (4.60-5.80); Red Cell Distribution Width 13.8 % (11.0-16.0); White Blood Count 7.3 X10*3/uL (4.8-10.8)
--- NOTE | 2023-10-05 23:33 | PC.NURSE ---
MD made aware of SI statements made by pt. Pt in constant observation in front of charge desk for security.
--- NOTE | 2023-10-06 00:55 | PC.NURSE ---
Pt aox4, calm and resting at the bedside. No apparent distress noted. Monitoring is ongoing.
[2023-10-06 01:16] LABS: MANUAL DIFF FLAG NO
--- NOTE | 2023-10-06 02:45 | PC.NURSE ---
patient looking into other doorways to see who is in rooms. patient alleges mother in last few days.
--- NOTE | 2023-10-06 08:33 | PC.NURSE ---
assumed care of pt at 0700. pt awake and walking around unit. ate breakfast, now asking for medications, I take 70mg methadone . methadone verification complete and faxed to pharmacy. pt denies SI dede. sts I am depressed, I just lost my mother, I am trying to not think about those things . awaiting care team consult.
[2023-10-06 09:08] VITALS: BP 133/97; PULSE 56; RESP 16; TEMP 37.2; O2SAT 100
--- NOTE | 2023-10-06 11:30 | HE.PHANOTE ---
RE: methadone Received verification form [facility] last dose 70mg on 10/05/23 @[id number]
[2023-10-06] MEDS: methADONE HCl 20 MG/2 ML ORAL.CONC 70 MG PO (11:31)
[2023-10-06 23:33] VITALS: BP 121/74; PULSE 53; RESP 14; TEMP 36.8; O2SAT 94
[2023-10-07] MEDS: methADONE HCl 20 MG/2 ML ORAL.CONC 70 MG PO (08:24)
--- NOTE | 2023-10-07 09:34 | PC.NURSE ---
patient has been resting throught out the morning, respirations equal and unlabored, medicated per MAR
[2023-10-07 11:41] VITALS: BP 121/72; PULSE 47; RESP 16; TEMP 36.3; O2SAT 97
[2023-10-07] MEDS: Acetaminophen 325 MG TABLET 650 MG PO (23:21)
[2023-10-08 04:08] VITALS: BP 132/94; PULSE 50; RESP 16; TEMP 36.6; O2SAT 97
--- NOTE | 2023-10-08 07:54 | PC.NURSE ---
Assumed care of patient at 0700, patient appears to be in no apparent distress, respirations even and unlabored, skin pwd. Continue plan of care for dual diagnosis bedsearch
[2023-10-08] MEDS: methADONE HCl 20 MG/2 ML ORAL.CONC 70 MG PO (08:18)
[2023-10-08 08:41] VITALS: BP 142/89; PULSE 50; RESP 16; TEMP 36.6; O2SAT 98
--- NOTE | 2023-10-08 08:48 | MHC.CARE ---
[place] Team [place] dx [place], unfortunately no dual beds available statewide
--- NOTE | 2023-10-08 09:48 | PC.NURSE ---
Patient requesting to leave. CARE team and MD aware at this time. Pt denies active SI
== END 2023-10-08 10:05 | disposition home or self-care (01) ==
PROVIDERS: Emergency Provider Emergency Medicine; PCP Internal Medicine
DX: F20.9 Schizophrenia, unspecified (principal); R45.851 Suicidal ideations; F32.A Depression, unspecified; F14.10 Cocaine abuse, uncomplicated; F11.20 Opioid dependence, uncomplicated; F41.9 Anxiety disorder, unspecified; Z11.52 Encounter for screening for COVID-19; Z72.89 Other problems related to lifestyle; Z63.4 Disappearance and death of family member; B19.20 Unspecified viral hepatitis C without hepatic coma; F17.210 Nicotine dependence, cigarettes, uncomplicated
CPT/HCPCS: 80053; 80307; 81003; 85025; 87635; 99285; S9485

== ENCOUNTER 2023-11-08 21:39 | Emergency (ER) | payer OTHER, SELFPAY ==
[2023-11-08 21:48] VITALS: BP 139/93; PULSE 67; RESP 18; TEMP 36.4; O2SAT 96; BMI 23.6
[2023-11-08 23:06] LABS: Appearance Urine Clear; Color Urine Yellow; Glucose Urine UA Negative (Negative); Leukocyte Esterase Urine Negative (Negative); Nitrite Urine Negative (Negative); Urine Blood Negative (Negative); Urine Ketones Negative (Negative); Urine Protein Negative (Neg-Trace)
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
[2023-11-08 23:11] LABS: Bacteria Urine None Seen (None Seen); Hyaline Casts Urine 0-2 /LPF (0-2); RBC Urine 0-2 /HPF (0-2); Squamous Epithelial Cell Urine 0-2 /HPF (0-2); WBC Urine 0-5 /HPF (0-5)
[2023-11-08 23:13] LABS: Amphetamine Screen Urine POSITIVE (Not Detect); Barbiturates, Urine Not Detected (Not Detect); Benzodiazepines Screen Urine Not Detected (Not Detect); Cannabinoid Screen Urine Not Detected (Not Detect); Cocaine Screen Urine POSITIVE (Not Detect); Fentanyl, urine POSITIVE (Not Detect); Opiate Screen Urine POSITIVE (Not Detect); Phencyclidine Screen Urine Not Detected (Not Detect)
[2023-11-08 23:18] LABS: Basophils Percent Auto 0.6 % (0-2); Eosinophils Absolute Auto 0.2 X10*3/uL (0.0-0.4); Eosinophils Percent Auto 2.3 % (0-4); Hematocrit 42.9 % (42.0-52.0); Imm Gran Abs Auto 0.01 X10*3/uL (0.00-0.03); Imm Gran Pct Auto 0.1 % (0.0-0.4); Lymphocytes Absolute Auto 2.8 X10*3/uL (1.2-4.9); Lymphocytes Percent Auto 41.1 % (20-40); MANUAL DIFF FLAG NO; Mean Corpuscular HGB Conc 32.6 g/dl (31.0-36.0); Mean Corpuscular Hemoglobin 30.3 pg (27.0-33.0); Mean Corpuscular Volume 92.9 fL (80.0-98.0); Mean Platelet Volume 10.3 fL (9.4-12.4); Monocytes Absolute Auto 0.6 X10*3/uL (0.1-1.2); Monocytes Percent Auto 9.2 % (2-11); Neutrophils Absolute Auto 3.2 x10*3/uL (2.0-8.3); Neutrophils Percent Auto 46.7 % (45-73); Platelet Count 196 X10*3/uL (160-400); Red Blood Count 4.62 X10*6/uL (4.60-5.80); Red Cell Distribution Width 13.8 % (11.0-16.0); White Blood Count 6.8 X10*3/uL (4.8-10.8)
[2023-11-08 23:40] LABS: Ethanol < 10 mg/dL
[2023-11-08 23:43] LABS: Acetaminophen LAB < 3 mcg/mL (<30); Alanine Aminotransferase 97 U/L (0-40); Albumin Level 3.7 g/dL (3.5-5.0); Alkaline Phosphatase 84 U/L (39-117); Anion Gap 15 (12-20); Aspartate Amino Transferase 85 U/L (5-37); Bilirubin Total 0.5 mg/dL (0.0-1.0); Blood Urea Nitrogen 17 mg/dL (9-16); Calcium 9.3 mg/dL (8.4-10.2); Carbon Dioxide 27 mmol/L (22-29); Chloride 104 mmol/L (96-108); Creatinine Clr Calc Pharmacy 111.3; Estimated Glomerular Filt Rate > 60; Glucose Random 118 mg/dL (60-115); Potassium 3.8 mmol/L (3.3-5.1); Salicylate < 5.0 mg/dL (15-30); Sodium 142 mmol/L (135-145); Total Protein 7.2 g/dL (6.5-8.0)
[2023-11-09 07:20] VITALS: RESP 16
--- NOTE | 2023-11-09 09:01 | HE.PHANOTE ---
RE: methadone Last dose from [facility] 11/07 85mg
[2023-11-09] MEDS: methADONE HCl 20 MG/2 ML ORAL.CONC 85 MG PO (09:16)
[2023-11-09 09:22] VITALS: BP 139/89; PULSE 58; RESP 14; TEMP 35.6; O2SAT 99
--- NOTE | 2023-11-09 09:23 | PC.NURSE ---
PT IS A/O X 4 NO SOB/BHARAT NOTED. SPEAKS IN FULL SENTENCES. PT DENIES ANY PAIN/DISC/SI, BUT STATES THAT HE IS DEPRESSED. THIS RN ASKED PT IF HE WOULD LIKE TO SPEAK WITH SOMEONE FROM THE CARE TEAM, PT DECLINED THIS RESOURCES AT THIS TIME. PT AWARE OF PLAN OF CARE. WILL CONTINUE TO MONITOR.
[2023-11-09 09:33] LABS: COVID-19 Test Negative (Negative); IDNOW Serial# 152EDE1D
--- NOTE | 2023-11-09 12:45 | MHC.CARE ---
[facility] called to accept [facility] to [facility], [address], [place] [address], the accepting provider is Dr. Galindo. [facility] would like his ETA to be [facility]. No nurse to nurse required. Pod RN & CARE Team have been notified. Pod RN will work on transportation and CARE Team will fill out a 12.
[2023-11-09 16:08] VITALS: BP 120/80; PULSE 53; RESP 18; TEMP 36.4; O2SAT 97
--- NOTE | 2023-11-09 17:12 | PC.NURSE ---
Assumed care of pt at 1500. PT resting quietly in bed. VSS. respirations even and unlabored. Pt denies si/hi/VH/AH at this time. EMS arrived to transport to facility.
[2023-11-09 17:17] VITALS: BP 120/80; PULSE 53; RESP 18; TEMP 36.4; O2SAT 97
--- NOTE | 2023-11-09 17:21 | PC.NURSE ---
attempted to give report to. Called [facility] inpatient unit, no answer.
== END 2023-11-09 17:16 ==
PROVIDERS: Emergency Medicine; Physician Assistant; Emergency Provider Internal Medicine; PCP Internal Medicine
DX: F33.1 Major depressive disorder, recurrent, moderate (principal); R45.851 Suicidal ideations; F14.10 Cocaine abuse, uncomplicated; F11.10 Opioid abuse, uncomplicated; M79.672 Pain in left foot; M79.671 Pain in right foot; Z11.52 Encounter for screening for COVID-19; Z79.899 Other long term (current) drug therapy
CPT/HCPCS: 36415; 80053; 80143; 80179; 80307; 81001; 85025; 87635; 99285; S9485

== ENCOUNTER 2023-11-26 23:58 | Inpatient (IN) | payer OTHER, SELFPAY ==
[2023-11-27 00:15] VITALS: BP 116/80; PULSE 68; RESP 18; TEMP 36.8; O2SAT 95; BMI 25.1
[2023-11-27 01:18] LABS: MANUAL DIFF FLAG NO
[2023-11-27 01:19] LABS: Basophils Percent Auto 0.6 % (0-2); Eosinophils Absolute Auto 0.3 X10*3/uL (0.0-0.4); Eosinophils Percent Auto 4.9 % (0-4); Hematocrit 41.9 % (42.0-52.0); Hemoglobin 13.7 g/dl (14.0-18.0); Imm Gran Abs Auto 0.01 X10*3/uL (0.00-0.03); Imm Gran Pct Auto 0.2 % (0.0-0.4); Lymphocytes Absolute Auto 2.1 X10*3/uL (1.2-4.9); Lymphocytes Percent Auto 38.9 % (20-40); Mean Corpuscular HGB Conc 32.7 g/dl (31.0-36.0); Mean Corpuscular Hemoglobin 30.5 pg (27.0-33.0); Mean Corpuscular Volume 93.3 fL (80.0-98.0); Mean Platelet Volume 10.4 fL (9.4-12.4); Monocytes Absolute Auto 0.7 X10*3/uL (0.1-1.2); Monocytes Percent Auto 12.9 % (2-11); Neutrophils Absolute Auto 2.3 x10*3/uL (2.0-8.3); Neutrophils Percent Auto 42.5 % (45-73); Platelet Count 203 X10*3/uL (160-400); Red Blood Count 4.49 X10*6/uL (4.60-5.80); White Blood Count 5.3 X10*3/uL (4.8-10.8)
[2023-11-27 01:32] LABS: Ethanol < 10 mg/dL
[2023-11-27 01:33] LABS: Alanine Aminotransferase 152 U/L (0-40); Albumin Level 3.3 g/dL (3.5-5.0); Alkaline Phosphatase 95 U/L (39-117); Anion Gap 12 (12-20); Aspartate Amino Transferase 137 U/L (5-37); Bilirubin Total 0.3 mg/dL (0.0-1.0); Blood Urea Nitrogen 19 mg/dL (9-16); Calcium 8.8 mg/dL (8.4-10.2); Carbon Dioxide 26 mmol/L (22-29); Chloride 108 mmol/L (96-108); Creatinine Clr Calc Pharmacy 108.7; Estimated Glomerular Filt Rate > 60; Glucose Random 107 mg/dL (60-115); Potassium 4.2 mmol/L (3.3-5.1); Sodium 142 mmol/L (135-145); Total Protein 6.9 g/dL (6.5-8.0)
[2023-11-27 02:40] LABS: Salicylate < 5.0 mg/dL (15-30)
[2023-11-27 03:12] LABS: Acetaminophen LAB < 3 mcg/mL (<30)
[2023-11-27 03:20] LABS: Appearance Urine Clear; Color Urine Yellow; Glucose Urine UA Negative (Negative); Leukocyte Esterase Urine Negative (Negative); Nitrite Urine Negative (Negative); Specific Gravity - Urine 1.025 (1.005-1.025); Urine Blood Negative (Negative); Urine Ketones Negative (Negative); Urine Protein Trace mg/dL (Neg-Trace)
[2023-11-27 03:31] LABS: Amphetamine Screen Urine Not Detected (Not Detect); Barbiturates, Urine Not Detected (Not Detect); Benzodiazepines Screen Urine Not Detected (Not Detect); Cannabinoid Screen Urine Not Detected (Not Detect); Cocaine Screen Urine POSITIVE (Not Detect); Fentanyl, urine POSITIVE (Not Detect); Opiate Screen Urine POSITIVE (Not Detect); Phencyclidine Screen Urine Not Detected (Not Detect)
[2023-11-27 03:59] LABS: Bacteria Urine None Seen (None Seen); Calcium Oxalate Crystals Urine Present; Hyaline Casts Urine 0-2 /LPF (0-2); RBC Urine 0-2 /HPF (0-2); Squamous Epithelial Cell Urine 0-2 /HPF (0-2); WBC Urine 0-5 /HPF (0-5)
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
--- NOTE | 2023-11-27 06:19 | HE.PHANOTE ---
Addendum entered by Ioana Chirinos [facility] 11/27/23 09:19: Methdone dosing reconfirmed to be 85 mg by ADAM Garrido from [facility], last dose 11/26/23 @1030. (difficulty reading first nurse's on verification form, Yoana called and spoke to them again to confirm 85mg.) Original Note: RE METHADONE Patient receives methadone from [facility]. Verified by Flora FOSTER, last dose was 35 mg on 11/26/22.
[2023-11-27 08:06] VITALS: BP 140/83; PULSE 55; RESP 15; TEMP 36.6; O2SAT 97
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
[2023-11-27] MEDS: methADONE HCl 20 MG/2 ML ORAL.CONC 85 MG PO (09:46)
--- NOTE | 2023-11-27 14:48 | ECG_ITS ---
Test Reason : QT INTERVAL Blood Pressure : / mmHG Vent. Rate : 052 BPM Atrial Rate : 052 BPM P-R Int : 154 ms QRS Dur : 080 ms QT Int : 482 ms P-R-T Axes : 064 083 057 degrees QTc Int : 448 ms Sinus bradycardia Possible Left atrial enlargement Borderline ECG When compared with ECG of 02-OCT-2023 22:53, No significant change was found Referred By: Chetan Magallon Electronically Signed By:TERELL BONILLA MD
[2023-11-27 15:14] VITALS: BP 106/64; PULSE 51; RESP 17; TEMP 36.5; O2SAT 95
[2023-11-27 17:08] LABS: COVID-19 Test Negative (Negative); IDNOW Serial# 152EDE1D
--- NOTE | 2023-11-27 17:36 | PC.NURSE ---
PT IS AWARE REQUESTED/GIVEN REGULAR MILK, A SANDWICH WITH CONDIMENT AND A PUDDING.
--- NOTE | 2023-11-27 17:41 | PC.NURSE ---
PER CARE TEAM, PT IS AN INPATIENT BED SEARCH. PT AWARE OF PLAN OF CARE.
--- NOTE | 2023-11-27 19:46 | PC.NURSE ---
Assumed care of patient at 1900, patient is resting on stretcher, respirations even and unlabored, no apparent distress. Signed CV for inpatient admission. Offers no complaints to this RN at this time
[2023-11-27 21:46] VITALS: BP 137/93; PULSE 54; RESP 18; TEMP 36.6; O2SAT 95
[2023-11-27 21:56] VITALS: BMI 25.1
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
[2023-11-28 06:00] VITALS: BP 140/67; PULSE 59; RESP 18; TEMP 36.4; O2SAT 96
[2023-11-28] MEDS: methADONE HCl 20 MG/2 ML ORAL.CONC 85 MG PO (08:36)
[2023-11-28] MEDS: Nicotine Polacrilex 2 MG GUM 4 MG BUCCAL ×3 (08:41→17:39)
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
[2023-11-28] MEDS: Escitalopram Oxalate 10 MG TABLET PO (17:38)
[2023-11-28 20:15] VITALS: BP 120/59; PULSE 51; RESP 16; TEMP 36.9; O2SAT 97
[2023-11-28] MEDS: traZODone HCL 50 MG TABLET PO (23:17)
[2023-11-28] MEDS: Acetaminophen 325 MG TABLET 650 MG PO (23:17)
[2023-11-28] MEDS: hydrOXYzine HCL 25 MG TABLET PO (23:17)
[2023-11-29] MEDS: methADONE HCl 20 MG/2 ML ORAL.CONC 85 MG PO (09:03)
[2023-11-29] MEDS: Escitalopram Oxalate 10 MG TABLET PO (09:04)
[2023-11-29] MEDS: Nicotine Polacrilex 2 MG GUM 4 MG BUCCAL ×2 (09:21→12:31)
[2023-11-29] MEDS: hydrOXYzine HCL 25 MG TABLET PO (09:21)
[2023-11-29 09:23] VITALS: PULSE 98
--- NOTE | 2023-11-29 09:52 | P.PNPSI_ITS ---
Subjective Subjective Date of Service: 11/29/23 Reason For Visit: Crisis Interim History: Met with patient; discussed with team Patient reports that his mood is better; he remains isolative but says he would like to discharge and had filled in a 3 day notice. Denies any SI at all; or AVH; remains wanting to continue with Haldol, Lexapro and denies any side effects. Patient asks if he can discharge tomorrow that he is going back to his mother's. He is remained in good behavioral and impulse control. Mental Status Exam Mental Status Exam Narrative: Pt is alert and oriented; behavior is cooperative, and calm; patient is not in distress; dressed in hospital attire, disheveled; mood is described as okay and affect congruent; eye contact appropriate; Speech is normal rate, volume and prosody and not pressured; some psychomotor retardation present; thought process is organized and goal directed; Thought content is on tx and discharge; otherwise pertinent to relevant topics and without any delusional content, paranoid ideations or grandiosity; denies any SI/HI. There is no evidence of perceptual disturbance and denies AVH Patients insight and judgment fair/adequate and at baseline Diagnostics Vital Signs (24Hr): Vital Signs - 24 hr 11/28/23 20:15 Temperature 98.4 F Pulse Rate 51 Respiratory Rate 16 Blood Pressure 120/59 L Pulse Oximetry 97 Oxygen Delivery Method Room Air BMI result Body Mass Index 25.1 Labs 11/27/23 01:02 11/27/23 01:02 Labs: Laboratory Results - last 48 hr 11/27/23 16:41 COVID-19 ([facility]) Negative COVID-19 Clin Com See Note Medications Medications Current Medications Acetaminophen (Acetaminophen 325 Mg Tablet) 650 mg PO Q6H PRN PRN Reason: Headache/Pain Mild Scale (1-3) Last Admin: 11/28/23 23:17 Dose: 650 mg Al Hydroxide/Mg Hydroxide (Magnesium Hydrox/Alum Hydrox 30 Ml Oral.Susp) 30 ml PO Q6H PRN PRN Reason: Heartburn/Nausea Escitalopram Oxalate (Escitalopram Oxalate 10 Mg Tablet) 10 mg PO DAILY JESSICA Last Admin: 11/29/23 09:04 Dose: 10 mg Hydroxyzine HCl (Hydroxyzine Hcl 25 Mg Tablet) 25 mg PO Q6H PRN PRN Reason: Anxiety Last Admin: 11/29/23 09:21 Dose: 25 mg Lorazepam (Lorazepam 1 Mg Tablet) 1 mg PO Q2H PRN PRN Reason: CIWA 6-10 Lorazepam (Lorazepam 1 Mg Tablet) 2 mg PO Q2H PRN PRN Reason: CIWA 11 and above Magnesium Hydroxide (Milk Of Magnesia 30 Ml Oral.Susp) 30 ml PO DAILY PRN PRN Reason: Constipation Methadone HCl (Methadone Hcl 20 Mg/2 Ml Oral.Conc) 85 mg PO DAILY [facility] Last Admin: 11/29/23 09:03 Dose: 85 mg Nicotine (Nicotine 21 Mg Patch.Td24) 21 mg TRANSDERMA DAILY [facility] Last Admin: 11/28/23 08:43 Dose: Not Given Nicotine Polacrilex (Nicotine Polacrilex 2 Mg Gum) 4 mg BUCCAL Q2H PRN PRN Reason: Nicotine Cravings Last Admin: 11/29/23 09:21 Dose: 4 mg Trazodone HCl (Trazodone Hcl 50 Mg Tablet) 50 mg PO BEDTIME MRX1 PRN PRN Reason: Insomnia Last Admin: 11/28/23 23:17 Dose: 50 mg Allergies Allergies Allergy/AdvReac Type Severity Reaction Status Date / Time No Known Allergies Allergy Verified 11/27/23 00:19 [No Known Allergies*] Assessment & Plan Assessment & Plan (1) MDD (major depressive disorder), recurrent, severe, with psychosis: Status: Acute Code(s): F33.3 - Major depressive disorder, recurrent, severe with psychotic symptoms (2) Cocaine abuse: Status: Acute Code(s): F14.10 - Cocaine abuse, uncomplicated (3) Opioid use disorder: Status: Acute Code(s): F11.90 - Opioid use, unspecified, uncomplicated Plan Patient is a 47-year-old male with history of depression/anxiety, intermittent psychotic symptoms, chronic severe substance abuse, who presents for depression and SI. Patient was discharged from at the end of this past August; he said he did not pick up driver medications and soon relapsed. Patient said that his mood had been okay for a while however his girlfriend left him this past week and he started feeling depressed. This led to suicidal thoughts so he came to the emergency room. Patient said that his suicidal thoughts are now gone but he would like to get back on his medication. He denies any AVH or manic episodes; denies any delusional thinking, none expressed and none could be solicited. He does remember that he had delusional thinking a few admissions ago which was why he was put on Haldol and he agrees to getting back on Haldol and Lexapro. Charge Manager discussed his struggles with addiction and asked if he wanted his methadone increased however patient declined. Patient has been living at his mother's and says he plans to return there, feeling that he will be ready to go very soon. Denies any alcohol or benzo abuse. Formulation: Patient is calm, linear and logical; he appears depressed but is organized behavior and speech; denies any psychotic symptoms and reports he is now feeling better; denies SI. Review of chart shows that during Admission a year ago it was reported patient has a diagnosis of schizophrenia and during that time he had paranoid delusions; however press writer could find no other reference to psychotic symptoms on subsequent admissions. Patient denies them now. Will diagnose with MDD with psychotic features with a rule out for schizoaffective disorder. -patient reports that his girlfriend of the past 2 years just broke up with him which is the cause for his depression; however and previous admission he reported that she . Hospital course: 11/28 Patient reports that his mood is better; he remains isolative but says he would like to discharge and had filled in a 3 day notice. Denies any SI at all; or AVH; remains wanting to continue with Haldol, Lexapro and denies any side effects. Patient asks if he can discharge tomorrow that he is going back to his mother's. He is remained in good behavioral and impulse control. -patient has consistently denied any SI saying that his mood is overall better; patient wants to discharge and has a 3 day notice in. He is back on medications. He does not want any further treatment, medication management or help with aftercare. Of course patient remains vulnerable for relapse and decompensation however this is a chronic problem with which patient is not ready to fully address and will not resolve with longer stay on inpatient unit. Patient is not in imminent risk for harm to self or others and request for discharge honored. Plan: Three day Q 15 minute checks Continue t escitalopram 10 mg Content Haldol 5 mg Continue methadone Patient does not want help with aftercare, substance abuse programs Patient educated on: diagnosis, medication risk/benefits and substance abuse Informed Consent: understands Reason for continued inpatient stay Substantial Risk for: stable for discharge Time Spent With Patient Time: Total time managing care of this patient today ____ minutes.
[2023-11-29] MEDS: HaloperidoL 5 MG TABLET PO (10:17)
[2023-11-29 11:21] VITALS: BP 141/91; PULSE 98; RESP 18; TEMP 37.1; O2SAT 98
[2023-11-29 12:28] VITALS: PULSE 87
[2023-11-29] MEDS: methADONE HCl 20 MG/2 ML ORAL.CONC 10 MG PO (12:44)
--- NOTE | 2023-11-29 16:39 | PM.EVENT ---
Event Note Date of Service: 11/29/23 Event Note: Addiction note Message from RN regarding patient and ongoing withdrawal sx. Patient reporting n/v overnight. Per RN, appearing ill, and staying in bed. COWS scores documented. Per patient last dose increase 2 months ago Plan: -additional 10mg methadone -increase dose to 95mg daily -RN followed up 2 hours post dose admin--patient appearing better and reporting improvement in sx Time Spent With Patient Time: Total time managing care of this patient today ____ minutes.
[2023-11-29 18:00] VITALS: BP 140/76; PULSE 58; RESP 16; TEMP 36.6; O2SAT 94
--- NOTE | 2023-11-30 | ECG_ITS ---
Test Reason : MED CHANGES Blood Pressure : / mmHG Vent. Rate : 056 BPM Atrial Rate : 056 BPM P-R Int : 130 ms QRS Dur : 084 ms QT Int : 434 ms P-R-T Axes : 039 083 060 degrees QTc Int : 418 ms Sinus bradycardia Otherwise normal ECG When compared with ECG of 27-NOV-2023 18:31, No significant change was found Referred By: Omi Rachel Electronically Signed By:Jan Leggett
[2023-11-30] MEDS: HaloperidoL 5 MG TABLET PO (09:01)
[2023-11-30] MEDS: methADONE HCl 20 MG/2 ML ORAL.CONC 95 MG PO (09:01)
[2023-11-30] MEDS: Escitalopram Oxalate 10 MG TABLET PO (09:01)
[2023-11-30] MEDS: Nicotine Polacrilex 2 MG GUM 4 MG BUCCAL (09:02)
[2023-11-30 09:05] VITALS: BP 130/76; PULSE 55; RESP 18; TEMP 36.4; O2SAT 97
--- NOTE | 2023-11-30 10:16 | PM.PSYDC ---
DS: Providers Provider Date of Service: 11/30/23 Date of admission: 11/27/23 18:16 Date of discharge: 11/30/23 Primary care physician: Unknown Physician Attending physician on admission: Omi Rachel Attending physician on discharge: Omi Rachel DS: Diagnosis Discharge Diagnosis (1) MDD (major depressive disorder), recurrent, severe, with psychosis: Status: Acute DS: Medications Discharge Medications Home Medications: Previous Rx's ?Medication ?Instructions ?Recorded escitalopram oxalate 10 mg tablet 10 mg PO DAILY 30 days #30 tabs 11/30/23 haloperidol 5 mg tablet 5 mg PO BEDTIME 30 days #30 tabs 11/30/23 methadone 10 mg/mL oral 95 mg (9.5 mL) PO DAILY #0 mL 11/30/23 concentrate (Methadose) trazodone 50 mg tablet 50 mg PO BEDTIME PRN Insomnia 30 11/30/23 days #30 tabs Data Data Completed and Pending Completed studies during hospitalization [Text1]: 11/27/23 11/27/23 11/27/23 01:02 02:51 16:41 WBC 5.3 RBC 4.49 L Hgb 13.7 L Hct 41.9 L MCV 93.3 MCH 30.5 MCHC 32.7 RDW 14.0 Plt Count 203 MPV 10.4 Immature Gran % (Auto) 0.2 Neut % (Auto) 42.5 L Lymph % (Auto) 38.9 [place] % (Auto) 12.9 H Eos % (Auto) 4.9 H Baso % (Auto) 0.6 Lymph # (Auto) 2.1 [place] # (Auto) 0.7 Eos # (Auto) 0.3 Baso # (Auto) 0.0 Abs Immat Gran (auto) 0.01 Absolute Neuts (auto) 2.3 Absolute Nucleated RBC 0.000 Nucleated RBC % (auto) 0.0 Sodium 142 Potassium 4.2 Chloride 108 Carbon Dioxide 26 Anion Gap 12 BUN 19 H Creatinine 0.84 Estim Creat Clear Calc 108.7 Estimated GFR > 60 Random Glucose 107 Calcium 8.8 Total Bilirubin 0.3 AST 137 H ALT 152 H Alkaline Phosphatase 95 Total Protein 6.9 Albumin 3.3 L Urine Color Yellow Urine Appearance Clear Urine pH 6.0 Ur Specific [place] 1.025 Urine Protein Trace Urine Glucose (UA) Negative Urine Ketones Negative Urine Blood Negative Urine Nitrite Negative Ur Leukocyte Esterase Negative Urine RBC 0-2 Urine WBC 0-5 Ur Squamous Epith Cells 0-2 Calcium Oxalate Crystal Present Urine Bacteria None Seen Hyaline Casts 0-2 Salicylates < 5.0 L Urine Opiates Screen POSITIVE H Urine Fentanyl Screen POSITIVE H Acetaminophen < 3 Ur Barbiturates Screen Not Detected Ur Phencyclidine Scrn Not Detected Ur Amphetamines Screen Not Detected U Benzodiazepines Scrn Not Detected Urine Cocaine Screen POSITIVE H U Marijuana (THC) Screen Not Detected Ethyl Alcohol < 10 COVID-19 ([facility]) Negative COVID-19 Clin Com See Note DS: Summary Hospital Course Hospital Course: Patient is a 47-year-old male with history of depression/anxiety, intermittent psychotic symptoms, chronic severe substance abuse, who presents for depression and SI. 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 Patient said that his mood had been okay for a while however his girlfriend left him this past week and he started feeling depressed. This led to suicidal thoughts so he came to the emergency room. Patient said that his suicidal thoughts are now gone but he would like to get back on his medication. He denies any AVH or manic episodes; denies any delusional thinking, none expressed and none could be solicited. He does remember that he had delusional thinking a few admissions ago which was why he was put on Haldol and he agrees to getting back on Haldol and Lexapro. [place] Layer discussed his struggles with addiction and asked if he wanted his methadone increased however patient declined. Patient has been living at his mother's and says he plans to return there, feeling that he will be ready to go very soon. Denies any alcohol or benzo abuse. Formulation: Patient is calm, linear and logical; he appears depressed but is organized behavior and speech; denies any psychotic symptoms and reports he is now feeling better; denies SI. Review of chart shows that during Admission a year ago it was reported patient has a diagnosis of schizophrenia and during that time he had paranoid delusions; however consumer loan underwriter could find no other reference to psychotic symptoms on subsequent admissions. Patient denies them now. Will diagnose with MDD with psychotic features with a rule out for schizoaffective disorder. -patient reports that his girlfriend of the past 2 years just broke up with him which is the cause for his depression; however and previous admission he reported that she . Hospital course: 11/28 Patient reports that his mood is better; he remains isolative but says he would like to discharge and had filled in a 3 day notice. Denies any SI at all; or AVH; remains wanting to continue with Haldol, Lexapro and denies any side effects. Patient asks if he can discharge tomorrow that he is going back to his mother's. He is remained in good behavioral and impulse control. patient has consistently denied any SI saying that his mood is overall better; patient wants to discharge and has a 3 day notice in. He is back on medications. He does not want any further treatment, medication management or help with aftercare. Of course patient remains vulnerable for relapse and decompensation however this is a chronic problem with which patient is not ready to fully address and will not resolve with longer stay on inpatient unit. Patient is not in imminent risk for harm to self or others and request for discharge honored. Review EKG on 11/30/23: QTc Int : 418 ms Time spent discussing smoking cessation with patient: 3 to 10 minutes Status at Discharge Functional status at discharge: independent ambulation Overall status at discharge: patient is back to baseline Time Spent with Patient Time attestation: Total time managing care of this patient today _35___ minutes. Time spent: Greater than 30 minutes Discharge Plan Discharge Anticipated Discharge Date/Time: 11/30/23 11:30 Patient Disposition: Home, Self-Care Discharge Diagnosis: MDD, recurrent severe, with hx of psychotic features, in partial remission (r/o schizoaffective do) Referrals: [facility] [Other] - 1 Week (Patient may self present to [facility] to be evaluated for psychiatry and therapy services Hours 8 am-8-pm Sunday-Sunday and 9 am-5 pm Sunday) Physician,Unknown J [Primary Care Provider] - 1 Week Discharge Medications: New trazodone 50 mg Tablet 50 mg PO BEDTIME PRN (Reason: Insomnia) 30 Days Qty: 30 0RF methadone [Methadose] 10 mg/mL Concentrate 95 mg PO DAILY Qty: 0 0RF Rx Instructions: Partial Fill upon patient request. escitalopram oxalate 10 mg Tablet 10 mg PO DAILY 30 Days Qty: 30 0RF Continued haloperidol 5 mg tablet 5 mg PO BEDTIME 30 Days Qty: 30 0RF Discontinued methadone [Methadose] 10 mg/mL concentrate 85 mg PO DAILY Patient Comments: verified by Erum FOSTER benztropine 0.5 mg tablet 0.5 mg PO DAILY Discharge Orders: Discharge Order (Routine); Ordered 11/30/23 Ordered By: Omi Rachel Diet: Regular diet Activity on Discharge: As tolerated Stand Alone Forms: Patient Portal Discharge page, Community Support Print Language: Chinese Care Plan Goals: Maintain mood and safe behaviors Take medications as prescribed Continue to pursue sobriety Practice coping skills Continue with outpatient providers and reach out to them as needed Health Concerns: Mood stability and behaviors Sobriety Plan of Treatment: Follow up with your PCP, psychiatric provider and other outpatient providers regarding above concerns Take medications as prescribed Assessment: Risk assessment at time of discharge:? Patient was interviewed prior to discharge and found to be fully oriented and without any SI or HI. Patient has improved insight and judgment and wants to continue treatment. Patient is not in imminent risk of harm to self or others and has a safety plan that includes presenting to the closest ER or calling 911 if feeling unsafe.? Patient has been observed closely by nursing and unit staff throughout admission; patient has not engaged in any behaviors that suggest dangerousness to self or others and has demonstrated appropriate behaviors and impulse control
[2023-11-30] MEDS: Naloxone HCl Nasal TAKE HOME 4 MG SPRAY 8 MG NOSTRILALT (10:55)
== END 2023-11-30 11:00 | disposition home or self-care (01) | DRG 751 ==
LOC: HO.ED 11-27 06:29 → HO.PM5 11-27 20:54
PROVIDERS: Emergency Medicine; Admitting Provider Registered Nurse; Emergency Provider Emergency Medicine; Visit Provider Clinical Nurse Specialist Psychiatric/Mental Health, Adult
DX: F33.3 Major depressive disorder, recurrent, severe with psychotic symptoms (principal); R45.851 Suicidal ideations; F17.210 Nicotine dependence, cigarettes, uncomplicated; F19.10 Other psychoactive substance abuse, uncomplicated; F11.23 Opioid dependence with withdrawal; Z71.6 Tobacco abuse counseling; Z20.822 Contact with and (suspected) exposure to COVID-19; Z79.899 Other long term (current) drug therapy
CPT/HCPCS: 36415; 80053; 80143; 80179; 80307; 81001; 85025; 87635; 93005; 99285; S9485

== ENCOUNTER → 2023-11-27 14:48 | Outpatient (BNV) | payer OTHER, SELFPAY | PROVIDERS: Admitting Provider Registered Nurse; Emergency Provider Emergency Medicine; Visit Provider Internal Medicine Cardiovascular Disease | DX: R00.1 Bradycardia, unspecified (principal) | CPT/HCPCS: 93010 ==

== ENCOUNTER 2023-11-27 18:16 | Outpatient (BNV) | payer OTHER, SELFPAY | END 2023-11-30 10:40 | PROVIDERS: Admitting Provider Registered Nurse; Emergency Provider Emergency Medicine; Visit Provider Internal Medicine Cardiovascular Disease | DX: R00.1 Bradycardia, unspecified (principal) | CPT/HCPCS: 93010 ==

== ENCOUNTER → 2023-11-27 18:16 | Outpatient (BNV) | payer OTHER, SELFPAY | PROVIDERS: Admitting Provider Registered Nurse; Emergency Provider Emergency Medicine; Visit Provider Nurse Practitioner Psychiatric/Mental Health | DX: F33.3 Major depressive disorder, recurrent, severe with psychotic symptoms (principal); F14.10 Cocaine abuse, uncomplicated; F11.90 Opioid use, unspecified, uncomplicated | CPT/HCPCS: 99231; 99232; 99499 ==

== ENCOUNTER 2023-12-07 23:48 | Emergency (ER) | payer OTHER, SELFPAY ==
[2023-12-07 23:58] VITALS: BP 122/86; PULSE 73; RESP 18; TEMP 36.4; O2SAT 97; BMI 23.6
--- NOTE | 2023-12-08 | ECG_ITS ---
Test Reason : COCAINE USE Blood Pressure : / mmHG Vent. Rate : 066 BPM Atrial Rate : 066 BPM P-R Int : 154 ms QRS Dur : 080 ms QT Int : 440 ms P-R-T Axes : 050 083 054 degrees QTc Int : 461 ms Normal sinus rhythm Normal ECG When compared with ECG of 30-NOV-2023 10:40, No significant change was found Referred By: Generic ED Physician Electronically Signed By:SHAYAN WONG
[2023-12-08 00:19] LABS: MANUAL DIFF FLAG NO
[2023-12-08 00:23] LABS: Basophils Absolute Auto 0.1 X10*3/uL (0.0-0.2); Basophils Percent Auto 0.8 % (0-2); Eosinophils Absolute Auto 0.1 X10*3/uL (0.0-0.4); Eosinophils Percent Auto 1.7 % (0-4); Hematocrit 43.7 % (42.0-52.0); Hemoglobin 14.2 g/dl (14.0-18.0); Imm Gran Abs Auto 0.01 X10*3/uL (0.00-0.03); Imm Gran Pct Auto 0.2 % (0.0-0.4); Lymphocytes Absolute Auto 2.7 X10*3/uL (1.2-4.9); Lymphocytes Percent Auto 40.3 % (20-40); Mean Corpuscular HGB Conc 32.5 g/dl (31.0-36.0); Mean Corpuscular Hemoglobin 30.4 pg (27.0-33.0); Mean Corpuscular Volume 93.6 fL (80.0-98.0); Mean Platelet Volume 10.1 fL (9.4-12.4); Monocytes Absolute Auto 0.6 X10*3/uL (0.1-1.2); Monocytes Percent Auto 9.7 % (2-11); Neutrophils Absolute Auto 3.1 x10*3/uL (2.0-8.3); Neutrophils Percent Auto 47.3 % (45-73); Platelet Count 217 X10*3/uL (160-400); Red Blood Count 4.67 X10*6/uL (4.60-5.80); Red Cell Distribution Width 13.7 % (11.0-16.0); White Blood Count 6.6 X10*3/uL (4.8-10.8)
--- NOTE | 2023-12-08 00:26 | MHC.EDTECH ---
EKG taken per order and signed by provider,labs,covid obtained and sent to lab,patient brought to ED 6Hallper charge nurse
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
[2023-12-08 00:35] LABS: Alanine Aminotransferase 129 U/L (0-40); Albumin Level 3.7 g/dL (3.5-5.0); Alkaline Phosphatase 97 U/L (39-117); Anion Gap 12 (12-20); Aspartate Amino Transferase 106 U/L (5-37); Bilirubin Total 0.4 mg/dL (0.0-1.0); Blood Urea Nitrogen 15 mg/dL (9-16); Carbon Dioxide 26 mmol/L (22-29); Chloride 108 mmol/L (96-108); Creatinine Clr Calc Pharmacy 100.3; Estimated Glomerular Filt Rate > 60; Ethanol < 10 mg/dL; Glucose Random 110 mg/dL (60-115); Potassium 3.7 mmol/L (3.3-5.1); Sodium 142 mmol/L (135-145); Total Protein 7.3 g/dL (6.5-8.0)
[2023-12-08 00:36] LABS: COVID-19 Test Negative (Negative); IDNOW Serial# 6674DD1D
--- NOTE | 2023-12-08 01:07 | PC.NURSE ---
Addendum entered by Tiesha Browne 12/08/23 07:56: belongings moved to locker 1 Original Note: Belongings are in a POD, locker 7.
--- NOTE | 2023-12-08 01:11 | PC.NURSE ---
Patient requested and given tuna fish sandwich with milk, tolerated well.
[2023-12-08 02:16] LABS: Amphetamine Screen Urine Not Detected (Not Detect); Barbiturates, Urine Not Detected (Not Detect); Benzodiazepines Screen Urine Not Detected (Not Detect); Buprenorphine Scr Not Detected (Not Detect); Cannabinoid Screen Urine Not Detected (Not Detect); Cocaine Screen Urine POSITIVE (Not Detect); Fentanyl, urine POSITIVE (Not Detect); Methadone Screen, Urine Positive (Not Detect); Opiate Screen Urine Not Detected (Not Detect); Oxycodone Screen Urine Not Detected (Not Detect); Phencyclidine Screen Urine Not Detected (Not Detect)
--- NOTE | 2023-12-08 05:39 | PC.NURSE ---
Pt stopped RN in hallway while walking back from the bathroom. requesting his methadone dose as he states it is due around this time. RN made patient aware of process for methadone dose confirmation prior to administration. This RN called the [facility] at [phone] but was unable to speak with anyone as the office does not open until 0700. Pt aware and verbalized understanding. he is currently calm and cooperative eating ice cream with PO present
[2023-12-08 06:14] VITALS: BP 125/79; PULSE 51; RESP 16; TEMP 36.8; O2SAT 97
--- NOTE | 2023-12-08 07:20 | PC.NURSE ---
Addendum entered by Tiesha Browne 12/08/23 07:56: attempted to call methadone clinic at 0725, no answer Original Note: Assumed care of patient at 0645, patient moved from ED 6H to 1 by this RN. Patient ambulating with steady gait with walker, which is new for patient. Patient reports that he has been utilizing a walker because his feet are sore. Patient demanding methadone, pudding, ice cream and snacks at this time. This RN attempted to let patient know that we have to wait until the methadone clinic opens to verify his methadone dose similar to each time he is here, patient once again demanding methadone but self redirected back to room. Continue plan of care for recovery team follow up
--- NOTE | 2023-12-08 09:23 | PC.NURSE ---
this RN verified methadone dose with clinic, methadone verification form sent to pharmacy
--- NOTE | 2023-12-08 09:26 | HE.PHANOTE ---
RE METHADONE PT RECEIVES METHADONE FROM [facility], LAST DOSED ON 12/07/23. DOSE IS 95 MG LATRELL
[2023-12-08] MEDS: Escitalopram Oxalate 10 MG TABLET PO (10:04)
[2023-12-08] MEDS: methADONE HCl 20 MG/2 ML ORAL.CONC 95 MG PO (10:04)
--- NOTE | 2023-12-08 12:22 | MHC.CARE ---
Per Alma Rosa at [facility] intake , pt is being accepted to [facility]. CARE team will order Lyft for pt upon d/c
[2023-12-08 12:55] VITALS: BP 129/71; PULSE 92; RESP 14; TEMP 36.6; O2SAT 96
== END 2023-12-08 12:58 | disposition other institution (70) ==
PROVIDERS: Emergency Provider Emergency Medicine
DX: F19.10 Other psychoactive substance abuse, uncomplicated (principal); F32.A Depression, unspecified; Z76.0 Encounter for issue of repeat prescription; F11.20 Opioid dependence, uncomplicated; F17.200 Nicotine dependence, unspecified, uncomplicated; Z79.899 Other long term (current) drug therapy; Z20.822 Contact with and (suspected) exposure to COVID-19
CPT/HCPCS: 80053; 80307; 85025; 87635; 93005; 99285; S9485

== ENCOUNTER → 2023-12-08 00:06 | Outpatient (BNV) | payer OTHER, SELFPAY | PROVIDERS: Emergency Provider Emergency Medicine; Visit Provider Internal Medicine | DX: F14.90 Cocaine use, unspecified, uncomplicated (principal) | CPT/HCPCS: 93010 ==

== ENCOUNTER 2023-12-18 21:26 | Emergency (ER) | payer OTHER, SELFPAY ==
[2023-12-18 23:53] VITALS: BP 118/82; PULSE 55; RESP 18; TEMP 36.8; O2SAT 96; BMI 24.9
[2023-12-19 01:43] LABS: MANUAL DIFF FLAG NO
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
[2023-12-19 01:50] LABS: Basophils Absolute Auto 0.1 X10*3/uL (0.0-0.2); Basophils Percent Auto 0.8 % (0-2); Eosinophils Absolute Auto 0.1 X10*3/uL (0.0-0.4); Eosinophils Percent Auto 1.1 % (0-4); Hematocrit 44.5 % (42.0-52.0); Hemoglobin 14.8 g/dl (14.0-18.0); Imm Gran Abs Auto 0.01 X10*3/uL (0.00-0.03); Imm Gran Pct Auto 0.2 % (0.0-0.4); Lymphocytes Percent Auto 32.5 % (20-40); Mean Corpuscular HGB Conc 33.3 g/dl (31.0-36.0); Mean Corpuscular Hemoglobin 30.8 pg (27.0-33.0); Mean Corpuscular Volume 92.7 fL (80.0-98.0); Mean Platelet Volume 10.8 fL (9.4-12.4); Monocytes Absolute Auto 0.8 X10*3/uL (0.1-1.2); Monocytes Percent Auto 12.1 % (2-11); Neutrophils Absolute Auto 3.3 x10*3/uL (2.0-8.3); Neutrophils Percent Auto 53.3 % (45-73); Platelet Count 179 X10*3/uL (160-400); Red Cell Distribution Width 13.2 % (11.0-16.0); White Blood Count 6.2 X10*3/uL (4.8-10.8)
[2023-12-19 02:02] LABS: Alanine Aminotransferase 90 U/L (0-40); Albumin Level 3.6 g/dL (3.5-5.0); Alkaline Phosphatase 81 U/L (39-117); Anion Gap 13 (12-20); Aspartate Amino Transferase 88 U/L (5-37); Bilirubin Total 0.5 mg/dL (0.0-1.0); Blood Urea Nitrogen 24 mg/dL (9-16); Calcium 9.1 mg/dL (8.4-10.2); Carbon Dioxide 27 mmol/L (22-29); Chloride 103 mmol/L (96-108); Creatinine Clr Calc Pharmacy 101.5; Estimated Glomerular Filt Rate > 60; Ethanol < 10 mg/dL; Glucose Random 109 mg/dL (60-115); Potassium 4.2 mmol/L (3.3-5.1); Sodium 139 mmol/L (135-145); Total Protein 7.3 g/dL (6.5-8.0)
[2023-12-19 04:00] VITALS: BP 110/61; PULSE 58; RESP 16; TEMP 36.8; O2SAT 96
[2023-12-19 06:00] VITALS: RESP 18
--- NOTE | 2023-12-19 12:15 | HE.PHANOTE ---
RE: methadone Last dose verification from [facility] 95mg on 12/18/23 @0307
--- NOTE | 2023-12-19 12:39 | MHC.CARE ---
patient is requesting referral to adult crisis stabilization unit (respite). He has been assessed, referral being made right now.
--- NOTE | 2023-12-19 13:18 | MHC.CARE ---
Patient in review with [facility] @ [facility]
[2023-12-19] MEDS: methADONE HCl 20 MG/2 ML ORAL.CONC 95 MG PO (13:28)
[2023-12-19 14:44] VITALS: BP 110/61; PULSE 58; RESP 18; TEMP 36.8; O2SAT 96
== END 2023-12-19 14:44 | disposition home or self-care (01) ==
PROVIDERS: Emergency Provider Emergency Medicine
DX: R45.851 Suicidal ideations (principal); F19.10 Other psychoactive substance abuse, uncomplicated; F32.A Depression, unspecified; Z79.899 Other long term (current) drug therapy
CPT/HCPCS: 36415; 80053; 80307; 85025; 99284; 99285; S9485

== ENCOUNTER 2023-12-24 20:30 | Emergency (ER) | payer OTHER, SELFPAY ==
[2023-12-24 20:42] VITALS: BP 137/93; PULSE 70; RESP 12; TEMP 36.2; O2SAT 96; BMI 23.3
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
--- NOTE | 2023-12-24 21:16 | MHC.EDTECH ---
BELONGINGS IN ONE BIG PLASTIC CLEAR BAG TOP OF POD LAUNDRY CLOSET.
[2023-12-24 21:33] LABS: PLT CLUMP 1; SCAN SMEAR FLAG 1
[2023-12-24 21:34] LABS: Basophils Percent Auto 0.5 % (0-2); Eosinophils Percent Auto 0.3 % (0-4); Hematocrit 43.5 % (42.0-52.0); Hemoglobin 14.7 g/dl (14.0-18.0); Imm Gran Abs Auto 0.02 X10*3/uL (0.00-0.03); Imm Gran Pct Auto 0.3 % (0.0-0.4); Lymphocytes Percent Auto 33.4 % (20-40); MANUAL DIFF FLAG SCAN; Mean Corpuscular HGB Conc 33.8 g/dl (31.0-36.0); Mean Corpuscular Hemoglobin 30.9 pg (27.0-33.0); Mean Corpuscular Volume 91.6 fL (80.0-98.0); Mean Platelet Volume 10.6 fL (9.4-12.4); Monocytes Absolute Auto 0.7 X10*3/uL (0.1-1.2); Monocytes Percent Auto 11.2 % (2-11); Neutrophils Absolute Auto 3.2 x10*3/uL (2.0-8.3); Neutrophils Percent Auto 54.3 % (45-73); Red Blood Count 4.75 X10*6/uL (4.60-5.80)
[2023-12-24 21:37] LABS: Platelet Count 160 X10*3/uL (160-400)
[2023-12-24 21:49] LABS: Alanine Aminotransferase 145 U/L (0-40); Albumin Level 4.2 g/dL (3.5-5.0); Alkaline Phosphatase 93 U/L (39-117); Anion Gap 16 (12-20); Aspartate Amino Transferase 123 U/L (5-37); Bilirubin Total 0.5 mg/dL (0.0-1.0); Blood Urea Nitrogen 21 mg/dL (9-16); Calcium 10.1 mg/dL (8.4-10.2); Carbon Dioxide 25 mmol/L (22-29); Chloride 105 mmol/L (96-108); Creatinine Clr Calc Pharmacy 92.1; Estimated Glomerular Filt Rate > 60; Ethanol < 10 mg/dL; Glucose Random 92 mg/dL (60-115); Potassium 4.1 mmol/L (3.3-5.1); Sodium 142 mmol/L (135-145)
[2023-12-24 21:50] LABS: SLIDE REVIEW VERIFIED
[2023-12-24] MEDS: hydrOXYzine HCL 50 MG TABLET PO (21:55)
[2023-12-24 21:56] LABS: Appearance Urine Clear; Color Urine Dark Yellow; Glucose Urine UA Negative (Negative); Leukocyte Esterase Urine Negative (Negative); Nitrite Urine Negative (Negative); PH 5.5 (5.0-9.0); Specific Gravity - Urine >= 1.030 (1.005-1.025); Urine Blood Negative (Negative); Urine Ketones Trace mg/dL (Negative); Urine Protein Trace mg/dL (Neg-Trace)
[2023-12-24 22:00] LABS: Bacteria Urine None Seen (None Seen); Hyaline Casts Urine 0-2 /LPF (0-2); RBC Urine 0-2 /HPF (0-2); Squamous Epithelial Cell Urine 0-2 /HPF (0-2); WBC Urine 0-5 /HPF (0-5)
[2023-12-24 22:06] LABS: Amphetamine Screen Urine Not Detected (Not Detect); Barbiturates, Urine Not Detected (Not Detect); Benzodiazepines Screen Urine Not Detected (Not Detect); Buprenorphine Scr Not Detected (Not Detect); Cannabinoid Screen Urine Not Detected (Not Detect); Cocaine Screen Urine POSITIVE (Not Detect); Fentanyl, urine POSITIVE (Not Detect); Methadone Screen, Urine Positive (Not Detect); Opiate Screen Urine Not Detected (Not Detect); Oxycodone Screen Urine Not Detected (Not Detect); Phencyclidine Screen Urine Not Detected (Not Detect)
--- NOTE | 2023-12-25 06:29 | HE.PHANOTE ---
RE METHADONE Patient receives methadone from [facility] [phone], patient last dosed with 95 mg on 12/24/23 @0959
--- NOTE | 2023-12-25 07:16 | PC.NURSE ---
Assumed care of patient at 0645. Patient is observed sleeping in there bed at this time. No signs of distress, breathing is even and unlabored at this time. Will continue plan of care.
[2023-12-25] MEDS: methADONE HCl 20 MG/2 ML ORAL.CONC 95 MG PO (08:37)
[2023-12-25] MEDS: Escitalopram Oxalate 10 MG TABLET PO (08:38)
[2023-12-25 11:24] VITALS: BP 111/58; PULSE 53; RESP 14; TEMP 36.6; O2SAT 96
== END 2023-12-25 19:16 | disposition other institution (70) ==
PROVIDERS: Physician Assistant Medical; Emergency Provider Emergency Medicine
DX: R45.851 Suicidal ideations (principal); F32.A Depression, unspecified; F19.90 Other psychoactive substance use, unspecified, uncomplicated; Z79.899 Other long term (current) drug therapy
CPT/HCPCS: 36415; 80053; 80307; 81001; 85025; 99284; S9485

== ENCOUNTER 2024-01-01 01:02 | Emergency (ER) | payer OTHER, SELFPAY ==
--- NOTE | ~2024-01-01 | XR_ITS ---
EXAMINATION: XR TOES, RIGHT CLINICAL INFORMATION: Pain. COMPARISON: None available. TECHNIQUE: 3 views of the right toes were obtained. FINDINGS: The bone mineralization is within normal limits. The joint spaces are maintained. There is medial soft tissue swelling along the first metatarsophalangeal joint space. The soft tissues are otherwise unremarkable. XR/XR toe RT min 2V IMPRESSION: Medial soft tissue swelling along the first metatarsophalangeal joint space. No evidence of fracture or dislocation.
--- NOTE | ~2024-01-01 | XR_ITS ---
EXAMINATION: XR TOES, LEFT CLINICAL INFORMATION: Pain. COMPARISON: None available. TECHNIQUE: 3 views of the left toes were obtained. FINDINGS: There are no fractures or dislocations. No joint effusion is identified. There is mild medial soft tissue swelling along the first metatarsophalangeal. XR/XR toe LT min 2V IMPRESSION: Mild medial soft tissue swelling along the first metatarsophalangeal joint. No fracture or dislocation.
[2024-01-01 01:10] VITALS: BP 136/84; PULSE 67; RESP 18; TEMP 37; O2SAT 97; BMI 23.1
[2024-01-01 02:44] VITALS: BP 120/83; PULSE 62; RESP 17; TEMP 36.8; O2SAT 96
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
[2024-01-01 04:32] LABS: Amphetamine Screen Urine Not Detected (Not Detect); Barbiturates, Urine Not Detected (Not Detect); Benzodiazepines Screen Urine Not Detected (Not Detect); Buprenorphine Scr Not Detected (Not Detect); Cannabinoid Screen Urine Not Detected (Not Detect); Cocaine Screen Urine POSITIVE (Not Detect); Fentanyl, urine POSITIVE (Not Detect); Methadone Screen, Urine Positive (Not Detect); Opiate Screen Urine POSITIVE (Not Detect); Oxycodone Screen Urine Not Detected (Not Detect); Phencyclidine Screen Urine Not Detected (Not Detect)
--- NOTE | 2024-01-01 09:24 | PC.NURSE ---
Addiction med consulting with pt.
--- NOTE | 2024-01-01 09:39 | MHC.RECOVRN ---
Attempted to meet with pt in ED12, pt asleep, wakes briefly but difficult to engage in conversation. Pt is able to tell me he is interested in ATS. Referral has been sent to [facility].
--- NOTE | 2024-01-01 10:33 | HE.PHANOTE ---
Methadone [facility], , per [facility]INA: last methadone dose was 95 mg, given 12/30 at 5:47am.
[2024-01-01] MEDS: methADONE HCl 20 MG/2 ML ORAL.CONC 95 MG PO (11:03)
--- NOTE | 2024-01-01 11:05 | MHC.RECOVRN ---
Pt accepted to [facility] pending phone screen.
[2024-01-01 11:38] VITALS: BP 121/79; PULSE 47; RESP 17; TEMP 37.2; O2SAT 96
[2024-01-01 12:16] VITALS: BP 121/79; PULSE 58; RESP 17; TEMP 37.2; O2SAT 96
--- NOTE | 2024-01-01 12:28 | MHC.RECOVRN ---
Pt accepted to [facility] for 1PM. Transported via [employer].
== END 2024-01-01 12:21 ==
PROVIDERS: Emergency Medicine; Emergency Provider Emergency Medicine
DX: F11.90 Opioid use, unspecified, uncomplicated (principal); M79.672 Pain in left foot; M79.671 Pain in right foot; F19.10 Other psychoactive substance abuse, uncomplicated; F32.9 Major depressive disorder, single episode, unspecified
CPT/HCPCS: 73660; 80307; 99284

== ENCOUNTER 2024-01-08 03:07 | Emergency (ER) | payer OTHER, SELFPAY ==
[2024-01-08 03:09] VITALS: BP 121/81; PULSE 62; RESP 20; TEMP 36.9; O2SAT 97; BMI 23.6
[2024-01-08 03:26] LABS: MANUAL DIFF FLAG NO
[2024-01-08 03:27] LABS: Basophils Percent Auto 0.4 % (0-2); Eosinophils Absolute Auto 0.1 X10*3/uL (0.0-0.4); Eosinophils Percent Auto 2.3 % (0-4); Hematocrit 43.3 % (42.0-52.0); Hemoglobin 14.6 g/dl (14.0-18.0); Imm Gran Abs Auto 0.01 X10*3/uL (0.00-0.03); Imm Gran Pct Auto 0.2 % (0.0-0.4); Lymphocytes Absolute Auto 1.6 X10*3/uL (1.2-4.9); Lymphocytes Percent Auto 30.5 % (20-40); Mean Corpuscular HGB Conc 33.7 g/dl (31.0-36.0); Mean Corpuscular Hemoglobin 31.3 pg (27.0-33.0); Mean Corpuscular Volume 92.9 fL (80.0-98.0); Mean Platelet Volume 10.6 fL (9.4-12.4); Monocytes Absolute Auto 0.7 X10*3/uL (0.1-1.2); Monocytes Percent Auto 12.7 % (2-11); Neutrophils Absolute Auto 2.9 x10*3/uL (2.0-8.3); Neutrophils Percent Auto 53.9 % (45-73); Platelet Count 165 X10*3/uL (160-400); Red Blood Count 4.66 X10*6/uL (4.60-5.80); Red Cell Distribution Width 13.3 % (11.0-16.0); White Blood Count 5.3 X10*3/uL (4.8-10.8)
[2024-01-08 03:43] LABS: Alanine Aminotransferase 135 U/L (0-40); Albumin Level 3.8 g/dL (3.5-5.0); Alkaline Phosphatase 95 U/L (39-117); Anion Gap 17 (12-20); Aspartate Amino Transferase 104 U/L (5-37); Bilirubin Total 0.3 mg/dL (0.0-1.0); Blood Urea Nitrogen 13 mg/dL (9-16); Calcium 9.2 mg/dL (8.4-10.2); Carbon Dioxide 24 mmol/L (22-29); Chloride 102 mmol/L (96-108); Creatinine Clr Calc Pharmacy 117.3; Estimated Glomerular Filt Rate > 60; Glucose Random 140 mg/dL (60-115); Potassium 3.8 mmol/L (3.3-5.1); Sodium 139 mmol/L (135-145); Total Protein 7.4 g/dL (6.5-8.0); Uric Acid 5.7 mg/dL (3.4-7.0)
[2024-01-08 04:13] VITALS: BP 122/84; PULSE 59; RESP 18; TEMP 36.8; O2SAT 97
[2024-01-08 05:52] VITALS: BP 104/56; PULSE 52; RESP 18; TEMP 36.5; O2SAT 97
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
[2024-01-08 07:35] VITALS: BP 117/58; PULSE 54; RESP 16; TEMP 36.7; O2SAT 97
[2024-01-08] MEDS: Acetaminophen 325 MG TABLET 975 MG PO (07:35)
[2024-01-08] MEDS: Ibuprofen 400 MG TABLET PO (07:36)
== END 2024-01-08 07:59 | disposition home or self-care (01) ==
PROVIDERS: Emergency Provider Student in an Organized Health Care Education/Training Program
DX: M79.672 Pain in left foot (principal); M79.671 Pain in right foot
CPT/HCPCS: 36415; 80053; 84550; 85025; 99283; 99284

== ENCOUNTER 2024-01-09 01:43 | Emergency (ER) | payer OTHER, SELFPAY ==
[2024-01-09 02:30] VITALS: BP 120/74; PULSE 58; RESP 18; TEMP 36.4; O2SAT 99; BMI 23.6
[2024-01-09 02:50] LABS: MANUAL DIFF FLAG NO
[2024-01-09 02:51] LABS: Basophils Percent Auto 0.4 % (0-2); Eosinophils Absolute Auto 0.2 X10*3/uL (0.0-0.4); Eosinophils Percent Auto 4.2 % (0-4); Hematocrit 41.5 % (42.0-52.0); Hemoglobin 13.9 g/dl (14.0-18.0); Imm Gran Abs Auto 0.01 X10*3/uL (0.00-0.03); Imm Gran Pct Auto 0.2 % (0.0-0.4); Lymphocytes Percent Auto 39.3 % (20-40); Mean Corpuscular HGB Conc 33.5 g/dl (31.0-36.0); Mean Corpuscular Volume 92.4 fL (80.0-98.0); Mean Platelet Volume 10.2 fL (9.4-12.4); Monocytes Absolute Auto 0.9 X10*3/uL (0.1-1.2); Monocytes Percent Auto 16.6 % (2-11); Neutrophils Percent Auto 39.3 % (45-73); Platelet Count 177 X10*3/uL (160-400); Red Blood Count 4.49 X10*6/uL (4.60-5.80); Red Cell Distribution Width 13.2 % (11.0-16.0); White Blood Count 5.2 X10*3/uL (4.8-10.8)
[2024-01-09 03:14] LABS: Alanine Aminotransferase 131 U/L (0-40); Albumin Level 3.7 g/dL (3.5-5.0); Alkaline Phosphatase 84 U/L (39-117); Anion Gap 13 (12-20); Aspartate Amino Transferase 99 U/L (5-37); Bilirubin Total 0.3 mg/dL (0.0-1.0); Blood Urea Nitrogen 11 mg/dL (9-16); Calcium 9.3 mg/dL (8.4-10.2); Carbon Dioxide 27 mmol/L (22-29); Chloride 104 mmol/L (96-108); Creatinine Clr Calc Pharmacy 123.7; Estimated Glomerular Filt Rate > 60; Glucose Random 91 mg/dL (60-115); Potassium 4.1 mmol/L (3.3-5.1); Sodium 140 mmol/L (135-145)
== END 2024-01-09 08:45 | disposition left against medical advice (07) ==
PROVIDERS: Emergency Provider Emergency Medicine
DX: M79.605 Pain in left leg (principal); M79.604 Pain in right leg
CPT/HCPCS: 36415; 80053; 85025; 99281; 99283

== ENCOUNTER 2024-01-14 21:14 | Emergency (ER) | payer OTHER, SELFPAY ==
[2024-01-14 21:48] VITALS: BP 133/79; PULSE 68; RESP 17; TEMP 36.6; O2SAT 95; BMI 23.7
[2024-01-14 22:55] LABS: MANUAL DIFF FLAG NO
[2024-01-14 23:00] LABS: Basophils Percent Auto 0.6 % (0-2); Eosinophils Absolute Auto 0.1 X10*3/uL (0.0-0.4); Eosinophils Percent Auto 2.1 % (0-4); Hematocrit 39.4 % (42.0-52.0); Hemoglobin 13.1 g/dl (14.0-18.0); Lymphocytes Absolute Auto 2.1 X10*3/uL (1.2-4.9); Lymphocytes Percent Auto 40.4 % (20-40); Mean Corpuscular HGB Conc 33.2 g/dl (31.0-36.0); Mean Corpuscular Hemoglobin 30.8 pg (27.0-33.0); Mean Corpuscular Volume 92.5 fL (80.0-98.0); Monocytes Absolute Auto 0.6 X10*3/uL (0.1-1.2); Monocytes Percent Auto 11.3 % (2-11); Neutrophils Absolute Auto 2.4 x10*3/uL (2.0-8.3); Neutrophils Percent Auto 45.6 % (45-73); Platelet Count 199 X10*3/uL (160-400); Red Blood Count 4.26 X10*6/uL (4.60-5.80); Red Cell Distribution Width 13.6 % (11.0-16.0); White Blood Count 5.2 X10*3/uL (4.8-10.8)
[2024-01-14 23:13] LABS: Alanine Aminotransferase 103 U/L (0-40); Albumin Level 3.6 g/dL (3.5-5.0); Alkaline Phosphatase 80 U/L (39-117); Anion Gap 11 (12-20); Aspartate Amino Transferase 85 U/L (5-37); Bilirubin Total 0.3 mg/dL (0.0-1.0); Blood Urea Nitrogen 17 mg/dL (9-16); Calcium 8.8 mg/dL (8.4-10.2); Carbon Dioxide 27 mmol/L (22-29); Chloride 108 mmol/L (96-108); Creatinine Clr Calc Pharmacy 117.3; Estimated Glomerular Filt Rate > 60; Ethanol < 10 mg/dL; Glucose Random 91 mg/dL (60-115); Lipase 28 U/L (8-78); Sodium 142 mmol/L (135-145); Total Protein 6.8 g/dL (6.5-8.0)
[2024-01-14 23:33] VITALS: BP 128/78; PULSE 70; RESP 16; TEMP 36.7; O2SAT 96
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
[2024-01-15 02:39] VITALS: BP 131/82; PULSE 53; RESP 16; TEMP 36.9; O2SAT 96
--- NOTE | 2024-01-15 02:41 | PC.NURSE ---
Pt aox4, VSS, no apparent distress noted. Reporting bilateral feet pain, 05/29. Pt looking for detox. Last used IV heroin 01/14/2024 1200. Denies SI/HI at this time. Reports receiving Methadone 95mg from the [facility]. Changed into hospital attire. Call toribio placed within reach. Monitoring is ongoing.
[2024-01-15 05:24] VITALS: BP 133/81; PULSE 55; RESP 15; TEMP 36.8; O2SAT 96
[2024-01-15 08:56] VITALS: BP 142/79; PULSE 45; RESP 14; TEMP 36.6; O2SAT 98
[2024-01-15 08:58] VITALS: BP 138/85; PULSE 64; RESP 14; TEMP 36.6; O2SAT 98
--- NOTE | 2024-01-15 09:03 | PC.NURSE ---
pt is currently asleep respirations even and unlabored
--- NOTE | 2024-01-15 09:33 | PC.NURSE ---
Methadone dose verified byconrado baker RN with Radhika [facility]INA at [facility]. Verification worksheet faxed to Pharmacy.
--- NOTE | 2024-01-15 10:23 | HE.PHANOTE ---
Methadone Patient receives from [facility] in [place] ([phone]). Gerard Cerna at [facility] patient received 95mg on 01/12 in office, and received 95mg take home bottle for 01/13 holiday. Patient took take home bottle of 95 mg on 01/13.
[2024-01-15 10:46] VITALS: BP 138/82; PULSE 41; RESP 14; TEMP 36.6; O2SAT 98
[2024-01-15] MEDS: methADONE HCl 20 MG/2 ML ORAL.CONC 95 MG PO (11:06)
[2024-01-15] MEDS: Naloxone HCl Nasal TAKE HOME 4 MG SPRAY 8 MG NOSTRILALT (11:08)
[2024-01-15 11:17] VITALS: BP 138/82; PULSE 45; RESP 14; TEMP 36.6; O2SAT 98
== END 2024-01-15 11:19 | disposition home or self-care (01) ==
PROVIDERS: Emergency Provider Internal Medicine; PCP Internal Medicine
DX: F14.10 Cocaine abuse, uncomplicated (principal); F11.10 Opioid abuse, uncomplicated
CPT/HCPCS: 36415; 80053; 80307; 83690; 85025; 99283; 99284

== ENCOUNTER 2024-01-17 00:43 | Emergency (ER) | payer OTHER, SELFPAY ==
[2024-01-17 00:51] VITALS: BP 124/85; PULSE 62; RESP 16; TEMP 36.6; O2SAT 97; BMI 23.6
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
[2024-01-17 01:54] LABS: MANUAL DIFF FLAG NO
[2024-01-17 01:55] LABS: Basophils Percent Auto 0.4 % (0-2); Eosinophils Percent Auto 0.3 % (0-4); Hematocrit 43.1 % (42.0-52.0); Hemoglobin 14.6 g/dl (14.0-18.0); Imm Gran Abs Auto 0.02 X10*3/uL (0.00-0.03); Imm Gran Pct Auto 0.3 % (0.0-0.4); Lymphocytes Absolute Auto 2.2 X10*3/uL (1.2-4.9); Lymphocytes Percent Auto 27.6 % (20-40); Mean Corpuscular HGB Conc 33.9 g/dl (31.0-36.0); Mean Corpuscular Volume 91.5 fL (80.0-98.0); Mean Platelet Volume 9.8 fL (9.4-12.4); Monocytes Absolute Auto 0.8 X10*3/uL (0.1-1.2); Monocytes Percent Auto 9.7 % (2-11); Neutrophils Absolute Auto 4.9 x10*3/uL (2.0-8.3); Neutrophils Percent Auto 61.7 % (45-73); Platelet Count 238 X10*3/uL (160-400); Red Blood Count 4.71 X10*6/uL (4.60-5.80); Red Cell Distribution Width 13.5 % (11.0-16.0)
[2024-01-17 02:10] LABS: Ethanol < 10 mg/dL
[2024-01-17 02:12] LABS: Alanine Aminotransferase 130 U/L (0-40); Albumin Level 4.1 g/dL (3.5-5.0); Alkaline Phosphatase 92 U/L (39-117); Anion Gap 12 (12-20); Aspartate Amino Transferase 172 U/L (5-37); Bilirubin Total 0.7 mg/dL (0.0-1.0); Blood Urea Nitrogen 19 mg/dL (9-16); Calcium 9.6 mg/dL (8.4-10.2); Carbon Dioxide 27 mmol/L (22-29); Chloride 106 mmol/L (96-108); Creatinine Clr Calc Pharmacy 103.8; Estimated Glomerular Filt Rate > 60; Glucose Random 140 mg/dL (60-115); Potassium 4.1 mmol/L (3.3-5.1); Sodium 141 mmol/L (135-145); Total Protein 7.7 g/dL (6.5-8.0)
[2024-01-17 02:21] LABS: Appearance Urine Clear; Color Urine Dark Yellow; Glucose Urine UA Negative (Negative); Leukocyte Esterase Urine Negative (Negative); Nitrite Urine Negative (Negative); PH 5.5 (5.0-9.0); Specific Gravity - Urine >= 1.030 (1.005-1.025); Urine Blood Negative (Negative); Urine Ketones Negative (Negative); Urine Protein Trace mg/dL (Neg-Trace)
[2024-01-17 02:31] LABS: Amphetamine Screen Urine POSITIVE (Not Detect); Barbiturates, Urine Not Detected (Not Detect); Benzodiazepines Screen Urine POSITIVE (Not Detect); Buprenorphine Scr Not Detected (Not Detect); Cannabinoid Screen Urine Not Detected (Not Detect); Cocaine Screen Urine POSITIVE (Not Detect); Fentanyl, urine POSITIVE (Not Detect); Methadone Screen, Urine Positive (Not Detect); Opiate Screen Urine POSITIVE (Not Detect); Oxycodone Screen Urine Not Detected (Not Detect); Phencyclidine Screen Urine Not Detected (Not Detect)
[2024-01-17 02:44] LABS: Bacteria Urine None Seen (None Seen); Hyaline Casts Urine 0-2 /LPF (0-2); RBC Urine 0-2 /HPF (0-2); Squamous Epithelial Cell Urine 0-2 /HPF (0-2); WBC Urine 0-5 /HPF (0-5)
--- NOTE | 2024-01-17 08:19 | PC.NURSE ---
per Radhika MEDINA patient last received 95mg methadone dose in the office at 1113 on 01/16/24.
--- NOTE | 2024-01-17 08:37 | PC.NURSE ---
care team meeting with patient at this time, methadone verification faxed to pharmacy
--- NOTE | 2024-01-17 08:55 | HE.PHANOTE ---
RE: methadone Last dose [facility] [address]; 95mg on 01/16/24
[2024-01-17] MEDS: methADONE HCl 20 MG/2 ML ORAL.CONC 95 MG PO (09:21)
--- NOTE | 2024-01-17 10:57 | ECG_ITS ---
Test Reason : DRUG USE Blood Pressure : / mmHG Vent. Rate : 041 BPM Atrial Rate : 041 BPM P-R Int : 162 ms QRS Dur : 088 ms QT Int : 542 ms P-R-T Axes : 065 085 072 degrees QTc Int : 447 ms Marked sinus bradycardia Abnormal ECG When compared with ECG of 08-DEC-2023 00:06, Vent. rate has decreased BY 25 BPM Referred By: Jovon Arreola Electronically Signed By:SHAYAN WONG
--- NOTE | 2024-01-17 13:31 | MHC.CARE ---
Jarrett has been accepted to [facility] for today, I spoke with Evy. Accepting provider is Dr. Galindo @ [address] [place] [address], [place] [address]. Reached out to CARE Team to notify them of placement for Section 12 to be signed, and reached out to the POD Nurse to set up transport.
[2024-01-17 13:41] VITALS: BP 104/57; PULSE 42; RESP 14; TEMP 36.4; O2SAT 98
--- NOTE | 2024-01-17 14:47 | PC.NURSE ---
last dose letter printed for facility. patient remains in behavioral control, resting quietly throughout shift offering no complaints. awaiting EMS transportation.
[2024-01-17 19:07] VITALS: BP 127/80; PULSE 80; RESP 16; TEMP 36.6; O2SAT 97
== END 2024-01-17 19:11 ==
PROVIDERS: Physician Assistant; Emergency Provider Internal Medicine; PCP Internal Medicine
DX: F33.3 Major depressive disorder, recurrent, severe with psychotic symptoms (principal); R45.851 Suicidal ideations; F19.10 Other psychoactive substance abuse, uncomplicated; F11.20 Opioid dependence, uncomplicated; F20.9 Schizophrenia, unspecified; F14.10 Cocaine abuse, uncomplicated; F17.210 Nicotine dependence, cigarettes, uncomplicated; Z79.899 Other long term (current) drug therapy
CPT/HCPCS: 36415; 80053; 80307; 81001; 85025; 93005; 99283; 99285; S9485

== ENCOUNTER → 2024-01-17 10:57 | Outpatient (BNV) | payer OTHER, SELFPAY | PROVIDERS: Emergency Provider Internal Medicine; PCP Internal Medicine; Visit Provider Internal Medicine | DX: R94.31 Abnormal electrocardiogram [ECG] [EKG] (principal) | CPT/HCPCS: 93010 ==

== ENCOUNTER 2024-02-01 05:03 | Inpatient (IN) | payer OTHER, SELFPAY ==
--- NOTE | 2024-02-01 | ECG_ITS ---
Test Reason : COCAINE USE Blood Pressure : / mmHG Vent. Rate : 049 BPM Atrial Rate : 049 BPM P-R Int : 158 ms QRS Dur : 084 ms QT Int : 478 ms P-R-T Axes : -23 150 147 degrees QTc Int : 431 ms Sinus bradycardia Right axis deviation Nonspecific ST and T wave abnormality Abnormal ECG When compared with ECG of 17-JAN-2024 11:08, Nonspecific T wave abnormality now evident in Inferior leads T wave inversion now evident in Anterior leads Referred By: Lynda Us Electronically Signed By:
--- NOTE | 2024-02-01 | ECG_ITS ---
Test Reason : COCAIN USE Blood Pressure : / mmHG Vent. Rate : 047 BPM Atrial Rate : 047 BPM P-R Int : 166 ms QRS Dur : 084 ms QT Int : 488 ms P-R-T Axes : 028 084 063 degrees QTc Int : 431 ms Sinus bradycardia Otherwise normal ECG When compared with ECG of 01-FEB-2024 08:43, No significant changes seen Referred By: Lynda Us Electronically Signed By:SHAYAN WONG
[2024-02-01 05:06] VITALS: BP 140/83; PULSE 57; RESP 20; TEMP 36.6; O2SAT 96; BMI 23.6
[2024-02-01 05:54] LABS: Appearance Urine Clear; Color Urine Dark Yellow; Glucose Urine UA Negative (Negative); Leukocyte Esterase Urine Negative (Negative); Nitrite Urine Negative (Negative); Specific Gravity - Urine 1.025 (1.005-1.025); Urine Blood Negative (Negative); Urine Ketones Negative (Negative); Urine Protein Negative (Neg-Trace)
[2024-02-01 06:05] LABS: Amphetamine Screen Urine Not Detected (Not Detect); Barbiturates, Urine Not Detected (Not Detect); Benzodiazepines Screen Urine Not Detected (Not Detect); Buprenorphine Scr Not Detected (Not Detect); Cannabinoid Screen Urine Not Detected (Not Detect); Cocaine Screen Urine POSITIVE (Not Detect); Fentanyl, urine POSITIVE (Not Detect); Methadone Screen, Urine Positive (Not Detect); Opiate Screen Urine Not Detected (Not Detect); Oxycodone Screen Urine Not Detected (Not Detect); Phencyclidine Screen Urine Not Detected (Not Detect)
[2024-02-01 06:16] LABS: MANUAL DIFF FLAG NO
[2024-02-01 06:18] LABS: Basophils Percent Auto 0.7 % (0-2); Eosinophils Absolute Auto 0.1 X10*3/uL (0.0-0.4); Eosinophils Percent Auto 2.5 % (0-4); Hematocrit 40.8 % (42.0-52.0); Hemoglobin 13.7 g/dl (14.0-18.0); Imm Gran Abs Auto 0.01 X10*3/uL (0.00-0.03); Imm Gran Pct Auto 0.2 % (0.0-0.4); Lymphocytes Absolute Auto 2.5 X10*3/uL (1.2-4.9); Lymphocytes Percent Auto 44.4 % (20-40); Mean Corpuscular HGB Conc 33.6 g/dl (31.0-36.0); Mean Corpuscular Hemoglobin 31.2 pg (27.0-33.0); Mean Corpuscular Volume 92.9 fL (80.0-98.0); Mean Platelet Volume 10.4 fL (9.4-12.4); Monocytes Absolute Auto 0.7 X10*3/uL (0.1-1.2); Monocytes Percent Auto 11.8 % (2-11); Neutrophils Absolute Auto 2.3 x10*3/uL (2.0-8.3); Neutrophils Percent Auto 40.4 % (45-73); Platelet Count 168 X10*3/uL (160-400); Red Blood Count 4.39 X10*6/uL (4.60-5.80); Red Cell Distribution Width 13.8 % (11.0-16.0); White Blood Count 5.6 X10*3/uL (4.8-10.8)
--- NOTE | 2024-02-01 06:19 | HE.PHANOTE ---
METHADONE Dose: 95mg, last dosed on 01/31/24 @0957 per Jessika at [facility].
[2024-02-01 06:37] LABS: Alanine Aminotransferase 158 U/L (0-40); Albumin Level 3.4 g/dL (3.5-5.0); Alkaline Phosphatase 89 U/L (39-117); Anion Gap 12 (12-20); Aspartate Amino Transferase 135 U/L (5-37); Bilirubin Total 0.5 mg/dL (0.0-1.0); Blood Urea Nitrogen 21 mg/dL (9-16); Calcium 8.8 mg/dL (8.4-10.2); Carbon Dioxide 27 mmol/L (22-29); Chloride 103 mmol/L (96-108); Creatinine Clr Calc Pharmacy 98.1; Estimated Glomerular Filt Rate > 60; Ethanol < 10 mg/dL; Glucose Random 150 mg/dL (60-115); Potassium 3.6 mmol/L (3.3-5.1); Sodium 138 mmol/L (135-145); Total Protein 6.6 g/dL (6.5-8.0)
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
[2024-02-01 06:49] VITALS: RESP 17
[2024-02-01] MEDS: methADONE HCl 20 MG/2 ML ORAL.CONC 95 MG PO (08:54)
[2024-02-01] MEDS: Doxycycline Monohydrate 100 MG CAPSULE PO ×2 (08:55→21:56)
[2024-02-01] MEDS: Escitalopram Oxalate 10 MG TABLET PO (08:55)
[2024-02-01] MEDS: Benztropine Mesylate 0.5 MG TABLET PO (08:55)
--- NOTE | 2024-02-01 09:17 | MHC.EDTECH ---
repeat EKG done at 0904 d/t leads misplaced
--- NOTE | 2024-02-01 09:41 | PC.NURSE ---
Care team in to assess
[2024-02-01 15:25] VITALS: BP 126/87; PULSE 45; RESP 18; TEMP 36.2; O2SAT 97
[2024-02-01 16:30] VITALS: BP 151/87; PULSE 53; RESP 14; TEMP 36.6; O2SAT 96; BMI 23.8
--- NOTE | 2024-02-01 17:28 | PC.ADMIT ---
48 y/o Malay speaking male admitted to M[facility] on a CV at 1623 from ED POD. Pt admitted for c/o?AH/VH and request for detox. Pt arrived to unit appearing sedated and struggling to keep his eyes open. Pt stated he was very tired and stated several times ?I just need to sleep?. Pt declined tour of unit, declined to review/sign admission paperwork, and declined to discuss events leading up to admission. Pt did offer that he drinks approximately a pint of vodka daily, with last reported drink three days ago. Pt denied hx of withdrawal seizures. Pt cooperative with safety/skin check, although struggled to stay awake during safety/skin check. No contraband found during safety check, however numerous alcohol prep pads and sanitizing wipe found in belongings. Pt brought to room after safety check, immediately got on bed and under the covers, and fell asleep. The ED report reviewed for further admission information. Per Ed report pt previously known to CARE team with prior inpatient admissions, including M3. Per ED report pt reported long history of substance abuse that included daily IV Heroin use, Fentanyl, and Cocaine. Pt stated that he self medicates with substances to cope with mental health issues. Pt has hx of several detox admissions. Pt reported to ED that he was experiencing AH of a voice calling his name. Pt stated he had been off his medication for an indeterminate amount of time after he reportedly lost them, and was not currently engaged with his outpatient providers. Pt is chronically homeless. Pt?s UTOX positive for Methadone, Fentanyl, and Cocaine. Pt receives Methadone from [facility] in [place]. His dose of 95mg was verified and given in ED today. Pt was placed on COWS and CIWA assessments.
[2024-02-01 21:55] VITALS: BP 129/69; PULSE 51; RESP 16; TEMP 36.8; O2SAT 97
[2024-02-01] MEDS: HaloperidoL 5 MG TABLET PO (21:56)
[2024-02-01] MEDS: Gabapentin 300 MG CAPSULE PO (21:56)
[2024-02-01] MEDS: traZODone HCL 50 MG TABLET PO (21:57)
[2024-02-01 22:00] VITALS: PULSE 51
[2024-02-02 08:00] VITALS: PULSE 54
[2024-02-02 09:00] VITALS: BP 119/60; PULSE 54; RESP 16; TEMP 37.2; O2SAT 98
[2024-02-02] MEDS: Benztropine Mesylate 0.5 MG TABLET PO (09:00)
[2024-02-02] MEDS: Gabapentin 300 MG CAPSULE PO ×2 (09:00→14:14)
[2024-02-02] MEDS: Folic Acid 1 MG TABLET PO (09:00)
[2024-02-02] MEDS: Thiamine HCL 100 MG TABLET PO (09:00)
[2024-02-02] MEDS: Doxycycline Monohydrate 100 MG CAPSULE PO (09:00)
[2024-02-02] MEDS: Escitalopram Oxalate 10 MG TABLET PO (09:00)
[2024-02-02] MEDS: methADONE HCl 20 MG/2 ML ORAL.CONC 95 MG PO (09:00)
[2024-02-02] MEDS: Multivitamin TABLET 1 TAB PO (09:00)
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
[2024-02-02] MEDS: Acetaminophen 325 MG TABLET 650 MG PO (12:44)
[2024-02-02] MEDS: HaloperidoL 5 MG TABLET PO (12:44)
[2024-02-02] MEDS: traZODone HCL 50 MG TABLET PO (20:44)
[2024-02-03 08:00] VITALS: BP 139/79; PULSE 46; RESP 16; TEMP 36.9; O2SAT 97
[2024-02-03 08:43] VITALS: PULSE 51
[2024-02-03] MEDS: methADONE HCl 20 MG/2 ML ORAL.CONC 95 MG PO (09:08)
[2024-02-03] MEDS: Multivitamin TABLET 1 TAB PO (09:10)
[2024-02-03] MEDS: Escitalopram Oxalate 10 MG TABLET PO (09:10)
[2024-02-03] MEDS: Acetaminophen 325 MG TABLET 650 MG PO (09:10)
[2024-02-03] MEDS: Folic Acid 1 MG TABLET PO (09:10)
[2024-02-03] MEDS: Benztropine Mesylate 0.5 MG TABLET PO (09:11)
[2024-02-03] MEDS: HaloperidoL 5 MG TABLET PO (09:11)
[2024-02-03] MEDS: Gabapentin 300 MG CAPSULE PO ×2 (09:11→21:48)
[2024-02-03] MEDS: Thiamine HCL 100 MG TABLET PO (09:11)
[2024-02-03] MEDS: Nicotine Polacrilex 2 MG GUM 4 MG BUCCAL (09:20)
--- NOTE | 2024-02-03 10:29 | HO.PSYCHPN ---
Subjective Subjective Date of Service: 02/03/24 Reason For Visit: Schizophrenia; opiate use disorder Interim History: met with patient; discussed with team pt a little more interactive, though mostly still in bed. He says he's starting to feel better; no AH and tolerating Haldol. No w/drawal symptoms. Discussed program and pt is ambivalent, considering it. Regarding Doxycyline, he refused to take it saying he does not need it; most recent script from 01/22/24 for left foot cellulitis; junior underwriter examined foot and no signs of infection. He denies that he had a recent foot infection and He refuses to take it. Mental Status Exam Mental Status Exam Narrative: Pt is alert and oriented; behavior is sleepy, calm, cooperative; dressed in casual attire, heavily tattooed arms, disheveled; mood is described as ok and affect congruent, tired; eye mostly remained closed; Speech is slowed, soft; psychomotor retardation present; thought process isgoal directed; Thought content is on tx; otherwise pertinent to relevant topics and without any delusional content, paranoid ideations or grandiosity; denies any SI/HI. No AH. Patients insight and judgment impaired but improving Diagnostics Vital Signs (24Hr): Vital Signs - 24 hr 02/03/24 08:00 02/03/24 08:43 Temperature 98.5 F Pulse Rate 46 L 51 Respiratory Rate 16 Blood Pressure 139/79 Pulse Oximetry 97 Oxygen Delivery Method Room Air BMI result Body Mass Index 23.8 Labs 02/01/24 06:11 02/01/24 06:11 Medications Medications Current Medications Acetaminophen (Acetaminophen 325 Mg Tablet) 650 mg PO Q6H PRN PRN Reason: Headache/Pain Mild Scale (1-3) Last Admin: 02/03/24 09:10 Dose: 650 mg Al Hydroxide/Mg Hydroxide (Magnesium Hydrox/Alum Hydrox 30 Ml Oral.Susp) 30 ml PO Q6H PRN PRN Reason: Heartburn/Nausea Benztropine Mesylate (Benztropine Mesylate 0.5 Mg Tablet) 0.5 mg PO DAILY JESSICA Last Admin: 02/03/24 09:11 Dose: 0.5 mg Clonidine HCl (Clonidine Hcl 0.1 Mg Tablet) 0.1 mg PO BID PRN; Protocol PRN Reason: withdrawal sx Doxycycline Monohydrate (Doxycycline Monohydrate 100 Mg Capsule) 100 mg PO Q12H [facility] Last Admin: 02/03/24 09:14 Dose: Not Given Escitalopram Oxalate (Escitalopram Oxalate 10 Mg Tablet) 10 mg PO DAILY [facility] Last Admin: 02/03/24 09:10 Dose: 10 mg Folic Acid (Folic Acid 1 Mg Tablet) 1 mg PO DAILY [facility] Last Admin: 02/03/24 09:10 Dose: 1 mg Gabapentin (Gabapentin 300 Mg Capsule) 300 mg PO BID [facility] Last Admin: 02/03/24 09:11 Dose: 300 mg Haloperidol (Haloperidol 5 Mg Tablet) 5 mg PO DAILY [facility] Last Admin: 02/03/24 09:11 Dose: 5 mg Hydroxyzine HCl (Hydroxyzine Hcl 25 Mg Tablet) 25 mg PO Q6H PRN PRN Reason: Anxiety Lorazepam (Lorazepam 1 Mg Tablet) 1 mg PO Q2H PRN PRN Reason: CIWA 6-10 Lorazepam (Lorazepam 1 Mg Tablet) 2 mg PO Q2H PRN PRN Reason: CIWA 11 and above Magnesium Hydroxide (Milk Of Magnesia 30 Ml Oral.Susp) 30 ml PO DAILY PRN PRN Reason: Constipation Methadone HCl (Methadone Hcl 20 Mg/2 Ml Oral.Conc) 95 mg PO DAILY [facility] Last Admin: 02/03/24 09:08 Dose: 95 mg Multivitamins/Vitamin C (Multivitamin Tablet) 1 tab PO DAILY [facility] Last Admin: 02/03/24 09:10 Dose: 1 tab Naloxone HCl (Naloxone Hcl Nasal 4 Mg [place]) 4 mg NOSTRILALT ONCE PRN PRN Reason: opiate overdose Nicotine (Nicotine 21 Mg Patch.Td24) 21 mg TRANSDERMA DAILY PRN PRN Reason: nicotine craving Nicotine Polacrilex (Nicotine Polacrilex 2 Mg Gum) 4 mg BUCCAL Q2H PRN PRN Reason: nicotine cravings Last Admin: 02/03/24 09:20 Dose: 4 mg Olanzapine (Olanzapine 5 Mg Tablet) 5 mg PO TID PRN PRN Reason: agitation,psychosis Thiamine HCl (Thiamine Hcl 100 Mg Tablet) 100 mg PO DAILY [facility] Last Admin: 02/03/24 09:11 Dose: 100 mg Trazodone HCl (Trazodone Hcl 50 Mg Tablet) 50 mg PO BEDTIME [facility] Last Admin: 02/02/24 20:44 Dose: 50 mg Trazodone HCl (Trazodone Hcl 50 Mg Tablet) 50 mg PO BEDTIME MRX1 PRN PRN Reason: Insomnia Allergies Allergies Allergy/AdvReac Type Severity Reaction Status Date / Time No Known Allergies Allergy Verified 02/01/24 05:09 [No Known Allergies*] Assessment & Plan Assessment & Plan (1) MDD (major depressive disorder), recurrent, severe, with psychosis: Status: Acute Code(s): F33.3 - Major depressive disorder, recurrent, severe with psychotic symptoms (2) Opioid use disorder: Status: Acute Code(s): F11.90 - Opioid use, unspecified, uncomplicated (3) Cocaine abuse: Status: Acute Code(s): F14.10 - Cocaine abuse, uncomplicated (4) Alcohol use disorder: Status: Acute Code(s): F10.90 - Alcohol use, unspecified, uncomplicated Plan Patient is a 48-year-old male with history of depression, psychotic symptoms and cocaine, opioid, alcohol abuse/dependence, who self presents for worsening depression and auditory hallucinations in the face of being off medications and relapsing with IV cocaine/opioids. Patient says that he was 7 months sober, on Haldol, until about 3 months ago when he relapsed. Patient reports that he has been abusing IV cocaine and heroin daily since then; he also has been drinking about a pint of vodka a day for the past 3 weeks. Patient remained depressed and having auditory hallucinations and has not slept for the past several days to 2 constant drug abuse. No suicidality however he felt he could not get himself sober or out of his depression unless he came to the hospital. Patient would like to get back on Haldol on which he says calms him and takes away AH. Patient denies history of trauma; he does endorse some possible manic episodes however the details are vague. Formulation/clinical reasoning: Will diagnosed with MDD with psychotic features for now; psychotic illness remains a rule out. Patient would like Haldol restarted which he says is helpful, calming and removed AH. Will place patient on CIWA for alcohol withdrawal Says methadone dose is high enough as it is Hospital course: 02/02 pt a little more interactive, though mostly still in bed. He says he's starting to feel better; no AH and tolerating Haldol. No w/drawal symptoms. Discussed program and pt is ambivalent, considering it. Regarding Doxycyline, he refused to take it saying he does not need it; most recent script from 01/22/24 for left foot cellulitis; junior underwriter examined foot and no signs of infection. He denies that he had a recent foot infection and He refuses to take it. Plan: CV Q 15 minute checks CIWA with p.r.nChet Cespedes DC cows since no PRNs ordered and patient on methadone; also denies feeling opioid withdrawal Restart Haldol 5 mg daily Restart Cogentin 0.5 mg daily Patient educated on: diagnosis, medication risk/benefits, substance abuse and medical condition Informed Consent: understands Reason for continued inpatient stay Substantial Risk for: rapid decompensation Time Spent With Patient Time: Total time managing care of this patient today ____ minutes.
[2024-02-03 20:00] VITALS: BP 107/55; PULSE 58; TEMP 36.5; O2SAT 94
[2024-02-03] MEDS: traZODone HCL 50 MG TABLET PO (21:49)
[2024-02-04 08:00] VITALS: BP 151/68; PULSE 50; RESP 18; TEMP 36.9; O2SAT 98
[2024-02-04] MEDS: Gabapentin 300 MG CAPSULE PO ×2 (09:09→21:45)
[2024-02-04] MEDS: Folic Acid 1 MG TABLET PO (09:09)
[2024-02-04] MEDS: Multivitamin TABLET 1 TAB PO (09:09)
[2024-02-04] MEDS: methADONE HCl 20 MG/2 ML ORAL.CONC 95 MG PO (09:09)
[2024-02-04] MEDS: Thiamine HCL 100 MG TABLET PO (09:09)
[2024-02-04] MEDS: Benztropine Mesylate 0.5 MG TABLET PO (09:09)
[2024-02-04] MEDS: Escitalopram Oxalate 10 MG TABLET PO (09:09)
[2024-02-04] MEDS: HaloperidoL 5 MG TABLET PO (09:09)
[2024-02-04 09:52] LABS: Cholesterol 132 mg/dL (<200); HDL Cholesterol 39 mg/dL (>40); LDL Cholesterol Calculated 68 mg/dL (<100); Magnesium 2.3 mg/dL (1.6-2.6); Triglycerides 129 mg/dL (<150)
--- NOTE | 2024-02-04 09:54 | HO.PSYCHPN ---
Subjective Subjective Date of Service: 02/04/24 Reason For Visit: Schizophrenia; opiate use disorder Interim History: met with patient; discussed with team Patient remains mostly to himself, lying in bed and saying he remains very tired. However he also says he started to feel better. Denies any AH. Expresses some interest in going to a program but also ambivalence. He agreed to start going to groups Mental Status Exam Mental Status Exam Narrative: Pt is alert and oriented; behavior is sleepy, calm, cooperative; dressed in casual attire, heavily tattooed arms, disheveled; mood is described as ok and affect congruent, tired; eye mostly remained closed; Speech is slowed, soft; psychomotor retardation present; thought process isgoal directed; Thought content is on tx; otherwise pertinent to relevant topics and without any delusional content, paranoid ideations or grandiosity; denies any SI/HI. No AH. Patients insight and judgment impaired but improving Diagnostics Vital Signs (24Hr): Vital Signs - 24 hr 02/03/24 20:00 Temperature 97.7 F Pulse Rate 58 Blood Pressure 107/55 L Pulse Oximetry 94 Oxygen Delivery Method Room Air BMI result Body Mass Index 23.8 Labs 02/01/24 06:11 02/01/24 06:11 Labs: Laboratory Results - last 48 hr 02/04/24 09:06 Magnesium 2.3 Triglycerides 129 Cholesterol 132 LDL Cholesterol, Calc 68 HDL Cholesterol 39 L TSH 0.80 Free T4 0.70 L Medications Medications Current Medications Acetaminophen (Acetaminophen 325 Mg Tablet) 650 mg PO Q6H PRN PRN Reason: Headache/Pain Mild Scale (1-3) Last Admin: 02/03/24 09:10 Dose: 650 mg Al Hydroxide/Mg Hydroxide (Magnesium Hydrox/Alum Hydrox 30 Ml Oral.Susp) 30 ml PO Q6H PRN PRN Reason: Heartburn/Nausea Benztropine Mesylate (Benztropine Mesylate 0.5 Mg Tablet) 0.5 mg PO DAILY [facility] Last Admin: 02/04/24 09:09 Dose: 0.5 mg Clonidine HCl (Clonidine Hcl 0.1 Mg Tablet) 0.1 mg PO BID PRN; Protocol PRN Reason: withdrawal sx Escitalopram Oxalate (Escitalopram Oxalate 10 Mg Tablet) 10 mg PO DAILY [facility] Last Admin: 02/04/24 09:09 Dose: 10 mg Folic Acid (Folic Acid 1 Mg Tablet) 1 mg PO DAILY [facility] Last Admin: 02/04/24 09:09 Dose: 1 mg Gabapentin (Gabapentin 300 Mg Capsule) 300 mg PO BID [facility] Stop: 02/04/24 23:00 Last Admin: 02/04/24 09:09 Dose: 300 mg Haloperidol (Haloperidol 5 Mg Tablet) 5 mg PO DAILY [facility] Last Admin: 02/04/24 09:09 Dose: 5 mg Hydroxyzine HCl (Hydroxyzine Hcl 25 Mg Tablet) 25 mg PO Q6H PRN PRN Reason: Anxiety Magnesium Hydroxide (Milk Of Magnesia 30 Ml Oral.Susp) 30 ml PO DAILY PRN PRN Reason: Constipation Methadone HCl (Methadone Hcl 20 Mg/2 Ml Oral.Conc) 95 mg PO DAILY [facility] Last Admin: 02/04/24 09:09 Dose: 95 mg Multivitamins/Vitamin C (Multivitamin Tablet) 1 tab PO DAILY [facility] Last Admin: 02/04/24 09:09 Dose: 1 tab Naloxone HCl (Naloxone Hcl Nasal 4 Mg [place]) 4 mg NOSTRILALT ONCE PRN PRN Reason: opiate overdose Nicotine (Nicotine 21 Mg Patch.Td24) 21 mg TRANSDERMA DAILY PRN PRN Reason: nicotine craving Nicotine Polacrilex (Nicotine Polacrilex 2 Mg Gum) 4 mg BUCCAL Q2H PRN PRN Reason: nicotine cravings Last Admin: 02/03/24 09:20 Dose: 4 mg Olanzapine (Olanzapine 5 Mg Tablet) 5 mg PO TID PRN PRN Reason: agitation,psychosis Thiamine HCl (Thiamine Hcl 100 Mg Tablet) 100 mg PO DAILY [facility] Last Admin: 02/04/24 09:09 Dose: 100 mg Trazodone HCl (Trazodone Hcl 50 Mg Tablet) 50 mg PO BEDTIME [facility] Last Admin: 02/03/24 21:49 Dose: 50 mg Trazodone HCl (Trazodone Hcl 50 Mg Tablet) 50 mg PO BEDTIME MRX1 PRN PRN Reason: Insomnia Allergies Allergies Allergy/AdvReac Type Severity Reaction Status Date / Time No Known Allergies Allergy Verified 02/01/24 05:09 [No Known Allergies*] Assessment & Plan Assessment & Plan (1) MDD (major depressive disorder), recurrent, severe, with psychosis: Status: Acute Code(s): F33.3 - Major depressive disorder, recurrent, severe with psychotic symptoms (2) Opioid use disorder: Status: Acute Code(s): F11.90 - Opioid use, unspecified, uncomplicated (3) Cocaine abuse: Status: Acute Code(s): F14.10 - Cocaine abuse, uncomplicated (4) Alcohol use disorder: Status: Acute Code(s): F10.90 - Alcohol use, unspecified, uncomplicated Plan Patient is a 48-year-old male with history of depression, psychotic symptoms and cocaine, opioid, alcohol abuse/dependence, who self presents for worsening depression and auditory hallucinations in the face of being off medications and relapsing with IV cocaine/opioids. Patient says that he was 7 months sober, on Haldol, until about 3 months ago when he relapsed. Patient reports that he has been abusing IV cocaine and heroin daily since then; he also has been drinking about a pint of vodka a day for the past 3 weeks. Patient remained depressed and having auditory hallucinations and has not slept for the past several days to 2 constant drug abuse. No suicidality however he felt he could not get himself sober or out of his depression unless he came to the hospital. Patient would like to get back on Haldol on which he says calms him and takes away AH. Patient denies history of trauma; he does endorse some possible manic episodes however the details are vague. Formulation/clinical reasoning: Will diagnosed with MDD with psychotic features for now; psychotic illness remains a rule out. Patient would like Haldol restarted which he says is helpful, calming and removed AH. Will place patient on CIWA for alcohol withdrawal Says methadone dose is high enough as it is Hospital course: 02/02 pt a little more interactive, though mostly still in bed. He says he's starting to feel better; no AH and tolerating Haldol. No w/drawal symptoms. Discussed program and pt is ambivalent, considering it. Regarding Doxycyline, he refused to take it saying he does not need it; most recent script from 01/22/24 for left foot cellulitis; sql report writer examined foot and no signs of infection. He denies that he had a recent foot infection and He refuses to take it. Reviewed ED note and no mention of either cellulitis or antibiotic. 02/03 mostly same presentation although patient says he started to feel better Plan: CV Q 15 minute checks Continue Haldol 5 mg daily Continue Cogentin 0.5 mg daily Continue Lexapro DC CIWA no withdrawal DC cows since no PRNs ordered and patient on methadone; also denies feeling opioid withdrawal Patient educated on: diagnosis, medication risk/benefits, substance abuse and therapeutic strategies Informed Consent: understands Reason for continued inpatient stay Substantial Risk for: rapid decompensation and med/psych decompensation Time Spent With Patient Time: Total time managing care of this patient today ____ minutes.
[2024-02-04 10:35] LABS: Folate 12.7 ng/mL (> or = 4.0); Vitamin B12 739 pg/mL (200-900)
[2024-02-04 10:54] LABS: Estimated Average Glucose 97 mg/dL
[2024-02-04] MEDS: traZODone HCL 50 MG TABLET PO (21:45)
[2024-02-04] MEDS: Acetaminophen 325 MG TABLET 650 MG PO (21:46)
[2024-02-04 21:50] VITALS: BP 141/69; PULSE 54; TEMP 36.3
[2024-02-05 05:24] VITALS: BP 138/86
[2024-02-05] MEDS: cloNIDine HCL 0.1 MG TABLET PO (05:24)
[2024-02-05] MEDS: Ibuprofen 800 MG TABLET PO ×2 (05:24→21:46)
[2024-02-05 08:00] VITALS: BP 121/53; PULSE 64; RESP 15; TEMP 36.4; O2SAT 94
[2024-02-05] MEDS: Benztropine Mesylate 0.5 MG TABLET PO (08:57)
[2024-02-05] MEDS: Thiamine HCL 100 MG TABLET PO (08:57)
[2024-02-05] MEDS: Folic Acid 1 MG TABLET PO (08:57)
[2024-02-05] MEDS: Escitalopram Oxalate 10 MG TABLET PO (08:57)
[2024-02-05] MEDS: Multivitamin TABLET 1 TAB PO (08:57)
[2024-02-05] MEDS: HaloperidoL 5 MG TABLET PO (08:57)
[2024-02-05] MEDS: methADONE HCl 20 MG/2 ML ORAL.CONC 95 MG PO (08:58)
--- NOTE | 2024-02-05 09:57 | HO.PSYCHPN ---
Subjective Subjective Date of Service: 02/05/24 Reason For Visit: Schizophrenia; opiate use disorder Interim History: met with patient; discussed with team Patient more talkative and engaged today. He shared that he is a and served in [facility]. Patient sustained right ear injury during his service. He is never availed himself of benefits from the [facility]. patient shared about history of bilateral foot pain which he says is neuropathy. He said he got a prescription for this when he was last at the emergency room and would like it to be continue now for that purpose. Grease Maker Head discussed risks of combining gabapentin with substance abuse which patient said he understood and would be very careful about. Patient up and about, in the milieu and starting to attend groups. Mental Status Exam Mental Status Exam Narrative: Pt is alert and oriented; behavior is friendly, calm, cooperative; dressed in hospital attire, heavily tattooed arms, disheveled; mood is described as ok and affect congruent, tired; eye mostly remained closed; Speech is a little slowed, soft but less so; still psychomotor retardation present; thought process is goal directed, logical; Thought content is on tx; otherwise pertinent to relevant topics and without any delusional content, paranoid ideations or grandiosity; denies any SI/HI. No AH. Patients insight and judgment fair Diagnostics Vital Signs (24Hr): Vital Signs - 24 hr 02/04/24 21:50 02/05/24 05:24 02/05/24 08:00 Temperature 97.4 F 97.6 F Pulse Rate 54 64 Respiratory Rate 15 Blood Pressure 141/69 H 138/86 121/53 L Pulse Oximetry 94 BMI result Body Mass Index 23.8 Labs 02/01/24 06:11 02/01/24 06:11 Labs: Laboratory Results - last 48 hr 02/01/20 02/04/24 06:11 09:06 Estimat Average Glucose 97 Cancelled Hemoglobin A1c % 5.0 Cancelled Magnesium 2.3 Triglycerides 129 Cholesterol 132 LDL Cholesterol, Calc 68 HDL Cholesterol 39 L Vitamin B12 739 Folate 12.7 TSH 0.80 Free T4 0.70 L Medications Medications Current Medications Acetaminophen (Acetaminophen 325 Mg Tablet) 650 mg PO Q6H PRN PRN Reason: Headache/Pain Mild Scale (1-3) Last Admin: 02/04/24 21:46 Dose: 650 mg Al Hydroxide/Mg Hydroxide (Magnesium Hydrox/Alum Hydrox 30 Ml Oral.Susp) 30 ml PO Q6H PRN PRN Reason: Heartburn/Nausea Benztropine Mesylate (Benztropine Mesylate 0.5 Mg Tablet) 0.5 mg PO DAILY [facility] Last Admin: 02/05/24 08:57 Dose: 0.5 mg Clonidine HCl (Clonidine Hcl 0.1 Mg Tablet) 0.1 mg PO BID PRN; Protocol PRN Reason: withdrawal sx Last Admin: 02/05/24 05:24 Dose: 0.1 mg Escitalopram Oxalate (Escitalopram Oxalate 10 Mg Tablet) 10 mg PO DAILY [facility] Last Admin: 02/05/24 08:57 Dose: 10 mg Folic Acid (Folic Acid 1 Mg Tablet) 1 mg PO DAILY [facility] Last Admin: 02/05/24 08:57 Dose: 1 mg Haloperidol (Haloperidol 5 Mg Tablet) 5 mg PO DAILY [facility] Last Admin: 02/05/24 08:57 Dose: 5 mg Hydroxyzine HCl (Hydroxyzine Hcl 25 Mg Tablet) 25 mg PO Q6H PRN PRN Reason: Anxiety Ibuprofen (Ibuprofen 800 Mg Tablet) 800 mg PO Q8H PRN PRN Reason: foot pain Last Admin: 02/05/24 05:24 Dose: 800 mg Magnesium Hydroxide (Milk Of Magnesia 30 Ml Oral.Susp) 30 ml PO DAILY PRN PRN Reason: Constipation Methadone HCl (Methadone Hcl 20 Mg/2 Ml Oral.Conc) 95 mg PO DAILY [facility] Last Admin: 02/05/24 08:58 Dose: 95 mg Multivitamins/Vitamin C (Multivitamin Tablet) 1 tab PO DAILY [facility] Last Admin: 02/05/24 08:57 Dose: 1 tab Naloxone HCl (Naloxone Hcl Nasal 4 Mg [place]) 4 mg NOSTRILALT ONCE PRN PRN Reason: opiate overdose Nicotine (Nicotine 21 Mg Patch.Td24) 21 mg TRANSDERMA DAILY PRN PRN Reason: nicotine craving Nicotine Polacrilex (Nicotine Polacrilex 2 Mg Gum) 4 mg BUCCAL Q2H PRN PRN Reason: nicotine cravings Last Admin: 02/03/24 09:20 Dose: 4 mg Olanzapine (Olanzapine 5 Mg Tablet) 5 mg PO TID PRN PRN Reason: agitation,psychosis Thiamine HCl (Thiamine Hcl 100 Mg Tablet) 100 mg PO DAILY [facility] Last Admin: 02/05/24 08:57 Dose: 100 mg Trazodone HCl (Trazodone Hcl 50 Mg Tablet) 50 mg PO BEDTIME [facility] Last Admin: 02/04/24 21:45 Dose: 50 mg Trazodone HCl (Trazodone Hcl 50 Mg Tablet) 50 mg PO BEDTIME MRX1 PRN PRN Reason: Insomnia Allergies Allergies Allergy/AdvReac Type Severity Reaction Status Date / Time No Known Allergies Allergy Verified 02/01/24 05:09 [No Known Allergies*] Assessment & Plan Assessment & Plan (1) MDD (major depressive disorder), recurrent, severe, with psychosis: Status: Acute Code(s): F33.3 - Major depressive disorder, recurrent, severe with psychotic symptoms (2) Opioid use disorder: Status: Acute Code(s): F11.90 - Opioid use, unspecified, uncomplicated (3) Cocaine abuse: Status: Acute Code(s): F14.10 - Cocaine abuse, uncomplicated (4) Alcohol use disorder: Status: Acute Code(s): F10.90 - Alcohol use, unspecified, uncomplicated Plan Patient is a 48-year-old male with history of depression, psychotic symptoms and cocaine, opioid, alcohol abuse/dependence, who self presents for worsening depression and auditory hallucinations in the face of being off medications and relapsing with IV cocaine/opioids. Patient says that he was 7 months sober, on Haldol, until about 3 months ago when he relapsed. Patient reports that he has been abusing IV cocaine and heroin daily since then; he also has been drinking about a pint of vodka a day for the past 3 weeks. Patient remained depressed and having auditory hallucinations and has not slept for the past several days to 2 constant drug abuse. No suicidality however he felt he could not get himself sober or out of his depression unless he came to the hospital. Patient would like to get back on Haldol on which he says calms him and takes away AH. Patient denies history of trauma; he does endorse some possible manic episodes however the details are vague. Formulation/clinical reasoning: Will diagnosed with MDD with psychotic features for now; psychotic illness remains a rule out. Patient would like Haldol restarted which he says is helpful, calming and removed AH. Will place patient on CIWA for alcohol withdrawal Says methadone dose is high enough as it is Hospital course: 6/16 pt a little more interactive, though mostly still in bed. He says he's starting to feel better; no AH and tolerating Haldol. No w/drawal symptoms. Discussed program and pt is ambivalent, considering it. Regarding Doxycyline, he refused to take it saying he does not need it; most recent script from 01/22/24 for left foot cellulitis; underwriter examined foot and no signs of infection. He denies that he had a recent foot infection and He refuses to take it. Reviewed ED note and no mention of either cellulitis or antibiotic. 02/03 mostly same presentation although patient says he started to feel better 02/04 patient reports that he started to feel better. Of note brighter affect and he is out and about in the milieu more more talkative. Discussed his history in service and right ear damage. Discussed history of bilateral foot neuropathy and patient asked to be back on gabapentin. He understands the risks of combining gabapentin with substance abuse -patient remains hopeful about getting into a program, wanting to return to sobriety. Plan: CV Q 15 minute checks Gabapentin 300 mg t.i.d. for bilateral foot neuropathy Continue Haldol 5 mg daily Continue Cogentin 0.5 mg daily Continue Lexapro DC CIWA no withdrawal DC cows since no PRNs ordered and patient on methadone; also denies feeling opioid withdrawal Patient educated on: diagnosis, medication risk/benefits, therapeutic strategies and medical condition Informed Consent: understands Reason for continued inpatient stay Substantial Risk for: stable for discharge and rapid decompensation Time Spent With Patient Time: Total time managing care of this patient today ____ minutes.
[2024-02-05] MEDS: Gabapentin 300 MG CAPSULE PO ×2 (14:18→21:13)
[2024-02-05 20:00] VITALS: BP 116/76; PULSE 55; RESP 16; TEMP 36.4; O2SAT 98
[2024-02-05] MEDS: traZODone HCL 50 MG TABLET PO (21:13)
[2024-02-05] MEDS: hydrOXYzine HCL 25 MG TABLET PO (21:46)
[2024-02-06] MEDS: traZODone HCL 50 MG TABLET PO ×2 (00:07→20:36)
[2024-02-06 08:00] VITALS: BP 143/67; PULSE 54; RESP 18; TEMP 36.6; O2SAT 96
[2024-02-06] MEDS: methADONE HCl 20 MG/2 ML ORAL.CONC 95 MG PO (08:48)
[2024-02-06] MEDS: Thiamine HCL 100 MG TABLET PO (08:51)
[2024-02-06] MEDS: Benztropine Mesylate 0.5 MG TABLET PO (08:51)
[2024-02-06] MEDS: Multivitamin TABLET 1 TAB PO (08:51)
[2024-02-06] MEDS: Folic Acid 1 MG TABLET PO (08:51)
[2024-02-06] MEDS: Escitalopram Oxalate 10 MG TABLET PO (08:51)
[2024-02-06] MEDS: HaloperidoL 5 MG TABLET PO (08:51)
[2024-02-06] MEDS: Gabapentin 300 MG CAPSULE PO ×2 (08:51→20:36)
--- NOTE | 2024-02-06 15:19 | HO.PSYCHPN ---
Subjective Subjective Date of Service: 02/06/24 Reason For Visit: Schizophrenia; opiate use disorder Interim History: Met with patient; discussed with team Patient doing better. Says gabapentin has already been helping his feet and he is noticeably walking in the milieu more. Grateful for help received. Going to groups. Discussed aftercare and patient maintains he wants to get into a program to help with sobriety. Mental Status Exam Mental Status Exam Narrative: Pt is alert and oriented; behavior is friendly, calm, cooperative; dressed in hospital attire, heavily tattooed arms, disheveled; mood is described as better and affect congruent, tired; eye contact appropriate; Speech is more regular volume, rate and prosody; some l psychomotor retardation present, but less; thought process is goal directed, logical; Thought content is on tx; otherwise pertinent to relevant topics and without any delusional content, paranoid ideations or grandiosity; denies any SI/HI. No AH. Patients insight and judgment fair Diagnostics Vital Signs (24Hr): Vital Signs - 24 hr 02/05/24 20:00 02/06/24 08:00 Temperature 97.6 F 97.9 F Pulse Rate 55 54 Respiratory Rate 16 18 Blood Pressure 116/76 143/67 H Pulse Oximetry 98 96 Oxygen Delivery Method Room Air Room Air BMI result Body Mass Index 23.8 Labs 02/01/24 06:11 02/01/24 06:11 Medications Medications Current Medications Acetaminophen (Acetaminophen 325 Mg Tablet) 650 mg PO Q6H PRN PRN Reason: Headache/Pain Mild Scale (1-3) Last Admin: 02/04/24 21:46 Dose: 650 mg Al Hydroxide/Mg Hydroxide (Magnesium Hydrox/Alum Hydrox 30 Ml Oral.Susp) 30 ml PO Q6H PRN PRN Reason: Heartburn/Nausea Benztropine Mesylate (Benztropine Mesylate 0.5 Mg Tablet) 0.5 mg PO BEDTIME [facility] Clonidine HCl (Clonidine Hcl 0.1 Mg Tablet) 0.1 mg PO BID PRN; Protocol PRN Reason: withdrawal sx Last Admin: 02/05/24 05:24 Dose: 0.1 mg Escitalopram Oxalate (Escitalopram Oxalate 10 Mg Tablet) 10 mg PO DAILY [facility] Last Admin: 02/06/24 08:51 Dose: 10 mg Folic Acid (Folic Acid 1 Mg Tablet) 1 mg PO DAILY [facility] Last Admin: 02/06/24 08:51 Dose: 1 mg Gabapentin (Gabapentin 300 Mg Capsule) 300 mg PO TID [facility] Last Admin: 02/06/24 08:51 Dose: 300 mg Haloperidol (Haloperidol 5 Mg Tablet) 5 mg PO BEDTIME [facility] Hydroxyzine HCl (Hydroxyzine Hcl 25 Mg Tablet) 25 mg PO Q6H PRN PRN Reason: Anxiety Last Admin: 02/05/24 21:46 Dose: 25 mg Ibuprofen (Ibuprofen 800 Mg Tablet) 800 mg PO Q8H PRN PRN Reason: foot pain Last Admin: 02/05/24 21:46 Dose: 800 mg Magnesium Hydroxide (Milk Of Magnesia 30 Ml Oral.Susp) 30 ml PO DAILY PRN PRN Reason: Constipation Methadone HCl (Methadone Hcl 20 Mg/2 Ml Oral.Conc) 95 mg PO DAILY [facility] Last Admin: 02/06/24 08:48 Dose: 95 mg Multivitamins/Vitamin C (Multivitamin Tablet) 1 tab PO DAILY [facility] Last Admin: 02/06/24 08:51 Dose: 1 tab Naloxone HCl (Naloxone Hcl Nasal 4 Mg [place]) 4 mg NOSTRILALT ONCE PRN PRN Reason: opiate overdose Nicotine (Nicotine 21 Mg Patch.Td24) 21 mg TRANSDERMA DAILY PRN PRN Reason: nicotine craving Nicotine Polacrilex (Nicotine Polacrilex 2 Mg Gum) 4 mg BUCCAL Q2H PRN PRN Reason: nicotine cravings Last Admin: 02/03/24 09:20 Dose: 4 mg Olanzapine (Olanzapine 5 Mg Tablet) 5 mg PO TID PRN PRN Reason: agitation,psychosis Thiamine HCl (Thiamine Hcl 100 Mg Tablet) 100 mg PO DAILY [facility] Last Admin: 02/06/24 08:51 Dose: 100 mg Trazodone HCl (Trazodone Hcl 50 Mg Tablet) 50 mg PO BEDTIME [facility] Last Admin: 02/05/24 21:13 Dose: 50 mg Trazodone HCl (Trazodone Hcl 50 Mg Tablet) 50 mg PO BEDTIME MRX1 PRN PRN Reason: Insomnia Last Admin: 02/06/24 00:07 Dose: 50 mg Allergies Allergies Allergy/AdvReac Type Severity Reaction Status Date / Time No Known Allergies Allergy Verified 02/01/24 05:09 [No Known Allergies*] Assessment & Plan Assessment & Plan (1) MDD (major depressive disorder), recurrent, severe, with psychosis: Status: Acute Code(s): F33.3 - Major depressive disorder, recurrent, severe with psychotic symptoms (2) Opioid use disorder: Status: Acute Code(s): F11.90 - Opioid use, unspecified, uncomplicated (3) Cocaine abuse: Status: Acute Code(s): F14.10 - Cocaine abuse, uncomplicated (4) Alcohol use disorder: Status: Acute Code(s): F10.90 - Alcohol use, unspecified, uncomplicated Plan Patient is a 48-year-old male with history of depression, psychotic symptoms and cocaine, opioid, alcohol abuse/dependence, who self presents for worsening depression and auditory hallucinations in the face of being off medications and relapsing with IV cocaine/opioids. Patient says that he was 7 months sober, on Haldol, until about 3 months ago when he relapsed. Patient reports that he has been abusing IV cocaine and heroin daily since then; he also has been drinking about a pint of vodka a day for the past 3 weeks. Patient remained depressed and having auditory hallucinations and has not slept for the past several days to 2 constant drug abuse. No suicidality however he felt he could not get himself sober or out of his depression unless he came to the hospital. Patient would like to get back on Haldol on which he says calms him and takes away AH. Patient denies history of trauma; he does endorse some possible manic episodes however the details are vague. Formulation/clinical reasoning: Will diagnosed with MDD with psychotic features for now; psychotic illness remains a rule out. Patient would like Haldol restarted which he says is helpful, calming and removed AH. Will place patient on CIWA for alcohol withdrawal Says methadone dose is high enough as it is Hospital course: 02/02 pt a little more interactive, though mostly still in bed. He says he's starting to feel better; no AH and tolerating Haldol. No w/drawal symptoms. Discussed program and pt is ambivalent, considering it. Regarding Doxycyline, he refused to take it saying he does not need it; most recent script from 01/22/24 for left foot cellulitis; underwriter mortgage loan examined foot and no signs of infection. He denies that he had a recent foot infection and He refuses to take it. Reviewed ED note and no mention of either cellulitis or antibiotic. 02/03 mostly same presentation although patient says he started to feel better 02/04 patient reports that he started to feel better. Of note brighter affect and he is out and about in the milieu more more talkative. Discussed his history in service and right ear damage. Discussed history of bilateral foot neuropathy and patient asked to be back on gabapentin. He understands the risks of combining gabapentin with substance abuse -patient remains hopeful about getting into a program, wanting to return to sobriety. 02/05 continues to improve; gabapentin helping with neuropathy Plan: CV Q 15 minute checks Gabapentin 300 mg t.i.d. for bilateral foot neuropathy Continue Haldol 5 mg daily Continue Cogentin 0.5 mg daily Continue Lexapro DC CIWA no withdrawal DC cows since no PRNs ordered and patient on methadone; also denies feeling opioid withdrawal Patient educated on: diagnosis, medication risk/benefits and medical condition Informed Consent: understands Reason for continued inpatient stay Substantial Risk for: stable for discharge Time Spent With Patient Time: Total time managing care of this patient today ____ minutes.
[2024-02-06 20:00] VITALS: BP 122/60; PULSE 56; RESP 16; TEMP 36.6; O2SAT 99
[2024-02-07] MEDS: Acetaminophen 325 MG TABLET 650 MG PO (04:21)
[2024-02-07] MEDS: OLANZapine 5 MG TABLET PO (06:15)
[2024-02-07] MEDS: Ibuprofen 800 MG TABLET PO (07:51)
[2024-02-07 08:00] VITALS: BP 121/79; PULSE 53; RESP 16; TEMP 36.4; O2SAT 94
[2024-02-07] MEDS: methADONE HCl 20 MG/2 ML ORAL.CONC 95 MG PO (08:24)
[2024-02-07] MEDS: Thiamine HCL 100 MG TABLET PO (08:29)
[2024-02-07] MEDS: Escitalopram Oxalate 10 MG TABLET PO (08:29)
[2024-02-07] MEDS: Multivitamin TABLET 1 TAB PO (08:29)
[2024-02-07] MEDS: Folic Acid 1 MG TABLET PO (08:29)
[2024-02-07] MEDS: Gabapentin 300 MG CAPSULE PO ×3 (08:29→21:11)
[2024-02-07 10:00] VITALS: BMI 25.6
--- NOTE | 2024-02-07 11:20 | HO.PSYCHPN ---
Subjective Subjective Date of Service: 02/07/24 Reason For Visit: Schizophrenia; opiate use disorder Interim History: Met with patient; discussed with team Patient appeared more confused this morning, exit seeking in a disorganized way, hard to finish sentences, some mild paranoid ideation. He said i was in the medication world, and i took it this morning and it was nice...but then i was lost... -denies AVH -i was prescribed haldol and cogentin years ago but i got into drugs and i stopped taking them. It helped with voices Real Estate Intern reviewed chart and indications for Haldol prescription in the past. Patient agreed to increasing Haldol now. Patient received an extra Haldol 5 mg dose and confusion fully resolved and patient felt much more organized. Mental Status Exam Mental Status Exam Narrative: Pt is alert and oriented; behavior is friendly, calm, cooperative; disorganized for a few hours time but this resolved; dressed in hospital attire, heavily tattooed arms, disheveled; mood is described as ok and affect congruent, tired; eye contact appropriate; Speech is more regular volume, rate and prosody; some psychomotor retardation present, but less; thought process temporarily disorganized but resolved and returned to being goal directed, logical; Thought content is on tx; otherwise pertinent to relevant topics and without any delusional content, paranoid ideations or grandiosity; denies any SI/HI. No AH. Patients insight and judgment fair Diagnostics Vital Signs (24Hr): Vital Signs - 24 hr 02/06/24 20:00 02/07/24 08:00 Temperature 98 F 97.5 F Pulse Rate 56 53 Respiratory Rate 16 16 Blood Pressure 122/60 121/79 Pulse Oximetry 99 94 Oxygen Delivery Method Room Air Room Air BMI result Body Mass Index 23.8 Labs 02/01/24 06:11 02/01/24 06:11 Medications Medications Current Medications Acetaminophen (Acetaminophen 325 Mg Tablet) 650 mg PO Q6H PRN PRN Reason: Headache/Pain Mild Scale (1-3) Last Admin: 02/07/24 04:21 Dose: 650 mg Al Hydroxide/Mg Hydroxide (Magnesium Hydrox/Alum Hydrox 30 Ml Oral.Susp) 30 ml PO Q6H PRN PRN Reason: Heartburn/Nausea Benztropine Mesylate (Benztropine Mesylate 0.5 Mg Tablet) 0.5 mg PO BEDTIME [facility] Clonidine HCl (Clonidine Hcl 0.1 Mg Tablet) 0.1 mg PO BID PRN; Protocol PRN Reason: withdrawal sx Last Admin: 02/05/24 05:24 Dose: 0.1 mg Escitalopram Oxalate (Escitalopram Oxalate 10 Mg Tablet) 10 mg PO DAILY [facility] Last Admin: 02/07/24 08:29 Dose: 10 mg Folic Acid (Folic Acid 1 Mg Tablet) 1 mg PO DAILY [facility] Last Admin: 02/07/24 08:29 Dose: 1 mg Gabapentin (Gabapentin 300 Mg Capsule) 300 mg PO TID [facility] Last Admin: 02/07/24 08:29 Dose: 300 mg Haloperidol (Haloperidol 5 Mg Tablet) 5 mg PO BEDTIME [facility] Hydroxyzine HCl (Hydroxyzine Hcl 25 Mg Tablet) 25 mg PO Q6H PRN PRN Reason: Anxiety Last Admin: 02/05/24 21:46 Dose: 25 mg Ibuprofen (Ibuprofen 800 Mg Tablet) 800 mg PO Q8H PRN PRN Reason: foot pain Last Admin: 02/07/24 07:51 Dose: 800 mg Magnesium Hydroxide (Milk Of Magnesia 30 Ml Oral.Susp) 30 ml PO DAILY PRN PRN Reason: Constipation Methadone HCl (Methadone Hcl 20 Mg/2 Ml Oral.Conc) 95 mg PO DAILY [facility] Last Admin: 02/07/24 08:24 Dose: 95 mg Multivitamins/Vitamin C (Multivitamin Tablet) 1 tab PO DAILY [facility] Last Admin: 02/07/24 08:29 Dose: 1 tab Naloxone HCl (Naloxone Hcl Nasal 4 Mg [place]) 4 mg NOSTRILALT ONCE PRN PRN Reason: opiate overdose Nicotine (Nicotine 21 Mg Patch.Td24) 21 mg TRANSDERMA DAILY PRN PRN Reason: nicotine craving Nicotine Polacrilex (Nicotine Polacrilex 2 Mg Gum) 4 mg BUCCAL Q2H PRN PRN Reason: nicotine cravings Last Admin: 02/03/24 09:20 Dose: 4 mg Olanzapine (Olanzapine 5 Mg Tablet) 5 mg PO TID PRN PRN Reason: agitation,psychosis Last Admin: 02/07/24 06:15 Dose: 5 mg Thiamine HCl (Thiamine Hcl 100 Mg Tablet) 100 mg PO DAILY [facility] Last Admin: 02/07/24 08:29 Dose: 100 mg Trazodone HCl (Trazodone Hcl 50 Mg Tablet) 50 mg PO BEDTIME [facility] Last Admin: 02/06/24 20:36 Dose: 50 mg Trazodone HCl (Trazodone Hcl 50 Mg Tablet) 50 mg PO BEDTIME MRX1 PRN PRN Reason: Insomnia Last Admin: 02/06/24 00:07 Dose: 50 mg Allergies Allergies Allergy/AdvReac Type Severity Reaction Status Date / Time No Known Allergies Allergy Verified 02/01/24 05:09 [No Known Allergies*] Assessment & Plan Assessment & Plan (1) Schizoaffective disorder, depressive type: Status: Acute Code(s): F25.1 - Schizoaffective disorder, depressive type (2) Opioid use disorder: Status: Acute Code(s): F11.90 - Opioid use, unspecified, uncomplicated (3) Cocaine abuse: Status: Acute Code(s): F14.10 - Cocaine abuse, uncomplicated (4) Alcohol use disorder: Status: Acute Code(s): F10.90 - Alcohol use, unspecified, uncomplicated Plan Patient is a 48-year-old male with history of depression, psychotic symptoms and cocaine, opioid, alcohol abuse/dependence, who self presents for worsening depression and auditory hallucinations in the face of being off medications and relapsing with IV cocaine/opioids. Patient says that he was 7 months sober, on Haldol, until about 3 months ago when he relapsed. Patient reports that he has been abusing IV cocaine and heroin daily since then; he also has been drinking about a pint of vodka a day for the past 3 weeks. Patient remained depressed and having auditory hallucinations and has not slept for the past several days to 2 constant drug abuse. No suicidality however he felt he could not get himself sober or out of his depression unless he came to the hospital. Patient would like to get back on Haldol on which he says calms him and takes away AH. Patient denies history of trauma; he does endorse some possible manic episodes however the details are vague. Formulation/clinical reasoning: Will diagnosed with MDD with psychotic features for now; psychotic illness remains a rule out. Patient would like Haldol restarted which he says is helpful, calming and removed AH. Will place patient on CIWA for alcohol withdrawal Says methadone dose is high enough as it is Hospital course: 02/02 pt a little more interactive, though mostly still in bed. He says he's starting to feel better; no AH and tolerating Haldol. No w/drawal symptoms. Discussed program and pt is ambivalent, considering it. Regarding Doxycyline, he refused to take it saying he does not need it; most recent script from 01/22/24 for left foot cellulitis; marketing underwriter examined foot and no signs of infection. He denies that he had a recent foot infection and He refuses to take it. Reviewed ED note and no mention of either cellulitis or antibiotic. 02/03 mostly same presentation although patient says he started to feel better 02/04 patient reports that he started to feel better. Of note brighter affect and he is out and about in the milieu more more talkative. Discussed his history in service and right ear damage. Discussed history of bilateral foot neuropathy and patient asked to be back on gabapentin. He understands the risks of combining gabapentin with substance abuse -patient remains hopeful about getting into a program, wanting to return to sobriety. 02/05 continues to improve; gabapentin helping with neuropathy 02/06 Patient appeared more confused this morning, exit seeking in a disorganized way, hard to finish sentences, some mild paranoid ideation. He said i was in the medication world, and i took it this morning and it was nice...but then i was lost... -denies AVH; says Haldol helped with AH in the past. Real Estate Intern reviewed chart and indications for Haldol prescription in the past. Patient agreed to increasing Haldol now. Patient received an extra Haldol 5 mg dose and confusion fully resolved and patient felt much more organized. Will change diagnosis to schizoaffective disorder, depressive type Plan: CV Q 15 minute checks Gabapentin 300 mg t.i.d. for bilateral foot neuropathy INCREASE TO Haldol 5 mg BID Continue Cogentin 0.5 mg daily Held Lexapro but will likely restart DC CIWA no withdrawal DC cows since no PRNs ordered and patient on methadone; also denies feeling opioid withdrawal Patient educated on: diagnosis and medication risk/benefits Informed Consent: understands Reason for continued inpatient stay Substantial Risk for: rapid decompensation Time Spent With Patient Time: Total time managing care of this patient today ____ minutes.
[2024-02-07] MEDS: HaloperidoL 5 MG TABLET PO ×2 (11:37→21:12)
[2024-02-07] MEDS: Nicotine Polacrilex 2 MG GUM 4 MG BUCCAL (14:10)
[2024-02-07] MEDS: Milk of Magnesia 30 ML ORAL.SUSP PO (14:10)
[2024-02-07 20:00] VITALS: BP 128/68; PULSE 54; RESP 17; TEMP 36.7; O2SAT 98
[2024-02-07] MEDS: traZODone HCL 50 MG TABLET PO (21:11)
[2024-02-07] MEDS: Benztropine Mesylate 0.5 MG TABLET PO (21:11)
[2024-02-08] MEDS: traZODone HCL 50 MG TABLET PO ×2 (03:15→21:20)
[2024-02-08] MEDS: hydrOXYzine HCL 25 MG TABLET PO ×2 (04:18→21:19)
[2024-02-08 08:00] VITALS: BP 119/74; PULSE 67; RESP 16; TEMP 36.9; O2SAT 96
[2024-02-08] MEDS: methADONE HCl 20 MG/2 ML ORAL.CONC 95 MG PO (08:20)
[2024-02-08] MEDS: HaloperidoL 5 MG TABLET PO ×2 (08:22→21:20)
[2024-02-08] MEDS: Gabapentin 300 MG CAPSULE PO ×3 (08:22→21:20)
[2024-02-08] MEDS: Benztropine Mesylate 0.5 MG TABLET PO ×2 (08:22→21:19)
[2024-02-08] MEDS: Folic Acid 1 MG TABLET PO (08:22)
[2024-02-08] MEDS: Thiamine HCL 100 MG TABLET PO (08:22)
[2024-02-08] MEDS: Multivitamin TABLET 1 TAB PO (08:22)
--- NOTE | 2024-02-08 13:27 | HO.PSYCHPN ---
Subjective Subjective Date of Service: 02/08/24 Reason For Visit: Schizophrenia; opiate use disorder Subjective Notes: Conditional Voluntary Interim History: Keeping to self. Guarded and brief during 1:1, giving short responses to questions. Pt reports feeling depressed today; pt stated, my girlfriend told me to go away. I think she was using me . Pt reports she is sleeping well. denies SI/HI/VH/AH. Medication Compliance: Yes Side effects from medications: No Attending Groups: No Review of Systems Constitutional: Reports as per HPI Eyes: Reports as per HPI Reports as per HPI Cardiovascular: Reports as per HPI Respiratory: Reports as per HPI Gastrointestinal: Reports as per HPI Genitourinary: Reports as per HPI Musculoskeletal: Reports as per HPI Skin/Breast: Reports as per HPI Reports as per HPI Psychiatric: Reports as per HPI Endocrine: Reports as per HPI Hematologic/Lymphatic: Reports as per HPI Allergic/Immunologic: Reports as per HPI Mental Status Exam Mental Status Exam Narrative: Pt is alert and oriented; behavior is guarded, brief, responding with short answers; dressed in casual attire; mood is described as depressed ; eye contact appropriate; Speech is normal rate, low volume and not pressured; thought process is organized; Thought content is on tx; denies SI/HI/VH/AH. Diagnostics Vital Signs (24Hr): Vital Signs - 24 hr 02/07/24 20:00 02/08/24 08:00 Temperature 98.0 F 98.4 F Pulse Rate 54 67 Respiratory Rate 17 16 Blood Pressure 128/68 119/74 Pulse Oximetry 98 96 Oxygen Delivery Method Room Air Room Air BMI result Body Mass Index 25.6 Labs 02/01/24 06:11 02/01/24 06:11 Medications Medications Current Medications Acetaminophen (Acetaminophen 325 Mg Tablet) 650 mg PO Q6H PRN PRN Reason: Headache/Pain Mild Scale (1-3) Last Admin: 02/07/24 04:21 Dose: 650 mg Al Hydroxide/Mg Hydroxide (Magnesium Hydrox/Alum Hydrox 30 Ml Oral.Susp) 30 ml PO Q6H PRN PRN Reason: Heartburn/Nausea Benztropine Mesylate (Benztropine Mesylate 0.5 Mg Tablet) 0.5 mg PO BID JESS[facility] Last Admin: 02/08/24 08:22 Dose: 0.5 mg Clonidine HCl (Clonidine Hcl 0.1 Mg Tablet) 0.1 mg PO BID PRN; Protocol PRN Reason: withdrawal sx Last Admin: 02/05/24 05:24 Dose: 0.1 mg Escitalopram Oxalate (Escitalopram Oxalate 10 Mg Tablet) 10 mg PO DAILY [facility] Folic Acid (Folic Acid 1 Mg Tablet) 1 mg PO DAILY [facility] Last Admin: 02/08/24 08:22 Dose: 1 mg Gabapentin (Gabapentin 300 Mg Capsule) 300 mg PO TID [facility] Last Admin: 02/08/24 08:22 Dose: 300 mg Haloperidol (Haloperidol 5 Mg Tablet) 5 mg PO BID [facility] Last Admin: 02/08/24 08:22 Dose: 5 mg Hydroxyzine HCl (Hydroxyzine Hcl 25 Mg Tablet) 25 mg PO Q6H PRN PRN Reason: Anxiety Last Admin: 02/08/24 04:18 Dose: 25 mg Ibuprofen (Ibuprofen 800 Mg Tablet) 800 mg PO Q8H PRN PRN Reason: foot pain Last Admin: 02/07/24 07:51 Dose: 800 mg Magnesium Hydroxide (Milk Of Magnesia 30 Ml Oral.Susp) 30 ml PO DAILY PRN PRN Reason: Constipation Last Admin: 02/07/24 14:10 Dose: 30 ml Methadone HCl (Methadone Hcl 20 Mg/2 Ml Oral.Conc) 95 mg PO DAILY [facility] Last Admin: 02/08/24 08:20 Dose: 95 mg Multivitamins/Vitamin C (Multivitamin Tablet) 1 tab PO DAILY [facility] Last Admin: 02/08/24 08:22 Dose: 1 tab Naloxone HCl (Naloxone Hcl Nasal 4 Mg [place]) 4 mg NOSTRILALT ONCE PRN PRN Reason: opiate overdose Nicotine (Nicotine 21 Mg Patch.Td24) 21 mg TRANSDERMA DAILY PRN PRN Reason: nicotine craving Nicotine Polacrilex (Nicotine Polacrilex 2 Mg Gum) 4 mg BUCCAL Q2H PRN PRN Reason: nicotine cravings Last Admin: 02/07/24 14:10 Dose: 4 mg Olanzapine (Olanzapine 5 Mg Tablet) 5 mg PO TID PRN PRN Reason: agitation,psychosis Last Admin: 02/07/24 06:15 Dose: 5 mg Thiamine HCl (Thiamine Hcl 100 Mg Tablet) 100 mg PO DAILY [facility] Last Admin: 02/08/24 08:22 Dose: 100 mg Trazodone HCl (Trazodone Hcl 50 Mg Tablet) 50 mg PO BEDTIME [facility] Last Admin: 02/08/24 03:15 Dose: 50 mg Trazodone HCl (Trazodone Hcl 50 Mg Tablet) 50 mg PO BEDTIME MRX1 PRN PRN Reason: Insomnia Last Admin: 02/06/24 00:07 Dose: 50 mg Allergies Allergies Allergy/AdvReac Type Severity Reaction Status Date / Time No Known Allergies Allergy Verified 02/01/24 05:09 [No Known Allergies*] Assessment & Plan Assessment & Plan (1) Schizoaffective disorder, depressive type: Status: Acute Code(s): F25.1 - Schizoaffective disorder, depressive type (2) Opioid use disorder: Status: Acute Code(s): F11.90 - Opioid use, unspecified, uncomplicated (3) Cocaine abuse: Status: Acute Code(s): F14.10 - Cocaine abuse, uncomplicated (4) Alcohol use disorder: Status: Acute Code(s): F10.90 - Alcohol use, unspecified, uncomplicated Plan Patient is a 48-year-old male with history of depression, psychotic symptoms and cocaine, opioid, alcohol abuse/dependence, who self presents for worsening depression and auditory hallucinations in the face of being off medications and relapsing with IV cocaine/opioids. Patient says that he was 7 months sober, on Haldol, until about 3 months ago when he relapsed. Patient reports that he has been abusing IV cocaine and heroin daily since then; he also has been drinking about a pint of vodka a day for the past 3 weeks. Patient remained depressed and having auditory hallucinations and has not slept for the past several days to 2 constant drug abuse. No suicidality however he felt he could not get himself sober or out of his depression unless he came to the hospital. Patient would like to get back on Haldol on which he says calms him and takes away AH. Patient denies history of trauma; he does endorse some possible manic episodes however the details are vague. Formulation/clinical reasoning: Will diagnosed with MDD with psychotic features for now; psychotic illness remains a rule out. Patient would like Haldol restarted which he says is helpful, calming and removed AH. Will place patient on CIWA for alcohol withdrawal Says methadone dose is high enough as it is Hospital course: 02/02 pt a little more interactive, though mostly still in bed. He says he's starting to feel better; no AH and tolerating Haldol. No w/drawal symptoms. Discussed program and pt is ambivalent, considering it. Regarding Doxycyline, he refused to take it saying he does not need it; most recent script from 01/22/24 for left foot cellulitis; rfp writer examined foot and no signs of infection. He denies that he had a recent foot infection and He refuses to take it. Reviewed ED note and no mention of either cellulitis or antibiotic. 02/03 mostly same presentation although patient says he started to feel better 02/04 patient reports that he started to feel better. Of note brighter affect and he is out and about in the milieu more more talkative. Discussed his history in service and right ear damage. Discussed history of bilateral foot neuropathy and patient asked to be back on gabapentin. He understands the risks of combining gabapentin with substance abuse -patient remains hopeful about getting into a program, wanting to return to sobriety. 02/05 continues to improve; gabapentin helping with neuropathy 02/06 Patient appeared more confused this morning, exit seeking in a disorganized way, hard to finish sentences, some mild paranoid ideation. He said i was in the medication world, and i took it this morning and it was nice...but then i was lost... -denies AVH; says Haldol helped with AH in the past. Intelligence Operations Specialist reviewed chart and indications for Haldol prescription in the past. Patient agreed to increasing Haldol now. Patient received an extra Haldol 5 mg dose and confusion fully resolved and patient felt much more organized. Will change diagnosis to schizoaffective disorder, depressive type 02/07: continue current tx plan. Plan: CV Q 15 minute checks Gabapentin 300 mg t.i.d. for bilateral foot neuropathy INCREASE TO Haldol 5 mg BID Continue Cogentin 0.5 mg daily Held Lexapro but will likely restart DC CIWA no withdrawal DC cows since no PRNs ordered and patient on methadone; also denies feeling opioid withdrawal Patient educated on: medication risk/benefits Reason for continued inpatient stay Substantial Risk for: med/psych decompensation Time Spent With Patient Time: Total time managing care of this patient today _20___ minutes.
[2024-02-08 20:00] VITALS: BP 116/62; PULSE 56; RESP 16; TEMP 36.4; O2SAT 97
[2024-02-09 08:00] VITALS: BP 138/75; PULSE 71; RESP 18; TEMP 36.3; O2SAT 94
[2024-02-09] MEDS: methADONE HCl 20 MG/2 ML ORAL.CONC 95 MG PO (09:06)
[2024-02-09] MEDS: Gabapentin 300 MG CAPSULE PO ×3 (09:07→20:45)
[2024-02-09] MEDS: HaloperidoL 5 MG TABLET PO ×2 (09:08→20:45)
[2024-02-09] MEDS: Folic Acid 1 MG TABLET PO (09:08)
[2024-02-09] MEDS: Thiamine HCL 100 MG TABLET PO (09:08)
[2024-02-09] MEDS: Escitalopram Oxalate 10 MG TABLET PO (09:08)
[2024-02-09] MEDS: Benztropine Mesylate 0.5 MG TABLET PO ×2 (09:08→20:45)
[2024-02-09] MEDS: Multivitamin TABLET 1 TAB PO (09:08)
--- NOTE | 2024-02-09 18:29 | P.PNPSI_ITS ---
Subjective Subjective Date of Service: 02/09/24 Reason For Visit: Schizophrenia; opiate use disorder Interim History: Keeping to self. Guarded and brief during 1:1, giving short responses to questions. states he is depressed. . denies SI/HI/VH/AH. Medication Compliance: Yes Side effects from medications: No Attending Groups: No Review of Systems Acute medical concerns: No Medical Review of Systems: unchanged Review of Systems Constitutional: Reports as per HPI, Reports no additional constitutional complaints, Denies chills, Denies fever(s) and Denies night sweats Eyes: Reports as per HPI, Reports no additional eye complaints, Denies blurry vision, Denies change in vision, Denies diplopia, Denies eye discharge, Denies loss of vision and Denies eye pain Reports as per HPI and Denies dizziness Cardiovascular: Reports as per HPI, Reports no additional cardiovascular complaints, Denies chest pain, Denies lightheadedness, Denies Loss of Consciousness and Denies dyspnea Respiratory: Reports as per HPI, Reports no additional respiratory complaints and Denies dyspnea Gastrointestinal: Reports as per HPI, Reports no additional gastrointestinal complaints, Denies abdominal pain, Denies melena, Denies hematochezia, Denies change in bowel habits and Denies change in stool character Genitourinary: Reports no additional male genitourinary complaints, Reports as per HPI, Denies hematuria, Denies oliguria, Denies difficulty urinating, Denies dysuria, Denies urinary frequency, Denies urinary hesitancy, Denies urinary incontinence and Denies urinary urgency Musculoskeletal: Reports no additional musculoskeletal complaints, Reports as per HPI, Denies numbness and Denies tingling Skin/Breast: Reports as per HPI Reports as per HPI, Denies dizziness, Denies loss of vision, Denies numbness and Denies tingling Psychiatric: Reports as per HPI, Reports auditory hallucinations, Denies homicidal ideation and Denies suicidal ideation Endocrine: Reports no additional endocrine complaints and Reports as per HPI Hematologic/Lymphatic: Reports no additional hematologic/lymphatic complaints and Reports as per HPI Allergic/Immunologic: Reports no additional allergic/immunologic complaints and Reports as per HPI Mental Status Exam Mental Status Exam Narrative: Pt is alert and oriented; behavior is guarded, brief, responding with short answers; dressed in casual attire; mood is described as depressed ; eye contact appropriate; Speech is normal rate, low volume and not pressured; thought process is organized; Thought content is on tx; denies SI/HI/VH/AH. Diagnostics Vital Signs (24Hr): Vital Signs - 24 hr 02/08/24 20:00 02/09/24 08:00 Temperature 97.5 F 97.4 F Pulse Rate 56 71 Respiratory Rate 16 18 Blood Pressure 116/62 138/75 Pulse Oximetry 97 94 Oxygen Delivery Method Room Air Room Air BMI result Body Mass Index 25.6 Labs 02/01/24 06:11 02/01/24 06:11 Medications Medications Current Medications Acetaminophen (Acetaminophen 325 Mg Tablet) 650 mg PO Q6H PRN PRN Reason: Headache/Pain Mild Scale (1-3) Last Admin: 02/07/24 04:21 Dose: 650 mg Al Hydroxide/Mg Hydroxide (Magnesium Hydrox/Alum Hydrox 30 Ml Oral.Susp) 30 ml PO Q6H PRN PRN Reason: Heartburn/Nausea Benztropine Mesylate (Benztropine Mesylate 0.5 Mg Tablet) 0.5 mg PO BID [facility] Last Admin: 02/09/24 09:08 Dose: 0.5 mg Clonidine HCl (Clonidine Hcl 0.1 Mg Tablet) 0.1 mg PO BID PRN; Protocol PRN Reason: withdrawal sx Last Admin: 02/05/24 05:24 Dose: 0.1 mg Escitalopram Oxalate (Escitalopram Oxalate 10 Mg Tablet) 10 mg PO DAILY [facility] Last Admin: 02/09/24 09:08 Dose: 10 mg Folic Acid (Folic Acid 1 Mg Tablet) 1 mg PO DAILY [facility] Last Admin: 02/09/24 09:08 Dose: 1 mg Gabapentin (Gabapentin 300 Mg Capsule) 300 mg PO TID [facility] Last Admin: 02/09/24 16:00 Dose: 300 mg Haloperidol (Haloperidol 5 Mg Tablet) 5 mg PO BID [facility] Last Admin: 02/09/24 09:08 Dose: 5 mg Hydroxyzine HCl (Hydroxyzine Hcl 25 Mg Tablet) 25 mg PO Q6H PRN PRN Reason: Anxiety Last Admin: 02/08/24 21:19 Dose: 25 mg Ibuprofen (Ibuprofen 800 Mg Tablet) 800 mg PO Q8H PRN PRN Reason: foot pain Last Admin: 02/07/24 07:51 Dose: 800 mg Magnesium Hydroxide (Milk Of Magnesia 30 Ml Oral.Susp) 30 ml PO DAILY PRN PRN Reason: Constipation Last Admin: 02/07/24 14:10 Dose: 30 ml Methadone HCl (Methadone Hcl 20 Mg/2 Ml Oral.Conc) 95 mg PO DAILY [facility] Last Admin: 02/09/24 09:06 Dose: 95 mg Multivitamins/Vitamin C (Multivitamin Tablet) 1 tab PO DAILY [facility] Last Admin: 02/09/24 09:08 Dose: 1 tab Naloxone HCl (Naloxone Hcl Nasal 4 Mg [place]) 4 mg NOSTRILALT ONCE PRN PRN Reason: opiate overdose Nicotine (Nicotine 21 Mg Patch.Td24) 21 mg TRANSDERMA DAILY PRN PRN Reason: nicotine craving Nicotine Polacrilex (Nicotine Polacrilex 2 Mg Gum) 4 mg BUCCAL Q2H PRN PRN Reason: nicotine cravings Last Admin: 02/07/24 14:10 Dose: 4 mg Olanzapine (Olanzapine 5 Mg Tablet) 5 mg PO TID PRN PRN Reason: agitation,psychosis Last Admin: 02/07/24 06:15 Dose: 5 mg Thiamine HCl (Thiamine Hcl 100 Mg Tablet) 100 mg PO DAILY [facility] Last Admin: 02/09/24 09:08 Dose: 100 mg Trazodone HCl (Trazodone Hcl 50 Mg Tablet) 50 mg PO BEDTIME [facility] Last Admin: 02/08/24 21:20 Dose: 50 mg Trazodone HCl (Trazodone Hcl 50 Mg Tablet) 50 mg PO BEDTIME MRX1 PRN PRN Reason: Insomnia Last Admin: 02/06/24 00:07 Dose: 50 mg Allergies Allergies Allergy/AdvReac Type Severity Reaction Status Date / Time No Known Allergies Allergy Verified 02/01/24 05:09 [No Known Allergies*] Assessment & Plan Assessment & Plan (1) Schizoaffective disorder, depressive type: Status: Acute Code(s): F25.1 - Schizoaffective disorder, depressive type (2) Opioid use disorder: Status: Acute Code(s): F11.90 - Opioid use, unspecified, uncomplicated (3) Cocaine abuse: Status: Acute Code(s): F14.10 - Cocaine abuse, uncomplicated (4) Alcohol use disorder: Status: Acute Code(s): F10.90 - Alcohol use, unspecified, uncomplicated Plan Patient is a 48-year-old male with history of depression, psychotic symptoms and cocaine, opioid, alcohol abuse/dependence, who self presents for worsening depression and auditory hallucinations in the face of being off medications and relapsing with IV cocaine/opioids. Patient says that he was 7 months sober, on Haldol, until about 3 months ago when he relapsed. Patient reports that he has been abusing IV cocaine and heroin daily since then; he also has been drinking about a pint of vodka a day for the past 3 weeks. Patient remained depressed and having auditory hallucinations and has not slept for the past several days to 2 constant drug abuse. No suicidality however he felt he could not get himself sober or out of his depression unless he came to the hospital. Patient would like to get back on Haldol on which he says calms him and takes away AH. Patient denies history of trauma; he does endorse some possible manic episodes however the details are vague. Formulation/clinical reasoning: Will diagnosed with MDD with psychotic features for now; psychotic illness remains a rule out. Patient would like Haldol restarted which he says is helpful, calming and removed AH. Will place patient on CIWA for alcohol withdrawal Says methadone dose is high enough as it is Hospital course: 02/02 pt a little more interactive, though mostly still in bed. He says he's starting to feel better; no AH and tolerating Haldol. No w/drawal symptoms. Discussed program and pt is ambivalent, considering it. Regarding Doxycyline, he refused to take it saying he does not need it; most recent script from 01/22/24 for left foot cellulitis; procedure writer examined foot and no signs of infection. He denies that he had a recent foot infection and He refuses to take it. Reviewed ED note and no mention of either cellulitis or antibiotic. 02/03 mostly same presentation although patient says he started to feel better 02/04 patient reports that he started to feel better. Of note brighter affect and he is out and about in the milieu more more talkative. Discussed his history in service and right ear damage. Discussed history of bilateral foot neuropathy and patient asked to be back on gabapentin. He understands the risks of combining gabapentin with substance abuse -patient remains hopeful about getting into a program, wanting to return to sobriety. 02/05 continues to improve; gabapentin helping with neuropathy 02/06 Patient appeared more confused this morning, exit seeking in a disorganized way, hard to finish sentences, some mild paranoid ideation. He said i was in the medication world, and i took it this morning and it was nice...but then i was lost... -denies CHIRAG; says Haldol helped with AH in the past. Maintenance Mechanic reviewed chart and indications for Haldol prescription in the past. Patient agreed to increasing Haldol now. Patient received an extra Haldol 5 mg dose and confusion fully resolved and patient felt much more organized. Will change diagnosis to schizoaffective disorder, depressive type 02/07: continue current tx plan. 02/08 continue tx plan Plan: CV Q 15 minute checks Gabapentin 300 mg t.i.d. for bilateral foot neuropathy INCREASE TO Haldol 5 mg BID Continue Cogentin 0.5 mg daily Held Lexapro but will likely restart DC CIWA no withdrawal DC cows since no PRNs ordered and patient on methadone; also denies feeling opioid withdrawal Reason for continued inpatient stay Substantial Risk for: harm to self and inability to function Time Spent With Patient Time: Total time managing care of this patient today ____ minutes.
[2024-02-09 20:00] VITALS: BP 124/60; PULSE 61; RESP 18; TEMP 36.6; O2SAT 97
[2024-02-09] MEDS: traZODone HCL 50 MG TABLET PO (20:45)
[2024-02-10] MEDS: Escitalopram Oxalate 10 MG TABLET PO (08:39)
[2024-02-10] MEDS: Thiamine HCL 100 MG TABLET PO (08:39)
[2024-02-10] MEDS: Benztropine Mesylate 0.5 MG TABLET PO ×2 (08:39→20:11)
[2024-02-10] MEDS: Gabapentin 300 MG CAPSULE PO ×3 (08:39→20:11)
[2024-02-10] MEDS: methADONE HCl 20 MG/2 ML ORAL.CONC 95 MG PO (08:39)
[2024-02-10] MEDS: Multivitamin TABLET 1 TAB PO (08:39)
[2024-02-10] MEDS: HaloperidoL 5 MG TABLET PO ×2 (08:39→20:11)
[2024-02-10] MEDS: Folic Acid 1 MG TABLET PO (08:39)
[2024-02-10 08:40] VITALS: BP 114/79; PULSE 66; RESP 16; TEMP 36.9; O2SAT 97
--- NOTE | 2024-02-10 17:07 | HO.PSYCHPN ---
Subjective Subjective Date of Service: 02/10/24 Reason For Visit: Schizophrenia; opiate use disorder Interim History: Keeping to self. Guarded and brief during 1:1, talking about being telepathic making nonsensical statements; states he is depressed. . denies SI/HI/VH/AH. Medication Compliance: Yes Side effects from medications: No Attending Groups: Intermittent Review of Systems Acute medical concerns: No Medical Review of Systems: unchanged Review of Systems Constitutional: Reports as per HPI, Reports no additional constitutional complaints, Denies chills, Denies fever(s) and Denies night sweats Eyes: Reports as per HPI, Reports no additional eye complaints, Denies blurry vision, Denies change in vision, Denies diplopia, Denies eye discharge, Denies loss of vision and Denies eye pain Reports as per HPI and Denies dizziness Cardiovascular: Reports as per HPI, Reports no additional cardiovascular complaints, Denies chest pain, Denies lightheadedness, Denies Loss of Consciousness and Denies dyspnea Respiratory: Reports as per HPI, Reports no additional respiratory complaints and Denies dyspnea Gastrointestinal: Reports as per HPI, Reports no additional gastrointestinal complaints, Denies abdominal pain, Denies melena, Denies hematochezia, Denies change in bowel habits and Denies change in stool character Genitourinary: Reports no additional male genitourinary complaints, Reports as per HPI, Denies hematuria, Denies oliguria, Denies difficulty urinating, Denies dysuria, Denies urinary frequency, Denies urinary hesitancy, Denies urinary incontinence and Denies urinary urgency Musculoskeletal: Reports no additional musculoskeletal complaints, Reports as per HPI, Denies numbness and Denies tingling Skin/Breast: Reports as per HPI Reports as per HPI, Denies dizziness, Denies loss of vision, Denies numbness and Denies tingling Psychiatric: Reports as per HPI, Reports auditory hallucinations, Denies homicidal ideation and Denies suicidal ideation Endocrine: Reports no additional endocrine complaints and Reports as per HPI Hematologic/Lymphatic: Reports no additional hematologic/lymphatic complaints and Reports as per HPI Allergic/Immunologic: Reports no additional allergic/immunologic complaints and Reports as per HPI Mental Status Exam Mental Status Exam Narrative: Pt is alert and oriented; behavior is guarded, brief, responding with short answers; dressed in casual attire; mood is described as depressed ; eye contact appropriate; Speech is normal rate, low volume and not pressured; thought process is confused. Thought content is on tx; denies SI/HI/VH/AH. Diagnostics Vital Signs (24Hr): Vital Signs - 24 hr 02/09/24 20:00 02/10/24 08:40 Temperature 97.9 F 98.4 F Pulse Rate 61 66 Respiratory Rate 18 16 Blood Pressure 124/60 114/79 Pulse Oximetry 97 97 Oxygen Delivery Method Room Air Room Air BMI result Body Mass Index 25.6 Labs 02/01/24 06:11 02/11/24 11:18 Medications Medications Current Medications Acetaminophen (Acetaminophen 325 Mg Tablet) 650 mg PO Q6H PRN PRN Reason: Headache/Pain Mild Scale (1-3) Last Admin: 02/07/24 04:21 Dose: 650 mg Al Hydroxide/Mg Hydroxide (Magnesium Hydrox/Alum Hydrox 30 Ml Oral.Susp) 30 ml PO Q6H PRN PRN Reason: Heartburn/Nausea Benztropine Mesylate (Benztropine Mesylate 0.5 Mg Tablet) 0.5 mg PO BID [facility] Last Admin: 02/10/24 08:39 Dose: 0.5 mg Clonidine HCl (Clonidine Hcl 0.1 Mg Tablet) 0.1 mg PO BID PRN; Protocol PRN Reason: withdrawal sx Last Admin: 02/05/24 05:24 Dose: 0.1 mg Escitalopram Oxalate (Escitalopram Oxalate 10 Mg Tablet) 10 mg PO DAILY [facility] Last Admin: 02/10/24 08:39 Dose: 10 mg Folic Acid (Folic Acid 1 Mg Tablet) 1 mg PO DAILY [facility] Last Admin: 02/10/24 08:39 Dose: 1 mg Gabapentin (Gabapentin 300 Mg Capsule) 300 mg PO TID [facility] Last Admin: 02/10/24 15:09 Dose: 300 mg Haloperidol (Haloperidol 5 Mg Tablet) 5 mg PO BID [facility] Last Admin: 02/10/24 08:39 Dose: 5 mg Hydroxyzine HCl (Hydroxyzine Hcl 25 Mg Tablet) 25 mg PO Q6H PRN PRN Reason: Anxiety Last Admin: 02/08/24 21:19 Dose: 25 mg Ibuprofen (Ibuprofen 800 Mg Tablet) 800 mg PO Q8H PRN PRN Reason: foot pain Last Admin: 02/07/24 07:51 Dose: 800 mg Magnesium Hydroxide (Milk Of Magnesia 30 Ml Oral.Susp) 30 ml PO DAILY PRN PRN Reason: Constipation Last Admin: 02/07/24 14:10 Dose: 30 ml Methadone HCl (Methadone Hcl 20 Mg/2 Ml Oral.Conc) 95 mg PO DAILY [facility] Last Admin: 02/10/24 08:39 Dose: 95 mg Multivitamins/Vitamin C (Multivitamin Tablet) 1 tab PO DAILY [facility] Last Admin: 02/10/24 08:39 Dose: 1 tab Naloxone HCl (Naloxone Hcl Nasal 4 Mg [place]) 4 mg NOSTRILALT ONCE PRN PRN Reason: opiate overdose Nicotine (Nicotine 21 Mg Patch.Td24) 21 mg TRANSDERMA DAILY PRN PRN Reason: nicotine craving Nicotine Polacrilex (Nicotine Polacrilex 2 Mg Gum) 4 mg BUCCAL Q2H PRN PRN Reason: nicotine cravings Last Admin: 02/07/24 14:10 Dose: 4 mg Olanzapine (Olanzapine 5 Mg Tablet) 5 mg PO TID PRN PRN Reason: agitation,psychosis Last Admin: 02/07/24 06:15 Dose: 5 mg Thiamine HCl (Thiamine Hcl 100 Mg Tablet) 100 mg PO DAILY [facility] Last Admin: 02/10/24 08:39 Dose: 100 mg Trazodone HCl (Trazodone Hcl 50 Mg Tablet) 50 mg PO BEDTIME [facility] Last Admin: 02/09/24 20:45 Dose: 50 mg Trazodone HCl (Trazodone Hcl 50 Mg Tablet) 50 mg PO BEDTIME MRX1 PRN PRN Reason: Insomnia Last Admin: 02/06/24 00:07 Dose: 50 mg Allergies Allergies Allergy/AdvReac Type Severity Reaction Status Date / Time No Known Allergies Allergy Verified 02/01/24 05:09 [No Known Allergies*] Assessment & Plan Assessment & Plan (1) Schizoaffective disorder, depressive type: Status: Acute Code(s): F25.1 - Schizoaffective disorder, depressive type (2) Opioid use disorder: Status: Acute Code(s): F11.90 - Opioid use, unspecified, uncomplicated (3) Cocaine abuse: Status: Acute Code(s): F14.10 - Cocaine abuse, uncomplicated (4) Alcohol use disorder: Status: Acute Code(s): F10.90 - Alcohol use, unspecified, uncomplicated Plan Patient is a 48-year-old male with history of depression, psychotic symptoms and cocaine, opioid, alcohol abuse/dependence, who self presents for worsening depression and auditory hallucinations in the face of being off medications and relapsing with IV cocaine/opioids. Patient says that he was 7 months sober, on Haldol, until about 3 months ago when he relapsed. Patient reports that he has been abusing IV cocaine and heroin daily since then; he also has been drinking about a pint of vodka a day for the past 3 weeks. Patient remained depressed and having auditory hallucinations and has not slept for the past several days to 2 constant drug abuse. No suicidality however he felt he could not get himself sober or out of his depression unless he came to the hospital. Patient would like to get back on Haldol on which he says calms him and takes away AH. Patient denies history of trauma; he does endorse some possible manic episodes however the details are vague. Formulation/clinical reasoning: Will diagnosed with MDD with psychotic features for now; psychotic illness remains a rule out. Patient would like Haldol restarted which he says is helpful, calming and removed AH. Will place patient on CIWA for alcohol withdrawal Says methadone dose is high enough as it is Hospital course: 02/02 pt a little more interactive, though mostly still in bed. He says he's starting to feel better; no AH and tolerating Haldol. No w/drawal symptoms. Discussed program and pt is ambivalent, considering it. Regarding Doxycyline, he refused to take it saying he does not need it; most recent script from 01/22/24 for left foot cellulitis; narrative writer examined foot and no signs of infection. He denies that he had a recent foot infection and He refuses to take it. Reviewed ED note and no mention of either cellulitis or antibiotic. 02/03 mostly same presentation although patient says he started to feel better 02/04 patient reports that he started to feel better. Of note brighter affect and he is out and about in the milieu more more talkative. Discussed his history in service and right ear damage. Discussed history of bilateral foot neuropathy and patient asked to be back on gabapentin. He understands the risks of combining gabapentin with substance abuse -patient remains hopeful about getting into a program, wanting to return to sobriety. 02/05 continues to improve; gabapentin helping with neuropathy 02/06 Patient appeared more confused this morning, exit seeking in a disorganized way, hard to finish sentences, some mild paranoid ideation. He said i was in the medication world, and i took it this morning and it was nice...but then i was lost... -denies [place]; says Haldol helped with AH in the past. Supervisor [employer] reviewed chart and indications for Haldol prescription in the past. Patient agreed to increasing Haldol now. Patient received an extra Haldol 5 mg dose and confusion fully resolved and patient felt much more organized. Will change diagnosis to schizoaffective disorder, depressive type 02/07: continue current tx plan. 02/08 continue tx plan 02/09 continue tx plan Plan: CV Q 15 minute checks Gabapentin 300 mg t.i.d. for bilateral foot neuropathy INCREASE TO Haldol 5 mg BID Continue Cogentin 0.5 mg daily Held Lexapro but will likely restart DC CIWA no withdrawal DC cows since no PRNs ordered and patient on methadone; also denies feeling opioid withdrawal Reason for continued inpatient stay Substantial Risk for: harm to self and inability to function Time Spent With Patient Time: Total time managing care of this patient today ____ minutes.
[2024-02-10] MEDS: Acetaminophen 325 MG TABLET 650 MG PO (17:42)
[2024-02-10 20:00] VITALS: BP 163/69; PULSE 60; RESP 16; TEMP 36.6; O2SAT 96
[2024-02-10] MEDS: Ibuprofen 800 MG TABLET PO (20:11)
[2024-02-10] MEDS: traZODone HCL 50 MG TABLET PO (20:11)
[2024-02-10] MEDS: hydrOXYzine HCL 25 MG TABLET PO (22:23)
[2024-02-11] MEDS: Ibuprofen 800 MG TABLET PO (05:55)
[2024-02-11 08:00] VITALS: BP 182/79; PULSE 58; RESP 18; TEMP 36.7; O2SAT 94
[2024-02-11] MEDS: methADONE HCl 20 MG/2 ML ORAL.CONC 95 MG PO (08:22)
[2024-02-11] MEDS: Benztropine Mesylate 0.5 MG TABLET PO (08:26)
[2024-02-11] MEDS: Multivitamin TABLET 1 TAB PO (08:26)
[2024-02-11] MEDS: Thiamine HCL 100 MG TABLET PO (08:26)
[2024-02-11] MEDS: Gabapentin 300 MG CAPSULE PO ×3 (08:26→20:54)
[2024-02-11] MEDS: Folic Acid 1 MG TABLET PO (08:26)
[2024-02-11] MEDS: HaloperidoL 5 MG TABLET PO ×2 (08:26→15:53)
[2024-02-11] MEDS: Escitalopram Oxalate 10 MG TABLET PO (08:26)
--- NOTE | 2024-02-11 09:42 | P.PNPSI_ITS ---
Subjective Subjective Date of Service: 02/11/24 Reason For Visit: Schizophrenia; opiate use disorder Interim History: met with patient; discussed with team; reviewed chart Patient confused while talking with underwriter, rambling about unrelated, nonsensical things. Patient unaware of this. Labs drawn and patient has [id number] hyperammonemia. Mental Status Exam Mental Status Exam Narrative: Pt is alert and oriented; behavior is friendly, calm, disorganized; dressed in hospital attire, heavily tattooed arms, disheveled; mood is described as ok and affect congruent, tired; eye contact appropriate; Speech is more regular volume, rate and prosody; some psychomotor retardation present, but less; thought process more disorganized; Thought content is on various, nonsensical things; ; denies any SI/HI. No AH. Patients insight and judgment impaired Diagnostics Vital Signs (24Hr): Vital Signs - 24 hr 02/10/24 20:00 02/11/24 08:00 Temperature 97.8 F 98.1 F Pulse Rate 60 58 Respiratory Rate 16 18 Blood Pressure 163/69 H 182/79 H Pulse Oximetry 96 94 Oxygen Delivery Method Room Air Room Air BMI result Body Mass Index 25.6 Labs 02/01/24 06:11 02/11/24 11:18 Medications Medications Current Medications Acetaminophen (Acetaminophen 325 Mg Tablet) 650 mg PO Q6H PRN PRN Reason: Headache/Pain Mild Scale (1-3) Last Admin: 02/10/24 17:42 Dose: 650 mg Al Hydroxide/Mg Hydroxide (Magnesium Hydrox/Alum Hydrox 30 Ml Oral.Susp) 30 ml PO Q6H PRN PRN Reason: Heartburn/Nausea Benztropine Mesylate (Benztropine Mesylate 0.5 Mg Tablet) 0.5 mg PO BID [facility] Last Admin: 02/11/24 08:26 Dose: 0.5 mg Clonidine HCl (Clonidine Hcl 0.1 Mg Tablet) 0.1 mg PO BID PRN; Protocol PRN Reason: withdrawal sx Last Admin: 02/05/24 05:24 Dose: 0.1 mg Escitalopram Oxalate (Escitalopram Oxalate 10 Mg Tablet) 10 mg PO DAILY [facility] Last Admin: 02/11/24 08:26 Dose: 10 mg Folic Acid (Folic Acid 1 Mg Tablet) 1 mg PO DAILY [facility] Last Admin: 02/11/24 08:26 Dose: 1 mg Gabapentin (Gabapentin 300 Mg Capsule) 300 mg PO TID [facility] Last Admin: 02/11/24 08:26 Dose: 300 mg Haloperidol (Haloperidol 5 Mg Tablet) 5 mg PO BID [facility] Last Admin: 02/11/24 08:26 Dose: 5 mg Hydroxyzine HCl (Hydroxyzine Hcl 25 Mg Tablet) 25 mg PO Q6H PRN PRN Reason: Anxiety Last Admin: 02/10/24 22:23 Dose: 25 mg Ibuprofen (Ibuprofen 800 Mg Tablet) 800 mg PO Q8H PRN PRN Reason: foot pain Last Admin: 02/11/24 05:55 Dose: 800 mg Magnesium Hydroxide (Milk Of Magnesia 30 Ml Oral.Susp) 30 ml PO DAILY PRN PRN Reason: Constipation Last Admin: 02/07/24 14:10 Dose: 30 ml Methadone HCl (Methadone Hcl 20 Mg/2 Ml Oral.Conc) 95 mg PO DAILY [facility] Last Admin: 02/11/24 08:22 Dose: 95 mg Multivitamins/Vitamin C (Multivitamin Tablet) 1 tab PO DAILY [facility] Last Admin: 02/11/24 08:26 Dose: 1 tab Naloxone HCl (Naloxone Hcl Nasal 4 Mg [place]) 4 mg NOSTRILALT ONCE PRN PRN Reason: opiate overdose Nicotine (Nicotine 21 Mg Patch.Td24) 21 mg TRANSDERMA DAILY PRN PRN Reason: nicotine craving Nicotine Polacrilex (Nicotine Polacrilex 2 Mg Gum) 4 mg BUCCAL Q2H PRN PRN Reason: nicotine cravings Last Admin: 02/07/24 14:10 Dose: 4 mg Olanzapine (Olanzapine 5 Mg Tablet) 5 mg PO TID PRN PRN Reason: agitation,psychosis Last Admin: 02/07/24 06:15 Dose: 5 mg Thiamine HCl (Thiamine Hcl 100 Mg Tablet) 100 mg PO DAILY [facility] Last Admin: 02/11/24 08:26 Dose: 100 mg Trazodone HCl (Trazodone Hcl 50 Mg Tablet) 50 mg PO BEDTIME [facility] Last Admin: 02/10/24 20:11 Dose: 50 mg Trazodone HCl (Trazodone Hcl 50 Mg Tablet) 50 mg PO BEDTIME MRX1 PRN PRN Reason: Insomnia Last Admin: 02/06/24 00:07 Dose: 50 mg Allergies Allergies Allergy/AdvReac Type Severity Reaction Status Date / Time No Known Allergies Allergy Verified 02/01/24 05:09 [No Known Allergies*] Assessment & Plan Assessment & Plan (1) Schizoaffective disorder, depressive type: Status: Acute Code(s): F25.1 - Schizoaffective disorder, depressive type (2) Opioid use disorder: Status: Acute Code(s): F11.90 - Opioid use, unspecified, uncomplicated (3) Cocaine abuse: Status: Acute Code(s): F14.10 - Cocaine abuse, uncomplicated (4) Alcohol use disorder: Status: Acute Code(s): F10.90 - Alcohol use, unspecified, uncomplicated Plan Patient is a 48-year-old male with history of depression, psychotic symptoms and cocaine, opioid, alcohol abuse/dependence, who self presents for worsening depression and auditory hallucinations in the face of being off medications and relapsing with IV cocaine/opioids. Patient says that he was 7 months sober, on Haldol, until about 3 months ago when he relapsed. Patient reports that he has been abusing IV cocaine and heroin daily since then; he also has been drinking about a pint of vodka a day for the past 3 weeks. Patient remained depressed and having auditory hallucinations and has not slept for the past several days to 2 constant drug abuse. No suicidality however he felt he could not get himself sober or out of his depression unless he came to the hospital. Patient would like to get back on Haldol on which he says calms him and takes away AH. Patient denies history of trauma; he does endorse some possible manic episodes however the details are vague. Formulation/clinical reasoning: Will diagnosed with MDD with psychotic features for now; psychotic illness remains a rule out. Patient would like Haldol restarted which he says is helpful, calming and removed AH. Will place patient on CIWA for alcohol withdrawal Says methadone dose is high enough as it is Hospital course: 02/02 pt a little more interactive, though mostly still in bed. He says he's starting to feel better; no AH and tolerating Haldol. No w/drawal symptoms. Discussed program and pt is ambivalent, considering it. Regarding Doxycyline, he refused to take it saying he does not need it; most recent script from 01/22/24 for left foot cellulitis; underwriter examined foot and no signs of infection. He denies that he had a recent foot infection and He refuses to take it. Reviewed ED note and no mention of either cellulitis or antibiotic. 02/03 mostly same presentation although patient says he started to feel better 02/04 patient reports that he started to feel better. Of note brighter affect and he is out and about in the milieu more more talkative. Discussed his history in service and right ear damage. Discussed history of bilateral foot neuropathy and patient asked to be back on gabapentin. He understands the risks of combining gabapentin with substance abuse -patient remains hopeful about getting into a program, wanting to return to sobriety. 02/05 continues to improve; gabapentin helping with neuropathy 02/06 Patient appeared more confused this morning, exit seeking in a disorganized way, hard to finish sentences, some mild paranoid ideation. He said i was in the medication world, and i took it this morning and it was nice...but then i was lost... -denies AVH; says Haldol helped with AH in the past. Wagon Person reviewed chart and indications for Haldol prescription in the past. Patient agreed to increasing Haldol now. Patient received an extra Haldol 5 mg dose and confusion fully resolved and patient felt much more organized. Will change diagnosis to schizoaffective disorder, depressive type 02/07: continue current tx plan. 02/08 continue tx plan 02/10 Patient confused while talking with underwriter, rambling about unrelated, nonsensical things. Patient unaware of this. -Labs drawn and patient has [id number] hyperammonemia. -rkod-[id number] elevated liver enzymes however these seem to be chronically elevated and are currently stable -will discontinue Haldol (also discontinue Lexapro just to make sure) and adding lactulose. It is unclear what exactly caused elevated ammonia since current medication regimen, including Haldol is not particularly known for this. This also makes it a little more difficult to figure out if patient has psychosis or was confused due to elevated ammonia levels. Plan: CV Q 15 minute checks Start lactulose 10 mg daily Gabapentin 300 mg t.i.d. for bilateral foot neuropathy DC Haldol 5 mg BID; possibly causing hyperammonemia Continue Cogentin 0.5 mg daily DC Lexapro; DC CIWA no withdrawal DC cows since no PRNs ordered and patient on methadone; also denies feeling opioid withdrawal Patient educated on: diagnosis and medication risk/benefits Informed Consent: understands, does not understand and further education needed Reason for continued inpatient stay Substantial Risk for: rapid decompensation Time Spent With Patient Time: Total time managing care of this patient today ____ minutes.
[2024-02-11 10:19] VITALS: BP 147/93; PULSE 60; RESP 18
[2024-02-11] MEDS: cloNIDine HCL 0.1 MG TABLET PO (10:21)
[2024-02-11] MEDS: Nicotine Polacrilex 2 MG GUM 4 MG BUCCAL (10:21)
[2024-02-11] MEDS: polyethylene glycoL 3350 17 GM POWD.PACK PO (11:21)
[2024-02-11 11:27] VITALS: BP 147/77
[2024-02-11 11:36] LABS: Ammonia 68 umol/L (13-55)
[2024-02-11 11:44] LABS: Alanine Aminotransferase 149 U/L (0-40); Albumin Level 3.5 g/dL (3.5-5.0); Alkaline Phosphatase 90 U/L (39-117); Anion Gap 10 (12-20); Aspartate Amino Transferase 140 U/L (5-37); Bilirubin Total 0.3 mg/dL (0.0-1.0); Blood Urea Nitrogen 21 mg/dL (9-16); Calcium 9.3 mg/dL (8.4-10.2); Carbon Dioxide 28 mmol/L (22-29); Chloride 105 mmol/L (96-108); Estimated Glomerular Filt Rate > 60; Glucose Random 104 mg/dL (60-115); Potassium 4.4 mmol/L (3.3-5.1); Sodium 139 mmol/L (135-145); Total Protein 7.1 g/dL (6.5-8.0)
[2024-02-11] MEDS: Lactulose 20 GM/30 ML SOLUTION 10 GM PO (18:28)
[2024-02-11 20:00] VITALS: BP 129/81; PULSE 62; RESP 18; TEMP 36.4; O2SAT 97
[2024-02-11] MEDS: traZODone HCL 50 MG TABLET PO (20:55)
[2024-02-11] MEDS: Milk of Magnesia 30 ML ORAL.SUSP PO (21:02)
[2024-02-12] MEDS: Acetaminophen 325 MG TABLET 650 MG PO ×2 (01:54→20:26)
[2024-02-12] MEDS: Ibuprofen 800 MG TABLET PO ×2 (01:54→20:26)
[2024-02-12 08:00] VITALS: BP 145/84; PULSE 67; RESP 18; TEMP 36.4; O2SAT 96
[2024-02-12] MEDS: Folic Acid 1 MG TABLET PO (08:16)
[2024-02-12] MEDS: Gabapentin 300 MG CAPSULE PO ×3 (08:16→21:07)
[2024-02-12] MEDS: Lactulose 20 GM/30 ML SOLUTION 10 GM PO (08:16)
[2024-02-12] MEDS: methADONE HCl 20 MG/2 ML ORAL.CONC 95 MG PO (08:16)
[2024-02-12] MEDS: Thiamine HCL 100 MG TABLET PO (08:16)
[2024-02-12] MEDS: Multivitamin TABLET 1 TAB PO (08:16)
[2024-02-12] MEDS: Lactulose 20 GM/30 ML SOLUTION PO ×2 (10:45→13:58)
[2024-02-12] MEDS: Sodium Phosphate,Mono-Dibasic 133 ML ENEMA PR ×2 (13:58→16:06)
--- NOTE | 2024-02-12 17:53 | HO.PSYCHPN ---
Subjective Subjective Date of Service: 02/12/24 Reason For Visit: Schizophrenia; opiate use disorder Interim History: Met with patient; discussed with team Patient confused and still constipated with no bowel movement. Patient says has hepatitis for the past 15 years and has never had treatment. Amenable to treatment for constipation and hyperammonemia; throughout the day alternating with lactulose and enema; still no relief from constipation. Mental Status Exam Mental Status Exam Narrative: Pt is alert and oriented; behavior is friendly, calm, disorganized; dressed in hospital attire, heavily tattooed arms, disheveled; mood is described as ok and affect congruent, tired; eye contact appropriate; Speech is more regular volume, rate and prosody; some psychomotor retardation present, but less; thought process more disorganized; Thought content is on various, nonsensical things; ; denies any SI/HI. No AH. Patients insight and judgment impaired Diagnostics Vital Signs (24Hr): Vital Signs - 24 hr 02/11/24 20:00 02/12/24 08:00 Temperature 97.5 F 97.6 F Pulse Rate 62 67 Respiratory Rate 18 18 Blood Pressure 129/81 145/84 H Pulse Oximetry 97 96 Oxygen Delivery Method Room Air Room Air BMI result Body Mass Index 25.6 Labs 02/01/24 06:11 02/13/24 14:48 Labs: Laboratory Results - last 48 hr 02/11/24 11:18 Sodium 139 Potassium 4.4 D Chloride 105 Carbon Dioxide 28 Anion Gap 10 L BUN 21 H Creatinine 0.70 Estim Creat Clear Calc 129.0 Estimated GFR > 60 Random Glucose 104 Calcium 9.3 Total Bilirubin 0.3 AST 140 H ALT 149 H Alkaline Phosphatase 90 Ammonia 68 H Total Protein 7.1 Albumin 3.5 Medications Medications Current Medications Acetaminophen (Acetaminophen 325 Mg Tablet) 650 mg PO Q6H PRN PRN Reason: Headache/Pain Mild Scale (1-3) Last Admin: 02/12/24 01:54 Dose: 650 mg Al Hydroxide/Mg Hydroxide (Magnesium Hydrox/Alum Hydrox 30 Ml Oral.Susp) 30 ml PO Q6H PRN PRN Reason: Heartburn/Nausea Benztropine Mesylate (Benztropine Mesylate 0.5 Mg Tablet) 0.5 mg PO BID JESSICA Last Admin: 02/11/24 08:26 Dose: 0.5 mg Clonidine HCl (Clonidine Hcl 0.1 Mg Tablet) 0.1 mg PO BID PRN; Protocol PRN Reason: withdrawal sx Last Admin: 02/11/24 10:21 Dose: 0.1 mg Folic Acid (Folic Acid 1 Mg Tablet) 1 mg PO DAILY [facility] Last Admin: 02/12/24 08:16 Dose: 1 mg Gabapentin (Gabapentin 300 Mg Capsule) 300 mg PO TID [facility] Last Admin: 02/12/24 13:58 Dose: 300 mg Hydroxyzine HCl (Hydroxyzine Hcl 25 Mg Tablet) 25 mg PO Q6H PRN PRN Reason: Anxiety Last Admin: 02/10/24 22:23 Dose: 25 mg Ibuprofen (Ibuprofen 800 Mg Tablet) 800 mg PO Q8H PRN PRN Reason: foot pain Last Admin: 02/12/24 01:54 Dose: 800 mg Lactulose (Lactulose 20 Gm/30 Ml Solution) 10 gm PO DAILY [facility] Last Admin: 02/12/24 08:16 Dose: 10 gm Magnesium Hydroxide (Milk Of Magnesia 30 Ml Oral.Susp) 30 ml PO DAILY PRN PRN Reason: Constipation Last Admin: 02/11/24 21:02 Dose: 30 ml Methadone HCl (Methadone Hcl 20 Mg/2 Ml Oral.Conc) 95 mg PO DAILY [facility] Last Admin: 02/12/24 08:16 Dose: 95 mg Multivitamins/Vitamin C (Multivitamin Tablet) 1 tab PO DAILY [facility] Last Admin: 02/12/24 08:16 Dose: 1 tab Naloxone HCl (Naloxone Hcl Nasal 4 Mg [place]) 4 mg NOSTRILALT ONCE PRN PRN Reason: opiate overdose Nicotine (Nicotine 21 Mg Patch.Td24) 21 mg TRANSDERMA DAILY PRN PRN Reason: nicotine craving Nicotine Polacrilex (Nicotine Polacrilex 2 Mg Gum) 4 mg BUCCAL Q2H PRN PRN Reason: nicotine cravings Last Admin: 02/11/24 10:21 Dose: 4 mg Olanzapine (Olanzapine 5 Mg Tablet) 5 mg PO TID PRN PRN Reason: agitation,psychosis Last Admin: 02/07/24 06:15 Dose: 5 mg Polyethylene Glycol (Polyethylene Glycol 3350 17 Gm Powd.Pack) 17 gm PO DAILY PRN PRN Reason: continued constipation Sodium Biphosphate/Sodium Phosphate (Sodium Phosphate,[place]-Dibasic 133 Ml Enema) 133 ml ME ONCE PRN PRN Reason: continued constipation Last Admin: 06/25/24 13:58 Dose: 133 ml Thiamine HCl (Thiamine Hcl 100 Mg Tablet) 100 mg PO DAILY [facility] Last Admin: 02/12/24 08:16 Dose: 100 mg Trazodone HCl (Trazodone Hcl 50 Mg Tablet) 50 mg PO BEDTIME [facility] Last Admin: 02/11/24 20:55 Dose: 50 mg Trazodone HCl (Trazodone Hcl 50 Mg Tablet) 50 mg PO BEDTIME MRX1 PRN PRN Reason: Insomnia Last Admin: 02/06/24 00:07 Dose: 50 mg Allergies Allergies Allergy/AdvReac Type Severity Reaction Status Date / Time No Known Allergies Allergy Verified 02/01/24 05:09 [No Known Allergies*] Assessment & Plan Assessment & Plan (1) Schizoaffective disorder, depressive type: Status: Acute Code(s): F25.1 - Schizoaffective disorder, depressive type (2) Opioid use disorder: Status: Acute Code(s): F11.90 - Opioid use, unspecified, uncomplicated (3) Cocaine abuse: Status: Acute Code(s): F14.10 - Cocaine abuse, uncomplicated (4) Alcohol use disorder: Status: Acute Code(s): F10.90 - Alcohol use, unspecified, uncomplicated (5) Delirium: Status: Acute Code(s): R41.0 - Disorientation, unspecified (6) Hyperammonemia: Status: Acute Code(s): E72.20 - Disorder of urea cycle metabolism, unspecified Plan Patient is a 48-year-old male with history of depression, psychotic symptoms and cocaine, opioid, alcohol abuse/dependence, who self presents for worsening depression and auditory hallucinations in the face of being off medications and relapsing with IV cocaine/opioids. Patient says that he was 7 months sober, on Haldol, until about 3 months ago when he relapsed. Patient reports that he has been abusing IV cocaine and heroin daily since then; he also has been drinking about a pint of vodka a day for the past 3 weeks. Patient remained depressed and having auditory hallucinations and has not slept for the past several days to 2 constant drug abuse. No suicidality however he felt he could not get himself sober or out of his depression unless he came to the hospital. Patient would like to get back on Haldol on which he says calms him and takes away AH. Patient denies history of trauma; he does endorse some possible manic episodes however the details are vague. Formulation/clinical reasoning: Will diagnosed with MDD with psychotic features for now; psychotic illness remains a rule out. Patient would like Haldol restarted which he says is helpful, calming and removed AH. Will place patient on CIWA for alcohol withdrawal Says methadone dose is high enough as it is Hospital course: 02/02 pt a little more interactive, though mostly still in bed. He says he's starting to feel better; no AH and tolerating Haldol. No w/drawal symptoms. Discussed program and pt is ambivalent, considering it. Regarding Doxycyline, he refused to take it saying he does not need it; most recent script from 01/22/24 for left foot cellulitis; freelance writer examined foot and no signs of infection. He denies that he had a recent foot infection and He refuses to take it. Reviewed ED note and no mention of either cellulitis or antibiotic. 02/03 mostly same presentation although patient says he started to feel better 02/04 patient reports that he started to feel better. Of note brighter affect and he is out and about in the milieu more more talkative. Discussed his history in service and right ear damage. Discussed history of bilateral foot neuropathy and patient asked to be back on gabapentin. He understands the risks of combining gabapentin with substance abuse -patient remains hopeful about getting into a program, wanting to return to sobriety. 02/05 continues to improve; gabapentin helping with neuropathy 02/06 Patient appeared more confused this morning, exit seeking in a disorganized way, hard to finish sentences, some mild paranoid ideation. He said i was in the medication world, and i took it this morning and it was nice...but then i was lost... -denies AVH; says Haldol helped with AH in the past. Scaling Machine Operator reviewed chart and indications for Haldol prescription in the past. Patient agreed to increasing Haldol now. Patient received an extra Haldol 5 mg dose and confusion fully resolved and patient felt much more organized. Will change diagnosis to schizoaffective disorder, depressive type 02/07: continue current tx plan. 02/08 continue tx plan 02/10 Patient confused while talking with freelance writer, rambling about unrelated, nonsensical things. Patient unaware of this. -Labs drawn and patient has [id number] hyperammonemia. -sjxi-ec-viertjrtgf elevated liver enzymes however these seem to be chronically elevated and are currently stable -will discontinue Haldol (also discontinue Lexapro just to make sure) and adding lactulose. It is unclear what exactly caused elevated ammonia since current medication regimen, including Haldol is not particularly known for this. This also makes it a little more difficult to figure out if patient has psychosis or was confused due to elevated ammonia levels. 02/11 continues to be confused; still no bowel movement despite lactulose and enema. Seems possible that Haldol exacerbated chronic hepatitis. Will continue to treat; once patient has bowel movement or repeat ammonia level and get hepatitis labs. Plan: CV Q 15 minute checks lactulose 30mg tid Gabapentin 300 mg t.i.d. for bilateral foot neuropathy DC Haldol 5 mg BID; possibly causing hyperammonemia Hold Cogentin 0.5 mg daily since not on haldol DC Lexapro; DC CIWA no withdrawal DC cows since no PRNs ordered and patient on methadone; also denies feeling opioid withdrawal Patient educated on: diagnosis, medication risk/benefits and medical condition Informed Consent: understands, does not understand and further education needed Reason for continued inpatient stay Substantial Risk for: inability to function and rapid decompensation Time Spent With Patient Time: Total time managing care of this patient today ____ minutes.
[2024-02-12 21:00] VITALS: BP 127/89; PULSE 62; RESP 16; TEMP 36.1; O2SAT 98
[2024-02-12] MEDS: polyethylene glycoL 3350 17 GM POWD.PACK PO (21:07)
[2024-02-12 21:08] VITALS: BP 124/89
[2024-02-12] MEDS: hydrOXYzine HCL 25 MG TABLET PO (21:08)
[2024-02-12] MEDS: cloNIDine HCL 0.1 MG TABLET PO (21:08)
[2024-02-12] MEDS: traZODone HCL 50 MG TABLET PO (22:32)
[2024-02-13] MEDS: traZODone HCL 50 MG TABLET PO ×3 (02:39→21:28)
[2024-02-13] MEDS: OLANZapine 5 MG TABLET PO (02:39)
[2024-02-13] MEDS: methADONE HCl 20 MG/2 ML ORAL.CONC 95 MG PO (08:28)
[2024-02-13] MEDS: Lactulose 20 GM/30 ML SOLUTION 10 GM PO (08:29)
[2024-02-13 08:30] VITALS: BP 118/66; PULSE 60; RESP 16; TEMP 36.3; O2SAT 92
[2024-02-13] MEDS: Multivitamin TABLET 1 TAB PO (08:30)
[2024-02-13] MEDS: Gabapentin 300 MG CAPSULE PO ×3 (08:30→20:09)
[2024-02-13] MEDS: Thiamine HCL 100 MG TABLET PO (08:30)
[2024-02-13] MEDS: Folic Acid 1 MG TABLET PO (08:30)
--- NOTE | 2024-02-13 09:39 | HO.PSYCHPN ---
Subjective Subjective Date of Service: 02/13/24 Reason For Visit: Schizophrenia; opiate use disorder Interim History: Met with patient; discussed with team remains constipated with distended abdomen; some concern for fecal impaction. He continues to take lactulose and enema. Towards the end of the day patient did have a very large bowel movement and said he feels much relief; of note patient much more clear minded. Repeating labs. Mental Status Exam Mental Status Exam Narrative: Pt is alert and oriented; behavior is friendly, calm, less disorganized; dressed in hospital attire, heavily tattooed arms, disheveled; mood is described as ok and affect congruent, tired; eye contact appropriate; Speech is more regular volume, rate and prosody; some psychomotor retardation present, but less; thought process less disorganized; Thought content is on various, nonsensical things; ; denies any SI/HI. No AH. Patients insight and judgment impaired but improving Diagnostics Vital Signs (24Hr): Vital Signs - 24 hr 02/12/24 21:00 02/12/24 21:08 02/13/24 08:30 Temperature 96.9 F 97.4 F Pulse Rate 62 60 Respiratory Rate 16 16 Blood Pressure 127/89 124/89 118/66 Pulse Oximetry 98 92 Oxygen Delivery Method Room Air Room Air BMI result Body Mass Index 25.6 Labs 02/01/24 06:11 02/13/24 14:48 Labs: Laboratory Results - last 48 hr 02/11/24 11:18 Sodium 139 Potassium 4.4 D Chloride 105 Carbon Dioxide 28 Anion Gap 10 L BUN 21 H Creatinine 0.70 Estim Creat Clear Calc 129.0 Estimated GFR > 60 Random Glucose 104 Calcium 9.3 Total Bilirubin 0.3 AST 140 H ALT 149 H Alkaline Phosphatase 90 Ammonia 68 H Total Protein 7.1 Albumin 3.5 Medications Medications Current Medications Acetaminophen (Acetaminophen 325 Mg Tablet) 650 mg PO Q6H PRN PRN Reason: Headache/Pain Mild Scale (1-3) Last Admin: 02/12/24 20:26 Dose: 650 mg Al Hydroxide/Mg Hydroxide (Magnesium Hydrox/Alum Hydrox 30 Ml Oral.Susp) 30 ml PO Q6H PRN PRN Reason: Heartburn/Nausea Benztropine Mesylate (Benztropine Mesylate 0.5 Mg Tablet) 0.5 mg PO BID JESSICA Last Admin: 02/13/24 08:46 Dose: Not Given Clonidine HCl (Clonidine Hcl 0.1 Mg Tablet) 0.1 mg PO BID PRN; Protocol PRN Reason: withdrawal sx Last Admin: 02/12/24 21:08 Dose: 0.1 mg Folic Acid (Folic Acid 1 Mg Tablet) 1 mg PO DAILY [facility] Last Admin: 02/13/24 08:30 Dose: 1 mg Gabapentin (Gabapentin 300 Mg Capsule) 300 mg PO TID [facility] Last Admin: 02/13/24 08:30 Dose: 300 mg Hydroxyzine HCl (Hydroxyzine Hcl 25 Mg Tablet) 25 mg PO Q6H PRN PRN Reason: Anxiety Last Admin: 02/12/24 21:08 Dose: 25 mg Ibuprofen (Ibuprofen 800 Mg Tablet) 800 mg PO Q8H PRN PRN Reason: foot pain Last Admin: 02/12/24 20:26 Dose: 800 mg Lactulose (Lactulose 20 Gm/30 Ml Solution) 30 gm PO TID [facility] Lactulose (Lactulose 20 Gm/30 Ml Solution) 20 gm PO ONCE ONE Stop: 02/13/24 09:37 Magnesium Hydroxide (Milk Of Magnesia 30 Ml Oral.Susp) 30 ml PO DAILY PRN PRN Reason: Constipation Last Admin: 02/11/24 21:02 Dose: 30 ml Methadone HCl (Methadone Hcl 20 Mg/2 Ml Oral.Conc) 95 mg PO DAILY [facility] Last Admin: 02/13/24 08:28 Dose: 95 mg Multivitamins/Vitamin C (Multivitamin Tablet) 1 tab PO DAILY [facility] Last Admin: 02/13/24 08:30 Dose: 1 tab Naloxone HCl (Naloxone Hcl Nasal 4 Mg [place]) 4 mg NOSTRILALT ONCE PRN PRN Reason: opiate overdose Nicotine (Nicotine 21 Mg Patch.Td24) 21 mg TRANSDERMA DAILY PRN PRN Reason: nicotine craving Nicotine Polacrilex (Nicotine Polacrilex 2 Mg Gum) 4 mg BUCCAL Q2H PRN PRN Reason: nicotine cravings Last Admin: 02/11/24 10:21 Dose: 4 mg Olanzapine (Olanzapine 5 Mg Tablet) 5 mg PO TID PRN PRN Reason: agitation,psychosis Last Admin: 02/13/24 02:39 Dose: 5 mg Polyethylene Glycol (Polyethylene Glycol 3350 17 Gm Powd.Pack) 17 gm PO DAILY PRN PRN Reason: continued constipation Last Admin: 02/12/24 21:07 Dose: 17 gm Sodium Biphosphate/Sodium Phosphate (Sodium Phosphate,[place]-Dibasic 133 Ml Enema) 133 ml CO ONCE PRN PRN Reason: continued constipation Last Admin: 02/12/24 13:58 Dose: 133 ml Thiamine HCl (Thiamine Hcl 100 Mg Tablet) 100 mg PO DAILY JESSICA Last Admin: 02/13/24 08:30 Dose: 100 mg Trazodone HCl (Trazodone Hcl 50 Mg Tablet) 50 mg PO BEDTIME JESSICA Last Admin: 02/12/24 22:32 Dose: 50 mg Trazodone HCl (Trazodone Hcl 50 Mg Tablet) 50 mg PO BEDTIME MRX1 PRN PRN Reason: Insomnia Last Admin: 02/13/24 02:39 Dose: 50 mg Allergies Allergies Allergy/AdvReac Type Severity Reaction Status Date / Time No Known Allergies Allergy Verified 02/01/24 05:09 [No Known Allergies*] Assessment & Plan Assessment & Plan (1) Schizoaffective disorder, depressive type: Status: Acute Code(s): F25.1 - Schizoaffective disorder, depressive type (2) Opioid use disorder: Status: Acute Code(s): F11.90 - Opioid use, unspecified, uncomplicated (3) Cocaine abuse: Status: Acute Code(s): F14.10 - Cocaine abuse, uncomplicated (4) Alcohol use disorder: Status: Acute Code(s): F10.90 - Alcohol use, unspecified, uncomplicated Plan Patient is a 48-year-old male with history of depression, psychotic symptoms and cocaine, opioid, alcohol abuse/dependence, who self presents for worsening depression and auditory hallucinations in the face of being off medications and relapsing with IV cocaine/opioids. Patient says that he was 7 months sober, on Haldol, until about 3 months ago when he relapsed. Patient reports that he has been abusing IV cocaine and heroin daily since then; he also has been drinking about a pint of vodka a day for the past 3 weeks. Patient remained depressed and having auditory hallucinations and has not slept for the past several days to 2 constant drug abuse. No suicidality however he felt he could not get himself sober or out of his depression unless he came to the hospital. Patient would like to get back on Haldol on which he says calms him and takes away AH. Patient denies history of trauma; he does endorse some possible manic episodes however the details are vague. Formulation/clinical reasoning: Will diagnosed with MDD with psychotic features for now; psychotic illness remains a rule out. Patient would like Haldol restarted which he says is helpful, calming and removed AH. Will place patient on CIWA for alcohol withdrawal Says methadone dose is high enough as it is Hospital course: 02/02 pt a little more interactive, though mostly still in bed. He says he's starting to feel better; no AH and tolerating Haldol. No w/drawal symptoms. Discussed program and pt is ambivalent, considering it. Regarding Doxycyline, he refused to take it saying he does not need it; most recent script from 01/22/24 for left foot cellulitis; contract writer examined foot and no signs of infection. He denies that he had a recent foot infection and He refuses to take it. Reviewed ED note and no mention of either cellulitis or antibiotic. 02/03 mostly same presentation although patient says he started to feel better 02/04 patient reports that he started to feel better. Of note brighter affect and he is out and about in the milieu more more talkative. Discussed his history in service and right ear damage. Discussed history of bilateral foot neuropathy and patient asked to be back on gabapentin. He understands the risks of combining gabapentin with substance abuse -patient remains hopeful about getting into a program, wanting to return to sobriety. 02/05 continues to improve; gabapentin helping with neuropathy 02/06 Patient appeared more confused this morning, exit seeking in a disorganized way, hard to finish sentences, some mild paranoid ideation. He said i was in the medication world, and i took it this morning and it was nice...but then i was lost... -denies AVH; says Haldol helped with AH in the past. Labor And Delivery Nurse reviewed chart and indications for Haldol prescription in the past. Patient agreed to increasing Haldol now. Patient received an extra Haldol 5 mg dose and confusion fully resolved and patient felt much more organized. Will change diagnosis to schizoaffective disorder, depressive type 02/07: continue current tx plan. 02/08 continue tx plan 02/10 Patient confused while talking with contract writer, rambling about unrelated, nonsensical things. Patient unaware of this. -Labs drawn and patient has [id number] hyperammonemia. -ynqf-nm-oauztscoks elevated liver enzymes however these seem to be chronically elevated and are currently stable -will discontinue Haldol (also discontinue Lexapro just to make sure) and adding lactulose. It is unclear what exactly caused elevated ammonia since current medication regimen, including Haldol is not particularly known for this. This also makes it a little more difficult to figure out if patient has psychosis or was confused due to elevated ammonia levels. 02/11 continues to be confused; still no bowel movement despite lactulose and enema. Seems possible that Haldol exacerbated chronic hepatitis. Will continue to treat; once patient has bowel movement or repeat ammonia level and get hepatitis labs. 02/12 finally had a large bowel movement Repeating labs including hep C/B panel and hep C viral load -retracted 3 day notice Plan: CV Q 15 minute checks lactulose 30mg tid Gabapentin 300 mg t.i.d. for bilateral foot neuropathy DC Haldol 5 mg BID; possibly causing hyperammonemia Hold Cogentin 0.5 mg daily since not on haldol DC Lexapro; DC CIWA no withdrawal DC cows since no PRNs ordered and patient on methadone; also denies feeling opioid withdrawal Patient educated on: diagnosis, medication risk/benefits and medical condition Informed Consent: understands Reason for continued inpatient stay Substantial Risk for: rapid decompensation Time Spent With Patient Time: Total time managing care of this patient today ____ minutes.
[2024-02-13] MEDS: Lactulose 20 GM/30 ML SOLUTION PO (09:47)
[2024-02-13] MEDS: Sodium Phosphate,Mono-Dibasic 133 ML ENEMA PR (10:50)
[2024-02-13] MEDS: Lactulose 20 GM/30 ML SOLUTION 30 GM PO (14:04)
[2024-02-13] MEDS: Acetaminophen 325 MG TABLET 650 MG PO (14:57)
--- NOTE | 2024-02-13 15:01 | PC.NURSE ---
Pt requested tylenol for 10/10 pain in BL feet, which he was given. This nurse texted Dr. Rachel via [employer] to let him know.
[2024-02-13 15:05] LABS: Ammonia 60 umol/L (13-55)
[2024-02-13 15:14] LABS: Alanine Aminotransferase 145 U/L (0-40); Albumin Level 3.6 g/dL (3.5-5.0); Alkaline Phosphatase 89 U/L (39-117); Anion Gap 12 (12-20); Aspartate Amino Transferase 135 U/L (5-37); Bilirubin Total 0.3 mg/dL (0.0-1.0); Blood Urea Nitrogen 19 mg/dL (9-16); Calcium 9.4 mg/dL (8.4-10.2); Carbon Dioxide 27 mmol/L (22-29); Chloride 106 mmol/L (96-108); Creatinine Clr Calc Pharmacy 108.8; Estimated Glomerular Filt Rate > 60; Glucose Random 115 mg/dL (60-115); Potassium 4.4 mmol/L (3.3-5.1); Sodium 141 mmol/L (135-145); Total Protein 7.2 g/dL (6.5-8.0)
--- NOTE | 2024-02-13 19:28 | PC.NURSE ---
Pt signed 3-day notice, up on saturday 02/17. , SW, UR aware
[2024-02-13 20:00] VITALS: BP 130/89; PULSE 62; RESP 18; TEMP 36.3; O2SAT 98
[2024-02-14] MEDS: Magnesium Hydrox/Alum Hydrox 30 ML ORAL.SUSP PO (00:37)
[2024-02-14] MEDS: Acetaminophen 325 MG TABLET 650 MG PO (04:20)
[2024-02-14 06:40] VITALS: BP 128/78
[2024-02-14] MEDS: cloNIDine HCL 0.1 MG TABLET PO (06:40)
[2024-02-14 09:05] VITALS: BP 135/78; PULSE 60; RESP 16; TEMP 36.9; O2SAT 95
[2024-02-14] MEDS: Folic Acid 1 MG TABLET PO (09:08)
[2024-02-14] MEDS: Multivitamin TABLET 1 TAB PO (09:08)
[2024-02-14] MEDS: Gabapentin 300 MG CAPSULE PO (09:08)
[2024-02-14] MEDS: Thiamine HCL 100 MG TABLET PO (09:08)
[2024-02-14] MEDS: Lactulose 20 GM/30 ML SOLUTION 10 GM PO (09:08)
[2024-02-14] MEDS: methADONE HCl 20 MG/2 ML ORAL.CONC 95 MG PO (09:08)
--- NOTE | 2024-02-14 09:28 | HO.PSYCHPN ---
Subjective Subjective Date of Service: 02/14/24 Reason For Visit: Schizophrenia; opiate use disorder Interim History: Met with patient; discussed with team Patient doing much better. Yesterday after bowel movement he had cleared up and he remains clear minded and back to his regular self, organized in both speech and behavior. Discussed patient's recent medical events with hyperammonemia which was likely exacerbated by Haldol, given chronic hepatitis. Patient said that he is always felt he needed Haldol for his mental health though he could not say exactly what it did for him. Can Piler discussed that if he were to continue being on Haldol he would likely need to also remain on lactulose to keep the ammonia down and that he would need to stay on the unit longer to make sure he tolerated restarting Haldol; other medication/antipsychotic options also discussed. However Patient signed another 3 day notice yesterday afternoon and very much wants to discharge today, accepting that he will not be able to get back on Haldol. He understands his medical illness including need for hepatitis treatment and the reasons Haldol can not be restarted but says he is ready to go and wants to discharge anyway; he says he feels a need to get back home to his sister's and help her. Instead of remaining longer in order to get aftercare set up, he prefers to seek out help on his own in the community. He is considering going to the [facility] for appointments. Mental Status Exam Mental Status Exam Narrative: Pt is alert and oriented; behavior is cooperative, friendly and calm; patient is not in distress; dressed in casual attire with neatly combed hair and adequate hygiene; mood is described as good and affect congruent; eye contact appropriate; Speech is normal rate, volume and prosody and not pressured; no psychomotor agitation/retardation present; thought process is organized and goal directed; Thought content is on tx; otherwise pertinent to relevant topics and without any delusional content, paranoid ideations or grandiosity; denies any SI/HI. There is no evidence of perceptual disturbance. Patients insight and judgment appear intact. Diagnostics Vital Signs (24Hr): Vital Signs - 24 hr 02/13/24 20:00 02/14/24 06:40 Temperature 97.4 F Pulse Rate 62 Respiratory Rate 18 Blood Pressure 130/89 128/78 Pulse Oximetry 98 Oxygen Delivery Method Room Air BMI result Body Mass Index 25.6 Labs 02/01/24 06:11 02/13/24 14:48 Labs: Laboratory Results - last 48 hr 02/13/24 02/13/24 14:48 14:49 Sodium 141 Potassium 4.4 Chloride 106 Carbon Dioxide 27 Anion Gap 12 BUN 19 H Creatinine 0.83 Estim Creat Clear Calc 108.8 Estimated GFR > 60 Random Glucose 115 Calcium 9.4 Total Bilirubin 0.3 AST 135 H ALT 145 H Alkaline Phosphatase 89 Ammonia 60 H Total Protein 7.2 Albumin 3.6 Medications Medications Current Medications Acetaminophen (Acetaminophen 325 Mg Tablet) 650 mg PO Q6H PRN PRN Reason: Headache/Pain Mild Scale (1-3) Last Admin: 02/14/24 04:20 Dose: 650 mg Al Hydroxide/Mg Hydroxide (Magnesium Hydrox/Alum Hydrox 30 Ml Oral.Susp) 30 ml PO Q6H PRN PRN Reason: Heartburn/Nausea Last Admin: 02/14/24 00:37 Dose: 30 ml Benztropine Mesylate (Benztropine Mesylate 0.5 Mg Tablet) 0.5 mg PO BID [facility] Last Admin: 02/13/24 08:46 Dose: Not Given Clonidine HCl (Clonidine Hcl 0.1 Mg Tablet) 0.1 mg PO BID PRN; Protocol PRN Reason: withdrawal sx Last Admin: 02/14/24 06:40 Dose: 0.1 mg Folic Acid (Folic Acid 1 Mg Tablet) 1 mg PO DAILY [facility] Last Admin: 02/14/24 09:08 Dose: 1 mg Gabapentin (Gabapentin 300 Mg Capsule) 300 mg PO TID [facility] Last Admin: 02/14/24 09:08 Dose: 300 mg Hydroxyzine HCl (Hydroxyzine Hcl 25 Mg Tablet) 25 mg PO Q6H PRN PRN Reason: Anxiety Last Admin: 02/12/24 21:08 Dose: 25 mg Ibuprofen (Ibuprofen 800 Mg Tablet) 800 mg PO Q8H PRN PRN Reason: foot pain Last Admin: 02/12/24 20:26 Dose: 800 mg Lactulose (Lactulose 20 Gm/30 Ml Solution) 10 gm PO DAILY [facility] Last Admin: 02/14/24 09:08 Dose: 10 gm Magnesium Hydroxide (Milk Of Magnesia 30 Ml Oral.Susp) 30 ml PO DAILY PRN PRN Reason: Constipation Last Admin: 02/11/24 21:02 Dose: 30 ml Methadone HCl (Methadone Hcl 20 Mg/2 Ml Oral.Conc) 95 mg PO DAILY [facility] Last Admin: 02/14/24 09:08 Dose: 95 mg Multivitamins/Vitamin C (Multivitamin Tablet) 1 tab PO DAILY [facility] Last Admin: 02/14/24 09:08 Dose: 1 tab Naloxone HCl (Naloxone Hcl Nasal 4 Mg [place]) 4 mg NOSTRILALT ONCE PRN PRN Reason: opiate overdose Nicotine (Nicotine 21 Mg Patch.Td24) 21 mg TRANSDERMA DAILY PRN PRN Reason: nicotine craving Nicotine Polacrilex (Nicotine Polacrilex 2 Mg Gum) 4 mg BUCCAL Q2H PRN PRN Reason: nicotine cravings Last Admin: 02/11/24 10:21 Dose: 4 mg Olanzapine (Olanzapine 5 Mg Tablet) 5 mg PO TID PRN PRN Reason: agitation,psychosis Last Admin: 02/13/24 02:39 Dose: 5 mg Polyethylene Glycol (Polyethylene Glycol 3350 17 Gm Powd.Pack) 17 gm PO DAILY PRN PRN Reason: continued constipation Last Admin: 02/12/24 21:07 Dose: 17 gm Sodium Biphosphate/Sodium Phosphate (Sodium Phosphate,Catron-Dibasic 133 Ml Enema) 133 ml TX ONCE PRN PRN Reason: continued constipation Last Admin: 02/13/24 10:50 Dose: 133 ml Thiamine HCl (Thiamine Hcl 100 Mg Tablet) 100 mg PO DAILY [facility] Last Admin: 02/14/24 09:08 Dose: 100 mg Trazodone HCl (Trazodone Hcl 50 Mg Tablet) 50 mg PO BEDTIME [facility] Last Admin: 02/13/24 20:09 Dose: 50 mg Trazodone HCl (Trazodone Hcl 50 Mg Tablet) 50 mg PO BEDTIME MRX1 PRN PRN Reason: Insomnia Last Admin: 02/13/24 21:28 Dose: 50 mg Allergies Allergies Allergy/AdvReac Type Severity Reaction Status Date / Time No Known Allergies Allergy Verified 02/01/24 05:09 [No Known Allergies*] Assessment & Plan Assessment & Plan (1) MDD (major depressive disorder), recurrent, severe, with psychosis: Status: Acute Code(s): F33.3 - Major depressive disorder, recurrent, severe with psychotic symptoms (2) Hyperammonemia: Status: Resolved Code(s): E72.20 - Disorder of urea cycle metabolism, unspecified (3) Delirium: Status: Resolved Code(s): R41.0 - Disorientation, unspecified (4) Opioid use disorder: Status: Acute Code(s): F11.90 - Opioid use, unspecified, uncomplicated (5) Cocaine abuse: Status: Acute Code(s): F14.10 - Cocaine abuse, uncomplicated (6) Alcohol use disorder: Status: Acute Code(s): F10.90 - Alcohol use, unspecified, uncomplicated Plan Patient is a 48-year-old male with history of depression, psychotic symptoms and cocaine, opioid, alcohol abuse/dependence, who self presents for worsening depression and auditory hallucinations in the face of being off medications and relapsing with IV cocaine/opioids. Patient says that he was 7 months sober, on Haldol, until about 3 months ago when he relapsed. Patient reports that he has been abusing IV cocaine and heroin daily since then; he also has been drinking about a pint of vodka a day for the past 3 weeks. Patient remained depressed and having auditory hallucinations and has not slept for the past several days to 2 constant drug abuse. No suicidality however he felt he could not get himself sober or out of his depression unless he came to the hospital. Patient would like to get back on Haldol on which he says calms him and takes away AH. Patient denies history of trauma; he does endorse some possible manic episodes however the details are vague. Formulation/clinical reasoning: Will diagnosed with MDD with psychotic features for now; psychotic illness remains a rule out. Patient would like Haldol restarted which he says is helpful, calming and removed AH. Will place patient on CIWA for alcohol withdrawal Says methadone dose is high enough as it is Hospital course: 02/02 pt a little more interactive, though mostly still in bed. He says he's starting to feel better; no AH and tolerating Haldol. No w/drawal symptoms. Discussed program and pt is ambivalent, considering it. Regarding Doxycyline, he refused to take it saying he does not need it; most recent script from 01/22/24 for left foot cellulitis; journalists and other writers examined foot and no signs of infection. He denies that he had a recent foot infection and He refuses to take it. Reviewed ED note and no mention of either cellulitis or antibiotic. 02/03 mostly same presentation although patient says he started to feel better 02/04 patient reports that he started to feel better. Of note brighter affect and he is out and about in the milieu more more talkative. Discussed his history in service and right ear damage. Discussed history of bilateral foot neuropathy and patient asked to be back on gabapentin. He understands the risks of combining gabapentin with substance abuse -patient remains hopeful about getting into a program, wanting to return to sobriety. 02/05 continues to improve; gabapentin helping with neuropathy 02/06 Patient appeared more confused this morning, exit seeking in a disorganized way, hard to finish sentences, some mild paranoid ideation. He said i was in the medication world, and i took it this morning and it was nice...but then i was lost... -denies AVHunter; says Haldol helped with AH in the past. Can Piler reviewed chart and indications for Haldol prescription in the past. Patient agreed to increasing Haldol now. Patient received an extra Haldol 5 mg dose and confusion fully resolved and patient felt much more organized. Will change diagnosis to schizoaffective disorder, depressive type 02/07: continue current tx plan. 02/08 continue tx plan 02/10 Patient confused while talking with journalists and other writers, rambling about unrelated, nonsensical things. Patient unaware of this. -Labs drawn and patient has [id number] hyperammonemia. -[id number] elevated liver enzymes however these seem to be chronically elevated and are currently stable -will discontinue Haldol (also discontinue Lexapro just to make sure) and adding lactulose. It is unclear what exactly caused elevated ammonia since current medication regimen, including Haldol is not particularly known for this. This also makes it a little more difficult to figure out if patient has psychosis or was confused due to elevated ammonia levels. 02/11 continues to be confused; still no bowel movement despite lactulose and enema. Seems possible that Haldol exacerbated chronic hepatitis. Will continue to treat; once patient has bowel movement or repeat ammonia level and get hepatitis labs. 02/12 finally had a large bowel movement Repeating labs including hep C/B panel and hep C viral load -retracted 3 day notice -later signed another 1 02/13 Patient doing much better. Yesterday after bowel movement he had cleared up and he remains clear minded and back to his regular self, organized in both speech and behavior. Discussed patient's recent medical events with hyperammonemia which was likely exacerbated by Haldol, given chronic hepatitis. Patient said that he is always felt he needed Haldol for his mental health though he could not say exactly what it did for him. Can Piler discussed that if he were to continue being on Haldol he would likely need to also remain on lactulose to keep the ammonia down and that he would need to stay on the unit longer to make sure he tolerated restarting Haldol; other medication/antipsychotic options also discussed. However Patient signed another 3 day notice yesterday afternoon and very much wants to discharge today, accepting that he will not be able to get back on Haldol. He understands his medical illness including need for hepatitis treatment and the reasons Haldol can not be restarted but says he is ready to go and wants to discharge anyway; he says he feels a need to get back home to his sister's and help her. Instead of remaining longer in order to get aftercare set up, he prefers to seek out help on his own in the community. [facility] Impression: Patient is back to baseline. He has in a good mood, future oriented, no AVH or SI, has a 3 day notice in and wants to discharge. Delirium has resolved at ammonia levels decreased; another ammonia level was ordered for today. It has not clear exactly what function Haldol has been for him but he rather discharge without it than stay longer and see if he tolerates it or if another medication could be helpful, or for help setting up aftercare. Regarding diagnosis, journalists and other writers will revert back to MDD with psychotic features which is not fully resolved; earlier in this admission journalists and other writers had switched patient to schizoaffective disorder given his mental confusion which seemed to resolve with extra Haldol, however after he was found to have hyperammonemia which caused confusion, journalists and other writers can not confirm schizoaffective diagnosis and so it will go back to the MDD for now. He understands his medical illness including recent elevated ammonia and chronic hep C infection; he does not want to continue taking lactulose but says he will come in for infectious disease appointment if 1 is made for him. Patient remains vulnerable to relapse and decompensation however this is a chronic issue for him which will not resolve with longer stay on inpatient unit; he has not looking for any further help with substance abuse issues; his healthcare issues are also chronic and he remains with ambivalence about treating them further. He is returning to his sister's with whom he lives and is supportive. Patient is not in imminent risk for harm to self or others and request for discharge honored. Plan: 3 day notice Q 15 minute checks lactulose 10mg daily Gabapentin 300 mg t.i.d. for bilateral foot neuropathy DC Haldol 5 mg BID; possibly causing hyperammonemia Hold Cogentin 0.5 mg daily since not on haldol restart Lexapro; DC CIWA no withdrawal DC cows since no PRNs ordered and patient on methadone; also denies feeling opioid withdrawal Patient educated on: diagnosis, medication risk/benefits, substance abuse, therapeutic strategies and medical condition Informed Consent: understands Reason for continued inpatient stay Substantial Risk for: stable for discharge Time Spent With Patient Time: Total time managing care of this patient today ____ minutes.
[2024-02-14 10:18] LABS: HBc Num1 4.72 S/CO (0.00-0.79); Hepatitis B Surface Antigen Negative (Negative); ~HepC Num1 16.31 S/CO (0.00-0.79); ~Hepatitis B Surface Antibody NONREACTIVE (Nonreactive); ~Hepatitis C Antibody Reactive (Nonreactive)
[2024-02-14 10:39] LABS: HCV Log PCR 6.29 Log IU/mL (NOT DETECTED); HepC Viral Load 1950000 IU/mL (NOT DETECTED)
[2024-02-14 10:44] VITALS: BMI 25.2
[2024-02-14] MEDS: Escitalopram Oxalate 5 MG TABLET PO (10:48)
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
[2024-02-14 11:25] LABS: Ammonia 43 umol/L (13-55)
[2024-02-14 11:28] LABS: HBc Num3 4.72 S/CO; Hepatitis B Core Antibody Reactive (Nonreactive)
[2024-02-14] MEDS: Naloxone HCl Nasal TAKE HOME 4 MG SPRAY 8 MG NOSTRILALT (11:29)
[2024-02-15 17:03] LABS: Hepatitis B Core Antibody IgM BORDERLINE (NON-REACTIVE)
== END 2024-02-14 11:55 | disposition home or self-care (01) | DRG 751 ==
LOC: HO.ED 10:20 → HO.PM5 15:14
PROVIDERS: Clinical Nurse Specialist Psychiatric/Mental Health, Adult; Admitting Provider Psychiatry & Neurology Psychiatry; Emergency Provider Emergency Medicine; PCP Internal Medicine; Visit Provider Psychiatry & Neurology Psychiatry
DX: F33.3 Major depressive disorder, recurrent, severe with psychotic symptoms (principal); E72.20 Disorder of urea cycle metabolism, unspecified; F05 Delirium due to known physiological condition; F10.20 Alcohol dependence, uncomplicated; F11.20 Opioid dependence, uncomplicated; F17.210 Nicotine dependence, cigarettes, uncomplicated; Z71.6 Tobacco abuse counseling; F14.10 Cocaine abuse, uncomplicated; K59.00 Constipation, unspecified; Z79.899 Other long term (current) drug therapy
CPT/HCPCS: 36415; 80053; 80061; 80307; 81003; 82140; 82607; 82746; 83036; 83735; 84439; 84443; 85025; 86704; 86705; 86706; 86803; 87340; 87522; 93005; 99285; S9485

== ENCOUNTER → 2024-02-01 09:04 | Outpatient (BNV) | payer OTHER, SELFPAY | PROVIDERS: Admitting Provider Psychiatry & Neurology Psychiatry; Emergency Provider Emergency Medicine; PCP Internal Medicine; Visit Provider Internal Medicine | DX: R94.31 Abnormal electrocardiogram [ECG] [EKG] (principal) | CPT/HCPCS: 93010 ==

== ENCOUNTER → 2024-02-01 15:02 | Outpatient (BNV) | payer OTHER, SELFPAY | PROVIDERS: Admitting Provider Psychiatry & Neurology Psychiatry; Emergency Provider Emergency Medicine; PCP Internal Medicine; Visit Provider Psychiatry & Neurology Psychiatry | DX: F33.3 Major depressive disorder, recurrent, severe with psychotic symptoms (principal); F14.10 Cocaine abuse, uncomplicated; F11.90 Opioid use, unspecified, uncomplicated; E72.20 Disorder of urea cycle metabolism, unspecified; R41.0 Disorientation, unspecified; F10.90 Alcohol use, unspecified, uncomplicated; F25.1 Schizoaffective disorder, depressive type | CPT/HCPCS: 99231; 99232 ==

== ENCOUNTER 2024-02-17 23:59 | Emergency (ER) | payer OTHER, SELFPAY ==
[2024-02-18 01:02] VITALS: BP 135/74; PULSE 65; RESP 16; TEMP 36.7; O2SAT 96; BMI 25.2
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
[2024-02-18 03:59] LABS: COVID-19 Test Negative (Negative); IDNOW Serial# 152EDE1D
[2024-02-18 04:09] LABS: MANUAL DIFF FLAG NO
[2024-02-18 04:11] LABS: Basophils Percent Auto 0.7 % (0-2); Eosinophils Absolute Auto 0.2 X10*3/uL (0.0-0.4); Eosinophils Percent Auto 3.5 % (0-4); Hematocrit 40.5 % (42.0-52.0); Hemoglobin 13.4 g/dl (14.0-18.0); Imm Gran Abs Auto 0.01 X10*3/uL (0.00-0.03); Imm Gran Pct Auto 0.2 % (0.0-0.4); Lymphocytes Absolute Auto 2.4 X10*3/uL (1.2-4.9); Lymphocytes Percent Auto 40.2 % (20-40); Mean Corpuscular HGB Conc 33.1 g/dl (31.0-36.0); Mean Corpuscular Hemoglobin 31.2 pg (27.0-33.0); Mean Corpuscular Volume 94.4 fL (80.0-98.0); Mean Platelet Volume 10.8 fL (9.4-12.4); Monocytes Absolute Auto 0.9 X10*3/uL (0.1-1.2); Monocytes Percent Auto 15.2 % (2-11); Neutrophils Absolute Auto 2.4 x10*3/uL (2.0-8.3); Neutrophils Percent Auto 40.2 % (45-73); Platelet Count 129 X10*3/uL (160-400); Red Blood Count 4.29 X10*6/uL (4.60-5.80)
[2024-02-18 04:33] LABS: Alanine Aminotransferase 175 U/L (0-40); Albumin Level 3.2 g/dL (3.5-5.0); Alkaline Phosphatase 84 U/L (39-117); Anion Gap 13 (12-20); Aspartate Amino Transferase 147 U/L (5-37); Bilirubin Direct 0.2 mg/dL (0.0-0.5); Bilirubin Total 0.4 mg/dL (0.0-1.0); Blood Urea Nitrogen 17 mg/dL (9-16); Calcium 8.5 mg/dL (8.4-10.2); Carbon Dioxide 23 mmol/L (22-29); Chloride 106 mmol/L (96-108); Creatinine Clr Calc Pharmacy 114.3; Estimated Glomerular Filt Rate > 60; Ethanol < 10 mg/dL; Glucose Random 105 mg/dL (60-115); Potassium 4.1 mmol/L (3.3-5.1); Sodium 138 mmol/L (135-145); Total Protein 6.6 g/dL (6.5-8.0)
[2024-02-18 05:05] VITALS: BP 131/76; PULSE 60; RESP 17; TEMP 36.3; O2SAT 98
[2024-02-18 07:53] VITALS: BP 114/68; PULSE 56; RESP 16; TEMP 36.6; O2SAT 98
--- NOTE | 2024-02-18 08:53 | MHC.RECOVRN ---
Pts referral sent to [facility].
--- NOTE | 2024-02-18 10:36 | MHC.RECOVRN ---
Addendum entered by Noemi Lawler 02/18/24 10:38: Pt accepted to [facility] pending phone screen. Original Note: Met with pt in [id number] to discuss [facility]. Pt reports he has been using 1 bundle heroin/fentanyl, IV, as well as cocaine, $10 IV. Pt denies other substances, denies alcohol use. Pt reports he is currently on methadone, 95 mg through [facility]. Pt reports he is interested in [facility]. Aware referral has been sent to [facility]. Pt denies questions or concerns at this time. KRISTIN aware.
[2024-02-18 12:00] VITALS: BP 117/71; PULSE 60; RESP 14; TEMP 36.6; O2SAT 97
--- NOTE | 2024-02-18 12:31 | HE.PHANOTE ---
METHADONE Dose: 95mg, last dosed on 02/17/2024 @0950 per Yesy at [facility].
[2024-02-18] MEDS: methADONE HCl 20 MG/2 ML ORAL.CONC 95 MG PO (13:13)
--- NOTE | 2024-02-18 13:51 | MHC.RECOVRN ---
Pt has been accepted to [facility] for 8PM admission.
[2024-02-18 16:00] VITALS: BP 133/71; PULSE 60; RESP 14; TEMP 36.4; O2SAT 96
[2024-02-18 16:42] LABS: Amphetamine Screen Urine Not Detected (Not Detect); Barbiturates, Urine Not Detected (Not Detect); Benzodiazepines Screen Urine Not Detected (Not Detect); Buprenorphine Scr Not Detected (Not Detect); Cannabinoid Screen Urine Not Detected (Not Detect); Cocaine Screen Urine POSITIVE (Not Detect); Fentanyl, urine POSITIVE (Not Detect); Methadone Screen, Urine Positive (Not Detect); Opiate Screen Urine Not Detected (Not Detect); Oxycodone Screen Urine Not Detected (Not Detect); Phencyclidine Screen Urine Not Detected (Not Detect)
[2024-02-18 18:37] VITALS: BP 133/71; PULSE 60; RESP 14; TEMP 36.4; O2SAT 96
== END 2024-02-18 18:39 | disposition home or self-care (01) ==
PROVIDERS: Emergency Provider Emergency Medicine; PCP Internal Medicine
DX: F14.19 Cocaine abuse with unspecified cocaine-induced disorder (principal); F33.1 Major depressive disorder, recurrent, moderate; F11.19 Opioid abuse with unspecified opioid-induced disorder; Z71.51 Drug abuse counseling and surveillance of drug abuser; Z11.52 Encounter for screening for COVID-19; Z51.81 Encounter for therapeutic drug level monitoring
CPT/HCPCS: 80048; 80076; 80307; 85025; 87635; 99284

== ENCOUNTER 2024-02-23 00:54 | Inpatient (IN) | payer OTHER, SELFPAY ==
--- NOTE | 2024-02-23 | ECG_ITS ---
Test Reason : PROLONGED QT Blood Pressure : / mmHG Vent. Rate : 046 BPM Atrial Rate : 046 BPM P-R Int : 172 ms QRS Dur : 080 ms QT Int : 484 ms P-R-T Axes : 046 085 073 degrees QTc Int : 423 ms Sinus bradycardia with occasional Premature ventricular complexes Otherwise normal ECG When compared with ECG of 01-FEB-2024 09:04, Premature ventricular complexes are now Present Referred By: Generic ED Physician Electronically Signed By:SHAYAN WONG
[2024-02-23 00:55] VITALS: BP 134/71; PULSE 67; RESP 18; TEMP 37.1; O2SAT 98; BMI 23.6
[2024-02-23 01:16] LABS: MANUAL DIFF FLAG NO
[2024-02-23 01:24] LABS: Basophils Percent Auto 0.3 % (0-2); Eosinophils Absolute Auto 0.1 X10*3/uL (0.0-0.4); Eosinophils Percent Auto 0.8 % (0-4); Hematocrit 41.1 % (42.0-52.0); Hemoglobin 13.8 g/dl (14.0-18.0); Imm Gran Abs Auto 0.03 X10*3/uL (0.00-0.03); Imm Gran Pct Auto 0.5 % (0.0-0.4); Lymphocytes Absolute Auto 2.1 X10*3/uL (1.2-4.9); Lymphocytes Percent Auto 31.7 % (20-40); Mean Corpuscular HGB Conc 33.6 g/dl (31.0-36.0); Mean Corpuscular Hemoglobin 31.6 pg (27.0-33.0); Mean Corpuscular Volume 94.1 fL (80.0-98.0); Mean Platelet Volume 10.6 fL (9.4-12.4); Monocytes Absolute Auto 0.9 X10*3/uL (0.1-1.2); Monocytes Percent Auto 13.3 % (2-11); Neutrophils Absolute Auto 3.6 x10*3/uL (2.0-8.3); Neutrophils Percent Auto 53.4 % (45-73); Platelet Count 198 X10*3/uL (160-400); Red Blood Count 4.37 X10*6/uL (4.60-5.80); Red Cell Distribution Width 13.6 % (11.0-16.0); White Blood Count 6.6 X10*3/uL (4.8-10.8)
[2024-02-23 01:44] LABS: Alanine Aminotransferase 172 U/L (0-40); Albumin Level 3.9 g/dL (3.5-5.0); Alkaline Phosphatase 95 U/L (39-117); Anion Gap 15 (12-20); Aspartate Amino Transferase 144 U/L (5-37); Bilirubin Total 0.8 mg/dL (0.0-1.0); Blood Urea Nitrogen 18 mg/dL (9-16); Calcium 9.2 mg/dL (8.4-10.2); Carbon Dioxide 20 mmol/L (22-29); Chloride 106 mmol/L (96-108); Creatinine Clr Calc Pharmacy 92.1; Estimated Glomerular Filt Rate > 60; Ethanol < 10 mg/dL; Glucose Random 138 mg/dL (60-115); Potassium 3.8 mmol/L (3.3-5.1); Sodium 137 mmol/L (135-145); Total Protein 7.6 g/dL (6.5-8.0)
[2024-02-23 02:57] VITALS: BP 128/69; PULSE 77; RESP 17; TEMP 36.9; O2SAT 96
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
[2024-02-23 03:54] LABS: Magnesium 2.3 mg/dL (1.6-2.6)
[2024-02-23 04:15] VITALS: BP 110/61; PULSE 46; RESP 16; TEMP 36; O2SAT 97
[2024-02-23] MEDS: Ibuprofen 600 MG TABLET PO (04:45)
--- NOTE | 2024-02-23 04:47 | PC.NURSE ---
this rn assumed care of pt, pt a&ox4, respirations even and unlabored. pt reporting onset of auditory hallucinations, reports these hallucinations are telling him to harm himself. pt denies plan at this time. pt denies HI. pt reports he would like to speak to care team to help with these thoughts. security at bedside assisting with pattern changer. pt medicated per oct for 6/10 back pain. pt given food. 1:1 sitter at bedside.
--- NOTE | 2024-02-23 05:21 | PC.NURSE ---
pt belongings placed in POD locker 12.
--- NOTE | 2024-02-23 07:27 | PC.NURSE ---
Assumed care of patient at 0645. No signs of distress, breathing is even and unlabored. Patient is observed resting quietly in their bed.
--- NOTE | 2024-02-23 07:41 | PC.NURSE ---
Methadone Verification [facility] [phone] verified methadone dose 95mg last dosed at 02/22/24 at 1013. Spoke with Susana FOSTER at clinic.
--- NOTE | 2024-02-23 07:55 | HE.PHANOTE ---
RE: METHADONE DOSING Received methadone verification form. Last dose of 95 mg was given on 02/22/24@1013 at [facility] Meza RN.
[2024-02-23] MEDS: Gabapentin 300 MG CAPSULE PO ×3 (08:52→21:12)
[2024-02-23] MEDS: Escitalopram Oxalate 10 MG TABLET PO (08:52)
[2024-02-23] MEDS: methADONE HCl 20 MG/2 ML ORAL.CONC 95 MG PO (08:52)
[2024-02-23 14:11] LABS: Amphetamine Screen Urine Not Detected (Not Detect); Barbiturates, Urine Not Detected (Not Detect); Benzodiazepines Screen Urine Not Detected (Not Detect); Buprenorphine Scr Not Detected (Not Detect); Cannabinoid Screen Urine Not Detected (Not Detect); Cocaine Screen Urine POSITIVE (Not Detect); Fentanyl, urine POSITIVE (Not Detect); Methadone Screen, Urine Positive (Not Detect); Opiate Screen Urine Not Detected (Not Detect); Oxycodone Screen Urine Not Detected (Not Detect); Phencyclidine Screen Urine Not Detected (Not Detect)
[2024-02-23 15:45] LABS: Appearance Urine Clear; Color Urine Dark Yellow; Glucose Urine UA Negative (Negative); Leukocyte Esterase Urine Negative (Negative); Nitrite Urine Negative (Negative); Specific Gravity - Urine >= 1.030 (1.005-1.025); Urine Blood Negative (Negative); Urine Ketones Negative (Negative); Urine Protein Negative (Neg-Trace)
[2024-02-23 15:47] VITALS: BP 116/78; PULSE 45; RESP 15; TEMP 36.2; O2SAT 98
[2024-02-23 16:43] VITALS: BMI 24.5
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
[2024-02-24 08:00] VITALS: BP 120/85; PULSE 56; RESP 16; TEMP 36.6; O2SAT 96
[2024-02-24] MEDS: Gabapentin 300 MG CAPSULE PO ×3 (09:04→20:51)
[2024-02-24] MEDS: polyethylene glycoL 3350 17 GM POWD.PACK PO (09:07)
[2024-02-24] MEDS: methADONE HCl 20 MG/2 ML ORAL.CONC 95 MG PO (09:11)
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
[2024-02-24 20:20] VITALS: BP 132/71; PULSE 50; RESP 16; TEMP 36.6; O2SAT 95
[2024-02-25 08:00] VITALS: BP 121/75; PULSE 48; RESP 12; TEMP 36.4; O2SAT 95
[2024-02-25] MEDS: Gabapentin 300 MG CAPSULE PO ×3 (09:22→20:56)
[2024-02-25] MEDS: methADONE HCl 20 MG/2 ML ORAL.CONC 95 MG PO (09:23)
--- NOTE | 2024-02-25 09:37 | P.PNPSI_ITS ---
Subjective Subjective Date of Service: 02/25/24 Reason For Visit: depression Subjective Notes: [place] Warning and Conditional Voluntary Interim History: Reviewed with Dr. Mena. Pt reports feeling like my depression is getting better ; pt stated, I was having voices before I came in here but I slept for a few days and I woke up fine . Pt denies SI/HI/VH/AH. Pt reports he was using cocaine prior to admission but does not believe this had to do with auditory hallucinations or paranoia. Continue current tx plan. Medication Compliance: Yes Side effects from medications: No Attending Groups: Intermittent Review of Systems Constitutional: Reports as per HPI Eyes: Reports as per HPI Reports as per HPI Cardiovascular: Reports as per HPI Respiratory: Reports as per HPI Gastrointestinal: Reports as per HPI Genitourinary: Reports as per HPI Musculoskeletal: Reports as per HPI Skin/Breast: Reports as per HPI Reports as per HPI Psychiatric: Reports as per HPI Endocrine: Reports as per HPI Allergic/Immunologic: Reports as per HPI Mental Status Exam Mental Status Exam Narrative: Pt is alert and oriented; behavior is cooperative,calm, guarded; dressed in hospital attire; mood is described as getting better ; eye contact appropriate; Speech is normal rate, volume and not pressured; thought process is organized; Thought content is on tx; otherwise pertinent to relevant topics and without any delusional content, paranoid ideations or grandiosity; denies SI/HI/VH/AH. Diagnostics Vital Signs (24Hr): Vital Signs - 24 hr 02/24/24 20:20 02/25/24 08:00 Temperature 97.8 F 97.5 F Pulse Rate 50 48 L Respiratory Rate 16 12 Blood Pressure 132/71 121/75 Pulse Oximetry 95 95 Oxygen Delivery Method Room Air Room Air BMI result Body Mass Index 24.5 Labs 02/23/24 01:13 02/23/24 01:13 Labs: Laboratory Results - last 48 hr 02/23/24 13:49 Urine Color Dark Yellow Urine Appearance Clear Urine pH 6.0 Ur Specific [place] >= 1.030 H Urine Protein Negative Urine Glucose (UA) Negative Urine Ketones Negative Urine Blood Negative Urine Nitrite Negative Ur Leukocyte Esterase Negative Urine Opiates Screen Not Detected Ur Buprenorphine Scrn Not Detected Ur Oxycodone Screen Not Detected Urine Methadone Screen Positive H Urine Fentanyl Screen POSITIVE H Ur Barbiturates Screen Not Detected Ur Phencyclidine Scrn Not Detected Ur Amphetamines Screen Not Detected U Benzodiazepines Scrn Not Detected Urine Cocaine Screen POSITIVE H U Marijuana (THC) Screen Not Detected Medications Medications Current Medications Acetaminophen (Acetaminophen 325 Mg Tablet) 650 mg PO Q6H PRN PRN Reason: Headache/Pain Mild Scale (1-3) Al Hydroxide/Mg Hydroxide (Magnesium Hydrox/Alum Hydrox 30 Ml Oral.Susp) 30 ml PO Q6H PRN PRN Reason: Heartburn/Nausea Clonidine HCl (Clonidine Hcl 0.1 Mg Tablet) 0.1 mg PO BID PRN; Protocol PRN Reason: withdrawal sx Escitalopram Oxalate (Escitalopram Oxalate 10 Mg Tablet) 10 mg PO DAILY [facility] Last Admin: 02/25/24 09:26 Dose: Not Given Gabapentin (Gabapentin 300 Mg Capsule) 300 mg PO TID [facility] Last Admin: 02/25/24 09:22 Dose: 300 mg Hydroxyzine HCl (Hydroxyzine Hcl 25 Mg Tablet) 25 mg PO Q6H PRN PRN Reason: Anxiety Hydroxyzine HCl (Hydroxyzine Hcl 25 Mg Tablet) 25 mg PO Q6H PRN PRN Reason: Anxiety Magnesium Hydroxide (Milk Of Magnesia 30 Ml Oral.Susp) 30 ml PO DAILY PRN PRN Reason: Constipation Methadone HCl (Methadone Hcl 20 Mg/2 Ml Oral.Conc) 95 mg PO DAILY [facility] Last Admin: 02/25/24 09:23 Dose: 95 mg Naloxone HCl (Naloxone Hcl Nasal 4 Mg [place]) 4 mg NOSTRILALT ONCE PRN PRN Reason: opiate overdose Nicotine Polacrilex (Nicotine Polacrilex 2 Mg Gum) 4 mg BUCCAL Q2H PRN PRN Reason: nicotine cravings Nicotine Polacrilex (Nicotine Polacrilex 2 Mg Gum) 4 mg BUCCAL Q2H PRN PRN Reason: Nicotine Cravings Polyethylene Glycol (Polyethylene Glycol 3350 17 Gm Powd.Pack) 17 gm PO DAILY [facility] Last Admin: 02/25/24 09:26 Dose: Not Given Trazodone HCl (Trazodone Hcl 50 Mg Tablet) 50 mg PO BEDTIME PRN PRN Reason: insomnia Trazodone HCl (Trazodone Hcl 50 Mg Tablet) 50 mg PO BEDTIME MRX1 PRN PRN Reason: Insomnia Allergies Allergies Allergy/AdvReac Type Severity Reaction Status Date / Time No Known Allergies Allergy Verified 02/23/24 01:00 [No Known Allergies*] Assessment & Plan Assessment & Plan (1) MDD (major depressive disorder), recurrent, severe, with psychosis: Status: Acute Code(s): F33.3 - Major depressive disorder, recurrent, severe with psychotic symptoms (2) Polysubstance abuse: Status: Acute Code(s): F19.10 - Other psychoactive substance abuse, uncomplicated Plan restart/continue outpt regimen, which includes lexapro, gabapentin, methadone. T/C addition of atypical antipsychotic, but pt's psychotic complaints are not very compelling. allow to detox and observe for improvement in mood, energy, psychotic Sx. 02/24: Pt reports feeling like my depression is getting better ; pt stated, I was having voices before I came in here but I slept for a few days and I woke up fine . Pt denies SI/HI/VH/AH. Pt reports he was using cocaine prior to admission but does not believe this had to do with auditory hallucinations or paranoia. Continue current tx plan. Patient educated on: diagnosis, medication risk/benefits and substance abuse Informed Consent: understands Reason for continued inpatient stay Substantial Risk for: med/psych decompensation Time Spent With Patient Time: Total time managing care of this patient today _20___ minutes.
[2024-02-25] MEDS: hydrOXYzine HCL 25 MG TABLET PO (14:11)
[2024-02-25] MEDS: Nicotine Polacrilex 2 MG GUM 4 MG BUCCAL ×2 (14:32→19:08)
[2024-02-25 20:00] VITALS: BP 126/78; PULSE 60; RESP 16; TEMP 36.7; O2SAT 96
[2024-02-26] MEDS: traZODone HCL 50 MG TABLET PO ×2 (00:40→20:14)
[2024-02-26 08:00] VITALS: BP 143/67; PULSE 55; RESP 12; TEMP 36.6; O2SAT 95
[2024-02-26] MEDS: methADONE HCl 20 MG/2 ML ORAL.CONC 95 MG PO (08:12)
--- NOTE | 2024-02-26 14:10 | P.PNPSI_ITS ---
Subjective Subjective Date of Service: 02/26/24 Reason For Visit: depression Subjective Notes: Conditional Voluntary Interim History: Reviewed with Dr. Mena. Pt reports feeling better than when I got here ; pt stated, I'm not having any negative thoughts. I feel ready to go back to my sister's house . Pt denies SI/HI/VH/AH. Continue current tx plan. Plan for discharge this week. Medication Compliance: Yes Side effects from medications: No Attending Groups: No Review of Systems Constitutional: Reports as per HPI Eyes: Reports as per HPI Reports as per HPI Cardiovascular: Reports as per HPI Respiratory: Reports as per HPI Gastrointestinal: Reports as per HPI Genitourinary: Reports as per HPI Musculoskeletal: Reports as per HPI Skin/Breast: Reports as per HPI Reports as per HPI Psychiatric: Reports as per HPI Endocrine: Reports as per HPI Allergic/Immunologic: Reports as per HPI Mental Status Exam Mental Status Exam Narrative: Pt is alert and oriented; behavior is cooperative,calm, guarded; dressed in hospital attire; mood is described as better ; eye contact appropriate; Speech is normal rate, volume and not pressured; thought process is organized; Thought content is on tx; otherwise pertinent to relevant topics and without any delusional content, paranoid ideations or grandiosity; denies SI/HI/VH/AH. Diagnostics Vital Signs (24Hr): Vital Signs - 24 hr 02/25/24 20:00 02/26/24 08:00 Temperature 98.1 F 97.8 F Pulse Rate 60 55 Respiratory Rate 16 12 Blood Pressure 126/78 143/67 H Pulse Oximetry 96 95 Oxygen Delivery Method Room Air Room Air BMI result Body Mass Index 24.5 Labs 02/23/24 01:13 02/23/24 01:13 Medications Medications Current Medications Acetaminophen (Acetaminophen 325 Mg Tablet) 650 mg PO Q6H PRN PRN Reason: Headache/Pain Mild Scale (1-3) Al Hydroxide/Mg Hydroxide (Magnesium Hydrox/Alum Hydrox 30 Ml Oral.Susp) 30 ml PO Q6H PRN PRN Reason: Heartburn/Nausea Clonidine HCl (Clonidine Hcl 0.1 Mg Tablet) 0.1 mg PO BID PRN; Protocol PRN Reason: withdrawal sx Escitalopram Oxalate (Escitalopram Oxalate 10 Mg Tablet) 10 mg PO DAILY JESSICA Last Admin: 02/26/24 08:53 Dose: Not Given Gabapentin (Gabapentin 300 Mg Capsule) 300 mg PO TID [facility] Last Admin: 02/26/24 08:53 Dose: Not Given Hydroxyzine HCl (Hydroxyzine Hcl 25 Mg Tablet) 25 mg PO Q6H PRN PRN Reason: Anxiety Last Admin: 02/25/24 14:11 Dose: 25 mg Hydroxyzine HCl (Hydroxyzine Hcl 25 Mg Tablet) 25 mg PO Q6H PRN PRN Reason: Anxiety Magnesium Hydroxide (Milk Of Magnesia 30 Ml Oral.Susp) 30 ml PO DAILY PRN PRN Reason: Constipation Methadone HCl (Methadone Hcl 20 Mg/2 Ml Oral.Conc) 95 mg PO DAILY [facility] Last Admin: 02/26/24 08:12 Dose: 95 mg Naloxone HCl (Naloxone Hcl Nasal 4 Mg [place]) 4 mg NOSTRILALT ONCE PRN PRN Reason: opiate overdose Nicotine Polacrilex (Nicotine Polacrilex 2 Mg Gum) 4 mg BUCCAL Q2H PRN PRN Reason: nicotine cravings Last Admin: 02/25/24 19:08 Dose: 4 mg Nicotine Polacrilex (Nicotine Polacrilex 2 Mg Gum) 4 mg BUCCAL Q2H PRN PRN Reason: Nicotine Cravings Polyethylene Glycol (Polyethylene Glycol 3350 17 Gm Powd.Pack) 17 gm PO DAILY [facility] Last Admin: 02/26/24 08:53 Dose: Not Given Trazodone HCl (Trazodone Hcl 50 Mg Tablet) 50 mg PO BEDTIME PRN PRN Reason: insomnia Last Admin: 02/26/24 00:40 Dose: 50 mg Trazodone HCl (Trazodone Hcl 50 Mg Tablet) 50 mg PO BEDTIME MRX1 PRN PRN Reason: Insomnia Allergies Allergies Allergy/AdvReac Type Severity Reaction Status Date / Time No Known Allergies Allergy Verified 02/23/24 01:00 [No Known Allergies*] Assessment & Plan Assessment & Plan (1) MDD (major depressive disorder), recurrent, severe, with psychosis: Status: Acute Code(s): F33.3 - Major depressive disorder, recurrent, severe with psychotic symptoms (2) Polysubstance abuse: Status: Acute Code(s): F19.10 - Other psychoactive substance abuse, uncomplicated Plan restart/continue outpt regimen, which includes lexapro, gabapentin, methadone. T/C addition of atypical antipsychotic, but pt's psychotic complaints are not very compelling. allow to detox and observe for improvement in mood, energy, psychotic Sx. 02/24: Pt reports feeling like my depression is getting better ; pt stated, I was having voices before I came in here but I slept for a few days and I woke up fine . Pt denies SI/HI/VH/AH. Pt reports he was using cocaine prior to admission but does not believe this had to do with auditory hallucinations or paranoia. Continue current tx plan. 02/25: Pt reports feeling better than when I got here ; pt stated, I'm not having any negative thoughts. I feel ready to go back to my sister's house . Pt denies SI/HI/VH/AH. Continue current tx plan. Plan for discharge this week. Patient educated on: diagnosis and medication risk/benefits Informed Consent: understands Reason for continued inpatient stay Substantial Risk for: med/psych decompensation Time Spent With Patient Time: Total time managing care of this patient today _20___ minutes.
[2024-02-26] MEDS: Gabapentin 300 MG CAPSULE PO ×2 (14:32→20:14)
[2024-02-26] MEDS: Escitalopram Oxalate 10 MG TABLET PO (14:47)
[2024-02-26 20:00] VITALS: BP 117/61; PULSE 61; RESP 16; TEMP 36.6; O2SAT 95
[2024-02-27 07:44] VITALS: BP 127/80; PULSE 59; RESP 14; TEMP 36.4; O2SAT 93
[2024-02-27] MEDS: methADONE HCl 20 MG/2 ML ORAL.CONC 95 MG PO (08:08)
[2024-02-27] MEDS: Escitalopram Oxalate 10 MG TABLET PO (08:53)
[2024-02-27] MEDS: Gabapentin 300 MG CAPSULE PO (08:53)
--- NOTE | 2024-02-27 10:17 | P.DS_ITS ---
DS: Providers Provider Date of Service: 02/27/24 Date of admission: 02/23/24 15:22 Date of discharge: 02/27/24 Primary care physician: Emelina Physician Attending physician on admission: Drew Simpson Attending physician on discharge: Jeffrey Mena Discharging clinician: Oumou Godwin DS: Diagnosis Discharge Diagnosis (1) MDD (major depressive disorder), recurrent, severe, with psychosis: Status: Acute (2) Polysubstance abuse: Status: Acute DS: Medications Discharge Medications Home Medications: Previous Rx's ?Medication ?Instructions ?Recorded methadone 10 mg/mL oral 95 mg (9.5 mL) PO DAILY #0 mL 11/30/23 concentrate (Methadose) naloxone 4 mg/actuation nasal 4 mg intranasal (ALT) ONCE PRN 02/14/24 spray (Narcan) opiate overdose #2 ea nicotine (polacrilex) 2 mg gum 4 mg buccal Q2H PRN nicotine 02/14/24 cravings 30 days #100 ea escitalopram oxalate 10 mg tablet 10 mg PO DAILY 30 days #30 tabs 02/27/24 gabapentin 300 mg capsule 300 mg PO TID 30 days #90 caps 02/27/24 hydroxyzine HCl 25 mg tablet 25 mg PO BID PRN Anxiety 30 days 02/27/24 #60 tabs polyethylene glycol 3350 17 gram 17 g PO DAILY constipation 30 days 02/27/24 oral powder packet #30 ea trazodone 50 mg tablet 50 mg PO BEDTIME PRN insomnia 30 02/27/24 days #30 tabs Mental Status Exam Mental Status Exam Narrative: Pt is alert and oriented; behavior is cooperative,calm; dressed in casual attire; mood is described as good ; eye contact appropriate; Speech is normal rate, volume and not pressured; thought process is organized; Thought content is on discharge; otherwise pertinent to relevant topics and without any delusional content, paranoid ideations or grandiosity; denies SI/HI/VH/AH. Data Data Completed and Pending Completed studies during hospitalization [Text1]: 02/23/24 02/23/24 01:13 13:49 WBC 6.6 RBC 4.37 L Hgb 13.8 L Hct 41.1 L MCV 94.1 MCH 31.6 MCHC 33.6 RDW 13.6 Plt Count 198 D MPV 10.6 Immature Gran % (Auto) 0.5 H Neut % (Auto) 53.4 Lymph % (Auto) 31.7 [place] % (Auto) 13.3 H Eos % (Auto) 0.8 Baso % (Auto) 0.3 Lymph # (Auto) 2.1 [place] # (Auto) 0.9 Eos # (Auto) 0.1 Baso # (Auto) 0.0 Abs Immat Gran (auto) 0.03 Absolute Neuts (auto) 3.6 Absolute Nucleated RBC 0.000 Nucleated RBC % (auto) 0.0 Sodium 137 Potassium 3.8 Chloride 106 Carbon Dioxide 20 L Anion Gap 15 BUN 18 H Creatinine 0.98 Estim Creat Clear Calc 92.1 Estimated GFR > 60 Random Glucose 138 H Calcium 9.2 D Magnesium 2.3 Total Bilirubin 0.8 AST 144 H ALT 172 H Alkaline Phosphatase 95 Total Creatine Kinase 245 H Total Protein 7.6 Albumin 3.9 Urine Color Dark Yellow Urine Appearance Clear Urine pH 6.0 Ur Specific [place] >= 1.030 H Urine Protein Negative Urine Glucose (UA) Negative Urine Ketones Negative Urine Blood Negative Urine Nitrite Negative Ur Leukocyte Esterase Negative Urine Opiates Screen Not Detected Ur Buprenorphine Scrn Not Detected Ur Oxycodone Screen Not Detected Urine Methadone Screen Positive H Urine Fentanyl Screen POSITIVE H Ur Barbiturates Screen Not Detected Ur Phencyclidine Scrn Not Detected Ur Amphetamines Screen Not Detected U Benzodiazepines Scrn Not Detected Urine Cocaine Screen POSITIVE H U Marijuana (THC) Screen Not Detected Ethyl Alcohol < 10 DS: Summary Hospital Course Hospital Course: pt self-presented to ED with c/o CAH to kill himself, but denies SI. he reported he had recently been taken off of a medication, which he believes may be related to his recent psychotic experiences. pt was asleep at start of CARE team eval. he was rousable to loud noise. he reported depressed mood. he reported seeing shadows as well as the CAH to kill himself. he also believes people are speaking ill of him. on interview with , pt is sleepy, terse. denies SI/HI but does endorse CAH to kill self, seeing shadows, and ideas of reference such that when he sees others talking he believes they must be talking negatively about him. meds reviewed, reconciled, prescribed. pt asks for several days to get through withdrawal, saying he will then feel all right and be able to discharge. he reports his plan at discharge will be to return to stay with his sister. MD agrees to let pt rest and recover and follow daily for progress and needs. During hospital course, restart/continue outpt regimen, which includes lexapro, gabapentin, methadone. T/C addition of atypical antipsychotic, but pt's psychotic complaints are not very compelling. allow to detox and observe for improvement in mood, energy, psychotic Sx. Pt reports feeling like my depression is getting better ; pt stated, I was having voices before I came in here but I slept for a few days and I woke up fine . Pt denies SI/HI/VH/AH. Pt reports he was using cocaine prior to admission but does not believe this had to do with auditory hallucinations or paranoia. Continue current tx plan. Pt reports feeling better than when I got here ; pt stated, I'm not having any negative thoughts. I feel ready to go back to my sister's house . Pt denies SI/HI/VH/AH. Continue current tx plan. Plan for discharge this week. Patient reports feeling good today; pt reports he plans on following up with outpatient providers. pt denies SI/HI/VH/AH. Time spent discussing smoking cessation with patient: 3 to 10 minutes Status at Discharge Cognitive/behavioral status at discharge: Patient was interviewed prior to discharge and found to be fully oriented and without SI or HI. Patient has insight and demonstrates good judgment in terms of wanting to pursue treatment. Patient has a safety plan that includes presenting to the closest ER or calling 911 if feeling unsafe. Functional status at discharge: independent ambulation Overall status at discharge: patient is back to baseline Time Spent with Patient Time attestation: Total time managing care of this patient today _20___ minutes. Time spent: Less than 30 minutes Discharge Plan Discharge Anticipated Discharge Date/Time: 02/27/24 11:00 Patient Disposition: Home, Self-Care Discharge Diagnosis: MDD, opioid use d/o, cocaine use d/o, alcohol use d/o Referrals: Therapy & Psychiatry [Other] - 1 Week (*Please present to the above clinic, Sunday through Sunday between the hours of 8am and 12pm, in order to obtain outpatient mental health providers. *Please bring a photo ID and insurance card with you. ) Physician,None [Primary Care Provider] - 1 Week (Follow up with [facility] 8am-4pm within one week.) Discharge Medications: Continued methadone [Methadose] 10 mg/mL Concentrate 95 mg PO DAILY Qty: 0 0RF Rx Instructions: [facility]. verified by Susana FOSTER at [phone] gabapentin 300 mg Capsule 300 mg PO TID 30 Days Qty: 90 0RF trazodone 50 mg tablet 50 mg PO BEDTIME PRN (Reason: insomnia) 30 Days Qty: 30 0RF polyethylene glycol 3350 17 gram Powder In Packet 17 g PO DAILY 30 Days Qty: 30 0RF escitalopram oxalate 10 mg tablet 10 mg PO DAILY 30 Days Qty: 30 0RF nicotine (polacrilex) 2 mg Gum 4 mg buccal Q2H PRN (Reason: nicotine cravings) 30 Days Qty: 100 0RF naloxone [Narcan] 4 mg/actuation [place],Non-Aerosol 4 mg intranasal (ALT) ONCE PRN (Reason: opiate overdose) Qty: 2 0RF Changed hydroxyzine HCl 25 mg Tablet 25 mg PO BID PRN (Reason: Anxiety) 30 Days Qty: 60 0RF Discontinued clonidine HCl 0.1 mg Tablet 0.1 mg PO BID PRN (Reason: withdrawal sx) 30 Days Qty: 60 1RF Protocol: Hold for SBP< HOLD for SBP < : 90 Discharge Orders: Discharge Order (Routine); Ordered 02/27/24 Ordered By: Oumou Godwin Diet: Regular diet Activity on Discharge: As tolerated Stand Alone Forms: Patient Portal Discharge page, Community Support Print Language: [place] Islander Care Plan Goals: Maintain mood and safe behaviors Take medications as prescribed Continue to pursue sobriety Practice coping skills Continue with outpatient providers and reach out to them as needed Health Concerns: Mood stability and behaviors Sobriety Plan of Treatment: Follow up with your PCP, psychiatric provider and other outpatient providers regarding above concerns Take medications as prescribed Assessment: Patient was interviewed prior to discharge and found to be fully oriented and without SI or HI. Patient has insight and demonstrates good judgment in terms of wanting to pursue treatment. Patient has a safety plan that includes presenting to the closest ER or calling 911 if feeling unsafe. Discharge Date/Time: 02/27/24 11:00
[2024-02-27] MEDS: Naloxone HCl Nasal TAKE HOME 4 MG SPRAY 8 MG NOSTRILALT (10:23)
== END 2024-02-27 11:00 | disposition home or self-care (01) | DRG 751 ==
LOC: HO.ED 07:28 → HO.PADLT16 15:25
PROVIDERS: Admitting Provider Psychiatry & Neurology Psychiatry; Emergency Provider Internal Medicine; Responsible Provider Registered Nurse; Visit Provider Psychiatry & Neurology Psychiatry
DX: F33.3 Major depressive disorder, recurrent, severe with psychotic symptoms (principal); F11.20 Opioid dependence, uncomplicated; F19.10 Other psychoactive substance abuse, uncomplicated; F17.210 Nicotine dependence, cigarettes, uncomplicated; Z71.6 Tobacco abuse counseling; Z79.899 Other long term (current) drug therapy
CPT/HCPCS: 36415; 80053; 80307; 81003; 82550; 83735; 85025; 93005; 99285; S9485

== ENCOUNTER → 2024-02-23 14:30 | Outpatient (BNV) | payer OTHER, SELFPAY | PROVIDERS: Admitting Provider Psychiatry & Neurology Psychiatry; Emergency Provider Internal Medicine; Visit Provider Internal Medicine | DX: R00.1 Bradycardia, unspecified (principal) | CPT/HCPCS: 93010 ==

== ENCOUNTER → 2024-02-23 15:22 | Outpatient (BNV) | payer OTHER, SELFPAY | PROVIDERS: Admitting Provider Psychiatry & Neurology Psychiatry; Emergency Provider Internal Medicine; Visit Provider Psychiatry & Neurology Psychiatry | DX: F33.3 Major depressive disorder, recurrent, severe with psychotic symptoms (principal); F19.10 Other psychoactive substance abuse, uncomplicated | CPT/HCPCS: 99231; 99232; 99233 ==

== ENCOUNTER 2024-03-05 00:13 | Emergency (ER) | payer OTHER, SELFPAY ==
--- NOTE | 2024-03-05 | ECG_ITS ---
Test Reason : COCAINE USE Blood Pressure : / mmHG Vent. Rate : 052 BPM Atrial Rate : 052 BPM P-R Int : 152 ms QRS Dur : 082 ms QT Int : 468 ms P-R-T Axes : 051 081 043 degrees QTc Int : 435 ms Sinus bradycardia Otherwise normal ECG When compared with ECG of 23-FEB-2024 14:30, Premature ventricular complexes are no longer Present Referred By: Generic ED Physician Electronically Signed By:TERELL BONILLA MD
--- NOTE | ~2024-03-05 | CT_ITS ---
EXAMINATION: CT ABDOMEN AND PELVIS WITH CONTRAST CLINICAL INFORMATION: Painful right inguinal hernia. Nonreducible. COMPARISON: None available. TECHNIQUE: Multidetector volumetric images were obtained from the superior aspect of the liver through the pubic symphysis following administration 85 mL of Omnipaque 350 intravenous contrast. Sagittal and coronal reformatted images were obtained on the technologist's workstation. Oral contrast: No This CT examination was performed using dose optimization techniques as appropriate, variously including the following: *Automated exposure control *Adjustment of mA and/or kV according to patient size (this includes techniques or standardized protocols for targeted exams where dose is matched to indication/reason for exam; i.e. extremities or head) *Use of iterative reconstruction technique DLP: 497 mGy-cm FINDINGS: LUNG BASES: The visualized lung bases are unremarkable. LIVER, GALLBLADDER, AND BILIARY TREE: The liver is decreased in attenuation. Few scattered hypodensities too small to characterize. No biliary ductal dilatation is present. The gallbladder is unremarkable with no evidence of radiopaque gallstones, gallbladder wall thickening, or obvious pericholecystic inflammatory changes. PANCREAS: No ductal dilatation. SPLEEN: Not enlarged. ADRENAL GLANDS: No adrenal mass. KIDNEYS AND URETERS: Symmetric in size and enhancement. 1.0 cm cyst upper pole right kidney. 1.0 cm cyst midpole left kidney. No further imaging follow-up is needed. No hydronephrosis or perinephric fluid collection. BLADDER: Unremarkable. GASTROINTESTINAL TRACT: Small and large bowel loops are of normal caliber. Moderate fecal retention in the colon. Gastric distention. ABDOMINAL WALL: Right inguinal hernia measuring 4.0 x 2.7 x 3.6 cm containing fluid. No surrounding inflammatory changes. LYMPH NODES: Few subcentimeter retroperitoneal lymph nodes. VASCULAR: Normal caliber abdominal aorta. PELVIC VISCERA: Unremarkable. OSSEOUS STRUCTURES: No destructive bone lesions. CT/CT abdomen pelvis w IV con IMPRESSION: Right inguinal hernia measuring 4.0 x 2.7 x 3.6 cm containing fluid. No surrounding inflammatory changes.
[2024-03-05 00:14] VITALS: BP 100/55; PULSE 51; RESP 16; TEMP 36.8; O2SAT 95; BMI 23.6
[2024-03-05 01:01] LABS: COVID-19 Test Negative (Negative); IDNOW Serial# 08D9AD1C
[2024-03-05 01:02] LABS: Alanine Aminotransferase 132 U/L (0-40); Albumin Level 3.5 g/dL (3.5-5.0); Alkaline Phosphatase 89 U/L (39-117); Anion Gap 11 (12-20); Aspartate Amino Transferase 98 U/L (5-37); Bilirubin Total 0.5 mg/dL (0.0-1.0); Blood Urea Nitrogen 13 mg/dL (9-16); Calcium 8.7 mg/dL (8.4-10.2); Carbon Dioxide 27 mmol/L (22-29); Chloride 108 mmol/L (96-108); Creatinine Clr Calc Pharmacy 127.2; Estimated Glomerular Filt Rate > 60; Ethanol < 10 mg/dL; Glucose Random 96 mg/dL (60-115); Potassium 3.9 mmol/L (3.3-5.1); Sodium 142 mmol/L (135-145); Total Protein 6.5 g/dL (6.5-8.0)
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
[2024-03-05 03:28] VITALS: RESP 16
[2024-03-05 05:27] LABS: MANUAL DIFF FLAG NO
[2024-03-05 05:29] LABS: Basophils Percent Auto 0.3 % (0-2); Eosinophils Absolute Auto 0.2 X10*3/uL (0.0-0.4); Eosinophils Percent Auto 1.8 % (0-4); Hematocrit 39.7 % (42.0-52.0); Imm Gran Abs Auto 0.02 X10*3/uL (0.00-0.03); Imm Gran Pct Auto 0.2 % (0.0-0.4); Lymphocytes Absolute Auto 2.3 X10*3/uL (1.2-4.9); Lymphocytes Percent Auto 25.5 % (20-40); Mean Corpuscular HGB Conc 32.7 g/dl (31.0-36.0); Mean Corpuscular Hemoglobin 31.2 pg (27.0-33.0); Mean Corpuscular Volume 95.2 fL (80.0-98.0); Mean Platelet Volume 10.3 fL (9.4-12.4); Monocytes Absolute Auto 0.8 X10*3/uL (0.1-1.2); Monocytes Percent Auto 9.3 % (2-11); Neutrophils Absolute Auto 5.7 x10*3/uL (2.0-8.3); Neutrophils Percent Auto 62.9 % (45-73); Platelet Count 152 X10*3/uL (160-400); Red Blood Count 4.17 X10*6/uL (4.60-5.80); Red Cell Distribution Width 13.6 % (11.0-16.0); White Blood Count 9.1 X10*3/uL (4.8-10.8)
[2024-03-05 06:28] VITALS: BP 120/76; PULSE 42; RESP 12; TEMP 36.4; O2SAT 95
--- NOTE | 2024-03-05 07:33 | PC.NURSE ---
Verified pt.'s Methadone dose - PAN Crespo MA. Verified with ADAM Gonzales. Pt. last dosed 03/04 @ 10:30am, Methadone 95mg.
--- NOTE | 2024-03-05 07:57 | PC.NURSE ---
Pt. escorted to Behavioral Pod bed 4 with security.
--- NOTE | 2024-03-05 07:58 | PC.NURSE ---
Pt. states that he is having pain in his feet d/t chronic arthritis. KRISTIN Beth made aware upon transfer.
--- NOTE | 2024-03-05 08:22 | HE.PHANOTE ---
RE METHADONE Pharmacy received patients methadone verification form done by Comfort FOSTER. Patient last dosed at [facility] with 95 mg on 03/04/24 @[id number]
[2024-03-05] MEDS: methADONE HCl 20 MG/2 ML ORAL.CONC 95 MG PO (08:33)
[2024-03-05 09:59] LABS: Appearance Urine Clear; Color Urine Dark Yellow; Glucose Urine UA Negative (Negative); Leukocyte Esterase Urine Trace (Negative); Nitrite Urine Negative (Negative); UMIC TRIGGER UA YES; Urine Blood Negative (Negative); Urine Ketones Negative (Negative); Urine Protein Negative (Neg-Trace)
[2024-03-05 10:09] LABS: Amphetamine Screen Urine Not Detected (Not Detect); Barbiturates, Urine Not Detected (Not Detect); Benzodiazepines Screen Urine Not Detected (Not Detect); Buprenorphine Scr Not Detected (Not Detect); Cannabinoid Screen Urine Not Detected (Not Detect); Cocaine Screen Urine POSITIVE (Not Detect); Fentanyl, urine POSITIVE (Not Detect); Methadone Screen, Urine Positive (Not Detect); Opiate Screen Urine POSITIVE (Not Detect); Oxycodone Screen Urine Not Detected (Not Detect); Phencyclidine Screen Urine Not Detected (Not Detect)
[2024-03-05] MEDS: Gabapentin 300 MG CAPSULE PO ×2 (10:24→15:30)
[2024-03-05] MEDS: Nicotine Polacrilex 2 MG GUM 4 MG BUCCAL ×2 (10:24→14:29)
[2024-03-05] MEDS: Escitalopram Oxalate 10 MG TABLET PO (10:24)
[2024-03-05 10:30] LABS: Bacteria Urine None Seen (None Seen); Hyaline Casts Urine 0-2 /LPF (0-2); RBC Urine 0-2 /HPF (0-2); Squamous Epithelial Cell Urine 0-2 /HPF (0-2)
[2024-03-05] MEDS: iohexoL 350 MG/ML 100 ML INFUS..BTL IV (13:16)
--- NOTE | 2024-03-05 15:52 | MHC.CARE ---
Pt is accepted to [facility], @ [address] [place] [id number] Pelayo is accepting. No N2N required. BETTY DIANELYS
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
[2024-03-05 18:23] VITALS: BP 120/76; PULSE 42; RESP 12; TEMP 36.4; O2SAT 95
== END 2024-03-05 18:25 ==
PROVIDERS: Emergency Medicine; Emergency Provider Emergency Medicine
DX: F19.10 Other psychoactive substance abuse, uncomplicated (principal); F32.9 Major depressive disorder, single episode, unspecified; F20.9 Schizophrenia, unspecified; F10.99 Alcohol use, unspecified with unspecified alcohol-induced disorder; Y90.0 Blood alcohol level of less than 20 mg/100 ml; F14.10 Cocaine abuse, uncomplicated; K40.90 Unilateral inguinal hernia, without obstruction or gangrene, not specified as recurrent; R10.2 Pelvic and perineal pain; F17.210 Nicotine dependence, cigarettes, uncomplicated; Z11.52 Encounter for screening for COVID-19; Z79.899 Other long term (current) drug therapy
CPT/HCPCS: 74177; 80053; 80307; 81001; 85025; 87635; 93005; 99284; 99285; Q9967; S9485

== ENCOUNTER → 2024-03-05 00:25 | Outpatient (BNV) | payer OTHER, SELFPAY | PROVIDERS: Emergency Provider Emergency Medicine; Visit Provider Internal Medicine Cardiovascular Disease | DX: R00.1 Bradycardia, unspecified (principal) | CPT/HCPCS: 93010 ==

== ENCOUNTER → 2024-03-05 00:26 | Outpatient (BNV) | payer OTHER, SELFPAY | PROVIDERS: Emergency Provider Emergency Medicine; Visit Provider Surgery | DX: K40.90 Unilateral inguinal hernia, without obstruction or gangrene, not specified as recurrent (principal) | CPT/HCPCS: 99282 ==

== ENCOUNTER 2024-03-17 14:24 | Outpatient (AMB) | payer OTHER, SELFPAY ==
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
[2024-03-17 14:35] VITALS: BP 125/77; PULSE 57; BMI 24.2
== END 2024-03-17 14:55 | disposition home or self-care (01) ==
LOC: HO.HGS 14:24
PROVIDERS: Visit Provider Surgery
DX: R19.09 Other intra-abdominal and pelvic swelling, mass and lump (principal)
CPT/HCPCS: 99213

== ENCOUNTER → 2024-03-17 14:24 | Outpatient (BNVA) | payer OTHER, SELFPAY | PROVIDERS: Visit Provider Surgery | DX: R19.09 Other intra-abdominal and pelvic swelling, mass and lump (principal) | CPT/HCPCS: 99212 ==

== ENCOUNTER 2024-03-19 00:26 | Emergency (ER) | payer OTHER, SELFPAY ==
--- NOTE | ~2024-03-19 | CT_ITS ---
EXAMINATION: CT ABDOMEN AND PELVIS WITH CONTRAST CLINICAL INFORMATION: Right inguinal pain COMPARISON: 03/05/2024 TECHNIQUE: Multidetector volumetric images were obtained from the superior aspect of the liver through the pubic symphysis following administration 85 mL of Omnipaque 350 intravenous contrast. Sagittal and coronal reformatted images were obtained on the technologist's workstation. Oral contrast: No This CT examination was performed using dose optimization techniques as appropriate, variously including the following: *Automated exposure control *Adjustment of mA and/or kV according to patient size (this includes techniques or standardized protocols for targeted exams where dose is matched to indication/reason for exam; i.e. extremities or head) *Use of iterative reconstruction technique DLP: 598 mGy-cm FINDINGS: LUNG BASES: Dependent bibasilar atelectasis. LIVER, GALLBLADDER, AND BILIARY TREE: The liver is enlarged measuring approximately 20 cm in length. A couple tiny hypoattenuating hepatic foci statistically favor cysts. No biliary ductal dilatation is present. Gallbladder appears somewhat contracted, suboptimally assessed. PANCREAS: Unremarkable. SPLEEN: Unremarkable. ADRENAL GLANDS: Unremarkable. KIDNEYS AND URETERS: Bilateral nephrograms are symmetric. No hydronephrosis or obstructing calculus identified. Small bilateral renal hypoattenuating foci favor cysts; no follow-up recommended. BLADDER: Unremarkable. GASTROINTESTINAL TRACT: No evidence of bowel obstruction or significant wall thickening. The appendix is unremarkable. No free fluid or free air is seen. ABDOMINAL WALL: Hypodense structure in the upper right inguinal canal measures up to 4.2 cm on coronal image 28, similar to prior. This could represent a small amount of fluid or potentially an undescended testicle. Of note, there is some hypodensity in the posterior right scrotum though it is difficult to determine with certainty whether this represents a normal testicle or fluid. LYMPH NODES: There is suspected to be a few enlarged lymph nodes in the upper abdomen, in the gastrohepatic and periportal regions measuring up to approximately 1.6 cm in short axis dimension. VASCULAR: Unremarkable. PELVIC VISCERA: Prostate and seminal vesicles appear unremarkable. OSSEOUS STRUCTURES: Unremarkable. CT/CT abdomen pelvis w IV con IMPRESSION: 1. Hypodense structure in the upper right inguinal canal measuring up to 4.2 cm, similar to 03/05/2024. This could represent a small amount of fluid or potentially an undescended testicle. Of note, there is some hypodensity in the posterior right scrotum though it is difficult to determine with certainty whether this represents a normal testicle or fluid. Correlation with scrotal and right inguinal ultrasound is recommended. 2. Few enlarged lymph nodes in the upper abdomen, of uncertain etiology. Malignant etiology cannot be excluded. Further workup may be performed with PET/CT. 3. Hepatomegaly.
[2024-03-19 00:29] VITALS: BP 124/87; PULSE 73; RESP 20; TEMP 37.2; O2SAT 96; BMI 23.6
--- NOTE | 2024-03-19 01:33 | PC.NURSE ---
pt is in the hallway, with a 1:1 sitter, belongings have been secured by security. Attempted to start IV, unable to obtain IV, pt is an IVDU and he viens are very hard. Pt asked for something to drink, explained to pt, nothing to eat or drink, until the ctscan is done, will cont plan of care
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
[2024-03-19] MEDS: 0.9 % Sodium Chloride 500 ML 999 ML IV (01:50)
[2024-03-19 01:52] LABS: MANUAL DIFF FLAG NO
[2024-03-19 01:53] LABS: Basophils Percent Auto 0.5 % (0-2); Eosinophils Percent Auto 0.1 % (0-4); Hematocrit 40.7 % (42.0-52.0); Hemoglobin 13.8 g/dl (14.0-18.0); Imm Gran Abs Auto 0.02 X10*3/uL (0.00-0.03); Imm Gran Pct Auto 0.2 % (0.0-0.4); Lymphocytes Absolute Auto 1.7 X10*3/uL (1.2-4.9); Lymphocytes Percent Auto 19.2 % (20-40); Mean Corpuscular HGB Conc 33.9 g/dl (31.0-36.0); Mean Corpuscular Hemoglobin 31.8 pg (27.0-33.0); Mean Corpuscular Volume 93.8 fL (80.0-98.0); Mean Platelet Volume 10.7 fL (9.4-12.4); Monocytes Absolute Auto 1.2 X10*3/uL (0.1-1.2); Monocytes Percent Auto 13.8 % (2-11); Neutrophils Absolute Auto 5.7 x10*3/uL (2.0-8.3); Neutrophils Percent Auto 66.2 % (45-73); Platelet Count 168 X10*3/uL (160-400); Red Blood Count 4.34 X10*6/uL (4.60-5.80); Red Cell Distribution Width 13.5 % (11.0-16.0); White Blood Count 8.6 X10*3/uL (4.8-10.8)
[2024-03-19 01:54] LABS: Appearance Urine Clear; Color Urine Yellow; Glucose Urine UA Negative (Negative); Leukocyte Esterase Urine Negative (Negative); Nitrite Urine Negative (Negative); PH 6.5 (5.0-9.0); Urine Blood Negative (Negative); Urine Ketones Trace mg/dL (Negative); Urine Protein Negative (Neg-Trace)
[2024-03-19 01:56] LABS: Bacteria Urine None Seen (None Seen); Hyaline Casts Urine 0-2 /LPF (0-2); RBC Urine 0-2 /HPF (0-2); Squamous Epithelial Cell Urine 0-2 /HPF (0-2); WBC Urine 0-5 /HPF (0-5)
[2024-03-19 02:05] LABS: Lactic Acid 0.8 mmol/L (0.5-2.0)
[2024-03-19 02:10] LABS: Amphetamine Screen Urine Not Detected (Not Detect); Barbiturates, Urine Not Detected (Not Detect); Benzodiazepines Screen Urine Not Detected (Not Detect); Buprenorphine Scr Not Detected (Not Detect); Cannabinoid Screen Urine Not Detected (Not Detect); Cocaine Screen Urine POSITIVE (Not Detect); Fentanyl, urine POSITIVE (Not Detect); Methadone Screen, Urine Positive (Not Detect); Opiate Screen Urine Not Detected (Not Detect); Oxycodone Screen Urine Not Detected (Not Detect); Phencyclidine Screen Urine Not Detected (Not Detect)
[2024-03-19 02:13] LABS: Alanine Aminotransferase 166 U/L (0-40); Albumin Level 3.7 g/dL (3.5-5.0); Alkaline Phosphatase 92 U/L (39-117); Anion Gap 11 (12-20); Aspartate Amino Transferase 132 U/L (5-37); Bilirubin Direct 0.2 mg/dL (0.0-0.5); Bilirubin Total 0.5 mg/dL (0.0-1.0); Blood Urea Nitrogen 15 mg/dL (9-16); Calcium 9.5 mg/dL (8.4-10.2); Carbon Dioxide 27 mmol/L (22-29); Chloride 104 mmol/L (96-108); Creatinine Clr Calc Pharmacy 107.5; Estimated Glomerular Filt Rate > 60; Ethanol < 10 mg/dL; Glucose Random 96 mg/dL (60-115); Lipase 26 U/L (8-78); Potassium 4.2 mmol/L (3.3-5.1); Sodium 138 mmol/L (135-145); Total Protein 7.1 g/dL (6.5-8.0)
--- NOTE | 2024-03-19 02:18 | PC.NURSE ---
pt tp ct scan at this time per stretcher, with his sitter at his side.
--- NOTE | 2024-03-19 02:30 | PC.NURSE ---
pt returned from CT Scan with his sitter, no s/s of any acute distress, will cont plan of care
[2024-03-19] MEDS: iohexoL 350 MG/ML 100 ML INFUS..BTL 85 ML IV (02:41)
[2024-03-19 02:58] VITALS: BP 122/77; PULSE 90; RESP 16; TEMP 36.9; O2SAT 98
[2024-03-19 05:42] VITALS: BP 127/82; PULSE 88; RESP 16; TEMP 36.8; O2SAT 97
--- NOTE | 2024-03-19 05:45 | PC.NURSE ---
pt states he gets 95 of methadone daily from the [facility] clinic, informed pt, we would check on it,when the clinic opened
--- NOTE | 2024-03-19 06:23 | PC.NURSE ---
report given to Beverly in ,
--- NOTE | 2024-03-19 06:30 | PC.NURSE ---
patient immediately swearing at staff as soon as he arrives mulltiple times fucking fat bitch .
--- NOTE | 2024-03-19 06:31 | PC.NURSE ---
attempted to call immediately upon clients arrival but clinic is presently closed.
--- NOTE | 2024-03-19 06:35 | MHC.EDTECH ---
PT BELONGINGS MOVED TO LOCKER #7
[2024-03-19 07:45] VITALS: RESP 16
--- NOTE | 2024-03-19 07:59 | PC.NURSE ---
Assumed care of patient at 0645, patient appears to be sleeping, respirations even and unlabored, no apparent distress noted. Methadone verified with [facility], methadone form faxed to pharmacy at [phone]. Continue plan of care for CARE team ginger
--- NOTE | 2024-03-19 08:01 | HE.PHANOTE ---
METHADONE Receives from [facility] ([phone]). Per ADAM Cody at facility pt last received 95mg on 03/18 @ 0814.
[2024-03-19] MEDS: methADONE HCl 20 MG/2 ML ORAL.CONC 95 MG PO (08:45)
[2024-03-19] MEDS: cloNIDine HCL 0.1 MG TABLET PO (08:45)
[2024-03-19] MEDS: Escitalopram Oxalate 10 MG TABLET PO (08:45)
[2024-03-19] MEDS: Gabapentin 300 MG CAPSULE PO (08:45)
[2024-03-19 10:44] VITALS: BP 122/92; PULSE 84; RESP 14; TEMP 36.6; O2SAT 99
== END 2024-03-19 10:45 | disposition home or self-care (01) ==
PROVIDERS: Emergency Provider Emergency Medicine Emergency Medical Services
DX: R45.851 Suicidal ideations (principal); K40.90 Unilateral inguinal hernia, without obstruction or gangrene, not specified as recurrent; R10.31 Right lower quadrant pain; F11.10 Opioid abuse, uncomplicated; F14.10 Cocaine abuse, uncomplicated; Z71.51 Drug abuse counseling and surveillance of drug abuser; Z79.899 Other long term (current) drug therapy
CPT/HCPCS: 36415; 74177; 80048; 80076; 80307; 81001; 83605; 83690; 85025; 96360; 99285; Q9967; S9485

== ENCOUNTER 2024-04-01 23:03 | Inpatient (IN) | payer OTHER, SELFPAY ==
--- NOTE | ~2024-04-01 | CT_ITS ---
EXAMINATION: CT WRIST WITH CONTRAST, RIGHT CLINICAL INFORMATION: Fluctuance at the right wrist. Recent cellulitis. COMPARISON: None available. TECHNIQUE: Multidetector CT imaging examination of the right wrist performed with intravenous administration of 85 mL Omnipaque 350. This CT examination was performed using dose optimization techniques as appropriate, variously including the following: *Automated exposure control *Adjustment of mA and/or kV according to patient size (this includes techniques or standardized protocols for targeted exams where dose is matched to indication/reason for exam; i.e. extremities or head) *Use of iterative reconstruction technique DLP: 101 mGy-cm FINDINGS: The distal radius, ulna and radioulnar joint are normal. Bones of the examined proximal hand and wrist are intact and have normal alignment. The joint spaces are maintained. No erosions or periostitis. No carpal joint effusion or periarticular fluid collection. There is mild edema of subcutaneous tissues at the dorsal wrist without organized rim-enhancing collection. No evidence of soft tissue gas, radiopaque foreign body or tenosynovial fluid collection. The flexor and extensor tendons are unremarkable. No soft tissue abnormality in the carpal tunnel or at Guyon's canal. CT/CT wrist RT w IV con IMPRESSION: * Mild soft tissue edema of the dorsal wrist without soft tissue abscess. * Carpal bones and metacarpals are intact. * No evidence of septic arthritis or osteomyelitis.
[2024-04-01 23:34] VITALS: BP 122/70; PULSE 67; RESP 20; TEMP 36.8; O2SAT 97; BMI 24.2
--- NOTE | 2024-04-02 | ECG_ITS ---
Test Reason : PROLONGED QT Blood Pressure : / mmHG Vent. Rate : 054 BPM Atrial Rate : 054 BPM P-R Int : 178 ms QRS Dur : 086 ms QT Int : 472 ms P-R-T Axes : 025 083 051 degrees QTc Int : 447 ms Sinus bradycardia Otherwise normal ECG When compared with ECG of 05-MAR-2024 00:25, No significant change was found Referred By: Lynda Us Electronically Signed By:SHAYAN WONG
[2024-04-02 01:18] LABS: MANUAL DIFF FLAG NO
[2024-04-02 01:20] LABS: Basophils Percent Auto 0.5 % (0-2); Eosinophils Absolute Auto 0.1 X10*3/uL (0.0-0.4); Eosinophils Percent Auto 1.3 % (0-4); Hematocrit 40.8 % (42.0-52.0); Hemoglobin 13.6 g/dl (14.0-18.0); Imm Gran Abs Auto 0.01 X10*3/uL (0.00-0.03); Imm Gran Pct Auto 0.2 % (0.0-0.4); Lymphocytes Percent Auto 31.5 % (20-40); Mean Corpuscular HGB Conc 33.3 g/dl (31.0-36.0); Mean Corpuscular Hemoglobin 31.2 pg (27.0-33.0); Mean Corpuscular Volume 93.6 fL (80.0-98.0); Mean Platelet Volume 9.5 fL (9.4-12.4); Monocytes Absolute Auto 0.8 X10*3/uL (0.1-1.2); Monocytes Percent Auto 13.3 % (2-11); Neutrophils Absolute Auto 3.3 x10*3/uL (2.0-8.3); Neutrophils Percent Auto 53.2 % (45-73); Platelet Count 179 X10*3/uL (160-400); Red Blood Count 4.36 X10*6/uL (4.60-5.80); Red Cell Distribution Width 13.4 % (11.0-16.0); White Blood Count 6.2 X10*3/uL (4.8-10.8)
[2024-04-02 01:31] LABS: Lactic Acid 1.6 mmol/L (0.5-2.0)
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
[2024-04-02 01:37] LABS: Alanine Aminotransferase 134 U/L (0-40); Albumin Level 3.6 g/dL (3.5-5.0); Alkaline Phosphatase 85 U/L (39-117); Anion Gap 14 (12-20); Aspartate Amino Transferase 119 U/L (5-37); Bilirubin Total 0.4 mg/dL (0.0-1.0); Blood Urea Nitrogen 21 mg/dL (9-16); Calcium 9.2 mg/dL (8.4-10.2); Carbon Dioxide 25 mmol/L (22-29); Chloride 105 mmol/L (96-108); Creatinine Clr Calc Pharmacy 106.2; Estimated Glomerular Filt Rate > 60; Ethanol < 10 mg/dL; Glucose Fasting 106 mg/dL (60-99); Potassium 4.1 mmol/L (3.3-5.1); Sodium 140 mmol/L (135-145); Total Protein 7.3 g/dL (6.5-8.0)
[2024-04-02 03:11] LABS: Appearance Urine Clear; Color Urine Yellow; Glucose Urine UA Negative (Negative); Leukocyte Esterase Urine Negative (Negative); Nitrite Urine Negative (Negative); Urine Blood Negative (Negative); Urine Ketones Negative (Negative); Urine Protein Negative (Neg-Trace)
[2024-04-02 03:21] LABS: Amphetamine Screen Urine Not Detected (Not Detect); Barbiturates, Urine Not Detected (Not Detect); Benzodiazepines Screen Urine Not Detected (Not Detect); Buprenorphine Scr Not Detected (Not Detect); Cannabinoid Screen Urine Not Detected (Not Detect); Cocaine Screen Urine POSITIVE (Not Detect); Fentanyl, urine POSITIVE (Not Detect); Methadone Screen, Urine Positive (Not Detect); Opiate Screen Urine POSITIVE (Not Detect); Oxycodone Screen Urine Not Detected (Not Detect); Phencyclidine Screen Urine Not Detected (Not Detect)
--- NOTE | 2024-04-02 06:27 | PC.NURSE ---
Patient slept through the night, no distress observed/reported, care consult ordered pending evaluation, med rec completed including methadone, verification faxed to ED, VSS, no behavior and safety issues, will continue to monitor.
--- NOTE | 2024-04-02 06:46 | HE.PHANOTE ---
RE:methadone Received verifications form; last dose 110mg from [facility] 04/01/24 @0275
[2024-04-02] MEDS: methADONE HCl 20 MG/2 ML ORAL.CONC 110 MG PO (09:32)
--- NOTE | 2024-04-02 09:40 | PC.NURSE ---
pt medicated per order
--- NOTE | 2024-04-02 09:46 | MHC.CARE ---
Pt meets the criteria for IPLOC and will be placed on unit M5 today
--- NOTE | 2024-04-02 13:03 | PC.NURSE ---
report given to M5
[2024-04-02] MEDS: Doxycycline Monohydrate 100 MG CAPSULE PO ×2 (13:10→20:27)
[2024-04-02] MEDS: Nicotine Polacrilex 2 MG GUM 4 MG BUCCAL ×2 (15:34→20:27)
[2024-04-02 16:40] VITALS: BP 131/80; PULSE 50; RESP 14; TEMP 36.6; O2SAT 97
[2024-04-02 18:03] VITALS: BMI 24.2
--- NOTE | 2024-04-02 19:00 | PC.ADMIT ---
Pt is a 48 y/o male who self presented to ED with complaints of SI with a plan to jump off a bridge. Pt reported SI was related to ongoing right wrist pain and groin pain. Pt is well known to the CARE team with numerous assessments and IPLOC admissions. Pt is also well known to . Pt has a hx of polysubstance abuse, IVDA, past ETOH abuse, depression, Hepatitis C, right groin mass, and right wrist cellulitis. Pt admitted to at 1440 on a CV. Pt pleasant and cooperative with skin check. On arrival pt endorsed high depression, with passive SI. Pt reported he could seek out staff on the unit if feeling unsafe. Pt denied HI or AVH. Pt reported he was recently discharged from to [facility]. Pt stated shortly after arrival to [facility] he noticed a painful abscess developing on his right wrist. Pt stated after a couple of days at [facility] he was transferred to [facility], where he was diagnosed with cellulitis to his right wrist. Pt stated he was at [facility] for almost two weeks and received IV antibiotics, and then was discharged on Doxycycline PO. Pt stated that [facility] had wrapped his wrist and forearm with an JIMI wrap, which provided comfort and stability to his arm. Pt understood an JIMI wrap was not safe for the unit, but requested some type of brace be ordered. On admission the area was red and raised, with no warmth noted. Pt continues on Doxycycline BID, and reported he had not missed a dose since discharge from [facility]. Also, pt reported right groin mass caused discomfort and affected his gait. Pt stated he was told in the ED his right groin mass was either an inguinal hernia that needed to be removed, or a fluid filled mass that needed to be drained. Pt requested that the medical team evaluate and treat on this admission. Additionally, pt requested the use of a walker to help him ambulate. Provider made aware of pt's complaints and requests. Pt does have hx of polysubstance abuse and receives a verified dose of Methadone 110 mg daily. Pt's tox screen was positive for Opiates, Fentanyl, Methadone, and Cocaine. When asked about substance use, pt became guarded and said ?No I don't use any substances. I am on Methadone.?? When asked about alcohol use, pt stated ?I don?t drink. Never.? Pt has a hx of homelessness, however reported he now lives with his sister, and added that he can return to her home when he discharged. EKG obtained 04/02/24 noted sinus bradycardia of 54 and prolonged QTC of 447. Pt's pulse was 50 at time of admission. Pt said It's always low. Pt is an active smoker and preferred Nicotine gum while inpatient. NRT and smoking cessation consult were both ordered. Pt declined to sign any releases, and stated I'll call people myself. Pt placed on 15 minute checks.
[2024-04-02 20:00] VITALS: BP 132/93; PULSE 62; RESP 17; TEMP 36.4; O2SAT 98
[2024-04-02] MEDS: traZODone HCL 100 MG TABLET PO (20:27)
[2024-04-02] MEDS: Melatonin 3 MG TABLET 6 MG PO (20:27)
[2024-04-02] MEDS: hydrOXYzine HCL 25 MG TABLET PO (20:27)
[2024-04-02] MEDS: Acetaminophen 325 MG TABLET 650 MG PO (20:27)
[2024-04-03 07:00] VITALS: BMI 25.6
[2024-04-03 08:00] VITALS: BP 110/59; PULSE 45; RESP 18; TEMP 36.4; O2SAT 96
[2024-04-03] MEDS: methADONE HCl 20 MG/2 ML ORAL.CONC 110 MG PO (08:00)
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
[2024-04-03] MEDS: polyethylene glycoL 3350 17 GM POWD.PACK PO (09:07)
[2024-04-03] MEDS: Doxycycline Monohydrate 100 MG CAPSULE PO ×2 (09:07→20:33)
[2024-04-03] MEDS: Thiamine HCL 100 MG TABLET PO (09:07)
[2024-04-03] MEDS: Folic Acid 1 MG TABLET PO (09:07)
[2024-04-03] MEDS: Escitalopram Oxalate 10 MG TABLET PO (12:28)
[2024-04-03 20:00] VITALS: BP 124/74; PULSE 46; RESP 18; TEMP 35.9; O2SAT 96
[2024-04-03] MEDS: hydrOXYzine HCL 25 MG TABLET PO (20:33)
[2024-04-03] MEDS: traZODone HCL 100 MG TABLET PO (20:33)
[2024-04-03] MEDS: Melatonin 3 MG TABLET 6 MG PO (20:33)
[2024-04-04] MEDS: methADONE HCl 20 MG/2 ML ORAL.CONC 100 MG PO (07:48)
[2024-04-04] MEDS: Thiamine HCL 100 MG TABLET PO (08:24)
[2024-04-04] MEDS: Doxycycline Monohydrate 100 MG CAPSULE PO ×2 (08:24→20:35)
[2024-04-04] MEDS: Folic Acid 1 MG TABLET PO (08:24)
[2024-04-04] MEDS: Escitalopram Oxalate 20 MG TABLET PO (08:25)
[2024-04-04 08:31] VITALS: BP 104/55; PULSE 70; RESP 16; TEMP 36.8; O2SAT 98
--- NOTE | 2024-04-04 09:56 | HO.PSYCHPN ---
Subjective Subjective Date of Service: 04/04/24 Reason For Visit: depressed/si Mental Status Exam Mental Status Exam Narrative: Pt is alert and oriented; behavior is cooperative, calm; patient is not in distress; dressed in hospital attire, disheveled; mood is described as depressed and affect congruent, downcast; eye contact appropriate; Speech is slowed and soft; psychomotor retardation present; thought process is organized and goal directed; Thought content is on tx, inguinal hernia pain; otherwise pertinent to relevant topics and without any delusional content, paranoid ideations or grandiosity; denies any SI/HI. AH of whispers Patients insight and judgment impaired but improving Diagnostics Vital Signs (24Hr): Vital Signs - 24 hr 04/03/24 20:00 04/04/24 08:31 Temperature 96.7 F L 98.2 F Pulse Rate 46 L 70 Respiratory Rate 18 16 Blood Pressure 124/74 104/55 L Pulse Oximetry 96 98 Oxygen Delivery Method Room Air Room Air BMI result Body Mass Index 25.6 Labs 04/02/24 01:14 04/02/24 01:14 Medications Medications Current Medications Acetaminophen (Acetaminophen 325 Mg Tablet) 650 mg PO Q6H PRN PRN Reason: Headache/Pain Mild Scale (1-3) Last Admin: 04/02/24 20:27 Dose: 650 mg Al Hydroxide/Mg Hydroxide (Magnesium Hydrox/Alum Hydrox 30 Ml Oral.Susp) 30 ml PO Q6H PRN PRN Reason: Heartburn/Nausea Doxycycline Monohydrate (Doxycycline Monohydrate 100 Mg Capsule) 100 mg PO BID [facility] Stop: 04/06/24 21:01 Last Admin: 04/04/24 08:24 Dose: 100 mg Escitalopram Oxalate (Escitalopram Oxalate 20 Mg Tablet) 20 mg PO DAILY [facility] Last Admin: 04/04/24 08:25 Dose: 20 mg Folic Acid (Folic Acid 1 Mg Tablet) 1 mg PO DAILY [facility] Last Admin: 04/04/24 08:24 Dose: 1 mg Hydroxyzine HCl (Hydroxyzine Hcl 25 Mg Tablet) 25 mg PO Q6H PRN PRN Reason: Anxiety Last Admin: 04/03/24 20:33 Dose: 25 mg Magnesium Hydroxide (Milk Of Magnesia 30 Ml Oral.Susp) 30 ml PO DAILY PRN PRN Reason: Constipation Melatonin (Melatonin 3 Mg Tablet) 6 mg PO BEDTIME [facility] Last Admin: 04/03/24 20:33 Dose: 6 mg Methadone HCl (Methadone Hcl 20 Mg/2 Ml Oral.Conc) 100 mg PO DAILY [facility] Last Admin: 04/04/24 07:48 Dose: 100 mg Nicotine (Nicotine 21 Mg Patch.Td24) 21 mg TRANSDERMA DAILY PRN PRN Reason: smoking cessation Nicotine Polacrilex (Nicotine Polacrilex 2 Mg Gum) 4 mg BUCCAL Q2H PRN PRN Reason: Nicotine Cravings Last Admin: 04/02/24 20:27 Dose: 4 mg Nicotine Polacrilex (Nicotine Polacrilex 2 Mg Gum) 4 mg BUCCAL Q2H PRN PRN Reason: Nicotine Cravings Olanzapine (Olanzapine 5 Mg Tablet) 5 mg PO TID PRN PRN Reason: agitation Polyethylene Glycol (Polyethylene Glycol 3350 17 Gm Powd.Pack) 17 gm PO DAILY [facility] Last Admin: 04/04/24 08:26 Dose: Not Given Thiamine HCl (Thiamine Hcl 100 Mg Tablet) 100 mg PO DAILY [facility] Last Admin: 04/04/24 08:24 Dose: 100 mg Trazodone HCl (Trazodone Hcl 100 Mg Tablet) 100 mg PO BEDTIME PRN PRN Reason: Insomnia Last Admin: 04/03/24 20:33 Dose: 100 mg Allergies Allergies Allergy/AdvReac Type Severity Reaction Status Date / Time No Known Allergies Allergy Verified 04/01/24 23:36 [No Known Allergies*] Assessment & Plan Assessment & Plan (1) MDD (major depressive disorder), recurrent, severe, with psychosis: Status: Acute Code(s): F33.3 - Major depressive disorder, recurrent, severe with psychotic symptoms (2) Cocaine abuse: Status: Acute Code(s): F14.10 - Cocaine abuse, uncomplicated (3) Opioid use disorder: Status: Acute Code(s): F11.90 - Opioid use, unspecified, uncomplicated (4) Hernia, inguinal, right: Status: Acute Code(s): K40.90 - Unilateral inguinal hernia, without obstruction or gangrene, not specified as recurrent (5) Hepatitis C: Status: Acute Code(s): B19.20 - Unspecified viral hepatitis C without hepatic coma Plan HPI: Patient is a 48-year-old male with history of depression, psychotic symptoms and cocaine, opioid, alcohol abuse, recent right wrist cellulitis, inguinal hernia who self presents for worsening depression and suicidality with thoughts to jump off a bridge. Patient reports that was at detox a few weeks ago but from there was sent to the emergency room for cellulitis where he was treated with IV antibiotics for week or so. He said upon discharge he remained in pain due to his inguinal hernia which has been present for years but says has been hurting increasingly the past month. Patient relapsed with IV cocaine/heroin, and with worsening depression, loneliness started developing thoughts to end his life by jumping off a bridge. Thus self presents. He says he has consistently taken Lexapro which he thinks does help a little. Patient says that he still has some AH which can worsen when he is depressed but is mostly just inaudible whispers which do bother him. Formulation/clinical reasoning: Will increase Lexapro to 20 mg since he says it has been somewhat helpful. He endorses AH which are chronic and says they are inaudible whispers; ambivalent about starting medication for this at this time. Patient has chronic inguinal hernia however says it has been much more painful over the past month; will get surgical consult. Patient does not think that his addiction is severe enough to go to a program; he says with the methadone he keeps it at just 15-20 dollars a day and says he benefits from services at [facility]. -despite several admissions, patient's actual diagnosis remains somewhat undefined; his severe and chronic substance abuse and subsequent depression makes it difficult to determine if patient has MDD with psychotic features or schizoaffective disorder, depressed type. Will continue with MDD for now. Hospital course: 04/04 patient reports still depressed; no SI however. Still has AH of whispers but remains ambivalent about starting antipsychotic and asks to hold off from this. Says has continued pain which he feels is feeling his depression. -surgical team saw patient and is scheduling him for surgery for right-sided inguinal hernia. Plan: CV Q 15 minute checks Continue Lexapro to 20 mg Consider medication for AH, possibly Geodon (at last admission, with Haldol, patient got hyperammonemia) Surgical consult for inguinal hernia Patient educated on: diagnosis, medication risk/benefits and medical condition Informed Consent: understands Reason for continued inpatient stay Substantial Risk for: rapid decompensation Time Spent With Patient Time: Total time managing care of this patient today ____ minutes.
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
[2024-04-04 20:00] VITALS: BP 120/77; PULSE 54; RESP 16; TEMP 36.1; O2SAT 96
[2024-04-04] MEDS: traZODone HCL 100 MG TABLET PO (20:35)
[2024-04-04] MEDS: Melatonin 3 MG TABLET 6 MG PO (20:35)
[2024-04-05] MEDS: methADONE HCl 20 MG/2 ML ORAL.CONC 100 MG PO (08:04)
[2024-04-05] MEDS: Thiamine HCL 100 MG TABLET PO (08:38)
[2024-04-05] MEDS: Doxycycline Monohydrate 100 MG CAPSULE PO ×2 (08:38→20:55)
[2024-04-05] MEDS: Escitalopram Oxalate 20 MG TABLET PO (08:38)
[2024-04-05] MEDS: Folic Acid 1 MG TABLET PO (08:38)
[2024-04-05 08:49] VITALS: BP 91/50; PULSE 63; RESP 16; TEMP 36.6; O2SAT 93
[2024-04-05] MEDS: Acetaminophen 325 MG TABLET 650 MG PO ×2 (11:32→20:55)
--- NOTE | 2024-04-05 11:43 | P.PNPSI_ITS ---
Subjective Subjective Date of Service: 04/05/24 Reason For Visit: depressed/si Subjective Notes: Conditional Voluntary Interim History: Patient was seen and reviewed in rounds today. Records and plans were reviewed. He has been pleasant, cooperative. Attending no groups. Moderate anxiety and depression persisting. No SI. Eating and sleeping adequately. No side effects. No changes were made today Medication Compliance: Yes Side effects from medications: No Review of Systems Review of Systems Yes all other systems are reviewed and are negative Mental Status Exam Mental Status Exam Narrative: In today's visit he is alert, pleasant and interactive with in his means. Normal speech. Little eye contact. Affect is contained and constricted. No signs of psychosis. No SI. No abnormalities of gait. No musculoskeletal problems. Cognitively is grossly intact. Judgment is intact Diagnostics Vital Signs (24Hr): Vital Signs - 24 hr 04/04/24 20:00 04/05/24 08:49 Temperature 97.0 F 97.9 F Pulse Rate 54 63 Respiratory Rate 16 16 Blood Pressure 120/77 91/50 L Pulse Oximetry 96 93 Oxygen Delivery Method Room Air BMI result Body Mass Index 25.6 Labs 04/02/24 01:14 04/02/24 01:14 Medications Medications Current Medications Acetaminophen (Acetaminophen 325 Mg Tablet) 650 mg PO Q6H PRN PRN Reason: Headache/Pain Mild Scale (1-3) Last Admin: 04/05/24 11:32 Dose: 650 mg Al Hydroxide/Mg Hydroxide (Magnesium Hydrox/Alum Hydrox 30 Ml Oral.Susp) 30 ml PO Q6H PRN PRN Reason: Heartburn/Nausea Doxycycline Monohydrate (Doxycycline Monohydrate 100 Mg Capsule) 100 mg PO BID [facility] Stop: 04/06/24 21:01 Last Admin: 04/05/24 08:38 Dose: 100 mg Escitalopram Oxalate (Escitalopram Oxalate 20 Mg Tablet) 20 mg PO DAILY [facility] Last Admin: 04/05/24 08:38 Dose: 20 mg Folic Acid (Folic Acid 1 Mg Tablet) 1 mg PO DAILY [facility] Last Admin: 04/05/24 08:38 Dose: 1 mg Hydroxyzine HCl (Hydroxyzine Hcl 25 Mg Tablet) 25 mg PO Q6H PRN PRN Reason: Anxiety Last Admin: 04/03/24 20:33 Dose: 25 mg Magnesium Hydroxide (Milk Of Magnesia 30 Ml Oral.Susp) 30 ml PO DAILY PRN PRN Reason: Constipation Melatonin (Melatonin 3 Mg Tablet) 6 mg PO BEDTIME [facility] Last Admin: 04/04/24 20:35 Dose: 6 mg Methadone HCl (Methadone Hcl 20 Mg/2 Ml Oral.Conc) 100 mg PO DAILY [facility] Last Admin: 04/05/24 08:04 Dose: 100 mg Nicotine (Nicotine 21 Mg Patch.Td24) 21 mg TRANSDERMA DAILY PRN PRN Reason: smoking cessation Nicotine Polacrilex (Nicotine Polacrilex 2 Mg Gum) 4 mg BUCCAL Q2H PRN PRN Reason: Nicotine Cravings Last Admin: 04/02/24 20:27 Dose: 4 mg Nicotine Polacrilex (Nicotine Polacrilex 2 Mg Gum) 4 mg BUCCAL Q2H PRN PRN Reason: Nicotine Cravings Olanzapine (Olanzapine 5 Mg Tablet) 5 mg PO TID PRN PRN Reason: agitation Polyethylene Glycol (Polyethylene Glycol 3350 17 Gm Powd.Pack) 17 gm PO DAILY [facility] Last Admin: 04/05/24 08:53 Dose: Not Given Thiamine HCl (Thiamine Hcl 100 Mg Tablet) 100 mg PO DAILY [facility] Last Admin: 04/05/24 08:38 Dose: 100 mg Trazodone HCl (Trazodone Hcl 100 Mg Tablet) 100 mg PO BEDTIME PRN PRN Reason: Insomnia Last Admin: 04/04/24 20:35 Dose: 100 mg Allergies Allergies Allergy/AdvReac Type Severity Reaction Status Date / Time haldol AdvReac Intermediate hyperammone Uncoded 04/04/24 18:55 [facility] Assessment & Plan Assessment & Plan (1) MDD (major depressive disorder), recurrent, severe, with psychosis: Status: Acute Code(s): F33.3 - Major depressive disorder, recurrent, severe with psychotic symptoms (2) Cocaine abuse: Status: Acute Code(s): F14.10 - Cocaine abuse, uncomplicated (3) Opioid use disorder: Status: Acute Code(s): F11.90 - Opioid use, unspecified, uncomplicated (4) Hernia, inguinal, right: Status: Acute Code(s): K40.90 - Unilateral inguinal hernia, without obstruction or gangrene, not specified as recurrent (5) Hepatitis C: Status: Acute Code(s): B19.20 - Unspecified viral hepatitis C without hepatic coma Plan HPI: Patient is a 48-year-old male with history of depression, psychotic symptoms and cocaine, opioid, alcohol abuse, recent right wrist cellulitis, inguinal hernia who self presents for worsening depression and suicidality with thoughts to jump off a bridge. Patient reports that was at detox a few weeks ago but from there was sent to the emergency room for cellulitis where he was treated with IV antibiotics for week or so. He said upon discharge he remained in pain due to his inguinal hernia which has been present for years but says has been hurting increasingly the past month. Patient relapsed with IV cocaine/heroin, and with worsening depression, loneliness started developing thoughts to end his life by jumping off a bridge. Thus self presents. He says he has consistently taken Lexapro which he thinks does help a little. Patient says that he still has some AH which can worsen when he is depressed but is mostly just inaudible whispers which do bother him. Formulation/clinical reasoning: Will increase Lexapro to 20 mg since he says it has been somewhat helpful. He endorses AH which are chronic and says they are inaudible whispers; ambivalent about starting medication for this at this time. Patient has chronic inguinal hernia however says it has been much more painful over the past month; will get surgical consult. Patient does not think that his addiction is severe enough to go to a program; he says with the methadone he keeps it at just 15-20 dollars a day and says he benefits from services at [facility]. -despite several admissions, patient's actual diagnosis remains somewhat undefined; his severe and chronic substance abuse and subsequent depression makes it difficult to determine if patient has MDD with psychotic features or schizoaffective disorder, depressed type. Will continue with MDD for now. Hospital course: 04/04 patient reports still depressed; no SI however. Still has AH of whispers but remains ambivalent about starting antipsychotic and asks to hold off from this. Says has continued pain which he feels is feeling his depression. -surgical team saw patient and is scheduling him for surgery for right-sided inguinal hernia. 04/05: Continue current regimen and planslan: CV Q 15 minute checks Continue Lexapro to 20 mg Consider medication for AH, possibly Geodon (at last admission, with Haldol, patient got hyperammonemia) Surgical consult for inguinal hernia Reason for continued inpatient stay Substantial Risk for: med/psych decompensation Time Spent With Patient Time: Total time managing care of this patient today ____ minutes.
[2024-04-05 20:00] VITALS: BP 118/64; PULSE 65; TEMP 2.6; TEMP 36.6; O2SAT 97
[2024-04-05] MEDS: Melatonin 3 MG TABLET 6 MG PO (20:55)
[2024-04-06] MEDS: methADONE HCl 20 MG/2 ML ORAL.CONC 100 MG PO (07:53)
[2024-04-06 08:19] VITALS: BP 131/91; PULSE 64; RESP 14; TEMP 36.8; O2SAT 97
[2024-04-06] MEDS: Thiamine HCL 100 MG TABLET PO (08:47)
[2024-04-06] MEDS: Folic Acid 1 MG TABLET PO (08:47)
[2024-04-06] MEDS: polyethylene glycoL 3350 17 GM POWD.PACK PO (08:47)
[2024-04-06] MEDS: Escitalopram Oxalate 20 MG TABLET PO (08:47)
[2024-04-06] MEDS: Doxycycline Monohydrate 100 MG CAPSULE PO ×2 (08:47→20:05)
--- NOTE | 2024-04-06 08:49 | P.PNPSI_ITS ---
Subjective Subjective Date of Service: 04/06/24 Reason For Visit: depressed/si Subjective Notes: Conditional Voluntary Interim History: Patient was seen and reviewed in rounds today. Records and plans were reviewed. He has been stable and is doing okay. Social and interactive with others. Endorses high degree of anxiety and depression. No complaints or side effects. No SI. No changes were made today Medication Compliance: Yes Side effects from medications: No Review of Systems Review of Systems Yes all other systems are reviewed and are negative Mental Status Exam Mental Status Exam Narrative: In today's visit he is alert, pleasant and interactive with in his means. Normal speech. Moderate eye contact. Affect is contained and constricted. No signs of psychosis. No SI. No abnormalities of gait. No musculoskeletal problems. Cognitively is grossly intact. Judgment is intact Diagnostics Vital Signs (24Hr): Vital Signs - 24 hr 04/05/24 20:00 04/06/24 08:19 Temperature 36.6 F L 98.2 F Pulse Rate 65 64 Respiratory Rate 14 Blood Pressure 118/64 131/91 H Pulse Oximetry 97 97 Oxygen Delivery Method Room Air Room Air BMI result Body Mass Index 25.6 Labs 04/02/24 01:14 04/02/24 01:14 Medications Medications Current Medications Acetaminophen (Acetaminophen 325 Mg Tablet) 650 mg PO Q6H PRN PRN Reason: Headache/Pain Mild Scale (1-3) Last Admin: 04/05/24 20:55 Dose: 650 mg Al Hydroxide/Mg Hydroxide (Magnesium Hydrox/Alum Hydrox 30 Ml Oral.Susp) 30 ml PO Q6H PRN PRN Reason: Heartburn/Nausea Doxycycline Monohydrate (Doxycycline Monohydrate 100 Mg Capsule) 100 mg PO BID [facility] Stop: 04/06/24 21:01 Last Admin: 04/05/24 20:55 Dose: 100 mg Escitalopram Oxalate (Escitalopram Oxalate 20 Mg Tablet) 20 mg PO DAILY [facility] Last Admin: 04/05/24 08:38 Dose: 20 mg Folic Acid (Folic Acid 1 Mg Tablet) 1 mg PO DAILY [facility] Last Admin: 04/05/24 08:38 Dose: 1 mg Hydroxyzine HCl (Hydroxyzine Hcl 25 Mg Tablet) 25 mg PO Q6H PRN PRN Reason: Anxiety Last Admin: 04/03/24 20:33 Dose: 25 mg Magnesium Hydroxide (Milk Of Magnesia 30 Ml Oral.Susp) 30 ml PO DAILY PRN PRN Reason: Constipation Melatonin (Melatonin 3 Mg Tablet) 6 mg PO BEDTIME [facility] Last Admin: 04/05/24 20:55 Dose: 6 mg Methadone HCl (Methadone Hcl 20 Mg/2 Ml Oral.Conc) 100 mg PO DAILY [facility] Last Admin: 04/06/24 07:53 Dose: 100 mg Nicotine (Nicotine 21 Mg Patch.Td24) 21 mg TRANSDERMA DAILY PRN PRN Reason: smoking cessation Nicotine Polacrilex (Nicotine Polacrilex 2 Mg Gum) 4 mg BUCCAL Q2H PRN PRN Reason: Nicotine Cravings Last Admin: 04/02/24 20:27 Dose: 4 mg Nicotine Polacrilex (Nicotine Polacrilex 2 Mg Gum) 4 mg BUCCAL Q2H PRN PRN Reason: Nicotine Cravings Olanzapine (Olanzapine 5 Mg Tablet) 5 mg PO TID PRN PRN Reason: agitation Polyethylene Glycol (Polyethylene Glycol 3350 17 Gm Powd.Pack) 17 gm PO DAILY [facility] Last Admin: 04/05/24 08:53 Dose: Not Given Thiamine HCl (Thiamine Hcl 100 Mg Tablet) 100 mg PO DAILY [facility] Last Admin: 04/05/24 08:38 Dose: 100 mg Trazodone HCl (Trazodone Hcl 100 Mg Tablet) 100 mg PO BEDTIME PRN PRN Reason: Insomnia Last Admin: 04/04/24 20:35 Dose: 100 mg Allergies Allergies Allergy/AdvReac Type Severity Reaction Status Date / Time haldol AdvReac Intermediate hyperammone Uncoded 04/04/24 18:55 isela Assessment & Plan Assessment & Plan (1) MDD (major depressive disorder), recurrent, severe, with psychosis: Status: Acute Code(s): F33.3 - Major depressive disorder, recurrent, severe with psychotic symptoms (2) Cocaine abuse: Status: Acute Code(s): F14.10 - Cocaine abuse, uncomplicated (3) Opioid use disorder: Status: Acute Code(s): F11.90 - Opioid use, unspecified, uncomplicated (4) Hernia, inguinal, right: Status: Acute Code(s): K40.90 - Unilateral inguinal hernia, without obstruction or gangrene, not specified as recurrent (5) Hepatitis C: Status: Acute Code(s): B19.20 - Unspecified viral hepatitis C without hepatic coma Plan HPI: Patient is a 48-year-old male with history of depression, psychotic symptoms and cocaine, opioid, alcohol abuse, recent right wrist cellulitis, inguinal hernia who self presents for worsening depression and suicidality with thoughts to jump off a bridge. Patient reports that was at detox a few weeks ago but from there was sent to the emergency room for cellulitis where he was treated with IV antibiotics for week or so. He said upon discharge he remained in pain due to his inguinal hernia which has been present for years but says has been hurting increasingly the past month. Patient relapsed with IV cocaine/heroin, and with worsening depression, loneliness started developing thoughts to end his life by jumping off a bridge. Thus self presents. He says he has consistently taken Lexapro which he thinks does help a little. Patient says that he still has some AH which can worsen when he is depressed but is mostly just inaudible whispers which do bother him. Formulation/clinical reasoning: Will increase Lexapro to 20 mg since he says it has been somewhat helpful. He endorses AH which are chronic and says they are inaudible whispers; ambivalent about starting medication for this at this time. Patient has chronic inguinal hernia however says it has been much more painful over the past month; will get surgical consult. Patient does not think that his addiction is severe enough to go to a program; he says with the methadone he keeps it at just 15-20 dollars a day and says he benefits from services at [facility]. -despite several admissions, patient's actual diagnosis remains somewhat undefined; his severe and chronic substance abuse and subsequent depression makes it difficult to determine if patient has MDD with psychotic features or schizoaffective disorder, depressed type. Will continue with MDD for now. Hospital course: 04/04 patient reports still depressed; no SI however. Still has AH of whispers but remains ambivalent about starting antipsychotic and asks to hold off from this. Says has continued pain which he feels is feeling his depression. -surgical team saw patient and is scheduling him for surgery for right-sided inguinal hernia. 04/05: Continue current regimen and planslan 04/06: Continue current regimen and planslan CV Q 15 minute checks Continue Lexapro to 20 mg Consider medication for AH, possibly Geodon (at last admission, with Haldol, patient got hyperammonemia) Surgical consult for inguinal hernia Reason for continued inpatient stay Substantial Risk for: med/psych decompensation Time Spent With Patient Time: Total time managing care of this patient today ____ minutes.
[2024-04-06] MEDS: Nicotine Polacrilex 2 MG GUM 4 MG BUCCAL ×2 (08:52→12:15)
[2024-04-06] MEDS: Acetaminophen 325 MG TABLET 650 MG PO (12:13)
[2024-04-06] MEDS: OLANZapine 5 MG TABLET PO (12:13)
[2024-04-06] MEDS: Gabapentin 100 MG CAPSULE 200 MG PO ×2 (12:40→20:05)
[2024-04-06 12:57] LABS: MANUAL DIFF FLAG NO
[2024-04-06 13:00] LABS: Basophils Percent Auto 0.8 % (0-2); Eosinophils Absolute Auto 0.3 X10*3/uL (0.0-0.4); Eosinophils Percent Auto 5.4 % (0-4); Hematocrit 46.1 % (42.0-52.0); Hemoglobin 15.4 g/dl (14.0-18.0); Imm Gran Abs Auto 0.01 X10*3/uL (0.00-0.03); Imm Gran Pct Auto 0.2 % (0.0-0.4); Lymphocytes Absolute Auto 2.3 X10*3/uL (1.2-4.9); Lymphocytes Percent Auto 45.7 % (20-40); Mean Corpuscular HGB Conc 33.4 g/dl (31.0-36.0); Mean Corpuscular Hemoglobin 31.4 pg (27.0-33.0); Mean Corpuscular Volume 94.1 fL (80.0-98.0); Mean Platelet Volume 10.5 fL (9.4-12.4); Monocytes Absolute Auto 0.6 X10*3/uL (0.1-1.2); Neutrophils Absolute Auto 1.8 x10*3/uL (2.0-8.3); Neutrophils Percent Auto 35.9 % (45-73); Platelet Count 178 X10*3/uL (160-400); Red Cell Distribution Width 13.2 % (11.0-16.0)
--- NOTE | 2024-04-06 13:20 | PM.EVENT ---
Event Note Date of Service: 04/06/24 Event Note: Pt admitted to adult psychiatry with consult to hospitalist service forevaluation of possible cellulitis of the R wrist. Per patient he had injected cocaine into the R wrist end of February and developed pain, swelling, redness in the right wrist. Presented to [facility] where there was no leukocytosis, mildly elevated ESR and CRP with normal lactic acid. CT of the right wrist at that time was negative for any evidence of abscess or drainable fluid collection. He was discharged to the [facility] on Bactrim. However symptoms worsened and he returned to [facility] ED on 03/24 and was ultimately admitted on IV cefepime and vancomycin for cellulitis of the right wrist related to IV drug abuse. Again there was no leukocytosis, CRP 0.84, ESR 25. Repeat CT of the right wrist was unchanged without evidence of drainable fluid collection necrotizing infection. He was followed by Orthopedic surgery who did not recommend surgical intervention at the time. He was discharged on 03/27 on 7 days of Augmentin and doxycycline which he reports he completed. He was then seen at our ED on 04/02 and ultimately admitted to adult Psychiatry where doxycycline was continued for an additional 4 days, due to end later tonight. Clinically, the area had improved greatly. Today he states he feels the area is more swollen and tender. There is no overlying erythema or warmth. No leukocytosis or fevers. Has completed course of augmentin and doxycycline (was recommneded for 7 days but got 10 days of doxy). There is an area of fluid collection/fluctuance on the dorsum of the R wrist with limited ROM. There is no evidence of cellulitis at time of evaluation. Plan: Check BMP. Collect ESR/CRP and trend compared to [facility]. Check CT R wrist w/ contrast to evaluate for abscess. Consider ortho consult. No indication for further antibiotic treatment at this time. Time Spent With Patient Time: Total time managing care of this patient today ____ minutes.
[2024-04-06 14:36] LABS: Anion Gap 14 (12-20); Blood Urea Nitrogen 16 mg/dL (9-16); C Reactive Protein 0.15 mg/dL (< or = 0.50); Calcium 9.8 mg/dL (8.4-10.2); Carbon Dioxide 27 mmol/L (22-29); Chloride 104 mmol/L (96-108); Creatinine Clr Calc Pharmacy 110.1; Estimated Glomerular Filt Rate > 60; Glucose Random 116 mg/dL (60-115); Potassium 4.6 mmol/L (3.3-5.1); Sodium 140 mmol/L (135-145)
[2024-04-06 15:02] LABS: Erythrocyte Sedimentation Rate 6 MM/HR (0-15)
[2024-04-06] MEDS: iohexoL 350 MG/ML 100 ML INFUS..BTL 85 ML IV (15:22)
[2024-04-06 19:48] VITALS: BP 126/57; PULSE 97; TEMP 36.9; O2SAT 97
[2024-04-06] MEDS: Melatonin 3 MG TABLET 6 MG PO (20:05)
[2024-04-06] MEDS: Docusate Sodium 100 MG CAPSULE PO (20:05)
[2024-04-07] MEDS: methADONE HCl 20 MG/2 ML ORAL.CONC 100 MG PO (07:51)
[2024-04-07 08:35] VITALS: BP 105/59; PULSE 48; RESP 14; TEMP 36.8; O2SAT 95
[2024-04-07] MEDS: Gabapentin 100 MG CAPSULE 200 MG PO (08:38)
[2024-04-07] MEDS: Folic Acid 1 MG TABLET PO (08:38)
[2024-04-07] MEDS: Escitalopram Oxalate 20 MG TABLET PO (08:38)
[2024-04-07] MEDS: Thiamine HCL 100 MG TABLET PO (08:38)
[2024-04-07] MEDS: polyethylene glycoL 3350 17 GM POWD.PACK PO (08:38)
[2024-04-07] MEDS: Docusate Sodium 100 MG CAPSULE PO (08:38)
[2024-04-07] MEDS: Acetaminophen 325 MG TABLET 650 MG PO (08:53)
--- NOTE | 2024-04-07 09:49 | P.PNPSI_ITS ---
Subjective Subjective Date of Service: 04/07/24 Reason For Visit: depressed/si Interim History: met with patient; discussed with team Diagnostics Vital Signs (24Hr): Vital Signs - 24 hr 04/06/24 19:48 04/07/24 08:35 Temperature 98.5 F 98.3 F Pulse Rate 97 48 L Respiratory Rate 14 Blood Pressure 126/57 L 105/59 L Pulse Oximetry 97 95 Oxygen Delivery Method Room Air Room Air BMI result Body Mass Index 25.6 Labs 04/06/24 12:40 04/06/24 14:16 Labs: Laboratory Results - last 48 hr 04/06/24 04/06/24 12:40 14:16 WBC 5.0 RBC 4.90 Hgb 15.4 Hct 46.1 MCV 94.1 MCH 31.4 MCHC 33.4 RDW 13.2 Plt Count 178 MPV 10.5 Immature Gran % (Auto) 0.2 Neut % (Auto) 35.9 L Lymph % (Auto) 45.7 H [place] % (Auto) 12.0 H Eos % (Auto) 5.4 H Baso % (Auto) 0.8 Lymph # (Auto) 2.3 [place] # (Auto) 0.6 Eos # (Auto) 0.3 Baso # (Auto) 0.0 Abs Immat Gran (auto) 0.01 Absolute Neuts (auto) 1.8 L Absolute Nucleated RBC 0.000 Nucleated RBC % (auto) 0.0 ESR 6 Sodium 140 Potassium 4.6 Chloride 104 Carbon Dioxide 27 Anion Gap 14 BUN 16 Creatinine 0.82 Estim Creat Clear Calc 110.1 Estimated GFR > 60 Random Glucose 116 H Calcium 9.8 D C-Reactive Protein 0.15 Imaging Radiology Impressions: ITS Impressions Wrist CT 04/06/24 15:50 IMPRESSION: * Mild soft tissue edema of the dorsal wrist without soft tissue abscess. * Carpal bones and metacarpals are intact. * No evidence of septic arthritis or osteomyelitis. Medications Medications Current Medications Acetaminophen (Acetaminophen 325 Mg Tablet) 650 mg PO Q6H PRN PRN Reason: Headache/Pain Mild Scale (1-3) Last Admin: 04/07/24 08:53 Dose: 650 mg Al Hydroxide/Mg Hydroxide (Magnesium Hydrox/Alum Hydrox 30 Ml Oral.Susp) 30 ml PO Q6H PRN PRN Reason: Heartburn/Nausea Docusate Sodium (Docusate Sodium 100 Mg Capsule) 100 mg PO BID [facility] Last Admin: 04/07/24 08:38 Dose: 100 mg Escitalopram Oxalate (Escitalopram Oxalate 20 Mg Tablet) 20 mg PO DAILY [facility] Last Admin: 04/07/24 08:38 Dose: 20 mg Folic Acid (Folic Acid 1 Mg Tablet) 1 mg PO DAILY [facility] Last Admin: 04/07/24 08:38 Dose: 1 mg Gabapentin (Gabapentin 100 Mg Capsule) 200 mg PO BID [facility] Last Admin: 04/07/24 08:38 Dose: 200 mg Hydroxyzine HCl (Hydroxyzine Hcl 25 Mg Tablet) 25 mg PO Q6H PRN PRN Reason: Anxiety Last Admin: 04/03/24 20:33 Dose: 25 mg Ibuprofen (Ibuprofen 800 Mg Tablet) 800 mg PO Q8H PRN PRN Reason: R wrist pain/swelling Magnesium Hydroxide (Milk Of Magnesia 30 Ml Oral.Susp) 30 ml PO DAILY PRN PRN Reason: Constipation Melatonin (Melatonin 3 Mg Tablet) 6 mg PO BEDTIME [facility] Last Admin: 04/06/24 20:05 Dose: 6 mg Methadone HCl (Methadone Hcl 20 Mg/2 Ml Oral.Conc) 100 mg PO DAILY [facility] Last Admin: 04/07/24 07:51 Dose: 100 mg Nicotine (Nicotine 21 Mg Patch.Td24) 21 mg TRANSDERMA DAILY PRN PRN Reason: smoking cessation Nicotine Polacrilex (Nicotine Polacrilex 2 Mg Gum) 4 mg BUCCAL Q2H PRN PRN Reason: Nicotine Cravings Last Admin: 04/06/24 12:15 Dose: 4 mg Nicotine Polacrilex (Nicotine Polacrilex 2 Mg Gum) 4 mg BUCCAL Q2H PRN PRN Reason: Nicotine Cravings Olanzapine (Olanzapine 5 Mg Tablet) 5 mg PO TID PRN PRN Reason: agitation Last Admin: 04/06/24 12:13 Dose: 5 mg Polyethylene Glycol (Polyethylene Glycol 3350 17 Gm Powd.Pack) 17 gm PO DAILY [facility] Last Admin: 04/07/24 08:38 Dose: 17 gm Thiamine HCl (Thiamine Hcl 100 Mg Tablet) 100 mg PO DAILY [facility] Last Admin: 04/07/24 08:38 Dose: 100 mg Trazodone HCl (Trazodone Hcl 100 Mg Tablet) 100 mg PO BEDTIME PRN PRN Reason: Insomnia Last Admin: 04/04/24 20:35 Dose: 100 mg Allergies Allergies Allergy/AdvReac Type Severity Reaction Status Date / Time haldol AdvReac Intermediate hyperammone Uncoded 04/04/24 18:55 isela Assessment & Plan Assessment & Plan (1) MDD (major depressive disorder), recurrent, severe, with psychosis: Status: Acute Code(s): F33.3 - Major depressive disorder, recurrent, severe with psychotic symptoms (2) Cocaine abuse: Status: Acute Code(s): F14.10 - Cocaine abuse, uncomplicated (3) Opioid use disorder: Status: Acute Code(s): F11.90 - Opioid use, unspecified, uncomplicated (4) Hernia, inguinal, right: Status: Acute Code(s): K40.90 - Unilateral inguinal hernia, without obstruction or gangrene, not specified as recurrent (5) Hepatitis C: Status: Acute Code(s): B19.20 - Unspecified viral hepatitis C without hepatic coma Plan HPI: Patient is a 48-year-old male with history of depression, psychotic symptoms and cocaine, opioid, alcohol abuse, recent right wrist cellulitis, inguinal hernia who self presents for worsening depression and suicidality with thoughts to jump off a bridge. Patient reports that was at detox a few weeks ago but from there was sent to the emergency room for cellulitis where he was treated with IV antibiotics for week or so. He said upon discharge he remained in pain due to his inguinal hernia which has been present for years but says has been hurting increasingly the past month. Patient relapsed with IV cocaine/heroin, and with worsening depression, loneliness started developing thoughts to end his life by jumping off a bridge. Thus self presents. He says he has consistently taken Lexapro which he thinks does help a little. Patient says that he still has some AH which can worsen when he is depressed but is mostly just inaudible whispers which do bother him. Formulation/clinical reasoning: Will increase Lexapro to 20 mg since he says it has been somewhat helpful. He endorses AH which are chronic and says they are inaudible whispers; ambivalent about starting medication for this at this time. Patient has chronic inguinal hernia however says it has been much more painful over the past month; will get surgical consult. Patient does not think that his addiction is severe enough to go to a program; he says with the methadone he keeps it at just 15-20 dollars a day and says he benefits from services at [facility]. -despite several admissions, patient's actual diagnosis remains somewhat undefined; his severe and chronic substance abuse and subsequent depression makes it difficult to determine if patient has MDD with psychotic features or schizoaffective disorder, depressed type. Will continue with MDD for now. Hospital course: 04/04 patient reports still depressed; no SI however. Still has AH of whispers but remains ambivalent about starting antipsychotic and asks to hold off from this. Says has continued pain which he feels is feeling his depression. -surgical team saw patient and is scheduling him for surgery for right-sided inguinal hernia. 04/05: Continue current regimen and planslan 04/06: Continue current regimen and planslan CV Q 15 minute checks Continue Lexapro to 20 mg Consider medication for AH, possibly Geodon (at last admission, with Haldol, patient got hyperammonemia) Surgical consult for inguinal hernia Time Spent With Patient Time: Total time managing care of this patient today ____ minutes.
[2024-04-07] MEDS: Nicotine Polacrilex 2 MG GUM 4 MG BUCCAL (11:27)
[2024-04-07] MEDS: Naloxone HCl Nasal TAKE HOME 4 MG SPRAY 8 MG NOSTRILALT (13:02)
--- NOTE | 2024-04-07 13:08 | P.DS_ITS ---
DS: Providers Provider Date of Service: 04/07/24 Date of admission: 04/02/24 12:38 Date of discharge: 04/07/24 Primary care physician: Espinoza Fraser MD Attending physician on admission: Omi Rachel Consults: 04/04/24 12:49 Consult to General Surgery Routine Consulting Provider: [facility] General Surgeons Reason for consultation: inguinal hernia;chronic but hurting for past month Has provider been notified: No 04/06/24 10:11 Consult to Hospitalist Routine Comment: Consulting Provider: Hospitalist Reason For Exam: R wrist cellulitis on antibiotic. Red and itchy to Attending physician on discharge: Omi Rachel DS: Diagnosis Discharge Diagnosis (1) MDD (major depressive disorder), recurrent, severe, with psychosis: Status: Acute (2) Cocaine abuse: Status: Acute (3) Opioid use disorder: Status: Acute (4) Hernia, inguinal, right: Status: Acute (5) Hepatitis C: Status: Acute DS: Medications Discharge Medications Home Medications: Home Medications ?Medication ?Instructions ?Recorded ?Confirmed acetaminophen 500 mg tablet 500 mg PO Q6H PRN Pain, Mild 04/02/24 04/02/24 Previous Rx's ?Medication ?Instructions ?Recorded docusate sodium 100 mg capsule 100 mg PO BID 30 days #60 caps 04/07/24 escitalopram oxalate 20 mg tablet 20 mg PO DAILY 30 days #30 tabs 04/07/24 folic acid 1 mg tablet 1 mg PO DAILY 7 days #7 tabs 04/07/24 gabapentin 300 mg capsule 300 mg PO TID 3 days #9 caps 04/07/24 melatonin 5 mg tablet 5 mg PO BEDTIME 30 days #30 tabs 04/07/24 methadone 10 mg/mL oral 100 mg (10 mL) PO DAILY #0 mL 04/07/24 concentrate (Methadose) nicotine (polacrilex) 4 mg gum 4 mg PO Q2-3H PRN Nicotine 04/07/24 Cravings 30 days #100 ea polyethylene glycol 3350 17 gram 17 g PO DAILY constipation 30 days 04/07/24 oral powder packet #30 ea thiamine mononitrate (vit B1) 100 100 mg PO DAILY 30 days #30 tabs 04/07/24 mg tablet trazodone 100 mg tablet 100 mg PO BEDTIME PRN insomnia 30 04/07/24 days #30 tabs Mental Status Exam Mental Status Exam Narrative: Pt is alert and oriented; behavior is cooperative, friendly and calm; patient is not in distress; dressed in casual attire with unkempt hair but adequate hygiene; mood is described as good and affect congruent; eye contact appropriate; Speech is normal rate, volume and prosody and not pressured; no psychomotor agitation/retardation present; thought process is organized and goal directed; Thought content is on tx; otherwise pertinent to relevant topics and without any delusional content, paranoid ideations or grandiosity; denies any SI/HI. There is no evidence of perceptual disturbance. Patients insight and judgment are intact. Data Data Completed and Pending Completed studies during hospitalization [Text1]: 04/02/24 04/02/24 04/06/24 01:14 03:05 12:40 WBC 6.2 5.0 RBC 4.36 L 4.90 Hgb 13.6 L 15.4 Hct 40.8 L 46.1 MCV 93.6 94.1 MCH 31.2 31.4 MCHC 33.3 33.4 RDW 13.4 13.2 Plt Count 179 178 MPV 9.5 10.5 Immature Gran % (Auto) 0.2 0.2 Neut % (Auto) 53.2 35.9 L Lymph % (Auto) 31.5 45.7 H [place] % (Auto) 13.3 H 12.0 H Eos % (Auto) 1.3 5.4 H Baso % (Auto) 0.5 0.8 Lymph # (Auto) 2.0 2.3 [place] # (Auto) 0.8 0.6 Eos # (Auto) 0.1 0.3 Baso # (Auto) 0.0 0.0 Abs Immat Gran (auto) 0.01 0.01 Absolute Neuts (auto) 3.3 1.8 L Absolute Nucleated RBC 0.000 0.000 Nucleated RBC % (auto) 0.0 0.0 ESR Sodium 140 Potassium 4.1 Chloride 105 Carbon Dioxide 25 Anion Gap 14 BUN 21 H Creatinine 0.85 Estim Creat Clear Calc 106.2 Estimated GFR > 60 Random Glucose Fasting Glucose 106 H Lactic Acid 1.6 Calcium 9.2 Total Bilirubin 0.4 AST 119 H ALT 134 H Alkaline Phosphatase 85 C-Reactive Protein Total Protein 7.3 Albumin 3.6 Urine Color Yellow Urine Appearance Clear Urine pH 6.0 Ur Specific [place] 1.020 Urine Protein Negative Urine Glucose (UA) Negative Urine Ketones Negative Urine Blood Negative Urine Nitrite Negative Ur Leukocyte Esterase Negative Urine Opiates Screen POSITIVE H Ur Buprenorphine Scrn Not Detected Ur Oxycodone Screen Not Detected Urine Methadone Screen Positive H Urine Fentanyl Screen POSITIVE H Ur Barbiturates Screen Not Detected Ur Phencyclidine Scrn Not Detected Ur Amphetamines Screen Not Detected U Benzodiazepines Scrn Not Detected Urine Cocaine Screen POSITIVE H U Marijuana (THC) Screen Not Detected Ethyl Alcohol < 10 04/06/24 14:16 WBC RBC Hgb Hct MCV MCH MCHC RDW Plt Count MPV Immature Gran % (Auto) Neut % (Auto) Lymph % (Auto) [place] % (Auto) Eos % (Auto) Baso % (Auto) Lymph # (Auto) [place] # (Auto) Eos # (Auto) Baso # (Auto) Abs Immat Gran (auto) Absolute Neuts (auto) Absolute Nucleated RBC Nucleated RBC % (auto) ESR 6 Sodium 140 Potassium 4.6 Chloride 104 Carbon Dioxide 27 Anion Gap 14 BUN 16 Creatinine 0.82 Estim Creat Clear Calc 110.1 Estimated GFR > 60 Random Glucose 116 H Fasting Glucose Lactic Acid Calcium 9.8 D Total Bilirubin AST ALT Alkaline Phosphatase C-Reactive Protein 0.15 Total Protein Albumin Urine Color Urine Appearance Urine pH Ur Specific [place] Urine Protein Urine Glucose (UA) Urine Ketones Urine Blood Urine Nitrite Ur Leukocyte Esterase Urine Opiates Screen Ur Buprenorphine Scrn Ur Oxycodone Screen Urine Methadone Screen Urine Fentanyl Screen Ur Barbiturates Screen Ur Phencyclidine Scrn Ur Amphetamines Screen U Benzodiazepines Scrn Urine Cocaine Screen U Marijuana (THC) Screen Ethyl Alcohol 04/02/24 01:14 Blood - Venous Blood Culture - Final No growth after 5 days. 04/02/24 01:14 Blood - Venous Blood Culture - Final No growth after 5 days. Imaging Diagnostic Imaging Impressions Wrist CT 04/06/24 15:50 IMPRESSION: * Mild soft tissue edema of the dorsal wrist without soft tissue abscess. * Carpal bones and metacarpals are intact. * No evidence of septic arthritis or osteomyelitis. DS: Summary Hospital Course Hospital Course: HPI: Patient is a 48-year-old male with history of depression, psychotic symptoms and cocaine, opioid, alcohol abuse, recent right wrist cellulitis, inguinal hernia who self presents for worsening depression and suicidality with thoughts to jump off a bridge. Patient reports that was at detox a few weeks ago but from there was sent to the emergency room for cellulitis where he was treated with IV antibiotics for week or so. He said upon discharge he remained in pain due to his inguinal hernia which has been present for years but says has been hurting increasingly the past month. Patient relapsed with IV cocaine/heroin, and with worsening depression, loneliness started developing thoughts to end his life by jumping off a bridge. Thus self presents. He says he has consistently taken Lexapro which he thinks does help a little. Patient says that he still has some AH which can worsen when he is depressed but is mostly just inaudible whispers which do bother him. Hospital course: On admission patient depressed, in opiate withdrawal, complaining of AH of whispers; SI resolved. Patients Lexapro increased to 20 mg. Increased Lexapro to 20 mg since he says it has been somewhat helpful. He endorses AH which are chronic and says they are inaudible whispers; ambivalent about starting medication for this at this time. Patient has chronic inguinal hernia however says it has been much more painful over the past month; will get surgical consult. Patient does not think that his addiction is severe enough to go to a program; he says with the methadone he keeps it at just 15-20 dollars a day and says he benefits from services at [facility]. -despite several admissions, patient's actual diagnosis remains somewhat undefined; his severe and chronic substance abuse and subsequent depression makes it difficult to determine if patient has MDD with psychotic features or schizoaffective disorder, depressed type. 04/04 patient reports still depressed; no SI however. Still has AH of whispers but remains ambivalent about starting antipsychotic and asks to hold off from this. Says has continued pain which he feels is feeling his depression. -surgical team saw patient and is scheduling him for surgery for right-sided inguinal hernia. Over subsequent days, patient significantly improved. Patient's depression fully resolved and mood was good with noticeably brighter affect. Patient also reported that he was without any auditory hallucinations and was glad that he held off on starting an antipsychotic. Patient's diagnosis will remain MDD with psychotic symptoms. Patient remained in good behavioral and impulse control throughout his stay was appropriate with peers and staff. He was attending groups as well. Patient asked for discharge. Right-sided inguinal surgery was scheduled for 04/10 and patient wanted to go home, prepares belongings and report for surgery as an outpatient. Patient understood pre- surgical information including NPO after midnight and that he will not be gettin g methadone that morning. Patient did not have an outpatient provider set up and was offered to remain so that this could be established, however similar to past psychiatric admissions, he wanted to discharge anyway, saying he knows psychiatrist at the methadone clinic and will just self present on his own. Patient is going to stay at his sister's who is supportive and sober. While patient remains vulnerable to relapse and decompensation, this is a chronic issue that will not resolve with longer inpatient stay. Patient is not ready to engage in further substance abuse treatment at this time. He is not in imminent risk for harm to self or others and request for discharge honored. Time spent discussing smoking cessation with patient: 3 to 10 minutes Status at Discharge Functional status at discharge: independent ambulation Overall status at discharge: patient is back to baseline Time Spent with Patient Time attestation: Total time managing care of this patient today ____ minutes. Time spent: Greater than 30 minutes Discharge Plan Discharge Anticipated Discharge Date/Time: 04/07/24 13:30 Patient Disposition: Home, Self-Care Discharge Diagnosis: MDD, recurrent, severe with psychotic features, in full remission Referrals: [facility] [Other] - 04/10/24 (Do not eat or drink anything after midnight on 04/10/24. You will not be able to take methadone the morning of surgery but will receive pain medication.) Discharge Medications: New methadone [Methadose] 10 mg/mL Concentrate 100 mg PO DAILY Qty: 0 0RF Rx Instructions: Partial Fill upon patient request. docusate sodium 100 mg Capsule 100 mg PO BID 30 Days Qty: 60 0RF folic acid 1 mg Tablet 1 mg PO DAILY 7 Days Qty: 7 0RF thiamine mononitrate (vit B1) 100 mg Tablet 100 mg PO DAILY 30 Days Qty: 30 0RF Continued acetaminophen 500 mg tablet 500 mg PO Q6H PRN (Reason: Pain, Mild) polyethylene glycol 3350 17 gram Powder In Packet 17 g PO DAILY 30 Days Qty: 30 0RF trazodone 100 mg tablet 100 mg PO BEDTIME PRN (Reason: insomnia) 30 Days Qty: 30 0RF nicotine (polacrilex) 4 mg gum 4 mg PO Q2-3H PRN (Reason: Nicotine Cravings) 30 Days Qty: 100 0RF gabapentin 300 mg capsule 300 mg PO TID 3 Days Qty: 9 0RF melatonin 5 mg tablet 5 mg PO BEDTIME 30 Days Qty: 30 0RF Changed escitalopram oxalate 20 mg tablet 20 mg PO DAILY 30 Days Qty: 30 0RF Discontinued nicotine 21 mg/24 hr patch 24 hour 1 patch topical DAILY hydroxyzine HCl 25 mg tablet 25 mg PO QID PRN (Reason: Anxiety) methadone [Methadose] 10 mg/mL concentrate 110 mg PO DAILY Rx Instructions: [facility]. verified by Sera RN at [phone] Discharge Orders: Discharge Order (Routine); Ordered 04/07/24 Ordered By: Omi Rachel Diet: Regular diet Activity on Discharge: As tolerated Stand Alone Forms: Patient Portal Discharge page, Community Support Print Language: French Care Plan Goals: Maintain mood and safe behaviors Take medications as prescribed Continue to pursue sobriety Practice coping skills Continue with outpatient providers and reach out to them as needed Health Concerns: Mood stability and behaviors Sobriety Right Sided Inguinal Hernia; surgery scheduled for 04/10/24 Plan of Treatment: Follow up with your PCP, Surgical team, psychiatric provider and other outpatient providers regarding above concerns Take medications as prescribed NPO starting 04/10/24 at midnight. Assessment: Risk assessment at time of discharge:? Patient was interviewed prior to discharge and found to be fully oriented and without any SI or HI. Patient has improved insight and judgment and wants to continue treatment. Patient is not in imminent risk of harm to self or others and has a safety plan that includes presenting to the closest ER or calling 911 if feeling unsafe.? Patient has been observed closely by nursing and unit staff throughout admission; patient has not engaged in any behaviors that suggest dangerousness to self or others and has demonstrated appropriate behaviors and impulse control
--- NOTE | 2024-04-09 08:55 | MHC.SHP ---
Pre-Procedural Eval Section A - 24 Hr Update-Section A only Date of Service: 04/10/24 The patient is an INPATIENT: No Changes since office visit: No Cold of Flu in the past 2 weeks, No New Medical Problems, No Changes in Medication and No Patient answered all questions Section B - Complete if H&P > 30 days Chief Complaint: depressed/si Allergies: Allergies Allergy/AdvReac Type Severity Reaction Status Date / Time haldol AdvReac Intermediate hyperammone Uncoded 04/08/24 02:09 isela Plan I have reviewed the history and physical and performed a pertinent physical examination on my patient. No changes have occurred unless specified. Time Spent With Patient Time: Total time managing care of this patient today ____ minutes.
== END 2024-04-07 13:12 | disposition home or self-care (01) | DRG 751 ==
LOC: HO.ED 04-02 12:38 → HO.PM5 04-02 12:50
PROVIDERS: Physician Assistant; Admitting Provider Psychiatry & Neurology Psychiatry; Emergency Provider Emergency Medicine; PCP Internal Medicine; Visit Provider Psychiatry & Neurology Psychiatry
DX: F33.3 Major depressive disorder, recurrent, severe with psychotic symptoms (principal); R45.851 Suicidal ideations; F11.20 Opioid dependence, uncomplicated; K40.90 Unilateral inguinal hernia, without obstruction or gangrene, not specified as recurrent; F17.210 Nicotine dependence, cigarettes, uncomplicated; F14.10 Cocaine abuse, uncomplicated; B19.20 Unspecified viral hepatitis C without hepatic coma; Z71.6 Tobacco abuse counseling; Z79.899 Other long term (current) drug therapy
CPT/HCPCS: 36415; 73201; 80048; 80053; 80307; 81003; 83605; 85025; 85652; 86140; 87040; 93005; 99285; Q9967; S9485

== ENCOUNTER → 2024-04-02 09:12 | Outpatient (BNV) | payer OTHER, SELFPAY | PROVIDERS: Admitting Provider Psychiatry & Neurology Psychiatry; Emergency Provider Emergency Medicine; PCP Internal Medicine; Visit Provider Internal Medicine | DX: R00.1 Bradycardia, unspecified (principal) | CPT/HCPCS: 93010 ==

== ENCOUNTER → 2024-04-02 12:38 | Outpatient (BNV) | payer OTHER, SELFPAY | PROVIDERS: Admitting Provider Psychiatry & Neurology Psychiatry; Emergency Provider Emergency Medicine; PCP Internal Medicine; Visit Provider Surgery | DX: K40.90 Unilateral inguinal hernia, without obstruction or gangrene, not specified as recurrent (principal) | CPT/HCPCS: 99222 ==

== ENCOUNTER → 2024-04-02 12:38 | Outpatient (BNV) | payer OTHER, SELFPAY | PROVIDERS: Admitting Provider Psychiatry & Neurology Psychiatry; Emergency Provider Emergency Medicine; PCP Internal Medicine; Visit Provider Psychiatry & Neurology Psychiatry | DX: F33.3 Major depressive disorder, recurrent, severe with psychotic symptoms (principal); F14.10 Cocaine abuse, uncomplicated; F11.90 Opioid use, unspecified, uncomplicated; K40.90 Unilateral inguinal hernia, without obstruction or gangrene, not specified as recurrent; B19.20 Unspecified viral hepatitis C without hepatic coma | CPT/HCPCS: 99231; 99232 ==

== ENCOUNTER 2024-04-08 00:54 | Emergency (ER) | payer OTHER, SELFPAY ==
--- NOTE | ~2024-04-08 | CT_ITS ---
EXAMINATION: CT ABDOMEN AND PELVIS WITHOUT CONTRAST CLINICAL INFORMATION: Severe right hernia pain. COMPARISON: CT abdomen pelvis 03/19/2024. TECHNIQUE: Multidetector volumetric imaging was performed from the superior aspect of the liver through the pubic symphysis. Sagittal and coronal reformatted images were obtained on the technologist's workstation. This CT examination was performed using dose optimization techniques as appropriate, variously including the following: *Automated exposure control *Adjustment of mA and/or kV according to patient size (this includes techniques or standardized protocols for targeted exams where dose is matched to indication/reason for exam; i.e. extremities or head) *Use of iterative reconstruction technique DLP: 500 mGy-cm FINDINGS: LUNG BASES: The visualized lung bases are unremarkable. LIVER, GALLBLADDER, AND BILIARY TREE: The appendix measures 20 cm in maximum dimension. The gallbladder is unremarkable with no evidence of radiopaque gallstones, gallbladder wall thickening, or obvious pericholecystic inflammatory changes. PANCREAS: Unremarkable. SPLEEN: Unremarkable. ADRENAL GLANDS: Unremarkable. KIDNEYS AND URETERS: The kidneys are normal in size, shape, and attenuation. No hydronephrosis, hydroureter, or calculi seen. No perinephric stranding. BLADDER: Unremarkable. GASTROINTESTINAL TRACT: Normal appendix. No free intraperitoneal fluid or gas collections. No intestinal dilatation or mural thickening. ABDOMINAL WALL: Again noted is a 2.3 cm x 3.6 cm x 1.8 cm homogeneous intermediate low attenuation focus within the right inguinal canal unchanged in appearance compared with 03/19/2024. Left inguinal canal is normal in appearance. The scrotum is minimally included in the image [id number]. LYMPH NODES: Increasing noted borderline lymph nodes correlate with lymph nodes at the upper limits of normal size on the current examination within the upper abdomen. VASCULAR: Unremarkable. PELVIC VISCERA: Unremarkable. OSSEOUS STRUCTURES: Unremarkable. CT/CT abdomen pelvis wo IV con IMPRESSION: *Unchanged hypodense structure within the right inguinal canal stable in appearance compared with 03/19/2024 measuring 2.3 cm x 3.16 x 1.8 cm. As previously noted, this finding is suspicious for an undistended testicle or possibly focal fluid within the right inguinal canal. The stability of this finding is suspicious for an undescended testis. No adjacent soft tissue inflammatory changes. No associated intestinal herniation. *Normal appendix. *Hepatomegaly.
[2024-04-08 02:06] VITALS: BMI 25.6
--- NOTE | 2024-04-08 02:50 | MHC.EDTECH ---
Patient was brought into triage area,labs drawn and sent to lab,patient is unable to give a urine at this time.
[2024-04-08 02:56] LABS: Basophils Percent Auto 0.4 % (0-2); Eosinophils Percent Auto 0.1 % (0-4); Hemoglobin 15.1 g/dl (14.0-18.0); Imm Gran Abs Auto 0.03 X10*3/uL (0.00-0.03); Imm Gran Pct Auto 0.3 % (0.0-0.4); Lymphocytes Absolute Auto 1.8 X10*3/uL (1.2-4.9); Lymphocytes Percent Auto 20.1 % (20-40); MANUAL DIFF FLAG NO; Mean Corpuscular HGB Conc 33.6 g/dl (31.0-36.0); Mean Corpuscular Volume 92.4 fL (80.0-98.0); Mean Platelet Volume 10.2 fL (9.4-12.4); Monocytes Absolute Auto 0.8 X10*3/uL (0.1-1.2); Monocytes Percent Auto 8.8 % (2-11); Neutrophils Absolute Auto 6.4 x10*3/uL (2.0-8.3); Neutrophils Percent Auto 70.3 % (45-73); Platelet Count 202 X10*3/uL (160-400); Red Blood Count 4.87 X10*6/uL (4.60-5.80); Red Cell Distribution Width 13.2 % (11.0-16.0); White Blood Count 9.2 X10*3/uL (4.8-10.8)
[2024-04-08 03:11] LABS: Anion Gap 16 (12-20); Blood Urea Nitrogen 19 mg/dL (9-16); Calcium 10.1 mg/dL (8.4-10.2); Carbon Dioxide 23 mmol/L (22-29); Chloride 105 mmol/L (96-108); Estimated Glomerular Filt Rate > 60; Glucose Random 120 mg/dL (60-115); Potassium 4.3 mmol/L (3.3-5.1); Sodium 140 mmol/L (135-145)
--- NOTE | 2024-04-08 04:38 | MHC.EDTECH ---
Patient was pull over into hospital attire All belongings are lock in C5 plan of care ongoing
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
[2024-04-08 06:09] VITALS: BP 117/71; PULSE 55; RESP 18; TEMP 36.9; O2SAT 98
[2024-04-08 07:02] VITALS: BP 117/71; PULSE 55; RESP 18; TEMP 36.9; O2SAT 98
== END 2024-04-08 07:02 | disposition home or self-care (01) ==
PROVIDERS: Emergency Provider Emergency Medicine
DX: R10.31 Right lower quadrant pain (principal); F14.10 Cocaine abuse, uncomplicated; Z79.899 Other long term (current) drug therapy
CPT/HCPCS: 36415; 74176; 80048; 85025; 99283; 99284

== ENCOUNTER → 2024-04-10 10:04 | Day surgery (SDC) | payer OTHER, SELFPAY ==
[2024-04-10 10:49] VITALS: BMI 25.4
[2024-04-10 11:38] VITALS: BP 99/62; PULSE 49; RESP 16; TEMP 36.1; O2SAT 96
[2024-04-10] MEDS: Lactated Ringers 1,000 ML 100 ML IVCONT (11:38)
--- NOTE | 2024-04-10 12:51 | PC.NURSE ---
Pt not able to proceed with planned surgical procedure due to inability to obtain IV access. Multiple attempts made by nursing and anesthesia. Pt to be rescheduled by Dr Lo office once access obtained. Pt d/c home stable with all belogings.
== END | disposition home or self-care (01) ==
PROVIDERS: Visit Provider Surgery
DX: K40.90 Unilateral inguinal hernia, without obstruction or gangrene, not specified as recurrent (principal); Z53.8 Procedure and treatment not carried out for other reasons; F33.3 Major depressive disorder, recurrent, severe with psychotic symptoms; R45.851 Suicidal ideations; F19.10 Other psychoactive substance abuse, uncomplicated; F10.10 Alcohol abuse, uncomplicated; B19.20 Unspecified viral hepatitis C without hepatic coma; F17.210 Nicotine dependence, cigarettes, uncomplicated
CPT/HCPCS: J0690

== ENCOUNTER 2024-04-13 22:39 | Emergency (ER) | payer OTHER, SELFPAY ==
[2024-04-13 22:44] VITALS: BP 130/67; PULSE 55; RESP 17; TEMP 37.1; O2SAT 94
[2024-04-13 22:47] VITALS: BMI 25.4
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
[2024-04-13 23:31] LABS: MANUAL DIFF FLAG NO
[2024-04-13 23:36] LABS: Basophils Percent Auto 0.5 % (0-2); Eosinophils Absolute Auto 0.1 X10*3/uL (0.0-0.4); Eosinophils Percent Auto 2.1 % (0-4); Hematocrit 43.3 % (42.0-52.0); Hemoglobin 14.3 g/dl (14.0-18.0); Imm Gran Abs Auto 0.02 X10*3/uL (0.00-0.03); Imm Gran Pct Auto 0.4 % (0.0-0.4); Lymphocytes Absolute Auto 1.8 X10*3/uL (1.2-4.9); Lymphocytes Percent Auto 31.6 % (20-40); Mean Corpuscular Hemoglobin 30.8 pg (27.0-33.0); Mean Corpuscular Volume 93.3 fL (80.0-98.0); Mean Platelet Volume 10.4 fL (9.4-12.4); Monocytes Absolute Auto 0.7 X10*3/uL (0.1-1.2); Monocytes Percent Auto 12.8 % (2-11); Neutrophils Percent Auto 52.6 % (45-73); Platelet Count 167 X10*3/uL (160-400); Red Blood Count 4.64 X10*6/uL (4.60-5.80); Red Cell Distribution Width 13.2 % (11.0-16.0); White Blood Count 5.6 X10*3/uL (4.8-10.8)
[2024-04-13 23:50] LABS: Alanine Aminotransferase 183 U/L (0-40); Albumin Level 3.9 g/dL (3.5-5.0); Alkaline Phosphatase 102 U/L (39-117); Anion Gap 16 (12-20); Aspartate Amino Transferase 138 U/L (5-37); Bilirubin Total 0.3 mg/dL (0.0-1.0); Blood Urea Nitrogen 11 mg/dL (9-16); Calcium 9.2 mg/dL (8.4-10.2); Carbon Dioxide 21 mmol/L (22-29); Chloride 105 mmol/L (96-108); Creatinine Clr Calc Pharmacy 108.8; Estimated Glomerular Filt Rate > 60; Ethanol < 10 mg/dL; Glucose Random 129 mg/dL (60-115); Potassium 4.1 mmol/L (3.3-5.1); Sodium 138 mmol/L (135-145); Total Protein 7.6 g/dL (6.5-8.0)
--- NOTE | 2024-04-14 08:00 | PC.NURSE ---
Methadone Verification Dose verified with Kaela Andrew RN. 100mg last dosed 04/13/24 @ 0729. Verification form faxed to pharmacy.
--- NOTE | 2024-04-14 08:16 | HE.PHANOTE ---
Methadone Pt receives from [facility] ([phone]). Per Kaela RN at facility, pt last received 100mg on 04/13/24 @ 8798.
[2024-04-14 08:37] LABS: Appearance Urine Clear; Color Urine Yellow; Glucose Urine UA Negative (Negative); Leukocyte Esterase Urine Negative (Negative); Nitrite Urine Negative (Negative); Urine Blood Negative (Negative); Urine Ketones Negative (Negative); Urine Protein Negative (Neg-Trace)
[2024-04-14] MEDS: methADONE HCl 20 MG/2 ML ORAL.CONC 100 MG PO (08:50)
[2024-04-14] MEDS: Gabapentin 300 MG CAPSULE PO (08:50)
[2024-04-14] MEDS: Escitalopram Oxalate 20 MG TABLET PO (08:50)
[2024-04-14 08:54] LABS: Amphetamine Screen Urine Not Detected (Not Detect); Barbiturates, Urine Not Detected (Not Detect); Benzodiazepines Screen Urine Not Detected (Not Detect); Buprenorphine Scr Not Detected (Not Detect); Cannabinoid Screen Urine Not Detected (Not Detect); Cocaine Screen Urine POSITIVE (Not Detect); Fentanyl, urine POSITIVE (Not Detect); Methadone Screen, Urine Positive (Not Detect); Opiate Screen Urine Not Detected (Not Detect); Oxycodone Screen Urine Not Detected (Not Detect); Phencyclidine Screen Urine Not Detected (Not Detect)
[2024-04-14 11:47] VITALS: BP 130/67; PULSE 55; RESP 17; TEMP 37.1; O2SAT 94
== END 2024-04-14 11:57 | disposition home or self-care (01) ==
PROVIDERS: Emergency Provider Emergency Medicine Emergency Medical Services
DX: R44.0 Auditory hallucinations (principal); F33.1 Major depressive disorder, recurrent, moderate; R45.851 Suicidal ideations; F51.01 Primary insomnia; Z79.899 Other long term (current) drug therapy
CPT/HCPCS: 36415; 80053; 80307; 81003; 85025; 99284; S9485

== ENCOUNTER → 2024-04-17 07:52 | Day surgery (SDC) | payer OTHER, SELFPAY ==
--- NOTE | 2024-04-16 08:46 | MHC.SHP ---
Pre-Procedural Eval Section A - 24 Hr Update-Section A only Date of Service: 04/17/24 The patient is an INPATIENT: No Changes since office visit: No Cold of Flu in the past 2 weeks, No New Medical Problems, No Changes in Medication and No Patient answered all questions Section B - Complete if H&P > 30 days Chief Complaint: Unilateral inguinal hernia, without obstruction Allergies: Allergies Allergy/AdvReac Type Severity Reaction Status Date / Time haldol AdvReac Intermediate hyperammone Uncoded 04/13/24 22:49 isela Review of Systems Sugical H&P ROS: Negative: Constitution, Cardiovascular, Respiratory, Neurological, Psychiatric, Hem-Onc, Allergic/Immunologic, Gastrointestinal, Genitourinary, Musculoskeletal, Integumentary, Endocrine and Eyes/Ears/Nose/Throat Exam Surgical H&P Exam: Normal: HEENT, Normal: Heart, Normal: Lungs, Normal: Extremities, Normal: Abdomen, Normal: Skin and Normal: Neurological Plan I have reviewed the history and physical and performed a pertinent physical examination on my patient. No changes have occurred unless specified. Time Spent With Patient Time: Total time managing care of this patient today ____ minutes.
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
[2024-04-17 08:24] LABS: Amphetamine Screen Urine Not Detected (Not Detect); Barbiturates, Urine Not Detected (Not Detect); Benzodiazepines Screen Urine Not Detected (Not Detect); Buprenorphine Scr Not Detected (Not Detect); Cannabinoid Screen Urine Not Detected (Not Detect); Cocaine Screen Urine POSITIVE (Not Detect); Fentanyl, urine POSITIVE (Not Detect); Methadone Screen, Urine Positive (Not Detect); Opiate Screen Urine POSITIVE (Not Detect); Oxycodone Screen Urine Not Detected (Not Detect); Phencyclidine Screen Urine Not Detected (Not Detect)
--- NOTE | 2024-04-17 08:44 | PC.NURSE ---
pt provided a urine tox due to hx drug use. resulted positive for opiates, methadone, heroin, cocaine. anesthesia made aware and surgery cancelled for today. told pt dangers of drugs in system under anesthesia and told to refrain for at least 1 week.pt states will go into detox today. going to office to reschedule.
== END ==
LOC: HO.SSS 07:52
PROVIDERS: Nurse Practitioner; Visit Provider Surgery
DX: K40.90 Unilateral inguinal hernia, without obstruction or gangrene, not specified as recurrent (principal); Z53.09 Procedure and treatment not carried out because of other contraindication; R82.5 Elevated urine levels of drugs, medicaments and biological substances
CPT/HCPCS: 80307

== ENCOUNTER 2024-04-19 00:21 | Emergency (ER) | payer OTHER, SELFPAY ==
[2024-04-19 00:36] VITALS: BP 138/88; PULSE 56; RESP 16; TEMP 35.7; O2SAT 96; BMI 26.6
--- NOTE | 2024-04-19 01:24 | PC.NURSE ---
pt changed over by security
[2024-04-19 01:57] VITALS: BP 129/72; PULSE 60; RESP 12; TEMP 36.6; O2SAT 98
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
[2024-04-19] MEDS: LORazepam 1 MG TABLET PO (02:32)
--- NOTE | 2024-04-19 02:34 | PC.NURSE ---
Pt given food and something to drink , medicated per mar.
[2024-04-19 03:11] LABS: MANUAL DIFF FLAG NO
[2024-04-19 03:12] LABS: Basophils Percent Auto 0.6 % (0-2); Eosinophils Absolute Auto 0.2 X10*3/uL (0.0-0.4); Hematocrit 40.7 % (42.0-52.0); Hemoglobin 13.5 g/dl (14.0-18.0); Imm Gran Abs Auto 0.01 X10*3/uL (0.00-0.03); Imm Gran Pct Auto 0.2 % (0.0-0.4); Lymphocytes Absolute Auto 1.9 X10*3/uL (1.2-4.9); Lymphocytes Percent Auto 39.9 % (20-40); Mean Corpuscular HGB Conc 33.2 g/dl (31.0-36.0); Mean Corpuscular Hemoglobin 31.2 pg (27.0-33.0); Monocytes Absolute Auto 0.8 X10*3/uL (0.1-1.2); Monocytes Percent Auto 16.2 % (2-11); Neutrophils Absolute Auto 1.8 x10*3/uL (2.0-8.3); Neutrophils Percent Auto 38.1 % (45-73); Platelet Count 149 X10*3/uL (160-400); Red Blood Count 4.33 X10*6/uL (4.60-5.80); Red Cell Distribution Width 13.1 % (11.0-16.0); White Blood Count 4.8 X10*3/uL (4.8-10.8)
--- NOTE | 2024-04-19 03:13 | PC.NURSE ---
blood work drawn, pt sleeping at this time.
[2024-04-19 03:27] LABS: Alanine Aminotransferase 141 U/L (0-40); Albumin Level 3.3 g/dL (3.5-5.0); Alkaline Phosphatase 92 U/L (39-117); Anion Gap 12 (12-20); Aspartate Amino Transferase 111 U/L (5-37); Bilirubin Direct < 0.2 mg/dL (0.0-0.5); Bilirubin Total 0.2 mg/dL (0.0-1.0); Blood Urea Nitrogen 10 mg/dL (9-16); Calcium 8.9 mg/dL (8.4-10.2); Carbon Dioxide 29 mmol/L (22-29); Chloride 103 mmol/L (96-108); Creatinine Clr Calc Pharmacy 110.1; Estimated Glomerular Filt Rate > 60; Ethanol < 10 mg/dL; Glucose Random 122 mg/dL (60-115); Potassium 3.7 mmol/L (3.3-5.1); Sodium 140 mmol/L (135-145); Total Protein 6.7 g/dL (6.5-8.0)
[2024-04-19 04:00] VITALS: BP 134/84; PULSE 55; RESP 12; TEMP 36.6; O2SAT 97
--- NOTE | 2024-04-19 04:50 | PC.NURSE ---
pt is sleeping no sign of distress
--- NOTE | 2024-04-19 05:41 | PC.NURSE ---
pt sleeping at this time.
[2024-04-19 05:50] VITALS: BP 131/78; PULSE 51; RESP 12; TEMP 36.6; O2SAT 97
--- NOTE | 2024-04-19 08:02 | HE.PHANOTE ---
Methadone [facility] has received the methadone verification form from Barbara. Patient last received methadone 100 mg from [facility] on 04/18 @ 0815. Information from ADAM Conteh at the clinic. Corazon Dickerson, JenniferD
--- NOTE | 2024-04-19 08:03 | PC.NURSE ---
[facility] called by this RN - spoke w/ Yady MEDINA in regards to last dose. verification form filled out/faxed to pharmacy/placed in pt's chart.
[2024-04-19 08:07] VITALS: BP 131/82; PULSE 50; RESP 12; TEMP 36.7; O2SAT 94
[2024-04-19 08:15] LABS: Amphetamine Screen Urine Not Detected (Not Detect); Barbiturates, Urine Not Detected (Not Detect); Benzodiazepines Screen Urine Not Detected (Not Detect); Buprenorphine Scr Not Detected (Not Detect); Cannabinoid Screen Urine Not Detected (Not Detect); Cocaine Screen Urine POSITIVE (Not Detect); Fentanyl, urine POSITIVE (Not Detect); Methadone Screen, Urine Positive (Not Detect); Opiate Screen Urine POSITIVE (Not Detect); Oxycodone Screen Urine Not Detected (Not Detect); Phencyclidine Screen Urine Not Detected (Not Detect)
--- NOTE | 2024-04-19 09:03 | MHC.CARE ---
checked in briefly with patient, who appears somnolent. he confirmed he is seeking detox, is agreeable to t/w lyfting him to [place] when he is more alert. Evaristo is very aware of area local resources for both [facility] and MH and has been given a resource booklet as well.
[2024-04-19 09:14] VITALS: BP 131/82; PULSE 50; RESP 12; TEMP 36.7; O2SAT 94
[2024-04-19] MEDS: methADONE HCl 20 MG/2 ML ORAL.CONC 100 MG PO (09:23)
--- NOTE | 2024-04-19 09:26 | PC.NURSE ---
belongings obtained/returned to pt. methadone administered per provider order.
== END 2024-04-19 09:30 | disposition other institution (70) ==
PROVIDERS: Emergency Provider Emergency Medicine
DX: F10.10 Alcohol abuse, uncomplicated (principal); F19.10 Other psychoactive substance abuse, uncomplicated; F11.20 Opioid dependence, uncomplicated; B19.20 Unspecified viral hepatitis C without hepatic coma; F17.210 Nicotine dependence, cigarettes, uncomplicated
CPT/HCPCS: 36415; 80048; 80076; 80307; 85025; 99283; 99284

== ENCOUNTER 2024-05-05 22:41 | Emergency (ER) | payer OTHER, SELFPAY ==
--- NOTE | 2024-05-05 | ECG_ITS ---
Test Reason : DEPRESSION Blood Pressure : / mmHG Vent. Rate : 053 BPM Atrial Rate : 053 BPM P-R Int : 160 ms QRS Dur : 080 ms QT Int : 454 ms P-R-T Axes : 017 075 045 degrees QTc Int : 426 ms Sinus bradycardia Otherwise normal ECG When compared with ECG of 02-APR-2024 09:12, No significant change was found Referred By: Generic ED Physician Electronically Signed By:CURTIS NEFF
[2024-05-05 22:41] VITALS: BP 130/84; PULSE 58; RESP 20; TEMP 37; O2SAT 97; BMI 26.6
[2024-05-05 23:44] VITALS: BP 136/81; PULSE 66; RESP 19; TEMP 36.7; O2SAT 97
--- NOTE | 2024-05-05 23:46 | PC.NURSE ---
per security, patient's belongings secured in [place] C6
[2024-05-06 00:12] LABS: Basophils Percent Auto 0.6 % (0-2); Eosinophils Absolute Auto 0.2 X10*3/uL (0.0-0.4); Eosinophils Percent Auto 3.5 % (0-4); Hematocrit 43.4 % (42.0-52.0); Hemoglobin 14.5 g/dl (14.0-18.0); Lymphocytes Absolute Auto 2.5 X10*3/uL (1.2-4.9); Lymphocytes Percent Auto 48.2 % (20-40); MANUAL DIFF FLAG NO; Mean Corpuscular HGB Conc 33.4 g/dl (31.0-36.0); Mean Corpuscular Volume 92.9 fL (80.0-98.0); Mean Platelet Volume 9.9 fL (9.4-12.4); Monocytes Absolute Auto 0.7 X10*3/uL (0.1-1.2); Monocytes Percent Auto 14.1 % (2-11); Neutrophils Absolute Auto 1.7 x10*3/uL (2.0-8.3); Neutrophils Percent Auto 33.6 % (45-73); Platelet Count 144 X10*3/uL (160-400); Red Blood Count 4.67 X10*6/uL (4.60-5.80); Red Cell Distribution Width 13.1 % (11.0-16.0); White Blood Count 5.1 X10*3/uL (4.8-10.8)
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
[2024-05-06 00:40] LABS: Alanine Aminotransferase 109 U/L (0-40); Albumin Level 3.4 g/dL (3.5-5.0); Alkaline Phosphatase 96 U/L (39-117); Anion Gap 15 (12-20); Aspartate Amino Transferase 94 U/L (5-37); Bilirubin Total 0.3 mg/dL (0.0-1.0); Blood Urea Nitrogen 12 mg/dL (9-16); Calcium 8.8 mg/dL (8.4-10.2); Carbon Dioxide 24 mmol/L (22-29); Chloride 105 mmol/L (96-108); Creatinine Clr Calc Pharmacy 101.9; Estimated Glomerular Filt Rate > 60; Glucose Random 78 mg/dL (60-115); Potassium 4.4 mmol/L (3.3-5.1); Sodium 140 mmol/L (135-145); Total Protein 7.1 g/dL (6.5-8.0)
[2024-05-06 01:07] LABS: Amphetamine Screen Urine Not Detected (Not Detect); Barbiturates, Urine Not Detected (Not Detect); Benzodiazepines Screen Urine Not Detected (Not Detect); Buprenorphine Scr Not Detected (Not Detect); Cannabinoid Screen Urine Not Detected (Not Detect); Cocaine Screen Urine POSITIVE (Not Detect); Fentanyl, urine POSITIVE (Not Detect); Methadone Screen, Urine Positive (Not Detect); Opiate Screen Urine Not Detected (Not Detect); Oxycodone Screen Urine Not Detected (Not Detect); Phencyclidine Screen Urine Not Detected (Not Detect)
[2024-05-06 02:10] LABS: Acetaminophen LAB < 3 mcg/mL (<30); Salicylate < 5.0 mg/dL (15-30)
--- NOTE | 2024-05-06 02:22 | MHC.EDTECH ---
all belongings LOCKER #5. CHECKED BY SECURITY
--- NOTE | 2024-05-06 06:37 | MHC.EDTECH ---
ALL BELONGINGS IN LOCKER #5
[2024-05-06 06:38] VITALS: BP 114/84; PULSE 52; RESP 16; TEMP 36.6; O2SAT 95
[2024-05-06 08:57] VITALS: BP 114/84; PULSE 52; RESP 16; TEMP 36.6; O2SAT 95
== END 2024-05-06 08:57 | disposition home or self-care (01) ==
PROVIDERS: Emergency Provider Internal Medicine
DX: F33.1 Major depressive disorder, recurrent, moderate (principal); F41.9 Anxiety disorder, unspecified; R45.851 Suicidal ideations; R00.1 Bradycardia, unspecified; Z79.899 Other long term (current) drug therapy
CPT/HCPCS: 36415; 80053; 80143; 80179; 80307; 85025; 93005; 99284; 99285; S9485

== ENCOUNTER 2024-08-15 04:25 | Emergency (ER) | payer OTHER, SELFPAY ==
[2024-08-15 04:42] VITALS: BP 145/87; PULSE 69; RESP 18; TEMP 36.7; O2SAT 98; BMI 22.8
--- NOTE | 2024-08-15 05:01 | MHC.EDTECH ---
Patient refused workblood. Patient confused
== END 2024-08-15 09:58 | disposition left against medical advice (07) ==
LOC: HO.ED 09:49
PROVIDERS: Emergency Provider Emergency Medicine
DX: F11.10 Opioid abuse, uncomplicated (principal)
CPT/HCPCS: 99281

== ENCOUNTER 2024-08-26 12:18 | Emergency (ER) | payer OTHER, SELFPAY ==
[2024-08-26 12:27] VITALS: PULSE 66; RESP 16; O2SAT 99; BMI 22.5
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
--- NOTE | 2024-08-26 13:23 | PC.NURSE ---
pt refusing lab draws until he has something to eat. dr prieto was notified and cleared pt to eat.
--- NOTE | 2024-08-26 14:26 | PC.NURSE ---
Pt denies SI/HI when triaged; pt agreed to change into proper attire and belongings secured; pt refuses to have labs drawn or answer any safety questions at this time; aware; 1:[address]; pt sitting quietly on stretcher at this time
[2024-08-26 14:52] LABS: Appearance Urine Clear; Color Urine Yellow; Glucose Urine UA Negative (Negative); Leukocyte Esterase Urine Negative (Negative); Nitrite Urine Negative (Negative); Urine Blood Negative (Negative); Urine Ketones Negative (Negative); Urine Protein Negative (Neg-Trace)
[2024-08-26 15:02] LABS: Amphetamine Screen Urine Not Detected (Not Detect); Barbiturates, Urine Not Detected (Not Detect); Benzodiazepines Screen Urine Not Detected (Not Detect); Buprenorphine Scr Not Detected (Not Detect); Cannabinoid Screen Urine Not Detected (Not Detect); Cocaine Screen Urine Not Detected (Not Detect); Fentanyl, urine POSITIVE (Not Detect); Methadone Screen, Urine Positive (Not Detect); Opiate Screen Urine Not Detected (Not Detect); Oxycodone Screen Urine Not Detected (Not Detect); Phencyclidine Screen Urine Not Detected (Not Detect)
--- NOTE | 2024-08-26 15:03 | PC.NURSE ---
pt continues to be paranoid, wanting to leave, provider is aware of this- care team also aware, this nurse spoke with POD nurse to hopefully facilitate the patient bring brought over there soon. charge is also aware, pt has 1:1 sitter, urine was obtained but pt gave techs a hard time about scanning his wrist band to send it. he is also continuing to refuse lab draws and refusing vitals.
[2024-08-26 15:04] VITALS: PULSE 18
[2024-08-26 15:57] VITALS: PULSE 92; RESP 14; O2SAT 97
--- NOTE | 2024-08-26 15:58 | PC.NURSE ---
Assumed care of patient at 1545, patient brought to [facility] from 13[facility]. Patient calm and cooperative at this time. Pt is well known to this administrative underwriter through multiple previous interactions. Patient does appear to be more decompensated than usual, paranoid at this time. Patient on s12
--- NOTE | 2024-08-26 19:52 | PC.NURSE ---
patient appears seated in rear communal area, appears irritable and periodically self dialoguing, states ready to leave now
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
--- NOTE | 2024-08-27 | ECG_ITS ---
Test Reason : CHECK FOR PROLONG QTC Blood Pressure : */* mmHG Vent. Rate : 56 BPM Atrial Rate : 56 BPM P-R Int : 134 ms QRS Dur : 76 ms QT Int : 414 ms P-R-T Axes : 60 87 57 degrees QTcB Int : 399 ms Sinus bradycardia Otherwise normal ECG When compared with ECG of 05-May-2024 22:44, Nonspecific T wave abnormality no longer evident in Anterior leads Referred By: Kayleigh House Electronically Signed By: SHAYAN WONG
[2024-08-27] MEDS: LORazepam 2 MG/ML VIAL IM ×2 (00:36→02:21)
[2024-08-27] MEDS: OLANZapine 10 MG VIAL IM ×2 (00:37→02:21)
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
--- NOTE | 2024-08-27 02:40 | PC.NURSE ---
patient continues to struggle in restraint, during last administration patient states my radio doesnt work it has been reiterated the criteria for release but patient doesnt seem to acknowledge this.
[2024-08-27 02:48] VITALS: BP 150/96; PULSE 103; RESP 18; TEMP 37; O2SAT 95
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
[2024-08-27 06:27] LABS: MANUAL DIFF FLAG NO
[2024-08-27 06:28] LABS: Basophils Percent Auto 0.3 % (0-2); Eosinophils Percent Auto 0.1 % (0-4); Hematocrit 44.2 % (42.0-52.0); Hemoglobin 15.1 g/dl (14.0-18.0); Imm Gran Abs Auto 0.01 X10*3/uL (0.00-0.03); Imm Gran Pct Auto 0.1 % (0.0-0.4); Lymphocytes Absolute Auto 1.4 X10*3/uL (1.2-4.9); Lymphocytes Percent Auto 18.7 % (20-40); Mean Corpuscular HGB Conc 34.2 g/dl (31.0-36.0); Mean Corpuscular Hemoglobin 30.6 pg (27.0-33.0); Mean Corpuscular Volume 89.7 fL (80.0-98.0); Mean Platelet Volume 10.1 fL (9.4-12.4); Monocytes Absolute Auto 0.8 X10*3/uL (0.1-1.2); Monocytes Percent Auto 10.9 % (2-11); Neutrophils Absolute Auto 5.4 x10*3/uL (2.0-8.3); Neutrophils Percent Auto 69.9 % (45-73); Platelet Count 182 X10*3/uL (160-400); Red Blood Count 4.93 X10*6/uL (4.60-5.80); Red Cell Distribution Width 13.4 % (11.0-16.0); White Blood Count 7.7 X10*3/uL (4.8-10.8)
[2024-08-27 06:44] LABS: Alanine Aminotransferase 143 U/L (0-40); Albumin Level 4.1 g/dL (3.5-5.0); Alkaline Phosphatase 107 U/L (39-117); Anion Gap 14 (12-20); Aspartate Amino Transferase 100 U/L (5-37); Bilirubin Total 0.6 mg/dL (0.0-1.0); Blood Urea Nitrogen 17 mg/dL (9-16); Calcium 9.1 mg/dL (8.4-10.2); Carbon Dioxide 23 mmol/L (22-29); Chloride 111 mmol/L (96-108); Creatinine Clr Calc Pharmacy 122.8; Estimated Glomerular Filt Rate > 60; Ethanol < 10 mg/dL; Glucose Random 111 mg/dL (60-115); Sodium 144 mmol/L (135-145); Total Protein 7.7 g/dL (6.5-8.0)
--- NOTE | 2024-08-27 06:48 | HE.PHANOTE ---
RE METHADONE VERIFICATION LAST DOSE 110 MG GIVEN 08/20/24 @N
--- NOTE | 2024-08-27 07:19 | PC.NURSE ---
Care of Pt assumed at change of shift. Pt is currently resting comfortably with eye closed on bed. NAD noted at this time. Breakfast tray provided and left at bedside.
--- NOTE | 2024-08-27 08:35 | PHA.MEDREC ---
Addendum entered by Ioana Chirinos RPh 08/27/24 08:57: reviewed by [facility]. Original Note: Pharmacy Consult ? Medication Reconciliation Pharmacy has reviewed the medication reconciliation done by nursing.
--- NOTE | 2024-08-27 09:49 | PC.NURSE ---
Pt awakes and uses the restroom. When returning to the room Pt requests his breakfast and is advised it is at his bedside. Pt sits as table area for an extended period time but does not appear to eat. Pt currently resting with his head on the table.
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
--- NOTE | 2024-08-27 22:15 | MHC.EDTECH ---
Pt vitals: Tempertaure 99.8, Pulse 75, BP 141/93, Oxygen 98% on room air
--- NOTE | 2024-08-27 22:38 | MHC.CARE ---
Patient was seen by psychiatry and per psych consult did not appear to meet criteria for an inpatient psychiatric admission at this time and was requesting to be discharged. Due to not appearing to meet criteria secondary to psychiatry evaluation occurring his admission to [facility] was cancelled and per records, pt will discharge to a local group home. 1st sales account coordinator will follow up in AM to discharge patient back to the community as recommended. Information was passed to pod RN and ED attending will be updated at this time.
--- NOTE | 2024-08-28 08:10 | PC.NURSE ---
this RN resumed care of pt at 0645. pt presents as extremely delusional - having conversations with himself, using his hand as if he were speaking w/ someone on the phone, and having a conversation w/ people who present on the tv. pt continuously pacing back and forth through the milieu. when initially interacting w/ the pt, pt seems to snap out of it and become completely alert and oriented x 4. pt able to answer questions/follow commands appropriately. pt denies thoughts of SI/HI/AV/VH. pt otherwise remains calm/cooperative at this time. per psych consultation, pt does not require inpatient level of care and will be discharged to a longterm. ETA of d/c unknown. plan of care ongoing.
[2024-08-28 08:50] VITALS: BP 0/0; PULSE 84; RESP 18; TEMP 36.5; O2SAT 100
== END 2024-08-28 08:58 | disposition home or self-care (01) ==
LOC: HO.ED 15:47 → HO.PM5 08-27 13:59 → HO.ED 08-28 08:39
PROVIDERS: Internal Medicine; Physician Assistant; Emergency Provider Emergency Medicine
DX: F33.1 Major depressive disorder, recurrent, moderate (principal); F11.10 Opioid abuse, uncomplicated; F17.210 Nicotine dependence, cigarettes, uncomplicated; F43.9 Reaction to severe stress, unspecified; R00.1 Bradycardia, unspecified; Z79.899 Other long term (current) drug therapy; Z51.81 Encounter for therapeutic drug level monitoring
CPT/HCPCS: 36415; 80053; 80307; 81003; 82550; 85025; 93005; 96372; 99285; J2060; J2359; S9485

== ENCOUNTER → 2024-08-27 10:52 | Outpatient (BNV) | payer OTHER, SELFPAY | PROVIDERS: Emergency Provider Emergency Medicine; Visit Provider Internal Medicine | DX: R00.1 Bradycardia, unspecified (principal) | CPT/HCPCS: 93010 ==

== ENCOUNTER → 2024-08-27 12:57 | Outpatient (BNV) | payer OTHER, SELFPAY | PROVIDERS: Admitting Provider Clinical Nurse Specialist Psychiatric/Mental Health, Adult; Emergency Provider Emergency Medicine; Visit Provider Social Worker | DX: F29 Unspecified psychosis not due to a substance or known physiological condition (principal); F11.90 Opioid use, unspecified, uncomplicated | CPT/HCPCS: 99285 ==

== ENCOUNTER 2024-11-02 23:06 | Emergency (ER) | payer OTHER, SELFPAY ==
--- NOTE | ~2024-11-02 | CT_ITS ---
CLINICAL HISTORY: painful right inguinal hernia, R O incarcerated h CT abdomen and pelvis with contrast Comparison: CT/SR - CT ABDOMEN PELVIS W IV CON - 03/19/24 02:18 EDT Findings: CT abdomen: Lung bases are clear. No acute bony lesions. Unchanged cysts within the left lobe of the liver measuring less than 1 cm in size. No concerning hepatic mass lesions. Liver is enlarged measuring 21 cm in craniocaudal dimension. Main portal vein is patent. Gallbladder is contracted. No calcified gallstones. Borderline splenomegaly. No focal splenic lesions. Pancreas, adrenal glands, and kidneys are unremarkable for acute findings. Simple cysts within the right kidney are unchanged. Moderate amount of ingested contents within the stomach. No dilated small bowel. No free fluid or free air. CT pelvis: No inguinal hernia identified. Urinary bladder is mildly distended. Mild concentric wall thickening of the urinary bladder. Moderate stool throughout the colon without colonic wall thickening or pericolonic inflammatory stranding. Appendix is normal. No free fluid or free air. IMPRESSION: 1. No right inguinal hernia. 2. Wall thickening of the urinary bladder can be seen with cystitis. Clinical correlation advised. This document has been electronically signed by: Raghavendra Clark MD on 11/03/2024 02:15:21
[2024-11-02 23:10] VITALS: BP 140/86; BP 142/96; PULSE 69; RESP 18; TEMP 36.5; O2SAT 96; O2SAT 97; BMI 25.0
--- NOTE | 2024-11-02 23:15 | PC.NURSE ---
pt personally requested to be changed over to hospital attire, ligature safe attire provided. pt came from [facility] on [facility] and has 1:1 sitter. belongings with sitter.
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
[2024-11-03 00:15] LABS: Basophils Percent Auto 0.4 % (0-2); Eosinophils Absolute Auto 0.4 X10*3/uL (0.0-0.4); Eosinophils Percent Auto 4.8 % (0-4); Hematocrit 40.5 % (42.0-52.0); Imm Gran Abs Auto 0.02 X10*3/uL (0.00-0.03); Imm Gran Pct Auto 0.3 % (0.0-0.4); Lymphocytes Absolute Auto 2.8 X10*3/uL (1.2-4.9); Lymphocytes Percent Auto 38.9 % (20-40); MANUAL DIFF FLAG NO; Mean Corpuscular HGB Conc 34.6 g/dl (31.0-36.0); Mean Corpuscular Hemoglobin 31.5 pg (27.0-33.0); Mean Corpuscular Volume 91.2 fL (80.0-98.0); Mean Platelet Volume 10.3 fL (9.4-12.4); Monocytes Absolute Auto 0.9 X10*3/uL (0.1-1.2); Monocytes Percent Auto 12.2 % (2-11); Neutrophils Absolute Auto 3.2 x10*3/uL (2.0-8.3); Neutrophils Percent Auto 43.4 % (45-73); Platelet Count 158 X10*3/uL (160-400); Red Blood Count 4.44 X10*6/uL (4.60-5.80); Red Cell Distribution Width 14.1 % (11.0-16.0); White Blood Count 7.3 X10*3/uL (4.8-10.8)
[2024-11-03 00:17] LABS: Appearance Urine Clear; Color Urine Yellow; Glucose Urine UA Negative (Negative); Leukocyte Esterase Urine Negative (Negative); Nitrite Urine Negative (Negative); PH 6.5 (5.0-9.0); Urine Blood Negative (Negative); Urine Ketones Negative (Negative); Urine Protein Negative (Neg-Trace)
[2024-11-03] MEDS: Ketorolac Tromethamine 15 MG/ML VIAL IVPUSH (00:18)
[2024-11-03] MEDS: 0.9 % Sodium Chloride 1,000 ML 999 ML IV (00:19)
[2024-11-03 00:30] LABS: Alanine Aminotransferase 170 U/L (0-40); Albumin Level 3.5 g/dL (3.5-5.0); Alkaline Phosphatase 107 U/L (39-117); Anion Gap 12 (12-20); Aspartate Amino Transferase 92 U/L (5-37); Bilirubin Direct 0.2 mg/dL (0.0-0.5); Bilirubin Total 0.3 mg/dL (0.0-1.0); Blood Urea Nitrogen 15 mg/dL (9-16); Calcium 8.8 mg/dL (8.4-10.2); Carbon Dioxide 25 mmol/L (22-29); Chloride 108 mmol/L (96-108); Creatinine Clr Calc Pharmacy 122.4; Estimated Glomerular Filt Rate > 60; Glucose Random 122 mg/dL (60-115); Lipase 65 U/L (8-78); Potassium 3.8 mmol/L (3.3-5.1); Sodium 141 mmol/L (135-145); Total Protein 6.7 g/dL (6.5-8.0)
[2024-11-03 00:31] LABS: Lactic Acid 0.8 mmol/L (0.5-2.0)
[2024-11-03] MEDS: iohexoL 350 MG/ML 100 ML INFUS..BTL 85 ML IV (00:55)
--- NOTE | 2024-11-03 03:21 | PC.NURSE ---
report given to Aleksey on [phone]. pt given food per request tolerating po. awaiting ems transport.
[2024-11-03 04:34] VITALS: BP 151/85; PULSE 65; RESP 16; TEMP 36.6; O2SAT 98
== END 2024-11-03 04:34 | disposition home or self-care (01) ==
PROVIDERS: Emergency Provider Emergency Medicine
DX: R10.31 Right lower quadrant pain (principal); B19.20 Unspecified viral hepatitis C without hepatic coma; F19.10 Other psychoactive substance abuse, uncomplicated; F17.210 Nicotine dependence, cigarettes, uncomplicated; F11.20 Opioid dependence, uncomplicated
CPT/HCPCS: 36415; 74177; 80048; 80076; 81003; 83605; 83690; 85025; 96360; 96361; 99284; J1885; Q9967

== ENCOUNTER → 2024-11-03 | Outpatient (BNV) | payer OTHER, SELFPAY | PROVIDERS: Emergency Provider Emergency Medicine; Visit Provider Radiology Diagnostic Radiology | DX: R10.9 Unspecified abdominal pain (principal) | CPT/HCPCS: 74177 ==